=== PATIENT | male | born 1945 | race Caucasian/White ===

== ENCOUNTER 2018-05-15 10:19 | Emergency (ER) | payer OTHER ==
[2018-05-15 11:40] LABS: Urine Blood NEGATIVE (NEG); Urine Glucose NEGATIVE (NEG); Urine Protein NEGATIVE (NEG)
[2018-05-15 11:45] LABS: Urine Bacteria NONE SEEN /HPF (NONE SEEN); Urine Culture Reflex Order NOT NEEDED; Urine RBC NONE SEEN /HPF (NONE SEEN)
--- NOTE | 2018-05-15 11:51 | RAD REPORT ---
EXAM DESCRIPTION: CT - Head Brain Wo Cont - 05/15/2018 11:12 am CLINICAL HISTORY: fall on eliquis<Reason For Exam>fall on eliquis COMPARISON: Head Brain Wo Cont dated 01/13/2018<Comparisons> TECHNIQUE: Axial 5 mm thick images of the head were obtained without IV contrast. All CT scans are performed using dose optimization technique as appropriate and may include automated exposure control or mA/KV adjustment according to patient size. FINDINGS: No intracranial hemorrhage, mass, edema or shift of mid-line structures. No acute infarcti on changes seen. Atrophy and chronic ischemic changes matches the January 13 study. Arterial and physiolog ic calcifications are present. Ventricles are normal. Mastoid air cells and visualized portions of the paranasal sinuses are clear. No acute bony findings. IMPRESSION: Negative non-contrast CT head examination for acute finding. Atrophy and chronic ischemic change similar to January 2010.
--- NOTE | 2018-05-15 11:56 | RAD REPORT ---
EXAM DESCRIPTION: CT - Stone Protocol - 05/15/2018 11:13 am CLINICAL HISTORY: FALL FLANK PAIN<Reason For Exam>FALL FLANK PAIN COMPARISON: Stone Protocol dated 11/09/2017<Comparisons> TECHNIQUE: Axial 5 mm thick images were obtained without oral or IV contrast. The [id number] span s the entirety of the system partially obscuring uppermost abdomen and lung bases. All CT scans are performed using dose optimization technique as appropriate and may include automated exposure control or mA/KV adjustment according to patient size. FINDINGS: No hydronephrosis is present and no obstructing ureteral calculi. No suspicious renal mass es. Isodense masses and pyelonephritis are not excluded on a stone protocol CT scan. Partially filled urinary bladder shows no suspicious finding. No prostate or seminal vesicle abnormality. Imaged portions of the liver, spleen and pancreas show no suspicious findings on non-contrast imaging . Cholecystectomy clips are present. No biliary tree dilatation. No significant adrenal finding. No gastric dilatation or wall thickening. Small bowel acute finding. Large amount of stool is present filling but not dilating the colon. No acute colon process. No hernia, mass or bulky lymphadenopathy noted. No free air, free fluid or inflammatory stranding. Po stsurgical changes are noted from prior right inguinal hernia repair. Prominent disc and bony degenerative changes are present. No acute or destructive bone process. Arter ial calcifications are present. IMPRESSION: Noncontrast CT abdomen and pelvis imaging shows no acute finding. Full findings are detailed in the body of the report. No significant change from comparison. Isodense masses and pyelonephritis are not excluded on stone protocol technique.
--- NOTE | 2018-05-15 12:07 | EDPHYS ---
Physician Documentation [facility] Name: Lee Ramon Age: 73 yrs Sex: Male : 1945 Arrival Date: 05/15/2018 Time: 10:22 Bed 26 Private MD: Josue Santo S ED Physician Victoriano Carballo HPI: 05/15 12:00 This 73 yrs old Male presents to ER via Ambulatory with complaints of Flank gs Pain. 12:00 The patient complains of pain in the left low back. The pain does not radiate. Onset: gs The symptoms/episode began/occurred acutely. Modifying factors: The symptoms are alleviated by nothing. the symptoms are aggravated by movement. Associated signs and symptoms: Pertinent negatives: dizziness, dysuria, hematuria. Severity of pain: At its worst the pain was moderate in the emergency department the pain is unchanged. The patient has experienced similar episodes in the past, a few times. sp fall slipped, no loc. Historical: - Allergies: 10:28 Adhesives; hj - Home Meds: 10:28 amantadine HCl 100 mg Oral cap 1 cap 2 times per day [Active]; Aricept 5 mg Oral tab 1 hj tab once daily [Active]; Ativan 0.5mg injection soln nightly [Active]; atorvastatin 40 mg Oral tab 1 tab once daily [Active]; Colace 100 mg Oral cap 1 cap once daily [Active]; CoQ-10 100 mg Oral cap daily [Active]; Coreg 12.5 mg Oral tab 1 tab 2 times per day [Active]; Eliquis 5 mg Oral tab 1 tab 2 times per day [Active]; Fortaz 2 gram intravenous solr every 8 hours for ESBL in brain [Active]; Keppra 500 mg Oral tab 1 tab 2 times per day [Active]; losartan 25 mg Oral tab 1 tab once daily [Active]; Milk of Magnesia 400 mg/5 mL Oral susp 30 mL as needed [Active]; Miralax 17 gram/dose Oral powd once daily [Active]; Lamictal 100 mg Oral tab 1 tab 2 times per day [Active]; Neurontin 300 mg Oral cap 1 cap 3 times per day [Active]; [place] 7.5-325 mg Oral tab 1 tab q8hr prn [Active]; furosemide 20 mg Oral tab 1 tab 2 times per day [Active]; ropinirole 12 mg Oral Tb24 1 tab nightly [Active]; selegiline HCl 5 mg Oral cap 1 cap 2 times per day [Active]; Sinemet 25-250 mg Oral tab 1 tab 3 times per day [Active]; spironolactone 25 mg Oral tab 1 tab once daily [Active]; tramadol 50 mg Oral tab 1 tab q6hr prn [Active]; Zoloft 50 mg Oral tab 1 tab once daily [Active]; Nuplazid 17 mg oral tab 2 tabs once daily [Active]; - PMHx: 10:28 Anxiety; CHF; 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 - Social history:: Smoking status: Patient/guardian denies using tobacco, Patient/guardian denies using alcohol. - Ebola Screening: : Patient negative for fever greater than or equal to 101.5 degrees Fahrenheit, and additional compatible Ebola Virus Disease symptoms Patient denies exposure to infectious person Patient denies travel to an Ebola-affected area in the 21 days before illness onset. ROS: 12:00 All other systems are negative. gs Exam: 12:00 Head/Face: Normocephalic, atraumatic. Cardiovascular: Regular rate and rhythm with a gs normal S1 and S2. No gallops, murmurs, or rubs. Normal PMI, no JVD. No pulse deficits. Respiratory: Lungs have equal breath sounds bilaterally, clear to auscultation and percussion. No rales, rhonchi or wheezes noted. No increased work of breathing, no retractions or nasal flaring. Abdomen/GI: Soft, non-tender, with normal bowel sounds. No distension or tympany. No guarding or rebound. No evidence of tenderness throughout. Skin: Warm, dry with normal turgor. Normal color with no rashes, no lesions, and no evidence of cellulitis. MS/ Extremity: Pulses equal, no cyanosis. Neurovascular intact. Full, normal range of motion. 12:00 Constitutional: The patient appears alert, awake. 12:00 Back: pain, that is moderate, of the left low back. 12:00 Neuro: Exam negative for acute changes. Vital Signs: 10:30 BP 115 / 69; Pulse 74; Resp 18; Temp 97.9(TE); Pulse Ox 95% on R/A; Weight 111.13 kg; hj Height 6 ft. 1 in. (185.42 cm); Pain 5/10; 12:35 BP 122 / 75; Pulse 72; Resp 18; Pulse Ox 99% ; aj1 10:30 Body Mass Index 32.32 (111.13 kg, 185.42 cm) MDM: 10:51 Patient medically screened. 12:00 Differential diagnosis: pyelonephritis, ruptured AAA, contusion. Data reviewed: vital gs signs, nurses notes. 05/15 10:52 Order name: Urine Microscopic Only; Complete Time: 11:50 05/15 11:35 Order name: Urine Dipstick--Ancillary (enter results); Complete Time: 11:50 em1 05/15 10:52 Order name: Urine Dipstick-Ancillary (obtain specimen); Complete Time: 11:34 05/15 10:52 Order name: CT Head Brain wo Cont; Complete Time: 12:00 05/15 11:11 Order name: Stone Protocol; Complete Time: 12:00 EDMS Administered Medications: No medications were administered Disposition: 05/15/18 12:07 Discharged to Home. Impression: Contusion of abdominal wall. - Condition is Stable. - Discharge Instructions: Contusion. - Medication Reconciliation Form, Thank You Letter, Antibiotic Education, Prescription Opioid Use form. - Follow up: Private Physician; When: 2 - 3 days; Reason: Re-evaluation by your physician. Signatures: Dispatcher [facility] Holli Joy RN RN aj1 Blake Echavarria RN RN Victoriano Carballo MD MD Corrections: (The following items were deleted from the chart) 11:10 10:52 Stone Protocol+CT.RAD.BRZ ordered. EDIA EDMS 12:37 12:07 05/15/2018 12:07 Discharged to Home. Impression: Contusion of abdominal wall. aj1 Condition is Stable. Forms are Medication Reconciliation Form, Thank You Letter, Antibiotic Education, Prescription Opioid Use. Follow up: Private Physician; When: 2 - 3 days; Reason: Re-evaluation by your physician. gs
--- NOTE | 2018-05-15 12:07 | ER ---
Nurse's Notes [facility] Name: Lee Ramon Age: 73 yrs Sex: Male : 1945 Arrival Date: 05/15/2018 Time: 10:22 Bed 26 Private MD: Josue Santo S Diagnosis: Contusion of abdominal wall Presentation: 05/15 10:22 Presenting complaint: states: he fell early this morning, around 1 pm and hj complaining of L hip, flank area; denies hitting head and LOC; hx of Parkinson's dse;. Transition of care: patient was not received from another setting of care. Onset of symptoms was May 15, 2018. Risk Assessment: Do you want to hurt yourself or someone else? Patient reports no desire to harm self or others. Initial Sepsis Screen: Does the patient meet any 2 criteria? No. Patient's initial sepsis screen is negative. Does the patient have a suspected source of infection? No. Patient's initial sepsis screen is negative. Care prior to arrival: None. 10:22 Method Of Arrival: Ambulatory 10:22 Acuity: SHAHAB 4 Triage Assessment: 10:29 General: Appears in no apparent distress. uncomfortable, Behavior is calm, cooperative, hj appropriate for age. Pain: Complains of pain in L hip, L flank. Historical: - Allergies: 10:28 Adhesives; hj - Home Meds: 10:28 amantadine HCl 100 mg Oral cap 1 cap 2 times per day [Active]; Aricept 5 mg Oral tab 1 hj tab once daily [Active]; Ativan 0.5mg injection soln nightly [Active]; atorvastatin 40 mg Oral tab 1 tab once daily [Active]; Colace 100 mg Oral cap 1 cap once daily [Active]; CoQ-10 100 mg Oral cap daily [Active]; Coreg 12.5 mg Oral tab 1 tab 2 times per day [Active]; Eliquis 5 mg Oral tab 1 tab 2 times per day [Active]; Fortaz 2 gram intravenous solr every 8 hours for ESBL in brain [Active]; Keppra 500 mg Oral tab 1 tab 2 times per day [Active]; losartan 25 mg Oral tab 1 tab once daily [Active]; Milk of Magnesia 400 mg/5 mL Oral susp 30 mL as needed [Active]; Miralax 17 gram/dose Oral powd once daily [Active]; Lamictal 100 mg Oral tab 1 tab 2 times per day [Active]; Neurontin 300 mg Oral cap 1 cap 3 times per day [Active]; [place] 7.5-325 mg Oral tab 1 tab q8hr prn [Active]; furosemide 20 mg Oral tab 1 tab 2 times per day [Active]; ropinirole 12 mg Oral Tb24 1 tab nightly [Active]; selegiline HCl 5 mg Oral cap 1 cap 2 times per day [Active]; Sinemet 25-250 mg Oral tab 1 tab 3 times per day [Active]; spironolactone 25 mg Oral tab 1 tab once daily [Active]; tramadol 50 mg Oral tab 1 tab q6hr prn [Active]; Zoloft 50 mg Oral tab 1 tab once daily [Active]; Nuplazid 17 mg oral tab 2 tabs once daily [Active]; - PMHx: 10:28 Anxiety; CHF; 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 - Social history:: Smoking status: Patient/guardian denies using tobacco, Patient/guardian denies using alcohol. - Ebola Screening: : Patient negative for fever greater than or equal to 101.5 degrees Fahrenheit, and additional compatible Ebola Virus Disease symptoms Patient denies exposure to infectious person Patient denies travel to an Ebola-affected area in the 21 days before illness onset. Screenin:29 Abuse screen: Denies threats or abuse. Denies injuries from another. Nutritional hj screening: No deficits noted. Tuberculosis screening: No symptoms or risk factors identified. Fall Risk Fall in past 12 months (25 points). Secondary diagnosis (15 points) impaired mobility, Parkinsons. Assessment: 10:34 General: Appears in no apparent distress. comfortable, Behavior is calm, cooperative, aj1 appropriate for age. Pain: Complains of pain in left lateral posterior chest Pain does not radiate. Pain currently is 5 out of 10 on a pain scale. Quality of pain is described as sharp, Is intermittent, Alleviated by rest, Aggravated by repositioning. Neuro: Level of Consciousness is awake, alert, obeys commands, Oriented to person, place, time, situation, Speech is normal, Facial symmetry appears normal. Cardiovascular: Patient's skin is warm and dry. Respiratory: Airway is patent Respiratory effort is even, unlabored, Respiratory pattern is regular, symmetrical. GI: No signs and/or symptoms were reported involving the gastrointestinal system. : No signs and/or symptoms were reported regarding the genitourinary system. EENT: No signs and/or symptoms were reported regarding the EENT system. Derm: No signs and/or symptoms reported regarding the dermatologic system. Skin is pink, warm \T\ dry. normal. Musculoskeletal: Range of motion: intact in all extremities. 11:30 Reassessment: Patient appears in no apparent distress at this time. No changes from aj1 previously documented assessment. Patient and/or family updated on plan of care and expected duration. Pain level reassessed. Patient is alert, oriented x 3, equal unlabored respirations, skin warm/dry/pink. 12:30 Reassessment: Dr. Carballo at bedside, explaining discharge diagnosis and instruction. aj1 Vital Signs: 10:30 BP 115 / 69; Pulse 74; Resp 18; Temp 97.9(TE); Pulse Ox 95% on R/A; Weight 111.13 kg; hj Height 6 ft. 1 in. (185.42 cm); Pain 5/10; 12:35 BP 122 / 75; Pulse 72; Resp 18; Pulse Ox 99% ; aj1 10:30 Body Mass Index 32.32 (111.13 kg, 185.42 cm) ED Course: 10:22 Patient arrived in ED. sb2 10:22 Josue Santo MD is Private Physician. sb2 10:25 Triage completed. hj 10:29 Arm band placed on. hj 10:29 Patient has correct armband on for positive identification. Placed in gown. Bed in low hj position. Call light in reach. Side rails up X 1. 10:31 Holli Joy RN is Primary Nurse. aj1 10:33 Victoriano Carballo MD is Attending Physician. gs 10:34 No provider procedures requiring assistance completed. aj1 11:00 CT completed. Patient moved to CT via wheelchair. jg6 11:12 CT Head Brain wo Cont In Process Unspecified. EDMS 11:12 Stone Protocol In Process Unspecified. EDMS 11:30 Urine collected: clean catch specimen, clear, park colored, Amount Voided: 100mL. jp3 11:35 Door closed. Lights dimmed. jp3 11:35 Urine Microscopic Only Sent. jp3 12:35 Patient did not have IV access during this emergency room visit. aj1 Administered Medications: No medications were administered Outcome: 12:07 Discharge ordered by . 12:36 Discharged to home ambulatory. aj1 12:36 Condition: good 12:36 Discharge instructions given to patient, Instructed on discharge instructions, Demonstrated understanding of instructions, follow-up care. 12:37 Patient left the ED. aj1 Signatures: Dispatcher [employer] Holli Gramajo, RN RN aj1 Blake Echavarria, RN RN Victoriano Corley MD MD Anneliese Pimentel2 Prosper Rao jp3 Candace Roy jg6
== END 2018-05-15 12:37 | disposition home or self-care (01) ==
LOC: ER 10:19
DX: S30.1XXA Contusion of abdominal wall, initial encounter (principal); W01.0XXA Fall on same level from slipping, tripping and stumbling without subsequent striking against object, initial encounter; Y92.009 Unspecified place in unspecified non-institutional (private) residence as the place of occurrence of the external cause; Z79.01 Long term (current) use of anticoagulants; I11.0 Hypertensive heart disease with heart failure; I50.9 Heart failure, unspecified; Z86.718 Personal history of other venous thrombosis and embolism; G89.29 Other chronic pain; G20 Parkinson's disease; F41.9 Anxiety disorder, unspecified; F44.5 Conversion disorder with seizures or convulsions; E78.5 Hyperlipidemia, unspecified; Z95.1 Presence of aortocoronary bypass graft
CPT/HCPCS: 70450; 74176; 76377; 81003; 81015; 99284

== ENCOUNTER 2018-05-24 15:09 | Observation (INO) | payer OTHER ==
[2018-05-24 15:48] LABS: Absolute Lymphocytes (CBC) 1.4 K/uL (0.7-4.9); Absolute Monocytes 0.6 K/uL (0.1-1.3); Absolute Neutrophil 4.6 K/uL (1.8-8.0); Basophils % 0.6 % (0-1.3); Eosinophils % 3.2 % (0-4.4); Hematocrit 40.5 % (39.6-49.0); Lymphocytes % 20.4 % (15.3-44.8); MCH 29.6 pg (27.0-35.0); MCV 86.9 fL (80-100); MPV 7.9 fL (7.6-11.3); Monocytes % 9.3 % (3.3-12.3); RBC Red Blood Cell Count 4.66 M/uL (4.33-5.43)
--- NOTE | 2018-05-24 15:51 | RAD REPORT ---
EXAM DESCRIPTION: CT - Head Brain Wo Cont - 05/24/2018 3:40 pm CLINICAL HISTORY: Stroke protocol, history of Parkinson's COMPARISON: CT head May 15, 2018, CT head September 2017 TECHNIQUE: Axial 5 mm thick images of the head were obtained without IV contrast. All CT scans are performed using dose optimization technique as appropriate and may include automated exposure control or mA/KV adjustment according to patient size. FINDINGS: No intracranial hemorrhage, mass, edema or shift of mid-line structures. No acute infarcti on changes seen. Atrophy and chronic ischemic changes are present. Ventricles are in proportion to vo lume loss. Arterial and physiologic calcifications are present. Intracranial findings are similar to comparison. Mastoid air cells and visualized portions of the paranasal sinuses are clear. No acute bony findings. There are symmetric frontal bone defects from deep neurostimulator wire place ment. In the left lateral frontal bone there is cortical loss of the outer table as well as in the di ploic space. Dimpling of the overlying soft tissues is present. Review of the September 2017 study show s that this is the site of neurostimulator hardware. This is a surgical defect. Findings telephoned to the referring physician 1531 hours IMPRESSION: No hemorrhage and no acute cortical based infarction. Atrophy and chronic ischemic changes are present similar to comparison.
[2018-05-24 15:52] LABS: Protime INR 1.17
[2018-05-24 16:06] LABS: ALT/SGPT 7 U/L (12-78); AST/SGOT 15 U/L (15-37); Albumin 3.8 g/dL (3.4-5.0); Alkaline Phosphatase 108 U/L (45-117); BUN Blood Urea Nitrogen 21 mg/dL (7-18); Bicarbonate 28 mmol/L (21-32); Bilirubin Direct 0.2 mg/dL (0-0.2); Bilirubin Total 0.5 mg/dL (0.2-1.0); Glucose Level 108 mg/dL (74-106); Potassium 3.5 mmol/L (3.5-5.1); Protein, Total 7.1 g/dL (6.4-8.2); Sodium Level 141 mmol/L (136-145)
--- NOTE | 2018-05-24 17:27 | ER ---
Nurse's Notes [facility] Name: Lee Ramon Age: 73 yrs Sex: Male : 1945 Arrival Date: 05/24/2018 Time: 15:12 Bed 7 Private MD: José Freitas F Diagnosis: Hallucinations, unspecified;Dehydration Presentation: 05/24 15:18 Presenting complaint: states: Pt took a 2 hour nap and when he woke up was unable sv to recall his name or that he had a family. Pt is normally A\T\O x4. Pt has been taking medications for a brain infection and has been hallucinating since then. Symptoms started at 1500 today. Transition of care: patient was not received from another setting of care. Onset of symptoms was May 24, 2018 at 15:00. Care prior to arrival: None. 15:18 Method Of Arrival: Wheelchair sv 15:18 Acuity: SHAHAB 2 sv 15:57 Risk Assessment: Do you want to hurt yourself or someone else? Patient reports no hb desire to harm self or others. Initial Sepsis Screen: Does the patient meet any 2 criteria? No. Patient's initial sepsis screen is negative. Does the patient have a suspected source of infection? No. Patient's initial sepsis screen is negative. 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 - Social history:: Smoking status: unknown Patient/guardian denies using alcohol, street drugs, The patient lives with family. - Ebola Screening: : Patient negative for fever greater than or equal to 101.5 degrees Fahrenheit, and additional compatible Ebola Virus Disease symptoms Patient denies exposure to infectious person Patient denies travel to an Ebola-affected area in the 21 days before illness onset No symptoms or risks identified at this time. - Family history:: not pertinent, pertinent for. Screenin:20 Abuse screen: Denies threats or abuse. Denies injuries from another. Nutritional hb screening: No deficits noted. Tuberculosis screening: No symptoms or risk factors identified. Fall Risk Total Gay Fall Scale indicates High Risk Score (45 or more points). Fall prevention measures have been instituted. Side Rails Up X 2 Frequent Obs/Assessments Occuring Family Present and informed to notify staff if the need to leave the bedside As available patient and family educated on Fall Prevention Program and Strategies. Assessment: 16:00 General: Appears in no apparent distress. obese, well groomed, well developed, well sg nourished, Behavior is cooperative, quiet. Pain: Denies pain. Neuro: Level of Consciousness is awake, obeys commands, Oriented to person, time, situation, Moves all extremities. Speech is normal, Facial symmetry appears normal. Cardiovascular: Heart tones S1 S2 present Capillary refill is brisk in bilateral fingers Patient's skin is warm and dry. Chest pain is denied. Respiratory: Airway is patent Respiratory effort is even, unlabored, Respiratory pattern is regular, symmetrical. GI: Abdomen is round obese, Bowel sounds present X 4 quads. : No signs and/or symptoms were reported regarding the genitourinary system. EENT: No signs and/or symptoms were reported regarding the EENT system. Derm: Skin is pale, Skin temperature is warm. Musculoskeletal: No deficits noted. 17:00 Reassessment: Patient appears in no apparent distress at this time. No changes from hb previously documented assessment. Patient and/or family updated on plan of care and expected duration. Pain level reassessed. Patient is alert, oriented x 3, equal unlabored respirations, skin warm/dry/pink. 18:00 Reassessment: Patient appears in no apparent distress at this time. No changes from hb previously documented assessment. Patient and/or family updated on plan of care and expected duration. Pain level reassessed. Patient is alert, oriented x 3, equal unlabored respirations, skin warm/dry/pink. 18:35 Reassessment: Patient appears in no apparent distress at this time. No changes from hb previously documented assessment. Patient and/or family updated on plan of care and expected duration. Pain level reassessed. Patient is alert, oriented x 3, equal unlabored respirations, skin warm/dry/pink. 19:21 Reassessment: pt went home to gather pt's home meds contact info is Dipti Ramon [phone]. Vital Signs: 15:31 BP 172 / 91; Pulse 75; Resp 16; Pulse Ox 95% on R/A; Weight 111.13 kg; Height 6 ft. 1 ss in. (185.42 cm); Pain 0/10; 15:31 Temp 97.3(TE); ss 17:00 BP 171 / 93; Pulse 72; Resp 16 S; Pulse Ox 100% on R/A; sg 18:08 BP 181 / 99; Pulse 80; Resp 18 S; Pulse Ox 100% ; Pain 0/10; sg 19:27 BP 170 / 97; Pulse 80; Resp 20; Pulse Ox 97% on R/A; Pain 0/10; ak1 15:31 Body Mass Index 32.32 (111.13 kg, 185.42 cm) ss ED Course: 13:[address] via stretcher. sv 15:12 Patient arrived in ED. sb2 15:13 José Freitas MD is Private Physician. sb2 15:18 Brittany Vera MD is Attending Physician. ma2 15:[address] via stretcher. vm2 15:27 CT completed. Patient tolerated procedure well. Patient moved back from CT. vm2 15:27 Arm band placed on. sg 15:30 Patient moved back from CT. sv 15:30 Patient has correct armband on for positive identification. Placed in gown. Bed in low hb position. Call light in reach. Side rails up X2. 15:34 Triage completed. sv 15:35 Inserted saline lock: 20 gauge in right antecubital area, using aseptic technique. ss Blood collected. 15:39 CT Head Brain wo Cont In Process Unspecified. EDMS 15:47 EKG done, by distribution field technician. reviewed by Brittany Vera MD. sm3 15:49 Stroke CXR 1 View In Process Unspecified. EDMS 16:59 Neurologist paged at 16:59 called and left message for Dr. Freitas for ED physician jennifer for patient consulation. 17:05 Neurologist returned call at 17:05. eb 17:17 Pollo Colon, RN is Primary Nurse. sg 17:25 Alka Newsome MD is Hospitalizing Provider. ma2 17:40 Hospitalizing Provider role handed off by Alka Newsome MD ma2 17:40 David Steven MD is Hospitalizing Provider. ma2 19:23 No provider procedures requiring assistance completed. Patient admitted, IV remains in ak1 place. 19:26 Urine collected: clean catch specimen, park colored. cb2 Administered Medications: 17:30 Drug: NS 0.9% 1000 ml Route: IV; Rate: 1 bolus; Site: right antecubital; 19:38 Follow up: IV Status: Infusion continued upon admission ak1 17:39 CANCELLED (Physician Discretion): NS 0.9% 1000 ml IV at 1 bolus Per protocol; 1000 mL tn2 bolus Point of Care Testing: Blood Glucose: 15:31 Blood Glucose: 103 mg/dL; Ranges: Outcome: 17:26 Decision to Hospitalize by Provider. ma2 20:03 Admitted to Med/surg accompanied by tech, via stretcher, room 424, with chart, Report ak1 called to [place] nurse for 424 20:03 Condition: stable 20:03 Instructed on the need for admit. 20:18 Patient left the ED. ak1 Signatures: Dispatcher [employer] EDMS Alexandra Pierson, RN Pollo Castellano RN RN Megan Headley RN RN ss Krenek, Amber, RN RN [facility] Leslie Rothman, RN RN Coco Langston Barrington Newberry Mohammad, MD MD tn2 Anneliese Pimentel [facility] Sultana Aguilar Shak[facility]
--- NOTE | 2018-05-24 17:27 | EDPHYS ---
Physician Documentation [facility] Name: Lee Ramon Age: 73 yrs Sex: Male : 1945 Arrival Date: 05/24/2018 Time: 15:12 Bed 7 Private MD: José Yoon F ED Physician Brittany Vera HPI: 05/24 15:52 This 73 yrs old Male presents to ER via Wheelchair with complaints of Memory ma2 Loss. 15:52 The patient's problem is reported as altered mental status, confused. Onset: The ma2 symptoms/episode began/occurred suddenly. Onset: The symptoms/episode began/occurred suddenly, 2 day(s) ago. Duration: The episodes are intermittent. Associated signs and symptoms: Pertinent negatives: abdominal pain, agitation, blurred vision, combativeness, confusion, diarrhea, headache, nausea, palpitations, shortness of breath, vomiting. Severity of symptoms: At their worst the symptoms were mild in the emergency department the symptoms have resolved. Patient's baseline: he gets intermittent hallucination, however it was never up to the point where he did not know his name . The patient has experienced similar episodes in the past. 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 - Social history:: Smoking status: unknown Patient/guardian denies using alcohol, street drugs, The patient lives with family. - Ebola Screening: : Patient negative for fever greater than or equal to 101.5 degrees Fahrenheit, and additional compatible Ebola Virus Disease symptoms Patient denies exposure to infectious person Patient denies travel to an Ebola-affected area in the 21 days before illness onset No symptoms or risks identified at this time. - Family history:: not pertinent, pertinent for. ROS: 15:52 Constitutional: Negative for fever, chills, and weight loss, Cardiovascular: Negative ma2 for chest pain, palpitations, and edema, Respiratory: Negative for shortness of breath, cough, wheezing, and pleuritic chest pain, Back: Negative for injury and pain, MS/Extremity: Negative for injury and deformity, Neuro: Negative for headache, weakness, numbness, tingling, and seizure. 15:52 Neuro: Positive for confusion , Negative for altered mental status, dizziness, headache, seizure activity, syncope, visual changes, weakness. Exam: 15:52 Radiologist reports: brain defect seen likely d/t prior surgery ma2 15:52 Constitutional: This is a well developed, well nourished patient who is awake, alert, and in no acute distress. Head/Face: Normocephalic, atraumatic. Eyes: Pupils equal round and reactive to light, extra-ocular motions intact. Lids and lashes normal. Conjunctiva and sclera are non-icteric and not injected. Cornea within normal limits. Periorbital areas with no swelling, redness, or edema. ENT: Nares patent. No nasal discharge, no septal abnormalities noted. Tympanic membranes are normal and external auditory canals are clear. Oropharynx with no redness, swelling, or masses, exudates, or evidence of obstruction, uvula midline. Mucous membranes moist. Cardiovascular: Regular rate and rhythm with a normal S1 and S2. No gallops, murmurs, or rubs. Normal PMI, no JVD. No pulse deficits. Respiratory: Lungs have equal breath sounds bilaterally, clear to auscultation and percussion. No rales, rhonchi or wheezes noted. No increased work of breathing, no retractions or nasal flaring. Abdomen/GI: Soft, non-tender, with normal bowel sounds. No distension or tympany. No guarding or rebound. No evidence of tenderness throughout. MS/ Extremity: Pulses equal, no cyanosis. Neurovascular intact. Full, normal range of motion. Neuro: Awake and alert, GCS 15, oriented to person, place, time, and situation. Cranial nerves II-XII grossly intact. Motor strength 5/5 in all extremities. Sensory grossly intact. Cerebellar exam normal. Normal gait. Psych: Awake, alert, with orientation to person, place and time. Behavior, mood, and affect are within normal limits. Vital Signs: 15:31 BP 172 / 91; Pulse 75; Resp 16; Pulse Ox 95% on R/A; Weight 111.13 kg; Height 6 ft. 1 ss in. (185.42 cm); Pain 0/10; 15:31 Temp 97.3(TE); ss 17:00 BP 171 / 93; Pulse 72; Resp 16 S; Pulse Ox 100% on R/A; sg 18:08 BP 181 / 99; Pulse 80; Resp 18 S; Pulse Ox 100% ; Pain 0/10; sg 19:27 BP 170 / 97; Pulse 80; Resp 20; Pulse Ox 97% on R/A; Pain 0/10; ak1 15:31 Body Mass Index 32.32 (111.13 kg, 185.42 cm) ss MDM: 15:18 Patient medically screened. ma2 15:52 Differential diagnosis: Dementia, Alzheimer disease, Parkinson disease, metabolic ma2 disorder, drug effects. 17:14 Data reviewed: vital signs, nurses notes, EMS record, lab test result(s). Counseling: I ma2 had a detailed discussion with the patient and/or guardian regarding: the historical points, exam findings, and any diagnostic results supporting the discharge/admit diagnosis, the presence of at least one elevated blood pressure reading (>120/80) during this emergency department visit, the need for outpatient follow up. Response to treatment: the patient's symptoms have mildly improved after treatment, the patient's symptoms have markedly improved after treatment. ED course: patient hallucination improved, he has mild elevation in Cr from 0.6 to 1.4.. case discussed with Dr. yoon, given the family wants him to go over medication and prefer to be observed in case this happen again, plan agreed by dr. Garcia. discussed and accepted by admitting dr. Hassan. 17:39 ED course: discussed and accepted by dr. hassan. [facility] 05/24 15:31 Order name: Basic Metabolic Panel; Complete Time: 16:55 [facility] 05/24 17:06 Interpretation: Abnormal. [facility] 05/24 15:31 Order name: CBC with Diff; Complete Time: 16:55 [facility] 05/24 15:31 Order name: Protime (+inr); Complete Time: 16:55 [facility] 05/24 15:31 Order name: Ptt, Activated; Complete Time: 16:55 [facility] 05/24 15:31 Order name: Urine Microscopic Only [facility] 05/24 15:32 Order name: Urine Drug Screen [facility] 05/24 15:32 Order name: Acetaminophen; Complete Time: 16:55 [facility] 05/24 15:32 Order name: Hepatic Function; Complete Time: 16:55 [facility] 05/24 15:32 Order name: Salicylate; Complete Time: 17:34 [facility] 05/24 15:32 Order name: AMMONIA; Complete Time: 16:55 [facility] 05/24 15:32 Order name: Lactate; Complete Time: 16:55 [facility] 05/24 16:20 Order name: Glucose, Ancillary Testing; Complete Time: 16:55 [facility] 05/24 17:44 Order name: Basic Metabolic Panel [facility] 05/24 17:44 Order name: Basic Metabolic Panel [facility] 05/24 15:19 Order name: NPO; Complete Time: 17:06 [facility] 05/24 15:30 Order name: CT Head Brain wo Cont; Complete Time: 16:55 [facility] 05/24 15:31 Order name: Stroke CXR 1 View [facility] 05/24 15:31 Order name: EKG; Complete Time: 15:31 [facility] 05/24 15:31 Order name: Accucheck; Complete Time: 15:40 [facility] 05/24 15:31 Order name: Cardiac monitoring; Complete Time: 15:40 [facility] 05/24 15:31 Order name: EKG - Nurse/Tech; Complete Time: 18:39 [facility] 05/24 17:21 Order name: Diet Regular; Complete Time: 17:21 hb 05/24 17:44 Order name: Regular EDND 05/24 17:44 Order name: CBC with Automated Diff [facility] 05/24 17:44 Order name: CBC with Automated Diff [facility] 05/24 19:28 Order name: Urine Dipstick--Ancillary (enter results) in 05/24 19:34 Order name: Urine Dipstick-Ancillary [facility] 05/24 15:31 Order name: IV Saline Lock; Complete Time: 15:40 [facility] 05/24 15:31 Order name: Labs collected and sent; Complete Time: 15:40 [facility] 05/24 15:31 Order name: O2 Per Protocol; Complete Time: 15:40 [facility] 05/24 15:31 Order name: O2 Sat Monitoring; Complete Time: 15:40 [facility] 05/24 15:31 Order name: Stroke Swallow Screen; Complete Time: 17:06 ma2 05/24 15:31 Order name: Urine Dipstick-Ancillary (obtain specimen); Complete Time: 19:29 ma2 Administered Medications: 17:30 Drug: NS 0.9% 1000 ml Route: IV; Rate: 1 bolus; Site: right antecubital; 19:38 Follow up: IV Status: Infusion continued upon admission ak1 17:39 CANCELLED (Physician Discretion): NS 0.9% 1000 ml IV at 1 bolus Per protocol; 1000 mL ma2 bolus Point of Care Testing: Blood Glucose: 15:31 Blood Glucose: 103 mg/dL; ss Ranges: Critical Glucose Levels:Adult <50 mg/dl or >400 mg/dl <40 mg/dl or >180 mg/dl Disposition: 05/24/18 17:26 Hospitalization ordered by David Hassan for Observation. Preliminary diagnosis are Hallucinations, unspecified, Dehydration. - Bed requested for Telemetry/MedSurg (observation). - Status is Observation. ak1 - Condition is Stable. - Problem is new. - Symptoms have improved. UTI on Admission? No Signatures: Dispatcher [employer] EDND Mary Avila RN RN dw Gay, Steven, RN RN Agatha Grant RN RN ak1 Brittany Vera MD MD dc2 Corrections: (The following items were deleted from the chart) 15:47 15:31 Head C Spine MPR Wo Con+CT.RAD.BRZ ordered. EDND EDMS 17:39 17:38 NS 0.9% 1000 ml IV at 1 bolus Per protocol; 1000 mL bolus ordered. dc2 dc2 17:40 17:14 ED course: patient hallucination improved, he has mild elevation in Cr from 0.6 ma2 to 1.4.. case discussed with Dr. yoon, given the family wants him to go over medication and prefer to be observed in case this happen again, plan agreed by dr. Garcia. discussed and accepted by admitting dr. Newsome . ma2 17:40 17:26 Hospitalization Ordered by Alka Newsome MD for Observation. Preliminary ma2 diagnosis is Hallucinations, unspecified; Dehydration. Bed requested for Telemetry/MedSurg (observation). Status is Observation. Condition is Stable. Problem is new. Symptoms have improved. UTI on Admission? No. ma2 19:34 17:40 05/24/2018 17:26 Hospitalization Ordered by David Hassan MD for Observation. dw Preliminary diagnosis is Hallucinations, unspecified; Dehydration. Bed requested for Telemetry/MedSurg (observation). Status is Observation. Condition is Stable. Problem is new. Symptoms have improved. UTI on Admission? No. ma2 20:18 19:34 05/24/2018 17:26 Hospitalization Ordered by David Hassan MD for Observation. ak1 Preliminary diagnosis is Hallucinations, unspecified; Dehydration. Bed requested for Telemetry/MedSurg (observation). Status is Observation. Condition is Stable. Problem is new. Symptoms have improved. UTI on Admission? No. dw
[2018-05-24] MEDS ORDERED: ACETAMINOPHEN 500 MG TAB PO PRN (17:59)
[2018-05-24] MEDS ORDERED: ONDANSETRON 4 MG/2 ML VIAL IV PRN (17:59)
[2018-05-24] MEDS: NA CHLORIDE 0.9% 1,000 ML IV SCH ×2 (18:00→22:25)
--- NOTE | 2018-05-24 18:11 | RAD REPORT ---
EXAM DESCRIPTION: RAD - Chest Single View - 05/24/2018 3:49 pm CLINICAL HISTORY: Stroke-like symptoms, stroke protocol evaluation COMPARISON: Portable October 2017, portable September 2017 TECHNIQUE: AP portable chest image was obtained 1545 hours . FINDINGS: No peripheral mass or consolidation. Hazy opacification over the lower left lung field is suspected to be a combination of pericardial fat and scarring from CABG. Pattern is not substantially different from comparison. Heart and vasculature are normal. No measurable pleural effusion and no p neumothorax. No gross bony abnormality seen. No acute aortic findings suspected. IMPRESSION: No acute cardiopulmonary process. No significant change from comparison.
[2018-05-24] MEDS ORDERED: NA CHLORIDE 0.9% 1,000 ML ONE (18:16)
[2018-05-24] MEDS ORDERED: ENOXAPARIN 30 MG/0.3 ML SQ SCH (18:20)
--- NOTE | 2018-05-24 19:10 | EKG ---
Test Date: 2018-05-24 Test Time: 15:41:21 Salvage Grinder: HECTOR MEASUREMENT RESULTS: Intervals: Rate: 75 VA: QRSD: 80 QT: 390 QTc: 435 [place]: P: VA: QRS: -19 T: 84 INTERPRETIVE STATEMENTS: Accelerated Junctional rhythm Minimal voltage criteria for LVH, may be normal variant Nonspecific T wave abnormality Abnormal ECG Compared to ECG 03/14/2018 12:47:13 Accelerated junctional rhythm now present Left ventricular hypertrophy now present T-wave abnormality now present Sinus rhythm no longer present Electronically Signed On 05-24-18 19:09:46 CDT by Marty Marr
[2018-05-24 19:34] LABS: Urine Blood NEGATIVE (NEG); Urine Glucose NEGATIVE (NEG); Urine Protein NEGATIVE (NEG); Urine Specific Gravity 1.025 (1.005-1.030)
[2018-05-24 19:43] LABS: Barbiturates NEGATIVE (NEGATIVE); Benzodiazepines NEGATIVE (NEGATIVE); Cocaine NEGATIVE (NEGATIVE); METHAMPHETAM NEGATIVE (NEGATIVE); Methadone NEGATIVE (NEGATIVE); Opiates NEGATIVE (NEGATIVE); Phencyclidine NEGATIVE (NEGATIVE); THC Cannibis NEGATIVE (NEGATIVE)
[2018-05-24 20:16] LABS: Urine Bacteria <20 /HPF (NONE SEEN); Urine Culture Reflex Order NOT NEEDED; Urine Mucus LIGHT /HPF (NONE SEEN); Urine RBC NONE SEEN /HPF (NONE SEEN)
[2018-05-24] MEDS: CARVEDILOL 12.5 MG TAB PO SCH (22:26)
[2018-05-24] MEDS: LOSARTAN POTASSIUM 50 MG TABLET PO SCH (22:27)
[2018-05-24] MEDS: lamoTRIgine 100 MG TAB PO SCH (23:28)
[2018-05-25 04:20] LABS: Absolute Lymphocytes (CBC) 1.2 K/uL (0.7-4.9); Absolute Monocytes 0.5 K/uL (0.1-1.3); Absolute Neutrophil 3.2 K/uL (1.8-8.0); Basophils % 0.7 % (0-1.3); Eosinophils % 4.1 % (0-4.4); Hematocrit 36.8 % (39.6-49.0); Lymphocytes % 22.8 % (15.3-44.8); MCH 30.1 pg (27.0-35.0); MCV 86.7 fL (80-100); RBC Red Blood Cell Count 4.25 M/uL (4.33-5.43)
[2018-05-25 04:34] LABS: Potassium 3.4 mmol/L (3.5-5.1)
--- NOTE | 2018-05-25 04:58 | P.HP ---
Certification for Inpatient Patient admitted to: Observation With expected LOS: <2 Midnights Patient will require the following post-hospital care: None Practitioner: I am a practitioner with admitting privileges, knowledge of patient current condition, hospital course, and medical plan of care. Services: Services provided to patient in accordance with Admission requirements found in Title 42 Section 412.3 of the Code of Federal Regulations Patient History Date of Service: 05/24/18 Reason for admission: ALTERED MENTAL STATUS History of Present Illness: Patient is a 73-year-old gentleman who came into the hospital with confusion. According to patient his memory has been altered. He is confused he does really recall exactly what he was brought into the emergency room. On review of the medical records he apparently his been having intermittent hallucinations. A got to the point were he was unable to recall his GI physicians last name. Patient's memory was also confused. However, patient is feeling better and he is able to remember row most of the questions I ask him at this time. He does appear to be doing better but he will need to be admitted for observation. Allergies Adhesives Allergy (Mild, Uncoded 05/25/18 01:14) Itching Home Medications: Amantadine [Symmetrel*] 1 tab PO BID 11/10/17 Apixaban [Eliquis] 1 tab PO BID 11/10/17 Atorvastatin Calcium [Lipitor] 1 tab PO BEDTIME 11/10/17 Carbidopa/Levodopa 25-250 [Sinemet 25-250*] 1 tab PO TID 11/10/17 Carvedilol [Coreg] 1 tab PO BID 11/10/17 Gabapentin [Neurontin*] 300 mg PO BID 11/10/17 Losartan Potassium [Cozaar] 1 tab PO DAILY PRN 11/10/17 Polyethylene Glycol 3350 [Miralax] 1 packet PO DAILY 11/10/17 Ropinirole HCl [Requip Xl] 1 tab PO BEDTIME 11/10/17 Spironolactone 1 tab PO DAILY 11/10/17 Dutasteride [Avodart*] 2 tab PO BID 05/25/18 Furosemide [Lasix] 20 mg PO BIDL 05/25/18 Lamotrigine [Lamotrigine ER] 100 mg PO BID 05/25/18 Methylprednisolone [Medrol dosepack] 4 mg PO DAILY 05/25/18 Pimavanserin Tartrate [Nuplazid] 17 mg PO BID 05/25/18 - Past Medical/Surgical History Has patient received pneumonia vaccine in the past: Yes Diabetic: No -: Parkinsons -: New onset seizures -: HTN -: Neuropathy -: CHF -: hyperlipidemia -: GERD -: PVD -: Triple bypass -: L. carotid endarterectomy -: gallbladder removal -: back sx 2x -: R. knee scope -: hernia repair -: neuro surgery-stimulator and subsequent removal - Family History Mother Medical History: Heart disease, Diabetes Father Medical History: Heart disease - Social History Smoking Status: Never smoker Alcohol use: No CD- Drugs: No Caffeine use: Yes Place of Residence: Home Review of Systems 10-point ROS is otherwise unremarkable Physical Examination - Vital Signs Temperature: 97.7 F Blood Pressure: 159/79 Pulse: 81 Respirations: 20 Pulse Ox (%): 93 - Physical Exam General: Alert, In no apparent distress, Oriented x3 HEENT: Atraumatic, PERRLA, Mucous membr. moist/pink, EOMI, Sclerae nonicteric Neck: Supple, 2+ carotid pulse no bruit, No LAD, Without JVD or thyroid abnormality Respiratory: Clear to auscultation bilaterally, Normal air movement Cardiovascular: Regular rate/rhythm, Normal S1 S2, No murmurs Gastrointestinal: Normal bowel sounds, Soft and benign, Non-distended, No tenderness Musculoskeletal: No clubbing, No swelling, No tenderness Integumentary: No rashes Neurological: Normal gait, Normal speech, Normal strength at 5/5 x4 extr, Normal tone, Sensation intact, Cranial nerves 3-12 intact, Normal affect Lymphatics: No axilla or inguinal lymphadenopathy - Studies Laboratory Data (last 24 hrs) 05/24/18 15:40: PT 13.8 H, INR 1.17, APTT 33.4 05/24/18 15:40: WBC 6.9, Hgb 13.8, Hct 40.5, Plt Count 173 05/24/18 15:40: Sodium 141, Potassium 3.5, BUN 21 H, Creatinine 1.40 H, Glucose 108 H, Total Bilirubin 0.5, AST 15, ALT 7 L, Alkaline Phosphatase 108 Assessment & Plan - Plan Assessment: 1. Altered mental status 2. History of hypertension 3. History of type 2 diabetes 4. History of psychosis 5. Acute kidney injury Plan: 1. Neuro checks q.4 hr 2. Monitor mentation in if does not improve may need to get MRI of the brain 3. Strict blood pressure and blood sugar control 4. Monitor renal function closely 5. GI and DVT prophylaxis Discharge Plan: Home Plan to discharge in: 48 Hours - Advance Directives Does patient have a Living Will: No Does patient have a Durable POA for Healthcare: Yes - Code Status/Comfort Care Code Status Assessed: Yes Code Status: Full Code Critical Care: No Time Spent Managing PTS Care (In Minutes): 50
[2018-05-25] MEDS: LOSARTAN POTASSIUM 50 MG TABLET PO SCH (08:31)
[2018-05-25] MEDS: CARVEDILOL 12.5 MG TAB PO SCH (08:31)
[2018-05-25] MEDS: lamoTRIgine 100 MG TAB PO SCH (08:37)
[2018-05-25] MEDS: NA CHLORIDE 0.9% 1,000 ML IV SCH (08:38)
[2018-05-25] MEDS ORDERED: SPIRONOLACTONE 25 MG TABLET PO SCH (09:00)
[2018-05-25] MEDS ORDERED: ROPINIROLE HCL PO SCH (21:00)
--- NOTE | 2018-05-25 23:41 | CON ---
Reason For Consultation: Consultation called by Dr. Finney because of altered mental status. History Of Present Illness: Mr. 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 At his baseline, he is often confused, has hallucinations , paranoid ideation, may believe that his is cheating on him for that there are people trying to enter his house and he may be up at nighttime looking around his house with a flashlight. The patie nt had similar activity over the last night, actually got up and thought as mentioned that is someone was in his house. He thought there was a car driving on gravel. He got up with a flashlight trying to find the car and felt that his was cheating on him. At one point, it was reported that he p icked up a knife and was going to use it and had an argument about what his was doing or not doi leti. She brought him to [facility] for further evaluation as she has had very tough time man aging his hallucinations. His head CT scan in the emergency room was unremarkable for any acute ischemic or hemorrhagic change. There was atrophy and chronic ischemic disease identified with the ventricles increased in proporti on. His electrocardiogram showed an accelerated junctional rhythm, rate of 75, minimal voltage crite oc for left ventricular hypertrophy. His chest x-ray showed no acute cardiopulmonary processes. Bl ood work showed a normal complete blood count with differential, coagulation panel with INR of 1.17. Chemistries did show slight dehydration with creatinine elevated at 1.4. Liver function studies wer e normal. Sodium, potassium, chloride, and carbon dioxide were all normal. Urinalysis was unremarka ble and urine toxicology screen was negative. Since his admission, he did receive some IV fluids for his dehydration and has been treated with DVT prophylaxis and antihypertensive medications restarted . He has also been on Lamictal for his mood stabilization, 100 mg twice daily and on levodopa and ca rbidopa as well as Nuplazid for his psychosis associated with Parkinson disease. However, the Nuplaz id and levodopa and carbidopa are not restarted. The patient's his who is at the bedside said he has actually done better since he has been hospi talized, however, but she is very worried about him going back home and returning to his prior behavi ors. Past Medical History: Includes the Parkinson disease. 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 That has been treated. He has hypertension, peripheral neuropathy, congestive heart failure, dyslipidemia, gastro esophageal reflux disease, and peripheral vascular disease. Surgeries: Antral bypass, left and right endarterectomy, cholecystectomy, multiple back surgeries, s timulator implantation and removal, hernia repair, and right knee scoping. Family History: Hypertension, diabetes in mother and heart disease in father. Social History: No alcohol, tobacco, or IV drug use. He lives at home with his . Allergies: ADHESIVE TAPE CAUSES ITCHING. Home Medications: Amantadine daily, Eliquis daily, Lipitor at night, Sinemet 25/250 three times shorty y, carvedilol twice daily, gabapentin 300 mg twice daily, Cozaar 1 tablet daily, Mirapex 1 pack daily , Requip 1 daily, spironolactone daily, Avodart 2 twice daily, Lasix 20 mg twice daily, lamotrigine 1 00 mg twice daily, Medrol Dosepak 4 mg daily, prednisone and Nuplazid 17 mg twice daily. Review of Systems: Per the patient's , hallucinations, delusions, paranoid ideation, and difficulty with initiation of movement. Otherwise, no recent fevers, chills, nausea, or vomiting. No myalgias, arthralgias, ra shes, headache, or weight change. Physical Examination: vital Signs: Blood pressure 130/52, pulse 66, respiratory rate 18, temp 96.7, ox saturation 96%, tremaine ght 245 pounds, and height 6 feet and 1 inch. General: Mr. Ramon is resting in bed. He is in no significant distress. HEENT: He is normocephalic, atraumatic. His sclerae are anicteric. Oropharynx is pink and moist. Neck: Supple. Chest: Clear. Heart: Regular. Extremities: Show no significant edema, cyanosis, or clubbing. Neurological: He is alert and oriented to person and situation. Does follow simple commands without difficulty. Cranial nerves reveal no focal deficits. His motor examination has increased tone in t he upper and lower extremities with paratonia noted. No focal weakness. He has at least 4+/5 streng th proximally and distally in the extremities. Coordination is slow movements in the upper and lower extremities, but no radha dysmetria noted in the upper and lower extremities. Reflexes are brisk in the upper and lower extremities. Gait, the patient does require assistance as he ambulates. Assessment: Mr. Ramon is a 73-year-old patient with Parkinson disease with psychosis and dementia. He has multiple comorbid conditions including he has had seizures after complication of deep brain stimulator shunt implantation with meningitis. He does have significant hallucinations, especially a t night with sundowning. Plan: 1.May give some clonazepam at night to help the patient relax and sleep. 2.Continue with Nuplazid 17 mg twice daily. 3.Continue with Sinemet 25/100 three times daily. 4.Continue with amantadine as scheduled. 5.Continue with DVT prophylaxis. 6.Once the patient is discharged, he should have a home health for cognitive therapy and for assista nce with his to receive some assistance in his care at home. He does have [facility], [facility] will be following the patient at home. 7.The patient may follow up in Dr. Freitas's clinic 1 month later. MOLLY Voice ID: [id number] Report ID: [id number]
--- NOTE | 2018-05-26 16:06 | DS ---
Date of Discharge: 05/25/2018 [employer] Chief Scientist: Dr. Freitas with Neurology. Discharge Diagnoses: 1.Acute metabolic encephalopathy. 2.Hallucinations. 3.Essential hypertension. 4.Diabetes mellitus type 2, insulin dependent with hyperglycemia. 5.History of psychosis. 6.End-stage Parkinson disease, failed deep brain stimulator. 7.Acute kidney injury, resolved. 8.Obesity. BMI of 32. Hospital Course: The patient is a 73-year-old male who came in with a history of long-standing Parki nson's with a stepwise decline. Sees Dr. Freitas as an outpatient, comes in with hallucinations and confusion. The patient has had some behavioral disturbances at home with calling police, using a fl ashlight, and grabbing a knife. Fortunately, there was no one there, not recognizing his . The patient was admitted to the hospital for evaluation and workup. He was found to have elevated creati nine, which improved with some IV fluid hydration. He did have some electrolyte abnormalities includ ing low potassium, which was corrected. His UDS was negative. UA did not show any acute infection. His head CT scan was negative for any acute bleed. There was some atrophy and chronic ischemic ritchie ges similar to previous comparison. He does have symmetric frontal bone defects from deep neurostimu lator wire placement. He has left outer frontal bone cortical loss in the outer table zone with dipl oic space. His chest x-ray does not show any acute infiltrates or pneumonia. The patient otherwise did well. He is able to sleep well, did not have any further hallucinations or periods of confusion. He was seen by Dr. Freitas and cleared for discharge. He was more stable, able to ambulate, guanakito mckinney, recognizing his , able to tolerate his diet. His home health was set up with [facility] from [facility]. The patient was then discharged home in a fair condition. Activity as tolerated. Fall precaution. Diet: Heart healthy. Followup: Follow up with primary care physician in 2-3 days. Follow up with neurologist, Dr. Vickie bailey in 2 weeks. Return to ER for worsening condition. Medications: As per medication reconciliation list. The patient was recommended to be started on Kl onopin at bedtime by Dr. Freitas for his symptoms. The patient in the future will likely need to be placed in fci that has a memory unit. The is a good caregiver, seems to need respite. Recommendations are made to the . Physical Examination: General: Awake, alert, oriented, no acute distress. Obese male. CV: S1, S2. No murmurs. Respiratory: Moving air well bilaterally. Abdomen: Abdomen is soft, nontender, nondistended. Positive bowel sounds. Extremities: No clubbing, cyanosis, edema. Neurologic: Nonfocal. SA/MODL Voice ID: [id number] Report ID: [id number]
== END 2018-05-25 16:40 | disposition home health service (06) ==
LOC: ER 15:09 → ERHOLD 17:42 → 4TH 19:37
PROVIDERS: ADMIT Family Medicine; ATTEND Hospitalist
DX: G93.41 Metabolic encephalopathy (principal); R44.3 Hallucinations, unspecified; N17.9 Acute kidney failure, unspecified; G20 Parkinson's disease; I11.0 Hypertensive heart disease with heart failure; I50.9 Heart failure, unspecified; I73.9 Peripheral vascular disease, unspecified; E78.5 Hyperlipidemia, unspecified; K21.9 Gastro-esophageal reflux disease without esophagitis; Z95.1 Presence of aortocoronary bypass graft; F02.80 Dementia in other diseases classified elsewhere, unspecified severity, without behavioral disturbance, psychotic disturbance, mood disturbance, and anxiety; E11.65 Type 2 diabetes mellitus with hyperglycemia; E66.9 Obesity, unspecified; Z68.32 Body mass index [BMI] 32.0-32.9, adult
CPT/HCPCS: 36415; 70450; 71045; 80048 ×2; 80076; 80307 ×8; 80329 ×2; 82140; 82962; 83605; 85025 ×2; 85610; 85730; 93005; 94760; 96360; 96361; 99285; G0378 ×2; J1650; J7030 ×3; 81003; 81015

== ENCOUNTER 2018-07-04 16:59 | Emergency (ER) | payer OTHER ==
[2018-07-04 17:40] LABS: Absolute Lymphocytes (CBC) 1.2 K/uL (0.7-4.9); Absolute Monocytes 0.7 K/uL (0.1-1.3); Absolute Neutrophil 7.2 K/uL (1.8-8.0); Basophils % 0.5 % (0-1.3); Eosinophils % 2.5 % (0-4.4); Hematocrit 40.6 % (39.6-49.0); Lymphocytes % 13.1 % (15.3-44.8); MCH 30.3 pg (27.0-35.0); MCV 88.8 fL (80-100); MPV 7.9 fL (7.6-11.3); RBC Red Blood Cell Count 4.57 M/uL (4.33-5.43)
[2018-07-04 17:56] LABS: ALT/SGPT 24 U/L (12-78); AST/SGOT 22 U/L (15-37); Albumin 3.6 g/dL (3.4-5.0); Alkaline Phosphatase 95 U/L (45-117); BUN Blood Urea Nitrogen 21 mg/dL (7-18); Bicarbonate 25 mmol/L (21-32); Bilirubin Direct < 0.1 mg/dL (0-0.2); Bilirubin Total 0.3 mg/dL (0.2-1.0); Glucose Level 116 mg/dL (74-106); Lipase 130 U/L (73-393); Potassium 3.7 mmol/L (3.5-5.1); Protein, Total 6.8 g/dL (6.4-8.2); Sodium Level 140 mmol/L (136-145)
--- NOTE | 2018-07-04 19:18 | RAD REPORT ---
EXAM DESCRIPTION: CT - Stone Protocol - 07/04/2018 6:48 pm CLINICAL HISTORY: Abdominal pain, vomiting, diarrhea COMPARISON: CT May 15 TECHNIQUE: Axial [address] imaging of the abdomen and pelvis was performed without IV contrast. No IV contrast was given because of allergy, abnormal renal function, patient refusal or physician re quest. No oral contrast administered. All CT scans are performed using dose optimization technique as appropriate and may include automated exposure control or mA/KV adjustment according to patient size. FINDINGS: No suspicious findings in the lung bases. Scarring changes are present. No pericardial thi ckening or effusion. The liver, spleen and pancreas show no suspicious findings on non-contrast imaging. Cholecystectomy c lips are present. No biliary tree dilatation. No hydronephrosis or obstructing calculus. No new renal parenchymal finding. No significant adrenal finding. Isodense renal masses and pyelonephritis cannot be excluded in the absence of IV contrast. T he urinary bladder is without significant finding. No dilated bowel loops or bowel wall thickening. No free air, free fluid or inflammatory stranding. P rominent amount of stool is present mildly dilating the rectum. Sigmoid colon is tortuous and redunda nt extending up to the right upper quadrant. No active GI process seen. No mass or bulky lymphadenopa thy. No omental thickening. Prominent disc and bony degenerative changes are present. Postsurgical changes are noted at L5. There are pars defects an anterior subluxation. No pathologic bone process seen. Vascular calcifications a re present. IMPRESSION: No obstruction, free air or surgically emergent finding. Large amount of stool is present causing mild dilation of the rectum. This is progressive from prior imaging. No hydronephrosis or acute finding. Full assessment is limited is the absence of IV contrast.
--- NOTE | 2018-07-04 20:25 | EDPHYS ---
Physician Documentation [facility] Name: Lee Ramon Age: 73 yrs Sex: Male : 1945 Arrival Date: 07/04/2018 Time: 17:02 Bed 18 Private MD: ED Physician Victoriano Carballo HPI: 07/04 20:08 This 73 yrs old Male presents to ER via Wheelchair with complaints of Bowel gs Problem. 20:08 The patient presents with CONSTIPATION. Onset: The symptoms/episode began/occurred gs today. Associated signs and symptoms: Pertinent negatives: fever. The symptoms are described as crampy. Severity of pain: At its worst the pain was moderate in the emergency department the pain is unchanged. The patient has experienced similar episodes in the past, chronically. 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 - Social history:: Smoking status: Patient/guardian denies using tobacco. - Ebola Screening: : No symptoms or risks identified at this time. ROS: 20:14 All other systems are negative. gs Exam: 20:14 Head/Face: Normocephalic, atraumatic. Eyes: Pupils equal round and reactive to light, gs extra-ocular motions intact. Lids and lashes normal. Conjunctiva and sclera are non-icteric and not injected. Cornea within normal limits. Periorbital areas with no swelling, redness, or edema. ENT: Nares patent. No nasal discharge, no septal abnormalities noted. Tympanic membranes are normal and external auditory canals are clear. Oropharynx with no redness, swelling, or masses, exudates, or evidence of obstruction, uvula midline. Mucous membranes moist. Neck: Trachea midline, no thyromegaly or masses palpated, and no cervical lymphadenopathy. Supple, full range of motion without nuchal rigidity, or vertebral point tenderness. No Meningismus. Chest/axilla: Normal chest wall appearance and motion. Nontender with no deformity. No lesions are appreciated. Cardiovascular: Regular rate and rhythm with a normal S1 and S2. No gallops, murmurs, or rubs. Normal PMI, no JVD. No pulse deficits. Respiratory: Lungs have equal breath sounds bilaterally, clear to auscultation and percussion. No rales, rhonchi or wheezes noted. No increased work of breathing, no retractions or nasal flaring. Back: No spinal tenderness. No costovertebral tenderness. Full range of motion. Skin: Warm, dry with normal turgor. Normal color with no rashes, no lesions, and no evidence of cellulitis. MS/ Extremity: Pulses equal, no cyanosis. Neurovascular intact. Full, normal range of motion. Neuro: Awake and alert, GCS 15, oriented to person, place, time, and situation. Cranial nerves II-XII grossly intact. Motor strength 5/5 in all extremities. Sensory grossly intact. Cerebellar exam normal. Normal gait. 20:14 Constitutional: The patient appears alert, awake. 20:14 Abdomen/GI: Palpation: nontender, in all quadrants, Rectal exam: fecal impaction, that is moderate. Vital Signs: 17:06 BP 132 / 64; Pulse 85; Resp 16; Temp 97.6(O); Pulse Ox 95% on R/A; Weight 108.86 kg; la1 Height 6 ft. 1 in. (185.42 cm); 19:25 BP 146 / 83; Pulse 69; Resp 16 S; Pulse Ox 96% on R/A; jd3 20:15 BP 180 / 87; Pulse 69; Resp 17 S; Pulse Ox 96% on R/A; jd3 21:15 BP 173 / 90; Pulse 65; Resp 17 S; Pulse Ox 97% on R/A; jd3 17:06 Body Mass Index 31.66 (108.86 kg, 185.42 cm) la1 MDM: 17:29 Patient medically screened. gs 20:14 Differential diagnosis: bowel obstruction, non-specific abd pain, CONSTIPATION, gs IMPACTION OF STOOL. Data reviewed: vital signs, nurses notes. 07/04 17:12 Order name: Basic Metabolic Panel; Complete Time: 19:26 bp 07/04 17:12 Order name: CBC with Diff; Complete Time: 19:26 bp 07/04 17:12 Order name: Creatinine for Radiology; Complete Time: :26 bp 07/04 17:12 Order name: Hepatic Function; Complete Time: 19:26 bp 07/04 17:12 Order name: Lipase; Complete Time: 19:26 bp 07/04 18:25 Order name: CT Stone Protocol; Complete Time: 19:26 gs 07/04 17:12 Order name: IV Saline Lock; Complete Time: 17:23 bp 07/04 17:12 Order name: Labs collected and sent; Complete Time: 17: bp Administered Medications: No medications were administered Disposition: 07/04/18 20:25 Discharged to Home. Impression: Fecal impaction, Constipation. - Condition is Stable. - Medication Reconciliation Form, Thank You Letter, Antibiotic Education, Prescription Opioid Use form. - Follow up: Private Physician; When: 2 - 3 days; Reason: Re-evaluation by your physician. Signatures: Dispatcher [employer] EDMS Nicolas Price RN RN la1 Victoriano Carballo MD MD gs Vernon Hill RN RN jd3 James Stewart RN RN bp Corrections: (The following items were deleted from the chart) 21:22 20:25 07/04/2018 20:25 Discharged to Home. Impression: Fecal impaction; Constipation. jd3 Condition is Stable. Forms are Medication Reconciliation Form, Thank You Letter, Antibiotic Education, Prescription Opioid Use. Follow up: Private Physician; When: 2 - 3 days; Reason: Re-evaluation by your physician. gs
--- NOTE | 2018-07-04 20:25 | ER ---
Nurse's Notes [facility] Name: Lee Ramon Age: 73 yrs Sex: Male : 1945 Arrival Date: 07/04/2018 Time: 17:02 Bed 18 Private MD: Diagnosis: Fecal impaction;Constipation Presentation: 07/04 17:03 Presenting complaint: Patient states: Last BM Tuesday, cannot pass stool, tried enema la1 x2. Pt reports small amounts of liquid stool only will pass, denies vomiting. Transition of care: patient was not received from another setting of care. Onset of symptoms was July 04, 2018. Risk Assessment: Do you want to hurt yourself or someone else? Patient reports no desire to harm self or others. Initial Sepsis Screen: Does the patient meet any 2 criteria? No. Patient's initial sepsis screen is negative. Does the patient have a suspected source of infection? No. Patient's initial sepsis screen is negative. Care prior to arrival: None. 17:03 Method Of Arrival: Wheelchair la1 17:03 Acuity: SHAHAB 3 la1 Triage Assessment: 17:09 General: Appears in no apparent distress. uncomfortable, Behavior is calm, cooperative, bp appropriate for age. Pain: Complains of pain in abdomen. 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 - Social history:: Smoking status: Patient/guardian denies using tobacco. - Ebola Screening: : No symptoms or risks identified at this time. Screenin:09 Abuse screen: Denies threats or abuse. Denies injuries from another. Nutritional bp screening: No deficits noted. Tuberculosis screening: No symptoms or risk factors identified. Fall Risk None identified. Assessment: 17:05 General: Appears in no apparent distress. uncomfortable, obese, well groomed, Behavior bp is calm, cooperative, appropriate for age. Pain: Complains of pain in abdomen. Neuro: Level of Consciousness is awake, alert, obeys commands, Oriented to person, place, time, situation, Appropriate for age. Cardiovascular: No deficits noted. Respiratory: Airway is patent Respiratory effort is even, unlabored, Respiratory pattern is regular, symmetrical. GI: Reports constipation. : Reports urgency. EENT: No deficits noted. Derm: No deficits noted. Musculoskeletal: Circulation, motion, and sensation intact. Range of motion: LIMITED BY PARKINSONIAN SYNDROME. 18:41 Reassessment: PT TO CT WITH AVIONICS SAFETY INSPECTOR. bp 19:25 Reassessment: Patient appears in no apparent distress at this time. No changes from jd3 previously documented assessment. Patient and/or family updated on plan of care and expected duration. Pain level reassessed. Patient is alert, oriented x 3, equal unlabored respirations, skin warm/dry/pink. 20:25 Reassessment: Patient appears in no apparent distress at this time. No changes from jd3 previously documented assessment. Patient and/or family updated on plan of care and expected duration. Pain level reassessed. Patient is alert, oriented x 3, equal unlabored respirations, skin warm/dry/pink. soap suds enema performed. 21:21 Reassessment: Patient appears in no apparent distress at this time. No changes from jd3 previously documented assessment. Patient and/or family updated on plan of care and expected duration. Pain level reassessed. Patient is alert, oriented x 3, equal unlabored respirations, skin warm/dry/pink. pt with bowl movement. reported understanding of discharge instructions. Vital Signs: 17:06 BP 132 / 64; Pulse 85; Resp 16; Temp 97.6(O); Pulse Ox 95% on R/A; Weight 108.86 kg; la1 Height 6 ft. 1 in. (185.42 cm); 19:25 BP 146 / 83; Pulse 69; Resp 16 S; Pulse Ox 96% on R/A; jd3 20:15 BP 180 / 87; Pulse 69; Resp 17 S; Pulse Ox 96% on R/A; jd3 21:15 BP 173 / 90; Pulse 65; Resp 17 S; Pulse Ox 97% on R/A; jd3 17:06 Body Mass Index 31.66 (108.86 kg, 185.42 cm) la1 ED Course: 16:55 Inserted saline lock: 20 gauge in right wrist, using aseptic technique. bp 17:02 Patient arrived in ED. as 17:04 Triage completed. la1 17:04 Arm band placed on left wrist. la1 17:08 James Stewart, RN is Primary Nurse. bp 17:09 Victoriano Carballo MD is Attending Physician. gs 17:10 Patient has correct armband on for positive identification. Bed in low position. Call bp light in reach. Side rails up X2. Adult w/ patient. 18:03 Soap suds enema given. Patient tolerated well. bp 18:[address] via stretcher. vm2 18:49 CT Stone Protocol In Process Unspecified. EDMS 18:57 CT completed. Patient tolerated procedure well. Patient moved back from CT. vm2 21:20 No provider procedures requiring assistance completed. IV discontinued, intact, jd3 bleeding controlled, No redness/swelling at site. Pressure dressing applied. Administered Medications: No medications were administered Outcome: 20:25 Discharge ordered by . 21:20 Discharged to home via wheelchair, with family. jd3 21:20 Condition: stable 21:20 Discharge instructions given to patient, family, Instructed on discharge instructions, follow up and referral plans. Demonstrated understanding of instructions, follow-up care. 21:22 Patient left the ED. jd3 Signatures: Dispatcher [employer] Verna Wilkerson Lee, RN RN la1 Coco Lopes 2 Victoriano Carballo MD MD Vernon Hill RN RN jd3 James Stewart, RN RN bp
== END 2018-07-04 21:22 | disposition home or self-care (01) ==
LOC: ER 16:59
DX: K56.41 Fecal impaction (principal); I10 Essential (primary) hypertension; G20 Parkinson's disease; Z91.048 Other nonmedicinal substance allergy status
CPT/HCPCS: 36415; 74176; 76377; 80048; 80076; 83690; 85025; 99284

== ENCOUNTER 2018-09-21 10:34 | Inpatient (IN) | payer OTHER ==
--- NOTE | 2018-09-21 12:15 | R.PREADM ---
SCREENING DATE AND TIME 09/21/2018 11:32 (SEO COORDINATOR) ANTICIPATED REHAB ADMISSION DATE 09/23/[address] [facility] REFERRAL DATE AND TIME 09/21/2018 11:32 (SEO COORDINATOR) ACUTE ADMIT DATE 09/18/2018 Previous Rehabilitation(s): No. 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 José Freitas M.D. [id number] [id number] NAME GABRIEL RAMON [address]ESS [address] [facility] [address] DATE OF 1945 AGE 73 SSN# [id number] GENDER male MARITAL STATUS RACE white ADMIT FROM 01 - Home (private home/apt. board/care, assisted living, penitentiary, transitional living) PRE-HOSPITAL LIVING SETTING 02 - [facility] PRE-HOSPITAL LIVING WITH Family/Relatives FAMILY SUPPORT Yes PRIMARY FAMILY CONTACT NAME Dipti Ramon PRIMARY FAMILY CONTACT PHONE PHONE PRIMARY FAMILY CONTACT ON ADM.? no IS PRIMARY FAMILY CONTACT AUTH. REP.? no 1ST EMERGENCY CONTACT Dipti Ramon 1ST CONTACT PHONE PHONE 1ST CONTACT ON ADM. no IS 1ST CONTACT AUTH. REP.? no PHONE 2ND CONTACT ON ADM.? no PATIENT EMPLOYMENT STATUS Retired (for age) PATIENT EMPLOYER No Employer PAYOR INFORMATION: 1ST PAYOR NAME Medicare 1ST PAYOR PHONE 1ST PAYOR INJURY/ILLNESS DUE TO ACCIDENT? No ANOTHER REPUBLICAN RESPONSIBLE? No PRIMARY REHAB/ACUTE DIAGNOSIS: Parkinson's disease (G20) ONSET DATE 09/18/2018 REHAB IMPAIRMENT CATEGORY (KIRSTY): 06 Neurological (Neuro) MEETS 60% rule PRIMARY DIAGNOSIS-RELATED SURGERIES: No surgeries related to the primary diagnosis were performed. SUMMARY OF ACUTE HOSPITALIZATION: Pt. is a 73 yo Right-handed white male. On 09/18/2018 he was admitted to [facility] with diagnosis Parkinson's disease (G20). His impairment category is Neurologic Conditions 03 - Parkinsonism (03.2). Pre-morbidly, Pt. was independent/mod-I in Transfers Control, Communication, Social Cognition, Self-C are, Sphincter Control, and Locomotion; and he had good Sphincter Control. Currently, he has deficits of Transfers Control, Communication, Social Cognition, Balance, Endurance, Safety Awareness, Locomotion, and Self-Care. Pt. is now referred to [facility] for acute in-patient rehabilitation in order to maximize patient's functional independence in activities of daily living, strength, ROM, and mobi lity. Patient has realistic goal of being discharged at assistance level 6-Rohan to reside at Home with Fam jeffery/Relatives. CONSULT: Neuro consult MEDICATION ALLERGIES: No Known Drug Allergies (NKDA) ENVIRONMENTAL ALLERGIES: - Substance Allergies None Known - Other Allergies None Known CODE STATUS: Full code WEIGHT/HEIGHT/BMI: WEIGHT 240 lbs HEIGHT 6' 1" BMI 31.7 DIET: - Diet Type Regular - Diet - Solid Texture Regular - Diet - Liquid Texture Regular - Tube Feed N/A REVIEW OF SYSTEMS: - Gen Alert and awake Lying in bed No apparent distress Oriented to: person, time, and place - Vital Signs Vital signs stable, afebrile - CVS RRR VITAL SIGNS Temperature: 98.2 F SBP/DBP: 122/59 Pulse: 77 Resp: 18 Vital signs stable, afebrile CURRENT SPHINCTER CONTROL: Pre-hospital bladder status: continent # of bladder accidents in the last 7 days prior to screenin Pre-hospital bowel status: continent # of bowel accidents in the last 7 days prior to screenin Last Bowel Movement Date: 09/21/2018 DETAILED CURRENT FUNCTIONAL STATUS: - Bladder accident frequency: Ind - No accidents in the past 7 days - Bowel accident frequency: Ind - No accidents in the past 7 days - Walking score based on distance walked: 0(N/A) FUNCTIONAL STATUS: - Self-Care A. Eating Ind Ind B. Grooming Rohan modA C. Bathing Rohan modA D. Dressing - Upper Rohan modA E. Dressing - Lower Rohan maxA F. Toileting Rohan maxA - Sphincter Control G: Bladder control Rohan Rohan H: Bowel control Rohan Rohan - Transfers Control I. Bed/Chair/Wheelchair Rohan maxA J. Toilet Rohan maxA K. Tub/Shower Rohan maxA - Locomotion L. Walk/Wheelchair (B) Rohan maxA M. Stairs Rohan ADNO - Communication N. Comprehension (B) Rohan Silviano O. Expression (B) Rohan Silviano - Social Cognition P. Social Interaction Rohan Silviano Q. Problem Solving Rohan Silviano R. Memory Rohan modA - Endurance Poor - Balance Poor - Safety Awareness Poor CURRENT FUNC. DEFICITS: Transfers Control, Communication, Social Cognition, Balance, Endurance, Safety Awareness, Locomotion, and Self-Care THERAPY NOTES FROM ACUTE CARE: Attached. SPECIAL NEEDS: - Safety Concerns Skin breakdown precautions needed due to skin breakdown risk PATIENT NEEDS ACTIVE AND ONGOING THERAPEUTIC INTERVENTION OF MULTIPLE THERAPY DISCIPLINES, INCLUDING: - Occupational Therapy Evaluate and Treat. - Speech Therapy Memory Strategies. Speech Intelligibility Training. - Physical Therapy Evaluate and Treat. PATIENT NEEDS CLOSE MEDICAL SUPERVISION BY A REHABILITATION PHYSICIAN FOR: Bowel and Bladder Management Coordination of Treatment Team PATIENT REQUIRES 24X7 REHAB NURSING FOR MEDICAL AND FUNCTIONAL MGT. 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 - Consensus on plan Discharge plan has been discussed with primary caregiver. Patient/Family is in agreement with the rodolfo n. Primary caregiver is in agreement with the plan. - Patient/Family Goals Return home with assistance. RECOMMENDED CARE LEVEL: IRF RECOMMENDATION DETAILS: Recommended Admission to Comprehensive Rehabilitation Program to Increase Functional [place] SCREENER'S COMPLETENESS CONFIRMATION: - Screening Confirmation The patient data collection on this preadmission screening form is finished PHYSICIANS REVIEW AND ADMISSION DETERMINATION Admit - Based on my review of the Pre-Admission Screening results, in my medical judgment and experie nce, I concur with the findings and recommend admission to [facility], as this patient requires an IRF level of care. SIGNATURE PANEL: Clinical Liaison - [electronically] signed by Katy Mullins on 09/21/2018 at 11:51 (SEO COORDINATOR) Clinical Liaison - [electronically] signed by Gunnar Martinez on 09/21/2018 at 12:04 (SEO COORDINATOR) Physician Reviewer - [electronically] signed by Dr. José Freitas M.D. on 09/21/2018 at 12:15 (SEO COORDINATOR )
--- OUTSIDE RECORDS SUMMARY | 2018-09-21 19:27 | XMS REPORT ---
:1945 [facility] Address [address] [place] [address] Dr. Hawley [address] [place] [id number] Care Team Providers Name Role Phone Unavailable Unavailable Unavailable Problems This patient has no known problems. Allergies, Adverse Reactions, Alerts This patient has no known allergies or adverse reactions. Medications This patient has no known medications.
[2018-09-21] MEDS ORDERED: clonazePAM 0.5 MG TAB PO PRN (20:26)
[2018-09-21] MEDS: ROPINIROLE HCL 1 MG TAB PO SCH (21:00)
[2018-09-21] MEDS: GABAPENTIN 300 MG CAP PO SCH (21:00)
[2018-09-21] MEDS: CARBIDOPA/LEVODOPA 25/250 TAB PO SCH (21:23)
[2018-09-21] MEDS: ATORVASTATIN 40 MG TAB PO SCH (21:23)
[2018-09-21] MEDS: lamoTRIgine 100 MG TAB PO SCH (21:26)
[2018-09-21 22:44] LABS: Urine Appearance CLEAR; Urine Bilirubin NEGATIVE (NEG); Urine Blood NEGATIVE (NEG); Urine Color YELLOW; Urine Glucose NEGATIVE (NEG); Urine Protein NEGATIVE (NEG); Urine Urobilinogen 0.2 mg/dL (0.2-1.0); Urine pH 5.5 (5.0-7.0)
[2018-09-21 22:52] LABS: Urine Bacteria <20 /HPF (NONE SEEN); Urine Culture Reflex Order NOT NEEDED; Urine Mucus 4+ /HPF (NONE SEEN); Urine RBC NONE SEEN /HPF (NONE SEEN)
--- NOTE | 2018-09-22 01:04 | FAST ---
SHIFT START DATE/TIME: 09/21/2018 19:00 (FUMIGATOR AND STERILIZER) SHIFT END DATE/TIME: 09/22/2018 07:00 (FUMIGATOR AND STERILIZER) NAME GABRIEL MEYER DATE OF : 1945 DATE OF ADMISSION: 09/21/2018 19:15 (FUMIGATOR AND STERILIZER) PHONE: AGE: 73 SSN# [id number] GENDER: Male ENCOUNTER PHYSICIAN: Dr. José Freitas M.D. ADMISSION DIAGNOSIS: - Neurologic Conditions 03 - Parkinsonism (03.2) Parkinson's disease (G20). EATING: Activity did not occur on this shift EATING - SCORE: 0-UNK GROOMING: Activity did not occur on this shift GROOMING - SCORE: 0-UNK BATHING: Activity did not occur on this shift BATHING - SCORE: 0-UNK DRESSING - UPPER BODY: Patient is not dressing in public clothing ARTICLES SCORE Total number of steps: 0 DRESSING - UPPER BODY - SCORE: 0-UNK DRESSING - LOWER BODY: Patient is not dressing in public clothing ARTICLES SCORE Total number of steps: 0 DRESSING - LOWER BODY - SCORE: 0-UNK TOILETING: TOILETING - STEP 1: Does the patient require the assistance of a person or device, or need extra time with toileting? Yes . TOILETING - STEP 2: Does the patient require the assistance of a helper? Yes. TOILETING - STEP 3: How much assistance does the patient require from the helper? Hands-on assistance from the helper TOILETING - STEP 4: Of the 3 tasks: 1) Adjusting clothing prior to use, 2) Cleansing of perineal area, 3) Adjusting clot baldo after use; How many tasks does the patient perform WITHOUT assistance of the helper? No tasks; h elper performs all three tasks TOILETING - SCORE: 1-DEP BLADDER MANAGEMENT: [place] removes incontinent device (Depends, pull ups, etc.); cleans the patient after accident / inco ntinent episode; and, applies new incontinent device. BLADDER MANAGEMENT - SCORE: 1-DEP BOWEL MANAGEMENT: Activity did not occur on this shift BOWEL MANAGEMENT - SCORE: 7-IND TRANSFERS: BED, CHAIR, WHEELCHAIR: TRANSFERS: BED, CHAIR, WHEELCHAIR - STEP 1: Does the patient require assistance of a person or device, or need extra time with bed, chair, or whe elchair transfers? Yes. TRANSFERS: BED, CHAIR, WHEELCHAIR - STEP 2: Does the patient require the assistance of a helper? Yes. TRANSFERS: BED, CHAIR, WHEELCHAIR - STEP 3: How much assistance does the patient require from the helper? Lifting of the patient TRANSFERS: BED, CHAIR, WHEELCHAIR - STEP 4: Does the helper lift the patient ONLY up? ONLY down? Up AND Down? Patient needs help with all lifting TRANSFERS: BED, CHAIR, WHEELCHAIR - SCORE: 1-DEP TRANSFERS: TOILET: Activity did not occur on this shift TRANSFERS: TOILET - SCORE: 0-UNK TRANSFERS: SHOWER: Activity did not occur on this shift TRANSFERS: SHOWER - SCORE: 0-UNK TRANSFERS: TUB: Activity did not occur on this shift TRANSFERS: TUB - SCORE: 0-UNK LOCOMOTION: WALK: Activity did not occur on this shift LOCOMOTION: WALK - SCORE: 0-UNK LOCOMOTION: WHEELCHAIR: Activity did not occur on this shift LOCOMOTION: WHEELCHAIR - SCORE: 0-UNK COMPREHENSION: COMPREHENSION: TYPE: Both COMPREHENSION - STEP 1: Does the patient require help from a person or device, or need extra time to understand complex and a bstract ideas (such as current events, finances, discharge planning, medical issues, relationships, e tc)? Yes. COMPREHENSION - STEP 2: Does the patient require help to understand questions or statements about basic needs or ideas (such as hunger, thirst, sleep, safety, daily schedule, room location, or discomfort) half or more of the t mayra? Yes. COMPREHENSION - STEP 3: Is the patient basically able to understand and respond appropriately and consistently? Yes. COMPREHENSION - SCORE: 2-MAX EXPRESSION EXPRESSION: TYPE: Both EXPRESSION - STEP 1: Does the patient require help from a person or device, or need extra time expressing complex and abst ract ideas (such as current events, finances, discharge planning, medical issues, relationships, etc) ? Yes. EXPRESSION - STEP 2: Does the patient require help to express basic necessities or ideas (such as hunger, thirst, sleep, s afety, daily schedule, room location, or discomfort) half or more of the time? Yes. EXPRESSION - STEP 3: Is the patient basically unable to express or does s/he express inappropriately or inconsistently dima pite prompting? No. EXPRESSION - SCORE: 2-MAX SOCIAL INTERACTION: SOCIAL INTERACTION - STEP 1: Does the patient require a helper to interact with others in social and therapeutic situations? No. SOCIAL INTERACTION - STEP 2: Does the patient need extra time in social situations, OR does s/he interact with staff, other patien ts, and family members ONLY in structured environments, OR does s/he require medication for social in teraction? Yes, patient needs extra time SOCIAL INTERACTION - SCORE: 6-PEYTON PROBLEM SOLVING: PROBLEM SOLVING - STEP 1: Does the patient need help from a person or device, or need extra time to solve complex problems such as managing a checking account or confronting interpersonal problems? Yes. PROBLEM SOLVING - STEP 2: Does the patient solve basic routine problems half or more of the time? Yes. PROBLEM SOLVING - STEP 3: How often does the patient need help to solve basic routine problems? 25%-49% of the time PROBLEM SOLVING - SCORE: 3-MOD MEMORY: MEMORY - STEP 1: Does the patient need help from a person or device, or need extra time to remember frequently encount ered people, daily routines, and executing requests? Yes. MEMORY - STEP 2: How often does the patient need help to remember frequently encountered people, daily routines, and e xecuting requests? 25% - 49% of the time MEMORY - SCORE: 3-MOD SIGNATURE PANEL: The following modified sections: Eating - Score, Grooming - Score, Dressing - Upper Body - Score, Hero ssing - Lower Body - Score, Toileting - Score, Bladder Management - Score, Bowel Management - Score, Transfers: Bed, Chair, Wheelchair - Score, Transfers: Toilet - Score, Transfers: Shower - Score, [place] sfers: Tub - Score, Locomotion: Walk - Score, Locomotion: Wheelchair - Score, Comprehension - Score, Expression - Score, Social Interaction - Score, Problem Solving - Score, Memory - Score were [electro nically] signed by Jing Lopez CNA on TueSep 22 2018 01:03:22 GMT-0600 (Central Standard Time)
[2018-09-22] MEDS: PANTOPRAZOLE 40MG TABLET PO SCH (06:34)
[2018-09-22 07:02] LABS: Absolute Lymphocytes (CBC) 1.5 K/uL (0.7-4.9); Absolute Monocytes 0.6 K/uL (0.1-1.3); Absolute Neutrophil 4.6 K/uL (1.8-8.0); Basophils % 0.9 % (0-1.3); Eosinophils % 10.8 % (0-4.4); Hematocrit 42.5 % (39.6-49.0); Lymphocytes % 19.7 % (15.3-44.8); MPV 8.1 fL (7.6-11.3); Monocytes % 7.7 % (3.3-12.3)
[2018-09-22 07:31] LABS: Albumin 3.4 g/dL (3.4-5.0); Magnesium 2.4 mg/dL (1.8-2.4); Potassium 3.5 mmol/L (3.5-5.1); Prealbumin 24.4 mg/dL (20-40)
[2018-09-22] MEDS ORDERED: ARIPiprazole 5 MG TAB PO SCH (08:00)
[2018-09-22] MEDS: DUTASTERIDE 0.5 MG GEL CAP PO SCH ×2 (08:00→20:29)
[2018-09-22] MEDS: POLYETHYL GLY 3350 17 GM/DOSE PO PRN (08:35)
[2018-09-22] MEDS: ROPINIROLE HCL 1 MG TAB PO SCH ×3 (08:36→20:32)
[2018-09-22] MEDS: MAGNESIUM OXIDE 400 MG TAB PO SCH (08:36)
[2018-09-22] MEDS: GABAPENTIN 300 MG CAP PO SCH ×3 (08:36→20:32)
[2018-09-22] MEDS: CARBIDOPA/LEVODOPA 25/250 TAB PO SCH ×3 (08:36→20:31)
[2018-09-22] MEDS: SPIRONOLACTONE 25 MG TABLET PO SCH (08:37)
[2018-09-22] MEDS: APIXABAN 5 MG TABLET PO SCH ×2 (08:37→20:31)
[2018-09-22] MEDS: FUROSEMIDE 20 MG TABLET PO SCH ×2 (08:38→16:22)
[2018-09-22] MEDS: MULTIVITAMIN TAB PO SCH (08:39)
[2018-09-22] MEDS: lamoTRIgine 100 MG TAB PO SCH ×2 (08:40→20:32)
[2018-09-22] MEDS: CARVEDILOL 6.25 MG TAB PO SCH ×2 (08:40→20:31)
--- NOTE | 2018-09-22 09:53 | P.RH.PN ---
Estimated Length of Stay: 14 Expected Discharge Date: 10/04/18 Discharge Disposition Plan: Home Family Support: Yes Detention Goal: Mobility, Transfers, Self Care Vital Signs: Last Vital Signs Temp 96.9 F 09/22/18 07:45 Pulse 69 09/22/18 08:40 Resp 18 09/22/18 07:45 BP 171/81 H 09/22/18 08:40 Pulse Ox 96 09/22/18 07:45 Laboratory: Laboratory Last Values WBC 7.6 K/uL (4.3-10.9) 09/22/18 06:31 RBC 4.90 M/uL (4.33-5.43) 09/22/18 06:31 Hgb 14.4 g/dL (13.6-17.9) 09/22/18 06:31 Hct 42.5 % (39.6-49.0) 09/22/18 06:31 MCV 86.9 fL (80-100) 09/22/18 06:31 MCH 29.5 pg (27.0-35.0) 09/22/18 06:31 MCHC 34.0 g/dL (32.0-36.0) 09/22/18 06:31 RDW 14.0 % (12.1-15.2) 09/22/18 06:31 Plt Count 181 K/uL (152-406) 09/22/18 06:31 MPV 8.1 fL (7.6-11.3) 09/22/18 06:31 Neutrophils % 60.9 % (41.7-73.7) 09/22/18 06:31 Lymphocytes % 19.7 % (15.3-44.8) 09/22/18 06:31 Monocytes % 7.7 % (3.3-12.3) 09/22/18 06:31 Eosinophils % 10.8 % (0-4.4) H 09/22/18 06:31 Basophils % 0.9 % (0-1.3) 09/22/18 06:31 Absolute Neutrophils 4.6 K/uL (1.8-8.0) 09/22/18 06:31 Absolute Lymphocytes 1.5 K/uL (0.7-4.9) 09/22/18 06:31 Absolute Monocytes 0.6 K/uL (0.1-1.3) 09/22/18 06:31 Absolute Eosinophils 0.8 K/uL (0-0.5) H 09/22/18 06:31 Absolute Basophils 0.1 K/uL (0-0.5) 09/22/18 06:31 Sodium 140 mmol/L (136-145) 09/22/18 06:31 Potassium 3.5 mmol/L (3.5-5.1) 09/22/18 06:31 Chloride 104 mmol/L (98-107) 09/22/18 06:31 Carbon Dioxide 30 mmol/L (21-32) 09/22/18 06:31 BUN 18 mg/dL (7-18) 09/22/18 06:31 Creatinine 1.13 mg/dL (0.55-1.3) 09/22/18 06:31 Estimated GFR 64 mL/min (=/>90) L 09/22/18 06:31 Glucose 97 mg/dL (74-106) 09/22/18 06:31 Calcium 9.1 mg/dL (8.5-10.1) 09/22/18 06:31 Magnesium 2.4 mg/dL (1.8-2.4) 09/22/18 06:31 Albumin 3.4 g/dL (3.4-5.0) 09/22/18 06:31 Prealbumin 24.4 mg/dL (20-40) 09/22/18 06:31 Urine Color Yellow 09/21/18 22:00 Urine Appearance Clear 09/21/18 22:00 Urine pH 5.5 (5.0-7.0) 09/21/18 22:00 Ur Specific [place] 1.020 (1.005-1.030) 09/21/18 22:00 Urine Ketones Negative (NEG) 09/21/18 22:00 Urine Blood Negative (NEG) 09/21/18 22:00 Urine Nitrite Negative (NEG) 09/21/18 22:00 Urine Bilirubin Negative (NEG) 09/21/18 22:00 Urine Urobilinogen 0.2 mg/dL (0.2-1.0) 09/21/18 22:00 Ur Leukocyte Esterase Negative (NEG) 09/21/18 22:00 Urine RBC None seen /HPF (NONE SEEN) 09/21/18 22:00 Urine WBC <5 /HPF (<5) 09/21/18 22:00 Ur Squamous Epith Cells <5 /HPF (NONE SEEN) 09/21/18 22:00 Urine Bacteria <20 /HPF (NONE SEEN) 09/21/18 22:00 Urine Mucus 4+ /HPF (NONE SEEN) H 09/21/18 22:00 Urine Culture Reflexed Not needed 09/21/18 22:00 Urine Glucose Negative (NEG) 09/21/18 22:00 Urine Total Protein Negative (NEG) 09/21/18 22:00 Weight: 235 lb 8 oz Wound Present: No Physician Update: His labs have been reviewedj and are stable. He is being evaluated by therapy. Summary: Patient's care plan and termite control servicer goals have been reviewed and revised as necessary. Please see the Rehabilitation Signature page for all necessary signatures.
--- NOTE | 2018-09-22 13:43 | FAST ---
SHIFT START DATE/TIME: 09/22/2018 07:00 (DIRECTOR OF ENTERTAINMENT) SHIFT END DATE/TIME: 09/22/2018 19:00 (DIRECTOR OF ENTERTAINMENT) NAME GABRIEL MEYER DATE OF : 1945 DATE OF ADMISSION: 09/21/2018 19:15 (DIRECTOR OF ENTERTAINMENT) PHONE: AGE: 73 SSN# [id number] GENDER: Male ENCOUNTER PHYSICIAN: Dr. José Freitas M.D. ADMISSION DIAGNOSIS: - Neurologic Conditions 03 - Parkinsonism (03.2) Parkinson's disease (G20). EATING: EATING - STEP 1: Does the patient require the assistance of a person or device, or need extra time when eating? Yes. EATING - STEP 2: Does the patient require the assistance of a helper? No, patient only requires an assistive device, O R s/he takes more than reasonable time to eat, OR there is a safety concern, OR s/he requires modifie d food consistency EATING - SCORE: 6-PEYTON GROOMING: Activity did not occur on this shift GROOMING - SCORE: 0-UNK BATHING: Activity did not occur on this shift BATHING - SCORE: 0-UNK DRESSING - UPPER BODY: T-shirt/pullover shirt (four steps) ARTICLES SCORE Total number of steps: 4 DRESSING - UPPER BODY - STEP 1: Does the patient require help from a person or device, or need extra time when dressing above the tarah st? Yes. DRESSING - UPPER BODY - STEP 2: Does the patient require the assistance of a helper? Yes. DRESSING - UPPER BODY - STEP 3: Does the helper touch the patient while dressing? Yes. DRESSING - UPPER BODY - STEP 4: How many of the total steps does the patient complete on his/her own? 2 DRESSING - UPPER BODY - SCORE: 3-MOD DRESSING - LOWER BODY: Elastic waist pants (three steps) Underwear (three steps) ARTICLES SCORE Total number of steps: 6 DRESSING - LOWER BODY - STEP 1: Does the patient require help from a person or device, or need extra time when dressing below the tarah st? Yes. DRESSING - LOWER BODY - STEP 2: Does the patient require the assistance of a helper? Yes. DRESSING - LOWER BODY - STEP 3: Does the helper touch the patient while dressing? Yes. DRESSING - LOWER BODY - STEP 4: How many of the total steps does the patient complete on his/her own? 2 DRESSING - LOWER BODY - STEP 5: Does patient require total assistance for dressing below the waist such as the helper holding clothin g and performing basically all the activities? Yes. DRESSING - LOWER BODY - SCORE: 1-DEP TOILETING: TOILETING - STEP 1: Does the patient require the assistance of a person or device, or need extra time with toileting? Yes . TOILETING - STEP 2: Does the patient require the assistance of a helper? No. TOILETING - SCORE: 6-PEYTON BLADDER MANAGEMENT: BLADDER MANAGEMENT - STEP 1: Does the patient control the bladder completely and intentionally without equipment or devices or med ications, and is always continent? Yes. BLADDER MANAGEMENT - SCORE: 7-IND BLADDER MANAGEMENT - FREQUENCY OF ACCIDENTS: BLADDER MANAGEMENT(FA) - STEP 1: How many accidents has the patient had during the current shift? 0 BOWEL MANAGEMENT: Activity did not occur on this shift BOWEL MANAGEMENT - SCORE: 7-IND BOWEL MANAGEMENT - FREQUENCY OF ACCIDENTS: BOWEL MANAGEMENT(FA) - STEP 1: How many accidents has the patient had during the current shift? 0 TRANSFERS: BED, CHAIR, WHEELCHAIR: TRANSFERS: BED, CHAIR, WHEELCHAIR - STEP 1: Does the patient require assistance of a person or device, or need extra time with bed, chair, or whe elchair transfers? Yes. TRANSFERS: BED, CHAIR, WHEELCHAIR - STEP 2: Does the patient require the assistance of a helper? Yes. TRANSFERS: BED, CHAIR, WHEELCHAIR - STEP 3: How much assistance does the patient require from the helper? Lifting of the legs TRANSFERS: BED, CHAIR, WHEELCHAIR - STEP 4: How many legs does the patient require the helper to lift? both legs TRANSFERS: BED, CHAIR, WHEELCHAIR - SCORE: 3-MOD TRANSFERS: TOILET: TRANSFERS: TOILET - STEP 1: Does the patient require the assistance of a person or device, or need extra time with toilet transfe rs? Yes. TRANSFERS: TOILET - STEP 2: Does the patient require the assistance of a helper? Yes. TRANSFERS: TOILET - STEP 3: How much assistance does the patient require from the helper? Patient performs half or more of the tr ansferring tasks TRANSFERS: TOILET - STEP 4: Does the patient need only incidental help such as contact guard or steadying during toilet transfer? No. Patient needs more than incidental help TRANSFERS: TOILET - SCORE: 3-MOD TRANSFERS: SHOWER: Activity did not occur on this shift TRANSFERS: SHOWER - SCORE: 0-UNK TRANSFERS: TUB: Activity did not occur on this shift TRANSFERS: TUB - SCORE: 0-UNK LOCOMOTION: WALK: Activity did not occur on this shift LOCOMOTION: WALK - SCORE: 0-UNK LOCOMOTION: WHEELCHAIR: Activity did not occur on this shift LOCOMOTION: WHEELCHAIR - SCORE: 0-UNK COMPREHENSION: COMPREHENSION - SCORE: 0-UNK EXPRESSION EXPRESSION - SCORE: 0-UNK SOCIAL INTERACTION: SOCIAL INTERACTION - SCORE: 0-UNK PROBLEM SOLVING: PROBLEM SOLVING - SCORE: 0-UNK MEMORY: MEMORY - SCORE: 0-UNK SIGNATURE PANEL: The following modified sections: Eating - Score, Grooming - Score, Bathing - Score, Dressing - Upper Body - Score, Dressing - Lower Body - Score, Toileting - Score, Bladder Management - Score, Bowel Man agement - Score, Transfers: Bed, Chair, Wheelchair - Score, Transfers: Toilet - Score, Transfers: Alla wer - Score, Transfers: Tub - Score, Locomotion: Walk - Score, Locomotion: Wheelchair - Score, Compre hension - Score, Expression - Score, Social Interaction - Score, Problem Solving - Score, Memory - Sc ore were [electronically] signed by Barb Fallon CNA on TueSep 22 2018 13:42:36 GMT-0600 (Centra [place] Standard Time)
--- NOTE | 2018-09-22 17:10 | R.HP ---
FACILITY: [facility] ENCOUNTER DATE AND TIME: 09/22/2018 17:05 (ADULT LITERACY INSTRUCTOR) MR#: [id number] NAME GABRIEL MEYER ADDRESS: [address] [place] [address]: [place]IP [id number] PHONE: DATE OF : 1945 AGE: 73 SSN# [id number] GENDER: Male DEXTERITY Right-handed MARITAL STATUS RACE White PRE-HOSPITAL LIVING SETTING 02 - [facility] PRE-HOSPITAL LIVING WITH Family/Relatives ENCOUNTER PHYSICIAN: Dr. José Freitas M.D. REFERRING DOCTOR: Jono Akins DATE OF ADMISSION: 09/21/2018 19:15 (ADULT LITERACY INSTRUCTOR) REFERRING FACILITY [facility] ADMISSION DIAGNOSIS: Parkinson's disease (G20) ONSET DATE: 09/18/2018 PRIMARY DIAGNOSIS-RELATED SURGERIES: No surgeries related to the primary diagnosis were performed. HISTORY OF PRESENT ILLNESS (HPI): Pt. is a 73 yo Right-handed white male. On 09/18/2018 he was admitted to [facility] with diagnosis Parkinson's disease (G20). His impairment category is Neurologic Conditions 03 - Parkinsonism (03.2). Pre-morbidly, Pt. was independent/mod-I in Transfers Control, Communication, Social Cognition, Self-C are, Sphincter Control, and Locomotion; and he had good Sphincter Control. Currently, he has deficits of Transfers Control, Communication, Social Cognition, Balance, Endurance, Safety Awareness, Locomotion, and Self-Care. Pt. is now referred to [facility] for acute in-patient rehabilitation in order to maximize patient's functional independence in activities of daily living, strength, ROM, and mobi lity. Patient has realistic goal of being discharged at assistance level 6-Rohan to reside at Home with Fam jeffery/Relatives. MEDICATION ALLERGIES: No Known Drug Allergies (NKDA) ENVIRONMENTAL ALLERGIES: - Substance Allergies None Known - Other Allergies None Known FAMILY HISTORY: Family history is not contributory. SOCIAL HISTORY: - Home Living Family/Relatives REVIEW OF SYSTEMS: - Gen No Chills Fatigue No Fever - Eyes No Double Vision No itchiness - ENMT Difficulty Swallowing - CVS No Chest Discomfort No Chest Pain Fatigue No Weight Gain - Resp No Cough No Shortness of Breath - GI Continent No Abdominal Pain No Constipation No Diarrhea - Continent No Kidney Pain No Painful Urination No Urinary Urgency - MSK No Joint Pain Muscle Cramps Stiffness - Skin No Itching No Rash No Suspicious Lesions - Neuro Coordination Difficulty No Difficulty with Concentration No Memory Loss No Seizures Weakness - Psych No Anxiety Depression No HIV Exposure No Persistent Infections No Seasonal Allergies - Endo No Cold/Heat Intolerance No Excessive Hunger No Excessive Thirst No Excessive Urination PHYSICAL EXAM - Gen Alert and awake Lying in bed No apparent distress Oriented to: person, time, and place - Skin No breakdown No abnormalities - Eyes No abnormalities - ENMT No abnormalities - Neck No abnormalities - CVS RRR - Chest No abnormalities - Abd +bowel sounds - GI nondistended Deferred - No abnormalities - Ext No significant edema - MSK 3-4+/5 weakness in both lower extremities. - Neuro No focal deficits. - Psych Mild depression. VITAL SIGNS Temperature: 98.2 F SBP/DBP: 122/59 Pulse: 77 Resp: 18 NURSING: - Shower allowing shower ACTIVITIES OOB only with supervision FUNCTIONAL STATUS: - Self-Care A. Eating Ind Ind B. Grooming Rohan modA C. Bathing Rohan modA D. Dressing - Upper Rohan modA E. Dressing - Lower Rohan maxA F. Toileting Rohan maxA - Sphincter Control G: Bladder control Rohan Rohan H: Bowel control Rohan Rohan - Transfers Control I. Bed/Chair/Wheelchair Rohan maxA J. Toilet Rohan maxA K. Tub/Shower Rohan maxA - Locomotion L. Walk/Wheelchair (B) Rohan maxA M. Stairs Rohan ADNO - Communication N. Comprehension (B) Rohan Silviano O. Expression (B) Rohan Silviano - Social Cognition P. Social Interaction Rohan Silviano Q. Problem Solving Rohan Silviano R. Memory Rohan modA - Endurance Poor - Balance Poor - Safety Awareness Poor CURRENT FUNC. DEFICITS: Transfers Control, Communication, Social Cognition, Balance, Endurance, Safety Awareness, Locomotion, and Self-Care ASSESSMENT: Pt. is a 73 yo Right-handed white male.On 09/18/2018 he was admitted to [facility] with diagnosi s Parkinson's disease (G20).His impairment category is Neurologic Conditions 03 - Parkinsonism (03.2 ).Pre-morbidly, Pt. was independent/mod-I in Transfers Control, Communication, Social Cognition, Self -Care, Sphincter Control, and Locomotion; and he had good Sphincter Control.Currently, he has deficit s of Transfers Control, Communication, Social Cognition, Balance, Endurance, Safety Awareness, Locomo tion, and Self-Care.Pt. is now referred to [facility] for acute in-patient joni abilitation in order to maximize patient's functional independence in activities of daily living, str ength, ROM, and mobility.- Rehab Goal Patient has realistic goal of being discharged at assistance level 6-Rohan to reside at Home with Fam jeffery/Relatives. REHAB PLAN: - Physical Therapy Gait dysfunction - to improve, our physical therapists will perform initial evaluation of pt's status upon admission and devise an individualized program for Gait Training, and Wheel Chair mobility Inability to transfer - to improve, our physical therapists will perform initial evaluation of pt's s tatus upon admission and devise an individualized program for Bed mobility Need for home safety evaluation - to improve, our physical therapists will perform initial evaluation of pt's status upon admission and devise an individualized program for Home Evaluation Need in caregiver upon discharge - to improve, our physical therapists will perform initial evaluatio n of pt's status upon admission and devise an individualized program for Caregiver Training New precaution - to improve, our physical therapists will perform initial evaluation of pt's status u andrei admission and devise an individualized program for Patient precaution education Edema - to improve, our physical therapists will perform initial evaluation of pt's status upon admi ssion and devise an individualized program for Elevation Training, and Lymphedema Therapy Poor balance - to improve, our physical therapists will perform initial evaluation of pt's status upo n admission and devise an individualized program for Balance Training Poor endurance - to improve, our physical therapists will perform initial evaluation of pt's status u andrei admission and devise an individualized program for Endurance Training Weakness - to improve, our physical therapists will perform initial evaluation of pt's status upon ad mission and devise an individualized program for Aquatic Therapy, Neuromuscular Reeducation, and Stre ngthening Achieving independence - to improve, our physical therapists will perform initial evaluation of pt's status upon admission and devise an individualized program for Community Reintegration Activities - Occupational Therapy ADL deficits - to improve, our occupation therapists will perform initial evaluation of pt's status u andrei admission and devise an individualized program for Bathing, Bed mobility, Community Reintegration , Cooking, Dressing, Eating, Fine Motor Skills, Grooming, Homemaking, Kitchen Mobility, Laundry, Lisa ent Education, Safety Awareness, Splinting - Positioning, Transfers(Toilet, Tub, Shower), and Wheel C hair Management Cognitive deficits - to improve, our occupation therapists will perform initial evaluation of pt's st atus upon admission and devise an individualized program for Cognition - orientation Need for hospice care consultant - to improve, our occupation therapists will perform initial evaluation of pt's s tatus upon admission and devise an individualized program for Caregiver Training Weakness - to improve, our occupation therapists will perform initial evaluation of pt's status upon admission and devise an individualized program for Aquatic Therapy, Balance, Endurance, UE ROM, and U E strengthening MEDICAL PLAN: - Diet Type Start Regular - Diet - Liquid Texture Start Regular - Tube Feed Start N/A - N/A Perform Neuro consult - Diet - Solid Texture Regular - Shower shower DISCHARGE PLAN: - Estimated Length of Stay (days) 13. - Consensus on plan Discharge plan has been discussed with primary caregiver. Patient/Family is in agreement with the rodolfo n. Primary caregiver is in agreement with the plan. - Patient/Family Goals Return home with assistance. SIGNATURE PANEL: (ADULT LITERACY INSTRUCTOR)
[2018-09-22] MEDS: ATORVASTATIN 40 MG TAB PO SCH (20:31)
[2018-09-22] MEDS: clonazePAM 0.5 MG TAB PO SCH (20:32)
[2018-09-22] MEDS: ARIPiprazole 2 MG TAB PO SCH (20:33)
--- NOTE | 2018-09-23 02:12 | FAST ---
SHIFT START DATE/TIME: 09/22/2018 19:00 (FULL TIME PARAMEDIC) SHIFT END DATE/TIME: 09/23/2018 07:00 (FULL TIME PARAMEDIC) NAME GABRIEL MEYER DATE OF : 1945 DATE OF ADMISSION: 09/21/2018 19:15 (FULL TIME PARAMEDIC) PHONE: AGE: 73 SSN# [id number] GENDER: Male ENCOUNTER PHYSICIAN: Dr. José Freitas M.D. ADMISSION DIAGNOSIS: - Neurologic Conditions 03 - Parkinsonism (03.2) Parkinson's disease (G20). EATING: Activity did not occur on this shift EATING - SCORE: 0-UNK GROOMING: Oral care Wash, rinse, and dry face Wash, rinse, and dry hands GROOMING - STEP 1: Does the patient require the assistance of a person or device, or need extra time when grooming? Yes. GROOMING - STEP 2: Does the patient require the assistance of a helper? Yes. GROOMING - STEP 3: How much assistance does the patient require from the helper? Only prior equipment preparation/set up from the helper GROOMING - SCORE: 5-SUP BATHING: Activity did not occur on this shift BATHING - SCORE: 0-UNK DRESSING - UPPER BODY: Patient is not dressing in public clothing ARTICLES SCORE Total number of steps: 0 DRESSING - UPPER BODY - SCORE: 0-UNK DRESSING - LOWER BODY: Patient is not dressing in public clothing ARTICLES SCORE Total number of steps: 0 DRESSING - LOWER BODY - SCORE: 0-UNK TOILETING: TOILETING - STEP 1: Does the patient require the assistance of a person or device, or need extra time with toileting? Yes . TOILETING - STEP 2: Does the patient require the assistance of a helper? Yes. TOILETING - STEP 3: How much assistance does the patient require from the helper? Hands-on assistance from the helper TOILETING - STEP 4: Of the 3 tasks: 1) Adjusting clothing prior to use, 2) Cleansing of perineal area, 3) Adjusting clot baldo after use; How many tasks does the patient perform WITHOUT assistance of the helper? Two tasks TOILETING - SCORE: 3-MOD BLADDER MANAGEMENT: BLADDER MANAGEMENT - STEP 1: Does the patient control the bladder completely and intentionally without equipment or devices or med ications, and is always continent? No. BLADDER MANAGEMENT - STEP 2: Does the patient require the assistance of a helper? Yes. BLADDER MANAGEMENT - STEP 3: How much assistance does the patient require from the helper? Patient requires contact assistance fro m the helper BLADDER MANAGEMENT - STEP 4: How much contact assistance does the patient require from the helper? Patient requires minimal assist ance to maintain an external device - by positioning, and the patient performs 75% or more of bladder management tasks, while the helper provides less than 25% of the assistance to position patient on / off bedpan BLADDER MANAGEMENT - SCORE: 4-MIN BOWEL MANAGEMENT: Activity did not occur on this shift BOWEL MANAGEMENT - SCORE: 7-IND TRANSFERS: BED, CHAIR, WHEELCHAIR: TRANSFERS: BED, CHAIR, WHEELCHAIR - STEP 1: Does the patient require assistance of a person or device, or need extra time with bed, chair, or whe elchair transfers? Yes. TRANSFERS: BED, CHAIR, WHEELCHAIR - STEP 2: Does the patient require the assistance of a helper? Yes. TRANSFERS: BED, CHAIR, WHEELCHAIR - STEP 3: How much assistance does the patient require from the helper? Lifting of the legs TRANSFERS: BED, CHAIR, WHEELCHAIR - STEP 4: How many legs does the patient require the helper to lift? both legs TRANSFERS: BED, CHAIR, WHEELCHAIR - SCORE: 3-MOD TRANSFERS: TOILET: TRANSFERS: TOILET - STEP 1: Does the patient require the assistance of a person or device, or need extra time with toilet transfe rs? Yes. TRANSFERS: TOILET - STEP 2: Does the patient require the assistance of a helper? Yes. TRANSFERS: TOILET - STEP 3: How much assistance does the patient require from the helper? Patient performs half or more of the tr ansferring tasks TRANSFERS: TOILET - STEP 4: Does the patient need only incidental help such as contact guard or steadying during toilet transfer? No. Patient needs more than incidental help TRANSFERS: TOILET - SCORE: 3-MOD TRANSFERS: SHOWER: Activity did not occur on this shift TRANSFERS: SHOWER - SCORE: 0-UNK TRANSFERS: TUB: Activity did not occur on this shift TRANSFERS: TUB - SCORE: 0-UNK LOCOMOTION: WALK: Activity did not occur on this shift LOCOMOTION: WALK - SCORE: 0-UNK LOCOMOTION: WHEELCHAIR: Activity did not occur on this shift LOCOMOTION: WHEELCHAIR - SCORE: 0-UNK COMPREHENSION: COMPREHENSION: TYPE: Both COMPREHENSION - STEP 1: Does the patient require help from a person or device, or need extra time to understand complex and a bstract ideas (such as current events, finances, discharge planning, medical issues, relationships, e tc)? Yes. COMPREHENSION - STEP 2: Does the patient require help to understand questions or statements about basic needs or ideas (such as hunger, thirst, sleep, safety, daily schedule, room location, or discomfort) half or more of the t mayra? No. COMPREHENSION - STEP 3: How often does the patient need help to understand directions and conversation about basic needs? Les s than 10% of the time COMPREHENSION - SCORE: 5-SUP EXPRESSION EXPRESSION: TYPE: Both EXPRESSION - STEP 1: Does the patient require help from a person or device, or need extra time expressing complex and abst ract ideas (such as current events, finances, discharge planning, medical issues, relationships, etc) ? Yes. EXPRESSION - STEP 2: Does the patient require help to express basic necessities or ideas (such as hunger, thirst, sleep, s afety, daily schedule, room location, or discomfort) half or more of the time? No. EXPRESSION - STEP 3: How often does the patient need help to express directions and conversation about basic needs? Less t messina 10% of the time EXPRESSION - SCORE: 5-SUP SOCIAL INTERACTION: SOCIAL INTERACTION - STEP 1: Does the patient require a helper to interact with others in social and therapeutic situations? No. SOCIAL INTERACTION - STEP 2: Does the patient need extra time in social situations, OR does s/he interact with staff, other patien ts, and family members ONLY in structured environments, OR does s/he require medication for social in teraction? Yes, patient needs extra time SOCIAL INTERACTION - SCORE: 6-PEYTON PROBLEM SOLVING: PROBLEM SOLVING - STEP 1: Does the patient need help from a person or device, or need extra time to solve complex problems such as managing a checking account or confronting interpersonal problems? Yes. PROBLEM SOLVING - STEP 2: Does the patient solve basic routine problems half or more of the time? Yes. PROBLEM SOLVING - STEP 3: How often does the patient need help to solve basic routine problems? Less than 10% of the time PROBLEM SOLVING - SCORE: 5-SUP MEMORY: MEMORY - STEP 1: Does the patient need help from a person or device, or need extra time to remember frequently encount ered people, daily routines, and executing requests? Yes. MEMORY - STEP 2: How often does the patient need help to remember frequently encountered people, daily routines, and e xecuting requests? Less than 10% of the time MEMORY - SCORE: 5-SUP
[2018-09-23] MEDS: PANTOPRAZOLE 40MG TABLET PO SCH (05:32)
[2018-09-23] MEDS: FUROSEMIDE 20 MG TABLET PO SCH ×2 (06:42→16:29)
[2018-09-23] MEDS: DUTASTERIDE 0.5 MG GEL CAP PO SCH ×2 (08:00→20:22)
[2018-09-23] MEDS: ROPINIROLE HCL 1 MG TAB PO SCH ×3 (08:25→20:22)
[2018-09-23] MEDS: MULTIVITAMIN TAB PO SCH (08:25)
[2018-09-23] MEDS: GABAPENTIN 300 MG CAP PO SCH ×3 (08:25→20:21)
[2018-09-23] MEDS: APIXABAN 5 MG TABLET PO SCH ×2 (08:25→20:22)
[2018-09-23] MEDS: MAGNESIUM OXIDE 400 MG TAB PO SCH (08:25)
[2018-09-23] MEDS: lamoTRIgine 100 MG TAB PO SCH ×2 (08:26→20:21)
[2018-09-23] MEDS: SPIRONOLACTONE 25 MG TABLET PO SCH (08:27)
[2018-09-23] MEDS: CARBIDOPA/LEVODOPA 25/250 TAB PO SCH ×3 (08:27→20:21)
[2018-09-23] MEDS: CARVEDILOL 6.25 MG TAB PO SCH ×2 (08:27→20:22)
[2018-09-23] MEDS: POLYETHYL GLY 3350 17 GM/DOSE PO PRN (08:33)
--- NOTE | 2018-09-23 10:20 | FAST ---
SHIFT START DATE/TIME: 09/23/2018 07:00 (PLASTICS ENGINEER) SHIFT END DATE/TIME: 09/23/2018 19:00 (PLASTICS ENGINEER) NAME GABRIEL MEYER DATE OF : 1945 DATE OF ADMISSION: 09/21/2018 19:15 (PLASTICS ENGINEER) PHONE: AGE: 73 SSN# [id number] GENDER: Male ENCOUNTER PHYSICIAN: Dr. José Freitas M.D. ADMISSION DIAGNOSIS: - Neurologic Conditions 03 - Parkinsonism (03.2) Parkinson's disease (G20). EATING: EATING - STEP 1: Does the patient require the assistance of a person or device, or need extra time when eating? Yes. EATING - STEP 2: Does the patient require the assistance of a helper? Yes. EATING - STEP 3: Does the patient perform half or more of the eating tasks? Yes. EATING - STEP 4: Does the patient need only supervision, cuing, coaxing OR help to apply an orthosis OR help to cut fo od, open containers, pour liquids, or butter bread? Yes. EATING - SCORE: 5-SUP GROOMING: Comb/brush hair Oral care GROOMING - STEP 1: Does the patient require the assistance of a person or device, or need extra time when grooming? Yes. GROOMING - STEP 2: Does the patient require the assistance of a helper? Yes. GROOMING - STEP 3: How much assistance does the patient require from the helper? Only prior equipment preparation/set up from the helper GROOMING - SCORE: 5-SUP BATHING: Activity did not occur on this shift BATHING - SCORE: 0-UNK DRESSING - UPPER BODY: T-shirt/pullover shirt (four steps) ARTICLES SCORE Total number of steps: 4 DRESSING - UPPER BODY - STEP 1: Does the patient require help from a person or device, or need extra time when dressing above the tarah st? Yes. DRESSING - UPPER BODY - STEP 2: Does the patient require the assistance of a helper? Yes. DRESSING - UPPER BODY - STEP 3: Does the helper touch the patient while dressing? Yes. DRESSING - UPPER BODY - STEP 4: How many of the total steps does the patient complete on his/her own? 2 DRESSING - UPPER BODY - SCORE: 3-MOD DRESSING - LOWER BODY: ARTICLES SCORE Total number of steps: 12 DRESSING - LOWER BODY - STEP 1: Does the patient require help from a person or device, or need extra time when dressing below the tarah st? Yes. DRESSING - LOWER BODY - STEP 2: Does the patient require the assistance of a helper? Yes. DRESSING - LOWER BODY - STEP 3: Does the helper touch the patient while dressing? Yes. DRESSING - LOWER BODY - STEP 4: How many of the total steps does the patient complete on his/her own? 2 DRESSING - LOWER BODY - STEP 5: Does patient require total assistance for dressing below the waist such as the helper holding clothin g and performing basically all the activities? No. DRESSING - LOWER BODY - SCORE: 2-MAX TOILETING: TOILETING - STEP 1: Does the patient require the assistance of a person or device, or need extra time with toileting? Yes . TOILETING - STEP 2: Does the patient require the assistance of a helper? Yes. TOILETING - STEP 3: How much assistance does the patient require from the helper? Hands-on assistance from the helper TOILETING - STEP 4: Of the 3 tasks: 1) Adjusting clothing prior to use, 2) Cleansing of perineal area, 3) Adjusting clot baldo after use; How many tasks does the patient perform WITHOUT assistance of the helper? Two tasks TOILETING - SCORE: 3-MOD BLADDER MANAGEMENT: BLADDER MANAGEMENT - STEP 1: Does the patient control the bladder completely and intentionally without equipment or devices or med ications, and is always continent? No. BLADDER MANAGEMENT - STEP 2: Does the patient require the assistance of a helper? No, patient requires and independently uses an a ssistive device, such as a urinal, bedpan, bedside commode, catheter, absorbent pad, or collecting de vice BLADDER MANAGEMENT - SCORE: 6-PEYTON BOWEL MANAGEMENT: Activity did not occur on this shift BOWEL MANAGEMENT - SCORE: 7-IND TRANSFERS: BED, CHAIR, WHEELCHAIR: TRANSFERS: BED, CHAIR, WHEELCHAIR - STEP 1: Does the patient require assistance of a person or device, or need extra time with bed, chair, or whe elchair transfers? Yes. TRANSFERS: BED, CHAIR, WHEELCHAIR - STEP 2: Does the patient require the assistance of a helper? Yes. TRANSFERS: BED, CHAIR, WHEELCHAIR - STEP 3: How much assistance does the patient require from the helper? Lifting of the legs TRANSFERS: BED, CHAIR, WHEELCHAIR - STEP 4: How many legs does the patient require the helper to lift? both legs TRANSFERS: BED, CHAIR, WHEELCHAIR - SCORE: 3-MOD TRANSFERS: TOILET: TRANSFERS: TOILET - STEP 1: Does the patient require the assistance of a person or device, or need extra time with toilet transfe rs? Yes. TRANSFERS: TOILET - STEP 2: Does the patient require the assistance of a helper? Yes. TRANSFERS: TOILET - STEP 3: How much assistance does the patient require from the helper? Patient performs half or more of the tr ansferring tasks TRANSFERS: TOILET - STEP 4: Does the patient need only incidental help such as contact guard or steadying during toilet transfer? Yes. TRANSFERS: TOILET - SCORE: 4-MIN TRANSFERS: SHOWER: Activity did not occur on this shift TRANSFERS: SHOWER - SCORE: 0-UNK TRANSFERS: TUB: Activity did not occur on this shift TRANSFERS: TUB - SCORE: 0-UNK LOCOMOTION: WALK: Activity did not occur on this shift LOCOMOTION: WALK - SCORE: 0-UNK LOCOMOTION: WHEELCHAIR: Activity did not occur on this shift LOCOMOTION: WHEELCHAIR - SCORE: 0-UNK COMPREHENSION: COMPREHENSION: TYPE: Both COMPREHENSION - STEP 1: Does the patient require help from a person or device, or need extra time to understand complex and a bstract ideas (such as current events, finances, discharge planning, medical issues, relationships, e tc)? Yes. COMPREHENSION - STEP 2: Does the patient require help to understand questions or statements about basic needs or ideas (such as hunger, thirst, sleep, safety, daily schedule, room location, or discomfort) half or more of the t mayra? No. COMPREHENSION - STEP 3: How often does the patient need help to understand directions and conversation about basic needs? 10% - 24% of the time COMPREHENSION - SCORE: 4-MIN EXPRESSION EXPRESSION: TYPE: Both EXPRESSION - STEP 1: Does the patient require help from a person or device, or need extra time expressing complex and abst ract ideas (such as current events, finances, discharge planning, medical issues, relationships, etc) ? Yes. EXPRESSION - STEP 2: Does the patient require help to express basic necessities or ideas (such as hunger, thirst, sleep, s afety, daily schedule, room location, or discomfort) half or more of the time? No. EXPRESSION - STEP 3: How often does the patient need help to express directions and conversation about basic needs? Less t messina 10% of the time EXPRESSION - SCORE: 5-SUP SOCIAL INTERACTION: SOCIAL INTERACTION - STEP 1: Does the patient require a helper to interact with others in social and therapeutic situations? Yes. SOCIAL INTERACTION - STEP 2: Does the patient interact appropriately half or more of the time? Yes. SOCIAL INTERACTION - STEP 3: How often does the patient need help to interact appropriately? Less than 10% of the time SOCIAL INTERACTION - SCORE: 5-SUP PROBLEM SOLVING: PROBLEM SOLVING - STEP 1: Does the patient need help from a person or device, or need extra time to solve complex problems such as managing a checking account or confronting interpersonal problems? Yes. PROBLEM SOLVING - STEP 2: Does the patient solve basic routine problems half or more of the time? Yes. PROBLEM SOLVING - STEP 3: How often does the patient need help to solve basic routine problems? 10%-24% of the time PROBLEM SOLVING - SCORE: 4-MIN MEMORY: MEMORY - STEP 1: Does the patient need help from a person or device, or need extra time to remember frequently encount ered people, daily routines, and executing requests? Yes. MEMORY - STEP 2: How often does the patient need help to remember frequently encountered people, daily routines, and e xecuting requests? Less than 10% of the time MEMORY - SCORE: 5-SUP SIGNATURE PANEL: The following modified sections: Eating - Score, Grooming - Score, Bathing - Score, Dressing - Upper Body - Score, Dressing - Lower Body - Score, Toileting - Score, Bladder Management - Score, Bowel Man agement - Score, Transfers: Bed, Chair, Wheelchair - Score, Transfers: Toilet - Score, Transfers: Alla wer - Score, Transfers: Tub - Score, Locomotion: Walk - Score, Locomotion: Wheelchair - Score, Compre hension - Score, Expression - Score, Social Interaction - Score, Problem Solving - Score, Memory - Sc ore were [electronically] signed by Victor M Tinoco on Sat Sep 23 2018 10:19:39 GMT-0600 (Central Standard Time)
[2018-09-23] MEDS: ATORVASTATIN 40 MG TAB PO SCH (20:21)
[2018-09-23] MEDS: clonazePAM 0.5 MG TAB PO SCH (20:22)
[2018-09-23] MEDS: ARIPiprazole 2 MG TAB PO SCH (20:23)
--- NOTE | 2018-09-24 01:28 | FAST ---
SHIFT START DATE/TIME: 09/23/2018 19:00 (DIGITAL STRATEGIST SENIOR MANAGER) SHIFT END DATE/TIME: 09/24/2018 07:00 (DIGITAL STRATEGIST SENIOR MANAGER) NAME GABRIEL MEYER DATE OF : 1945 DATE OF ADMISSION: 09/21/2018 19:15 (DIGITAL STRATEGIST SENIOR MANAGER) PHONE: AGE: 73 SSN# [id number] GENDER: Male ENCOUNTER PHYSICIAN: Dr. José Freitas M.D. ADMISSION DIAGNOSIS: - Neurologic Conditions 03 - Parkinsonism (03.2) Parkinson's disease (G20). EATING: Activity did not occur on this shift EATING - SCORE: 0-UNK GROOMING: Oral care Wash, rinse, and dry hands GROOMING - STEP 1: Does the patient require the assistance of a person or device, or need extra time when grooming? Yes. GROOMING - STEP 2: Does the patient require the assistance of a helper? Yes. GROOMING - STEP 3: How much assistance does the patient require from the helper? Only prior equipment preparation/set up from the helper GROOMING - SCORE: 5-SUP BATHING: Activity did not occur on this shift BATHING - SCORE: 0-UNK DRESSING - UPPER BODY: Activity did not occur on this shift ARTICLES SCORE Total number of steps: 0 DRESSING - UPPER BODY - SCORE: 0-UNK DRESSING - LOWER BODY: Activity did not occur on this shift ARTICLES SCORE Total number of steps: 0 DRESSING - LOWER BODY - SCORE: 0-UNK TOILETING: TOILETING - STEP 1: Does the patient require the assistance of a person or device, or need extra time with toileting? Yes . TOILETING - STEP 2: Does the patient require the assistance of a helper? Yes. TOILETING - STEP 3: How much assistance does the patient require from the helper? Hands-on assistance from the helper TOILETING - STEP 4: Of the 3 tasks: 1) Adjusting clothing prior to use, 2) Cleansing of perineal area, 3) Adjusting clot baldo after use; How many tasks does the patient perform WITHOUT assistance of the helper? One task TOILETING - SCORE: 2-MAX BLADDER MANAGEMENT: BLADDER MANAGEMENT - STEP 1: Does the patient control the bladder completely and intentionally without equipment or devices or med ications, and is always continent? No. BLADDER MANAGEMENT - STEP 2: Does the patient require the assistance of a helper? Yes. BLADDER MANAGEMENT - STEP 3: How much assistance does the patient require from the helper? Patient requires contact assistance fro m the helper BLADDER MANAGEMENT - STEP 4: How much contact assistance does the patient require from the helper? Patient requires moderate dario tance, and performs 50% to 75% of bladder management tasks - [place] positions AND holds urinal or bed samayoa BLADDER MANAGEMENT - SCORE: 3-MOD BOWEL MANAGEMENT: Activity did not occur on this shift BOWEL MANAGEMENT - SCORE: 7-IND TRANSFERS: BED, CHAIR, WHEELCHAIR: TRANSFERS: BED, CHAIR, WHEELCHAIR - STEP 1: Does the patient require assistance of a person or device, or need extra time with bed, chair, or whe elchair transfers? Yes. TRANSFERS: BED, CHAIR, WHEELCHAIR - STEP 2: Does the patient require the assistance of a helper? Yes. TRANSFERS: BED, CHAIR, WHEELCHAIR - STEP 3: How much assistance does the patient require from the helper? Lifting of the legs TRANSFERS: BED, CHAIR, WHEELCHAIR - STEP 4: How many legs does the patient require the helper to lift? one leg TRANSFERS: BED, CHAIR, WHEELCHAIR - SCORE: 4-MIN TRANSFERS: TOILET: TRANSFERS: TOILET - STEP 1: Does the patient require the assistance of a person or device, or need extra time with toilet transfe rs? Yes. TRANSFERS: TOILET - STEP 2: Does the patient require the assistance of a helper? Yes. TRANSFERS: TOILET - STEP 3: How much assistance does the patient require from the helper? Patient performs half or more of the tr ansferring tasks TRANSFERS: TOILET - STEP 4: Does the patient need only incidental help such as contact guard or steadying during toilet transfer? No. Patient needs more than incidental help TRANSFERS: TOILET - SCORE: 3-MOD TRANSFERS: SHOWER: Activity did not occur on this shift TRANSFERS: SHOWER - SCORE: 0-UNK TRANSFERS: TUB: Activity did not occur on this shift TRANSFERS: TUB - SCORE: 0-UNK LOCOMOTION: WALK: Activity did not occur on this shift LOCOMOTION: WALK - SCORE: 0-UNK LOCOMOTION: WHEELCHAIR: Activity did not occur on this shift LOCOMOTION: WHEELCHAIR - SCORE: 0-UNK COMPREHENSION: COMPREHENSION: TYPE: Both COMPREHENSION - STEP 1: Does the patient require help from a person or device, or need extra time to understand complex and a bstract ideas (such as current events, finances, discharge planning, medical issues, relationships, e tc)? Yes. COMPREHENSION - STEP 2: Does the patient require help to understand questions or statements about basic needs or ideas (such as hunger, thirst, sleep, safety, daily schedule, room location, or discomfort) half or more of the t mayra? No. COMPREHENSION - STEP 3: How often does the patient need help to understand directions and conversation about basic needs? Les s than 10% of the time COMPREHENSION - SCORE: 5-SUP EXPRESSION EXPRESSION: TYPE: Both EXPRESSION - STEP 1: Does the patient require help from a person or device, or need extra time expressing complex and abst ract ideas (such as current events, finances, discharge planning, medical issues, relationships, etc) ? Yes. EXPRESSION - STEP 2: Does the patient require help to express basic necessities or ideas (such as hunger, thirst, sleep, s afety, daily schedule, room location, or discomfort) half or more of the time? No. EXPRESSION - STEP 3: How often does the patient need help to express directions and conversation about basic needs? Less t messina 10% of the time EXPRESSION - SCORE: 5-SUP SOCIAL INTERACTION: SOCIAL INTERACTION - STEP 1: Does the patient require a helper to interact with others in social and therapeutic situations? No. SOCIAL INTERACTION - STEP 2: Does the patient need extra time in social situations, OR does s/he interact with staff, other patien ts, and family members ONLY in structured environments, OR does s/he require medication for social in teraction? Yes, patient requires medication for social interaction SOCIAL INTERACTION - SCORE: 6-PEYTON PROBLEM SOLVING: PROBLEM SOLVING - STEP 1: Does the patient need help from a person or device, or need extra time to solve complex problems such as managing a checking account or confronting interpersonal problems? Yes. PROBLEM SOLVING - STEP 2: Does the patient solve basic routine problems half or more of the time? Yes. PROBLEM SOLVING - STEP 3: How often does the patient need help to solve basic routine problems? Less than 10% of the time PROBLEM SOLVING - SCORE: 5-SUP MEMORY: MEMORY - STEP 1: Does the patient need help from a person or device, or need extra time to remember frequently encount ered people, daily routines, and executing requests? Yes. MEMORY - STEP 2: How often does the patient need help to remember frequently encountered people, daily routines, and e xecuting requests? Less than 10% of the time MEMORY - SCORE: 5-SUP SIGNATURE PANEL: The following modified sections: Eating - Score, Grooming - Score, Bathing - Score, Dressing - Upper Body - Score, Dressing - Lower Body - Score, Toileting - Score, Bladder Management - Score, Bowel Man agement - Score, Transfers: Bed, Chair, Wheelchair - Score, Transfers: Toilet - Score, Transfers: Alla wer - Score, Transfers: Tub - Score, Locomotion: Walk - Score, Locomotion: Wheelchair - Score, Compre hension - Score, Expression - Score, Social Interaction - Score, Problem Solving - Score, Memory - Sc ore were [electronically] signed by Fallon Garcia CNA on TueSep 24 2018 01:28:07 T-0600 ([facility])
[2018-09-24] MEDS: PANTOPRAZOLE 40MG TABLET PO SCH (06:07)
[2018-09-24] MEDS: POLYETHYL GLY 3350 17 GM/DOSE PO PRN (06:53)
[2018-09-24] MEDS: MULTIVITAMIN TAB PO SCH (07:01)
[2018-09-24] MEDS: APIXABAN 5 MG TABLET PO SCH ×2 (07:02→21:11)
[2018-09-24] MEDS: MAGNESIUM OXIDE 400 MG TAB PO SCH (07:02)
[2018-09-24] MEDS: DUTASTERIDE 0.5 MG GEL CAP PO SCH ×2 (07:03→21:11)
[2018-09-24] MEDS: CARVEDILOL 6.25 MG TAB PO SCH ×2 (07:03→21:11)
[2018-09-24] MEDS: lamoTRIgine 100 MG TAB PO SCH ×2 (07:03→21:12)
[2018-09-24] MEDS: SPIRONOLACTONE 25 MG TABLET PO SCH (07:04)
[2018-09-24] MEDS: GABAPENTIN 300 MG CAP PO SCH ×3 (07:48→21:11)
[2018-09-24] MEDS: CARBIDOPA/LEVODOPA 25/250 TAB PO SCH ×3 (07:48→21:11)
[2018-09-24] MEDS: ROPINIROLE HCL 1 MG TAB PO SCH ×3 (07:48→21:11)
[2018-09-24] MEDS: FUROSEMIDE 20 MG TABLET PO SCH ×2 (07:48→16:11)
--- NOTE | 2018-09-24 10:23 | FAST ---
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 José Freitas M.D. ADMISSION DIAGNOSIS: - Neurologic Conditions 03 - Parkinsonism (03.2) Parkinson's disease (G20). EATING: EATING - STEP 1: Does the patient require the assistance of a person or device, or need extra time when eating? Yes. EATING - STEP 2: Does the patient require the assistance of a helper? Yes. EATING - STEP 3: Does the patient perform half or more of the eating tasks? Yes. EATING - STEP 4: Does the patient need only supervision, cuing, coaxing OR help to apply an orthosis OR help to cut fo od, open containers, pour liquids, or butter bread? Yes. EATING - SCORE: 5-SUP GROOMING: Oral care GROOMING - STEP 1: Does the patient require the assistance of a person or device, or need extra time when grooming? Yes. GROOMING - STEP 2: Does the patient require the assistance of a helper? Yes. GROOMING - STEP 3: How much assistance does the patient require from the helper? Only prior equipment preparation/set up from the helper GROOMING - SCORE: 5-SUP BATHING: Activity did not occur on this shift BATHING - SCORE: 0-UNK DRESSING - UPPER BODY: Activity did not occur on this shift ARTICLES SCORE Total number of steps: 0 DRESSING - UPPER BODY - SCORE: 0-UNK DRESSING - LOWER BODY: Activity did not occur on this shift ARTICLES SCORE Total number of steps: 0 DRESSING - LOWER BODY - SCORE: 0-UNK TOILETING: TOILETING - STEP 1: Does the patient require the assistance of a person or device, or need extra time with toileting? Yes . TOILETING - STEP 2: Does the patient require the assistance of a helper? Yes. TOILETING - STEP 3: How much assistance does the patient require from the helper? Hands-on assistance from the helper TOILETING - STEP 4: Of the 3 tasks: 1) Adjusting clothing prior to use, 2) Cleansing of perineal area, 3) Adjusting clot baldo after use; How many tasks does the patient perform WITHOUT assistance of the helper? Two tasks TOILETING - SCORE: 3-MOD BLADDER MANAGEMENT: BLADDER MANAGEMENT - STEP 1: Does the patient control the bladder completely and intentionally without equipment or devices or med ications, and is always continent? No. BLADDER MANAGEMENT - STEP 2: Does the patient require the assistance of a helper? Yes. BLADDER MANAGEMENT - STEP 3: How much assistance does the patient require from the helper? Only supervision, stand-by, cuing, or c oaxing BLADDER MANAGEMENT - SCORE: 5-SUP BOWEL MANAGEMENT: BOWEL MANAGEMENT - STEP 1: Does the patient control bowels completely and intentionally without equipment devices or medications AND is always continent? No. BOWEL MANAGEMENT - STEP 2: Does the patient require the assistance of a helper? No, patient requires and manages independently a n assistive device such as a bedpan, bedside commode, absorbent pad, incontinent device, or collectin g device BOWEL MANAGEMENT - SCORE: 6-PEYTON TRANSFERS: BED, CHAIR, WHEELCHAIR: TRANSFERS: BED, CHAIR, WHEELCHAIR - STEP 1: Does the patient require assistance of a person or device, or need extra time with bed, chair, or whe elchair transfers? Yes. TRANSFERS: BED, CHAIR, WHEELCHAIR - STEP 2: Does the patient require the assistance of a helper? Yes. TRANSFERS: BED, CHAIR, WHEELCHAIR - STEP 3: How much assistance does the patient require from the helper? Lifting of the legs TRANSFERS: BED, CHAIR, WHEELCHAIR - STEP 4: How many legs does the patient require the helper to lift? both legs TRANSFERS: BED, CHAIR, WHEELCHAIR - SCORE: 3-MOD TRANSFERS: TOILET: TRANSFERS: TOILET - STEP 1: Does the patient require the assistance of a person or device, or need extra time with toilet transfe rs? Yes. TRANSFERS: TOILET - STEP 2: Does the patient require the assistance of a helper? Yes. TRANSFERS: TOILET - STEP 3: How much assistance does the patient require from the helper? Patient performs half or more of the tr ansferring tasks TRANSFERS: TOILET - STEP 4: Does the patient need only incidental help such as contact guard or steadying during toilet transfer? No. Patient needs more than incidental help TRANSFERS: TOILET - SCORE: 3-MOD TRANSFERS: SHOWER: Activity did not occur on this shift TRANSFERS: SHOWER - SCORE: 0-UNK TRANSFERS: TUB: Activity did not occur on this shift TRANSFERS: TUB - SCORE: 0-UNK LOCOMOTION: WALK: Activity did not occur on this shift LOCOMOTION: WALK - SCORE: 0-UNK LOCOMOTION: WHEELCHAIR: Activity did not occur on this shift LOCOMOTION: WHEELCHAIR - SCORE: 0-UNK COMPREHENSION: COMPREHENSION: TYPE: Both COMPREHENSION - STEP 1: Does the patient require help from a person or device, or need extra time to understand complex and a bstract ideas (such as current events, finances, discharge planning, medical issues, relationships, e tc)? Yes. COMPREHENSION - STEP 2: Does the patient require help to understand questions or statements about basic needs or ideas (such as hunger, thirst, sleep, safety, daily schedule, room location, or discomfort) half or more of the t mayra? No. COMPREHENSION - STEP 3: How often does the patient need help to understand directions and conversation about basic needs? 10% - 24% of the time COMPREHENSION - SCORE: 4-MIN EXPRESSION EXPRESSION: TYPE: Both EXPRESSION - STEP 1: Does the patient require help from a person or device, or need extra time expressing complex and abst ract ideas (such as current events, finances, discharge planning, medical issues, relationships, etc) ? Yes. EXPRESSION - STEP 2: Does the patient require help to express basic necessities or ideas (such as hunger, thirst, sleep, s afety, daily schedule, room location, or discomfort) half or more of the time? No. EXPRESSION - STEP 3: How often does the patient need help to express directions and conversation about basic needs? Less t messina 10% of the time EXPRESSION - SCORE: 5-SUP SOCIAL INTERACTION: SOCIAL INTERACTION - STEP 1: Does the patient require a helper to interact with others in social and therapeutic situations? Yes. SOCIAL INTERACTION - STEP 2: Does the patient interact appropriately half or more of the time? Yes. SOCIAL INTERACTION - STEP 3: How often does the patient need help to interact appropriately? 10-24% of the time SOCIAL INTERACTION - SCORE: 4-MIN PROBLEM SOLVING: PROBLEM SOLVING - STEP 1: Does the patient need help from a person or device, or need extra time to solve complex problems such as managing a checking account or confronting interpersonal problems? Yes. PROBLEM SOLVING - STEP 2: Does the patient solve basic routine problems half or more of the time? Yes. PROBLEM SOLVING - STEP 3: How often does the patient need help to solve basic routine problems? Less than 10% of the time PROBLEM SOLVING - SCORE: 5-SUP MEMORY: MEMORY - STEP 1: Does the patient need help from a person or device, or need extra time to remember frequently encount ered people, daily routines, and executing requests? Yes. MEMORY - STEP 2: How often does the patient need help to remember frequently encountered people, daily routines, and e xecuting requests? 10% - 24% of the time MEMORY - SCORE: 4-MIN SIGNATURE PANEL: The following modified sections: Eating - Score, Grooming - Score, Bathing - Score, Dressing - Upper Body - Score, Dressing - Lower Body - Score, Toileting - Score, Bowel Management - Score, Transfers: Bed, Chair, Wheelchair - Score, Transfers: Toilet - Score, Transfers: Shower - Score, Transfers: Tub - Score, Locomotion: Walk - Score, Locomotion: Wheelchair - Score, Comprehension - Score, Expression - Score, Social Interaction - Score, Problem Solving - Score, Memory - Score, Bladder Management - Sc ore were [electronically] signed by Victor M Tinoco on TueSep 24 2018 10:22:51 GMT-0600 (Central Standard Time)
[2018-09-24] MEDS: clonazePAM 0.5 MG TAB PO SCH (21:11)
[2018-09-24] MEDS: ATORVASTATIN 40 MG TAB PO SCH (21:11)
[2018-09-24] MEDS: ARIPiprazole 2 MG TAB PO SCH (21:12)
--- NOTE | 2018-09-25 01:21 | FAST ---
SHIFT START DATE/TIME: 09/24/2018 19:00 (MECHANICAL DESIGN TECHNICIAN) SHIFT END DATE/TIME: 09/25/2018 07:00 (MECHANICAL DESIGN TECHNICIAN) NAME GABRIEL MEYER DATE OF : 1945 DATE OF ADMISSION: 09/21/2018 19:15 (MECHANICAL DESIGN TECHNICIAN) PHONE: AGE: 73 SSN# [id number] GENDER: Male ENCOUNTER PHYSICIAN: Dr. José Freitas M.D. ADMISSION DIAGNOSIS: - Neurologic Conditions 03 - Parkinsonism (03.2) Parkinson's disease (G20). EATING: Activity did not occur on this shift EATING - SCORE: 0-UNK GROOMING: Activity did not occur on this shift GROOMING - SCORE: 0-UNK BATHING: Activity did not occur on this shift BATHING - SCORE: 0-UNK DRESSING - UPPER BODY: Activity did not occur on this shift ARTICLES SCORE Total number of steps: 0 DRESSING - UPPER BODY - SCORE: 0-UNK DRESSING - LOWER BODY: Patient is not dressing in public clothing ARTICLES SCORE Total number of steps: 0 DRESSING - LOWER BODY - SCORE: 0-UNK TOILETING: TOILETING - STEP 1: Does the patient require the assistance of a person or device, or need extra time with toileting? Yes . TOILETING - STEP 2: Does the patient require the assistance of a helper? Yes. TOILETING - STEP 3: How much assistance does the patient require from the helper? Hands-on assistance from the helper TOILETING - STEP 4: Of the 3 tasks: 1) Adjusting clothing prior to use, 2) Cleansing of perineal area, 3) Adjusting clot baldo after use; How many tasks does the patient perform WITHOUT assistance of the helper? One task TOILETING - SCORE: 2-MAX BLADDER MANAGEMENT: BLADDER MANAGEMENT - STEP 1: Does the patient control the bladder completely and intentionally without equipment or devices or med ications, and is always continent? No. BLADDER MANAGEMENT - STEP 2: Does the patient require the assistance of a helper? Yes. BLADDER MANAGEMENT - STEP 3: How much assistance does the patient require from the helper? Patient requires contact assistance fro m the helper BLADDER MANAGEMENT - STEP 4: How much contact assistance does the patient require from the helper? Patient requires moderate dario tance, and performs 50% to 75% of bladder management tasks - [place] positions AND holds urinal or bed samayoa BLADDER MANAGEMENT - SCORE: 3-MOD BOWEL MANAGEMENT: Activity did not occur on this shift BOWEL MANAGEMENT - SCORE: 7-IND TRANSFERS: BED, CHAIR, WHEELCHAIR: TRANSFERS: BED, CHAIR, WHEELCHAIR - STEP 1: Does the patient require assistance of a person or device, or need extra time with bed, chair, or whe elchair transfers? Yes. TRANSFERS: BED, CHAIR, WHEELCHAIR - STEP 2: Does the patient require the assistance of a helper? Yes. TRANSFERS: BED, CHAIR, WHEELCHAIR - STEP 3: How much assistance does the patient require from the helper? Lifting of the legs TRANSFERS: BED, CHAIR, WHEELCHAIR - STEP 4: How many legs does the patient require the helper to lift? both legs TRANSFERS: BED, CHAIR, WHEELCHAIR - SCORE: 3-MOD TRANSFERS: TOILET: TRANSFERS: TOILET - STEP 1: Does the patient require the assistance of a person or device, or need extra time with toilet transfe rs? Yes. TRANSFERS: TOILET - STEP 2: Does the patient require the assistance of a helper? Yes. TRANSFERS: TOILET - STEP 3: How much assistance does the patient require from the helper? Patient performs half or more of the tr ansferring tasks TRANSFERS: TOILET - STEP 4: Does the patient need only incidental help such as contact guard or steadying during toilet transfer? Yes. TRANSFERS: TOILET - SCORE: 4-MIN TRANSFERS: SHOWER: Activity did not occur on this shift TRANSFERS: SHOWER - SCORE: 0-UNK TRANSFERS: TUB: Activity did not occur on this shift TRANSFERS: TUB - SCORE: 0-UNK LOCOMOTION: WALK: Activity did not occur on this shift LOCOMOTION: WALK - SCORE: 0-UNK LOCOMOTION: WHEELCHAIR: Activity did not occur on this shift LOCOMOTION: WHEELCHAIR - SCORE: 0-UNK COMPREHENSION: COMPREHENSION: TYPE: Both COMPREHENSION - STEP 1: Does the patient require help from a person or device, or need extra time to understand complex and a bstract ideas (such as current events, finances, discharge planning, medical issues, relationships, e tc)? Yes. COMPREHENSION - STEP 2: Does the patient require help to understand questions or statements about basic needs or ideas (such as hunger, thirst, sleep, safety, daily schedule, room location, or discomfort) half or more of the t mayra? Yes. COMPREHENSION - STEP 3: Is the patient basically able to understand and respond appropriately and consistently? Yes. COMPREHENSION - SCORE: 2-MAX EXPRESSION EXPRESSION: TYPE: Both EXPRESSION - STEP 1: Does the patient require help from a person or device, or need extra time expressing complex and abst ract ideas (such as current events, finances, discharge planning, medical issues, relationships, etc) ? Yes. EXPRESSION - STEP 2: Does the patient require help to express basic necessities or ideas (such as hunger, thirst, sleep, s afety, daily schedule, room location, or discomfort) half or more of the time? Yes. EXPRESSION - STEP 3: Is the patient basically unable to express or does s/he express inappropriately or inconsistently dima pite prompting? No. EXPRESSION - SCORE: 2-MAX SOCIAL INTERACTION: SOCIAL INTERACTION - STEP 1: Does the patient require a helper to interact with others in social and therapeutic situations? No. SOCIAL INTERACTION - STEP 2: Does the patient need extra time in social situations, OR does s/he interact with staff, other patien ts, and family members ONLY in structured environments, OR does s/he require medication for social in teraction? Yes, patient requires medication for social interaction SOCIAL INTERACTION - SCORE: 6-PEYTON PROBLEM SOLVING: PROBLEM SOLVING - STEP 1: Does the patient need help from a person or device, or need extra time to solve complex problems such as managing a checking account or confronting interpersonal problems? Yes. PROBLEM SOLVING - STEP 2: Does the patient solve basic routine problems half or more of the time? Yes. PROBLEM SOLVING - STEP 3: How often does the patient need help to solve basic routine problems? 10%-24% of the time PROBLEM SOLVING - SCORE: 4-MIN MEMORY: MEMORY - STEP 1: How often do the bed/chair alarms go off? Occasionally - the alarms go off about 25% of the time or l ess MEMORY - SCORE: 4-MIN SIGNATURE PANEL: The following modified sections: Eating - Score, Grooming - Score, Bathing - Score, Dressing - Upper Body - Score, Dressing - Lower Body - Score, Toileting - Score, Bladder Management - Score, Bowel Man agement - Score, Transfers: Bed, Chair, Wheelchair - Score, Transfers: Toilet - Score, Transfers: Alla wer - Score, Transfers: Tub - Score, Locomotion: Walk - Score, Locomotion: Wheelchair - Score, Compre hension - Score, Expression - Score, Social Interaction - Score, Problem Solving - Score, Memory - Sc ore were [electronically] signed by Fallon Garcia CNA on TueSep 25 2018 01:20:23 T-0600 ([facility])
[2018-09-25] MEDS: PANTOPRAZOLE 40MG TABLET PO SCH (07:09)
[2018-09-25] MEDS: DUTASTERIDE 0.5 MG GEL CAP PO SCH ×2 (08:00→20:00)
[2018-09-25] MEDS: APIXABAN 5 MG TABLET PO SCH ×2 (09:14→20:33)
[2018-09-25] MEDS: ROPINIROLE HCL 1 MG TAB PO SCH ×3 (09:14→20:33)
[2018-09-25] MEDS: lamoTRIgine 100 MG TAB PO SCH ×2 (09:14→20:33)
[2018-09-25] MEDS: CARVEDILOL 6.25 MG TAB PO SCH ×2 (09:14→20:33)
[2018-09-25] MEDS: SPIRONOLACTONE 25 MG TABLET PO SCH (09:14)
[2018-09-25] MEDS: FUROSEMIDE 20 MG TABLET PO SCH ×2 (09:14→17:00)
[2018-09-25] MEDS: CARBIDOPA/LEVODOPA 25/250 TAB PO SCH ×3 (09:15→20:33)
[2018-09-25] MEDS: MULTIVITAMIN TAB PO SCH (09:15)
[2018-09-25] MEDS: GABAPENTIN 300 MG CAP PO SCH ×3 (09:15→20:32)
[2018-09-25] MEDS: MAGNESIUM OXIDE 400 MG TAB PO SCH (09:15)
--- NOTE | 2018-09-25 15:49 | FAST ---
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 José Freitas M.D. ADMISSION DIAGNOSIS: - Neurologic Conditions 03 - Parkinsonism (03.2) Parkinson's disease (G20). EATING: Activity did not occur on this shift EATING - SCORE: 0-UNK GROOMING: Activity did not occur on this shift GROOMING - SCORE: 0-UNK BATHING: Activity did not occur on this shift BATHING - SCORE: 0-UNK DRESSING - UPPER BODY: Activity did not occur on this shift Patient is not dressing in public clothing ARTICLES SCORE Total number of steps: 0 DRESSING - UPPER BODY - SCORE: 0-UNK DRESSING - LOWER BODY: Activity did not occur on this shift Patient is not dressing in public clothing ARTICLES SCORE Total number of steps: 0 DRESSING - LOWER BODY - SCORE: 0-UNK TOILETING: Activity did not occur on this shift TOILETING - SCORE: 0-UNK BLADDER MANAGEMENT: Activity did not occur on this shift BLADDER MANAGEMENT - SCORE: 7-IND BOWEL MANAGEMENT: Activity did not occur on this shift BOWEL MANAGEMENT - SCORE: 7-IND TRANSFERS: BED, CHAIR, WHEELCHAIR: TRANSFERS: BED, CHAIR, WHEELCHAIR - STEP 1: Does the patient require assistance of a person or device, or need extra time with bed, chair, or whe elchair transfers? Yes. TRANSFERS: BED, CHAIR, WHEELCHAIR - STEP 2: Does the patient require the assistance of a helper? Yes. TRANSFERS: BED, CHAIR, WHEELCHAIR - STEP 3: How much assistance does the patient require from the helper? Steadying/guiding assistance TRANSFERS: BED, CHAIR, WHEELCHAIR - SCORE: 4-MIN TRANSFERS: TOILET: Activity did not occur on this shift TRANSFERS: TOILET - SCORE: 0-UNK TRANSFERS: SHOWER: Activity did not occur on this shift TRANSFERS: SHOWER - SCORE: 0-UNK TRANSFERS: TUB: Activity did not occur on this shift TRANSFERS: TUB - SCORE: 0-UNK LOCOMOTION: WALK: LOCOMOTION: WALK - STEP 1: Does the patient need help from a person or device, or need extra time to walk 150 feet? Yes. LOCOMOTION: WALK - STEP 2: How much assistance does the patient require to walk a minimum of 150 feet? Only supervision, cuing, or coaxing LOCOMOTION: WALK - SCORE: 5-SUP LOCOMOTION: WHEELCHAIR: LOCOMOTION: WHEELCHAIR - STEP 1: Does the patient need help to go 150 feet in a wheelchair? Yes. LOCOMOTION: WHEELCHAIR - STEP 2: How much assistance does the patient need from the helper? Patient goes less than 150 feet - but more than 50 feet - with the assistance of only one helper LOCOMOTION: WHEELCHAIR - SCORE: 2-MAX LOCOMOTION: STAIRS: Activity did not occur on this shift LOCOMOTION: STAIRS - SCORE: 0-UNK COMPREHENSION: COMPREHENSION - SCORE: 0-UNK EXPRESSION EXPRESSION - SCORE: 0-UNK SOCIAL INTERACTION: SOCIAL INTERACTION - SCORE: 0-UNK PROBLEM SOLVING: PROBLEM SOLVING - SCORE: 0-UNK MEMORY: MEMORY - SCORE: 0-UNK SIGNATURE PANEL: The following modified sections: Transfers: Bed, Chair, Wheelchair - Score, Transfers: Toilet - Score , Locomotion: Walk - Score, Locomotion: Wheelchair - Score, Locomotion: Stairs - Score were [electron alison] signed by Clay Pedro PTA on TueSep 25 2018 15:48:05 GMT-0600 (Central Standard Time)
--- NOTE | 2018-09-25 16:05 | FAST ---
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 José Freitas M.D. ADMISSION DIAGNOSIS: - Neurologic Conditions 03 - Parkinsonism (03.2) Parkinson's disease (G20). EATING: Activity did not occur on this shift EATING - SCORE: 0-UNK GROOMING: Comb/brush hair Wash, rinse, and dry face Wash, rinse, and dry hands GROOMING - STEP 1: Does the patient require the assistance of a person or device, or need extra time when grooming? Yes. GROOMING - STEP 2: Does the patient require the assistance of a helper? Yes. GROOMING - STEP 3: How much assistance does the patient require from the helper? Incidental touching assistance from the helper while grooming GROOMING - SCORE: 4-MIN BATHING: Abdomen Buttocks Chest Left arm Left lower leg and foot Left upper leg Perineal area Right arm Right lower leg and foot Right upper leg BATHING - STEP 1: Does the patient require the assistance of a person or device, or need extra time when bathing? Yes. BATHING - STEP 2: Does the patient require the assistance of a helper? Yes. BATHING - STEP 3: How much assistance does the patient require from the helper? Only incidental help such as placement of a wash cloth in his/her hand a few times as s/he bathes OR help to bathe just one or two areas of the body BATHING - SCORE: 4-MIN DRESSING - UPPER BODY: T-shirt/pullover shirt (four steps) ARTICLES SCORE Total number of steps: 4 DRESSING - UPPER BODY - STEP 1: Does the patient require help from a person or device, or need extra time when dressing above the tar[address] st? Yes. DRESSING - UPPER BODY - STEP 2: Does the patient require the assistance of a helper? Yes. DRESSING - UPPER BODY - STEP 3: Does the helper touch the patient while dressing? Yes. DRESSING - UPPER BODY - STEP 4: How many of the total steps does the patient complete on his/her own? 3 DRESSING - UPPER BODY - SCORE: 4-MIN DRESSING - LOWER BODY: Elastic waist pants (three steps) Sock - Left foot (one step) Sock - Right foot (one step) Tied or buckled shoe - Left foot (two steps) Tied or buckled shoe - Right foot (two steps) ARTICLES SCORE Total number of steps: 9 DRESSING - LOWER BODY - STEP 1: Does the patient require help from a person or device, or need extra time when dressing below the tarah st? Yes. DRESSING - LOWER BODY - STEP 2: Does the patient require the assistance of a helper? Yes. DRESSING - LOWER BODY - STEP 3: Does the helper touch the patient while dressing? Yes. DRESSING - LOWER BODY - STEP 4: How many of the total steps does the patient complete on his/her own? 6 DRESSING - LOWER BODY - SCORE: 3-MOD TOILETING: Activity did not occur on this shift TOILETING - SCORE: 0-UNK BLADDER MANAGEMENT: Activity did not occur on this shift BLADDER MANAGEMENT - SCORE: 7-IND BOWEL MANAGEMENT: Activity did not occur on this shift BOWEL MANAGEMENT - SCORE: 7-IND TRANSFERS: BED, CHAIR, WHEELCHAIR: Activity did not occur on this shift TRANSFERS: BED, CHAIR, WHEELCHAIR - SCORE: 0-UNK TRANSFERS: TOILET: Activity did not occur on this shift TRANSFERS: TOILET - SCORE: 0-UNK TRANSFERS: SHOWER: Activity did not occur on this shift TRANSFERS: SHOWER - SCORE: 0-UNK TRANSFERS: TUB: TRANSFERS: TUB - STEP 1: Does the patient require the assistance of a person or device, or need extra time with tub transfers? Yes. TRANSFERS: TUB - STEP 2: Does the patient require the assistance of a helper? Yes. TRANSFERS: TUB - STEP 3: How much assistance does the patient require from the helper? More than incidental help TRANSFERS: TUB - STEP 4: How much more help does the patient require from the helper? [place] lifts the patient either up OR do wn TRANSFERS: TUB - SCORE: 3-MOD LOCOMOTION: WALK: Activity did not occur on this shift LOCOMOTION: WALK - SCORE: 0-UNK LOCOMOTION: WHEELCHAIR: Activity did not occur on this shift LOCOMOTION: WHEELCHAIR - SCORE: 0-UNK LOCOMOTION: STAIRS: Activity did not occur on this shift LOCOMOTION: STAIRS - SCORE: 0-UNK COMPREHENSION: COMPREHENSION: TYPE: Both COMPREHENSION - STEP 1: Does the patient require help from a person or device, or need extra time to understand complex and a bstract ideas (such as current events, finances, discharge planning, medical issues, relationships, e tc)? Yes. COMPREHENSION - STEP 2: Does the patient require help to understand questions or statements about basic needs or ideas (such as hunger, thirst, sleep, safety, daily schedule, room location, or discomfort) half or more of the t mayra? No. COMPREHENSION - STEP 3: How often does the patient need help to understand directions and conversation about basic needs? 10% - 24% of the time COMPREHENSION - SCORE: 4-MIN EXPRESSION EXPRESSION: TYPE: Both EXPRESSION - STEP 1: Does the patient require help from a person or device, or need extra time expressing complex and abst ract ideas (such as current events, finances, discharge planning, medical issues, relationships, etc) ? Yes. EXPRESSION - STEP 2: Does the patient require help to express basic necessities or ideas (such as hunger, thirst, sleep, s afety, daily schedule, room location, or discomfort) half or more of the time? No. EXPRESSION - STEP 3: How often does the patient need help to express directions and conversation about basic needs? 10-24% of the time EXPRESSION - SCORE: 4-MIN SOCIAL INTERACTION: SOCIAL INTERACTION - STEP 1: Does the patient require a helper to interact with others in social and therapeutic situations? No. SOCIAL INTERACTION - STEP 2: Does the patient need extra time in social situations, OR does s/he interact with staff, other patien ts, and family members ONLY in structured environments, OR does s/he require medication for social in teraction? Yes, patient needs extra time SOCIAL INTERACTION - SCORE: 6-PEYTON PROBLEM SOLVING: PROBLEM SOLVING - STEP 1: Does the patient need help from a person or device, or need extra time to solve complex problems such as managing a checking account or confronting interpersonal problems? Yes. PROBLEM SOLVING - STEP 2: Does the patient solve basic routine problems half or more of the time? Yes. PROBLEM SOLVING - STEP 3: How often does the patient need help to solve basic routine problems? 25%-49% of the time PROBLEM SOLVING - SCORE: 3-MOD MEMORY: MEMORY - STEP 1: Does the patient need help from a person or device, or need extra time to remember frequently encount ered people, daily routines, and executing requests? Yes. MEMORY - STEP 2: How often does the patient need help to remember frequently encountered people, daily routines, and e xecuting requests? 25% - 49% of the time MEMORY - SCORE: 3-MOD SIGNATURE PANEL: The following modified sections: Eating - Score, Grooming - Score, Bathing - Score, Dressing - Upper Body - Score, Dressing - Lower Body - Score, Toileting - Score, Transfers: Bed, Chair, Wheelchair - S core, Transfers: Toilet - Score, Transfers: Shower - Score, Transfers: Tub - Score, Comprehension - S core, Expression - Score, Social Interaction - Score, Problem Solving - Score, Memory - Score were [e lectronically] signed by Sari Chirinos OT on TueSep 25 2018 16:05:11 [facility]-0600 ([facility])
--- NOTE | 2018-09-25 17:18 | FAST ---
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 José Freitas M.D. ADMISSION DIAGNOSIS: - Neurologic Conditions 03 - Parkinsonism (03.2) Parkinson's disease (G20). EATING: EATING - STEP 1: Does the patient require the assistance of a person or device, or need extra time when eating? Yes. EATING - STEP 2: Does the patient require the assistance of a helper? Yes. EATING - STEP 3: Does the patient perform half or more of the eating tasks? Yes. EATING - STEP 4: Does the patient need only supervision, cuing, coaxing OR help to apply an orthosis OR help to cut fo od, open containers, pour liquids, or butter bread? Yes. EATING - SCORE: 5-SUP GROOMING: Comb/brush hair Wash, rinse, and dry face Wash, rinse, and dry hands GROOMING - STEP 1: Does the patient require the assistance of a person or device, or need extra time when grooming? Yes. GROOMING - STEP 2: Does the patient require the assistance of a helper? Yes. GROOMING - STEP 3: How much assistance does the patient require from the helper? Only prior equipment preparation/set up from the helper GROOMING - SCORE: 5-SUP BATHING: Activity did not occur on this shift BATHING - SCORE: 0-UNK DRESSING - UPPER BODY: Activity did not occur on this shift ARTICLES SCORE Total number of steps: 0 DRESSING - UPPER BODY - SCORE: 0-UNK DRESSING - LOWER BODY: Activity did not occur on this shift ARTICLES SCORE Total number of steps: 0 DRESSING - LOWER BODY - SCORE: 0-UNK TOILETING: TOILETING - STEP 1: Does the patient require the assistance of a person or device, or need extra time with toileting? Yes . TOILETING - STEP 2: Does the patient require the assistance of a helper? Yes. TOILETING - STEP 3: How much assistance does the patient require from the helper? Hands-on assistance from the helper TOILETING - STEP 4: Of the 3 tasks: 1) Adjusting clothing prior to use, 2) Cleansing of perineal area, 3) Adjusting clot baldo after use; How many tasks does the patient perform WITHOUT assistance of the helper? No tasks; h elper performs all three tasks TOILETING - SCORE: 1-DEP BLADDER MANAGEMENT: BLADDER MANAGEMENT - STEP 1: Does the patient control the bladder completely and intentionally without equipment or devices or med ications, and is always continent? No. BLADDER MANAGEMENT - STEP 2: Does the patient require the assistance of a helper? Yes. BLADDER MANAGEMENT - STEP 3: How much assistance does the patient require from the helper? Only supervision, stand-by, cuing, or c oaxing BLADDER MANAGEMENT - SCORE: 5-SUP BLADDER MANAGEMENT - FREQUENCY OF ACCIDENTS: BLADDER MANAGEMENT(FA) - STEP 1: How many accidents has the patient had during the current shift? 0 BOWEL MANAGEMENT: BOWEL MANAGEMENT - STEP 1: Does the patient control bowels completely and intentionally without equipment devices or medications AND is always continent? No. BOWEL MANAGEMENT - STEP 2: Does the patient require the assistance of a helper? No, patient requires medication for control such as stool softeners, suppositories, laxatives, enemas, or OTC medications BOWEL MANAGEMENT - SCORE: 6-PEYTON BOWEL MANAGEMENT - FREQUENCY OF ACCIDENTS: BOWEL MANAGEMENT(FA) - STEP 1: How many accidents has the patient had during the current shift? 0 TRANSFERS: BED, CHAIR, WHEELCHAIR: TRANSFERS: BED, CHAIR, WHEELCHAIR - STEP 1: Does the patient require assistance of a person or device, or need extra time with bed, chair, or whe elchair transfers? Yes. TRANSFERS: BED, CHAIR, WHEELCHAIR - STEP 2: Does the patient require the assistance of a helper? Yes. TRANSFERS: BED, CHAIR, WHEELCHAIR - STEP 3: How much assistance does the patient require from the helper? Lifting of the patient TRANSFERS: BED, CHAIR, WHEELCHAIR - STEP 4: Does the helper lift the patient ONLY up? ONLY down? Up AND Down? ONLY up. TRANSFERS: BED, CHAIR, WHEELCHAIR - SCORE: 3-MOD TRANSFERS: TOILET: TRANSFERS: TOILET - STEP 1: Does the patient require the assistance of a person or device, or need extra time with toilet transfe rs? Yes. TRANSFERS: TOILET - STEP 2: Does the patient require the assistance of a helper? Yes. TRANSFERS: TOILET - STEP 3: How much assistance does the patient require from the helper? Patient performs half or more of the tr ansferring tasks TRANSFERS: TOILET - STEP 4: Does the patient need only incidental help such as contact guard or steadying during toilet transfer? Yes. TRANSFERS: TOILET - SCORE: 4-MIN TRANSFERS: SHOWER: Activity did not occur on this shift TRANSFERS: SHOWER - SCORE: 0-UNK TRANSFERS: TUB: Activity did not occur on this shift TRANSFERS: TUB - SCORE: 0-UNK LOCOMOTION: WALK: Activity did not occur on this shift LOCOMOTION: WALK - SCORE: 0-UNK LOCOMOTION: WHEELCHAIR: Activity did not occur on this shift LOCOMOTION: WHEELCHAIR - SCORE: 0-UNK COMPREHENSION: COMPREHENSION: TYPE: Both COMPREHENSION - STEP 1: Does the patient require help from a person or device, or need extra time to understand complex and a bstract ideas (such as current events, finances, discharge planning, medical issues, relationships, e tc)? Yes. COMPREHENSION - STEP 2: Does the patient require help to understand questions or statements about basic needs or ideas (such as hunger, thirst, sleep, safety, daily schedule, room location, or discomfort) half or more of the t mayra? No. COMPREHENSION - STEP 3: How often does the patient need help to understand directions and conversation about basic needs? 10% - 24% of the time COMPREHENSION - SCORE: 4-MIN EXPRESSION EXPRESSION: TYPE: Both EXPRESSION - STEP 1: Does the patient require help from a person or device, or need extra time expressing complex and abst ract ideas (such as current events, finances, discharge planning, medical issues, relationships, etc) ? Yes. EXPRESSION - STEP 2: Does the patient require help to express basic necessities or ideas (such as hunger, thirst, sleep, s afety, daily schedule, room location, or discomfort) half or more of the time? No. EXPRESSION - STEP 3: How often does the patient need help to express directions and conversation about basic needs? Less t [place] 10% of the time EXPRESSION - SCORE: 5-SUP SOCIAL INTERACTION: SOCIAL INTERACTION - STEP 1: Does the patient require a helper to interact with others in social and therapeutic situations? Yes. SOCIAL INTERACTION - STEP 2: Does the patient interact appropriately half or more of the time? Yes. SOCIAL INTERACTION - STEP 3: How often does the patient need help to interact appropriately? 10-24% of the time SOCIAL INTERACTION - SCORE: 4-MIN PROBLEM SOLVING: PROBLEM SOLVING - STEP 1: Does the patient need help from a person or device, or need extra time to solve complex problems such as managing a checking account or confronting interpersonal problems? Yes. PROBLEM SOLVING - STEP 2: Does the patient solve basic routine problems half or more of the time? Yes. PROBLEM SOLVING - STEP 3: How often does the patient need help to solve basic routine problems? Less than 10% of the time PROBLEM SOLVING - SCORE: 5-SUP MEMORY: MEMORY - STEP 1: Does the patient need help from a person or device, or need extra time to remember frequently encount ered people, daily routines, and executing requests? Yes. MEMORY - STEP 2: How often does the patient need help to remember frequently encountered people, daily routines, and e xecuting requests? 10% - 24% of the time MEMORY - SCORE: 4-MIN SIGNATURE PANEL: The following modified sections: Eating - Score, Grooming - Score, Bathing - Score, Dressing - Upper Body - Score, Dressing - Lower Body - Score, Toileting - Score, Transfers: Bed, Chair, Wheelchair - S core, Transfers: Shower - Score, Transfers: Tub - Score, Locomotion: Walk - Score, Locomotion: Wheelc hair - Score, Expression - Score, Social Interaction - Score, Problem Solving - Score, Memory - Score , Bowel Management - Score, Bladder Management - Score, Transfers: Bed, Chair, Wheelchair - Score, Tr ansfers: Toilet - Score, Comprehension - Score were [electronically] signed by Sahara Carter Mon Sep 25 2018 17:18:18 GMT-0600 (Central Standard Time)
[2018-09-25] MEDS ORDERED: ZIPRASIDONE 20 MG CAP PO PRN (17:46)
--- NOTE | 2018-09-25 18:05 | R.PN ---
ENCOUNTER DATE AND TIME: 09/25/2018 18:00 (FLAME CUTTING MACHINE OPERATOR HELPER) NAME GABRIEL MEYER DATE OF : 1945 DATE OF ADMISSION: 09/21/2018 19:15 (FLAME CUTTING MACHINE OPERATOR HELPER) Parkinson's disease (G20)CHIEF COMPLAINT: Parkinson's disease and debility SUBJECTIVE: Pt denied any depression. Pt denied any Shortness of Breath. Ambulated 500' with standby assistance using a rolling walker. Self-propelled wheelchair 65' with con tact guard assistance. VITAL SIGNS Temperature: 98.2 F SBP/DBP: 122/59 Pulse: 77 Resp: 18 MEDICATION ALLERGIES: No Known Drug Allergies (NKDA) ENVIRONMENTAL ALLERGIES: - Substance Allergies None Known - Other Allergies None Known CONSULT: Perform Neuro consult NURSING: - Shower allowing shower ACTIVITIES OOB only with supervision THERAPIES: - Occupational Therapy Evaluate and Treat. - Speech Therapy Memory Strategies. Speech Intelligibility Training. - Physical Therapy Evaluate and Treat. PHYSICAL EXAM - Gen Alert and awake Lying in bed No apparent distress Oriented to: person, time, and place - Skin No breakdown No abnormalities - Eyes No abnormalities - ENMT No abnormalities - Neck No abnormalities - CVS RRR - Chest No abnormalities - Abd +bowel sounds - GI nondistended Deferred - No abnormalities - Ext No significant edema - MSK 3-4+/5 weakness in both lower extremities. - Neuro No focal deficits. - Psych Mild depression. ASSESSMENT: Pt. is a 73 yo Right-handed white male.On 09/18/2018 he was admitted to [facility] with diagnosi s Parkinson's disease (G20).His impairment category is Neurologic Conditions 03 - Parkinsonism (03.2 ).Pre-morbidly, Pt. was independent/mod-I in Transfers Control, Communication, Social Cognition, Self -Care, Sphincter Control, and Locomotion; and he had good Sphincter Control.Currently, he has deficit s of Transfers Control, Communication, Social Cognition, Balance, Endurance, Safety Awareness, Locomo tion, and Self-Care.Pt. is now referred to [facility] for acute in-patient joni abilitation in order to maximize patient's functional independence in activities of daily living, str ength, ROM, and mobility.- Rehab Goal Patient has realistic goal of being discharged at assistance level 6-Rohan to reside at Home with Fam jeffery/Relatives. MDM/PLAN: - Physical Therapy Gait dysfunction - to improve, our physical therapists will perform initial evaluation of pt's statu s upon admission and devise an individualized program for Gait Training, and Wheel Chair mobility Inability to transfer - to improve, our physical therapists will perform initial evaluation of pt's status upon admission and devise an individualized program for Bed mobility Need for home safety evaluation - to improve, our physical therapists will perform initial evaluatio n of pt's status upon admission and devise an individualized program for Home Evaluation Need in caregiver upon discharge - to improve, our physical therapists will perform initial evaluati on of pt's status upon admission and devise an individualized program for Caregiver Training New precaution - to improve, our physical therapists will perform initial evaluation of pt's status upon admission and devise an individualized program for Patient precaution education Edema - to improve, our physical therapists will perform initial evaluation of pt's status upon admis keyla and devise an individualized program for Elevation Training, and Lymphedema Therapy Poor balance - to improve, our physical therapists will perform initial evaluation of pt's status up on admission and devise an individualized program for Balance Training Poor endurance - to improve, our physical therapists will perform initial evaluation of pt's status upon admission and devise an individualized program for Endurance Training Weakness - to improve, our physical therapists will perform initial evaluation of pt's status upon a dmission and devise an individualized program for Aquatic Therapy, Neuromuscular Reeducation, and Str engthening Achieving independence - to improve, our physical therapists will perform initial evaluation of pt's status upon admission and devise an individualized program for Community Reintegration Activities - Occupational Therapy ADL deficits - to improve, our occupation therapists will perform initial evaluation of pt's status upon admission and devise an individualized program for Bathing, Bed mobility, Community Reintegratio n, Cooking, Dressing, Eating, Fine Motor Skills, Grooming, Homemaking, Kitchen Mobility, Laundry, Pat ient Education, Safety Awareness, Splinting - Positioning, Transfers(Toilet, Tub, Shower), and Wheel Chair Management Cognitive deficits - to improve, our occupation therapists will perform initial evaluation of pt's s tatus upon admission and devise an individualized program for Cognition - orientation Need for home health caregiver - to improve, our occupation therapists will perform initial evaluation of pt's status upon admission and devise an individualized program for Caregiver Training Weakness - to improve, our occupation therapists will perform initial evaluation of pt's status upon admission and devise an individualized program for Aquatic Therapy, Balance, Endurance, UE ROM, and UE strengthening - Diet Type Continue Regular - Diet - Liquid Texture Continue Regular - Tube Feed Continue N/A - N/A Perform Neuro consult - Diet - Solid Texture Continue Regular - Shower allowing shower FUNCTIONAL STATUS: UPDATED AT WEEKLY TEAM CONFERENCE - Bladder Same accident frequency: 7-Ind - No accidents in the past 7 days - Bowel Same accident frequency: 7-Ind - No accidents in the past 7 days - Walking Same score based on distance walked: 0(N/A) FUNCTIONAL STATUS: - Self-Care A. Eating Ind B. Grooming modA C. Bathing modA D. Dressing - Upper modA E. Dressing - Lower maxA F. Toileting maxA - Sphincter Control G: Bladder control Rohan H: Bowel control Rohan - Transfers Control I. Bed/Chair/Wheelchair maxA J. Toilet maxA K. Tub/Shower maxA - Locomotion L. Walk/Wheelchair (B) maxA M. Stairs ADNO - Communication N. Comprehension (B) Silviano O. Expression (B) Silviano - Social Cognition P. Social Interaction Silviano Q. Problem Solving Silviano R. Memory modA - Endurance Poor - Balance Poor - Safety Awareness Poor CURRENT FUNC. 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
[2018-09-25] MEDS: ARIPiprazole 2 MG TAB PO SCH (20:31)
[2018-09-25] MEDS: ATORVASTATIN 40 MG TAB PO SCH (20:33)
--- NOTE | 2018-09-26 01:57 | FAST ---
SHIFT START DATE/TIME: 09/25/2018 19:00 (CURATOR ZOOLOGICAL MUSEUM) SHIFT END DATE/TIME: 09/26/2018 07:00 (CURATOR ZOOLOGICAL MUSEUM) NAME GABRIEL MEYER DATE OF : 1945 DATE OF ADMISSION: 09/21/2018 19:15 (CURATOR ZOOLOGICAL MUSEUM) PHONE: AGE: 73 N# [id number] GENDER: Male ENCOUNTER PHYSICIAN: Dr. José Freitas M.D. ADMISSION DIAGNOSIS: - Neurologic Conditions 03 - Parkinsonism (03.2) Parkinson's disease (G20). EATING: Activity did not occur on this shift EATING - SCORE: 0-UNK GROOMING: Oral care Wash, rinse, and dry hands GROOMING - STEP 1: Does the patient require the assistance of a person or device, or need extra time when grooming? Yes. GROOMING - STEP 2: Does the patient require the assistance of a helper? Yes. GROOMING - STEP 3: How much assistance does the patient require from the helper? Cuing, coaxing, instructions, or encour agement for completion of grooming GROOMING - SCORE: 5-SUP BATHING: Activity did not occur on this shift BATHING - SCORE: 0-UNK DRESSING - UPPER BODY: Patient is not dressing in public clothing ARTICLES SCORE Total number of steps: 0 DRESSING - UPPER BODY - SCORE: 0-UNK DRESSING - LOWER BODY: Patient is not dressing in public clothing ARTICLES SCORE Total number of steps: 0 DRESSING - LOWER BODY - SCORE: 0-UNK TOILETING: TOILETING - STEP 1: Does the patient require the assistance of a person or device, or need extra time with toileting? Yes . TOILETING - STEP 2: Does the patient require the assistance of a helper? Yes. TOILETING - STEP 3: How much assistance does the patient require from the helper? Hands-on assistance from the helper TOILETING - STEP 4: Of the 3 tasks: 1) Adjusting clothing prior to use, 2) Cleansing of perineal area, 3) Adjusting clot baldo after use; How many tasks does the patient perform WITHOUT assistance of the helper? No tasks; h elper performs all three tasks TOILETING - SCORE: 1-DEP BLADDER MANAGEMENT: [place] removes incontinent device (Depends, pull ups, etc.); cleans the patient after accident / inco ntinent episode; and, applies new incontinent device. BLADDER MANAGEMENT - SCORE: 1-DEP BOWEL MANAGEMENT: Activity did not occur on this shift BOWEL MANAGEMENT - SCORE: 7-IND TRANSFERS: BED, CHAIR, WHEELCHAIR: TRANSFERS: BED, CHAIR, WHEELCHAIR - STEP 1: Does the patient require assistance of a person or device, or need extra time with bed, chair, or whe elchair transfers? Yes. TRANSFERS: BED, CHAIR, WHEELCHAIR - STEP 2: Does the patient require the assistance of a helper? Yes. TRANSFERS: BED, CHAIR, WHEELCHAIR - STEP 3: How much assistance does the patient require from the helper? Lifting of the legs TRANSFERS: BED, CHAIR, WHEELCHAIR - STEP 4: How many legs does the patient require the helper to lift? both legs TRANSFERS: BED, CHAIR, WHEELCHAIR - SCORE: 3-MOD TRANSFERS: TOILET: Activity did not occur on this shift TRANSFERS: TOILET - SCORE: 0-UNK TRANSFERS: SHOWER: Activity did not occur on this shift TRANSFERS: SHOWER - SCORE: 0-UNK TRANSFERS: TUB: Activity did not occur on this shift TRANSFERS: TUB - SCORE: 0-UNK LOCOMOTION: WALK: Activity did not occur on this shift LOCOMOTION: WALK - SCORE: 0-UNK LOCOMOTION: WHEELCHAIR: Activity did not occur on this shift LOCOMOTION: WHEELCHAIR - SCORE: 0-UNK COMPREHENSION: COMPREHENSION: TYPE: Both COMPREHENSION - STEP 1: Does the patient require help from a person or device, or need extra time to understand complex and a bstract ideas (such as current events, finances, discharge planning, medical issues, relationships, e tc)? Yes. COMPREHENSION - STEP 2: Does the patient require help to understand questions or statements about basic needs or ideas (such as hunger, thirst, sleep, safety, daily schedule, room location, or discomfort) half or more of the t mayra? Yes. COMPREHENSION - STEP 3: Is the patient basically able to understand and respond appropriately and consistently? Yes. COMPREHENSION - SCORE: 2-MAX EXPRESSION EXPRESSION: TYPE: Both EXPRESSION - STEP 1: Does the patient require help from a person or device, or need extra time expressing complex and abst ract ideas (such as current events, finances, discharge planning, medical issues, relationships, etc) ? Yes. EXPRESSION - STEP 2: Does the patient require help to express basic necessities or ideas (such as hunger, thirst, sleep, s afety, daily schedule, room location, or discomfort) half or more of the time? No. EXPRESSION - STEP 3: How often does the patient need help to express directions and conversation about basic needs? 25-49% of the time EXPRESSION - SCORE: 3-MOD SOCIAL INTERACTION: SOCIAL INTERACTION - STEP 1: Does the patient require a helper to interact with others in social and therapeutic situations? No. SOCIAL INTERACTION - STEP 2: Does the patient need extra time in social situations, OR does s/he interact with staff, other patien ts, and family members ONLY in structured environments, OR does s/he require medication for social in teraction? Yes, patient needs extra time SOCIAL INTERACTION - SCORE: 6-[place] PROBLEM SOLVING: PROBLEM SOLVING - STEP 1: Does the patient need help from a person or device, or need extra time to solve complex problems such as managing a checking account or confronting interpersonal problems? Yes. PROBLEM SOLVING - STEP 2: Does the patient solve basic routine problems half or more of the time? Yes. PROBLEM SOLVING - STEP 3: How often does the patient need help to solve basic routine problems? 25%-49% of the time PROBLEM SOLVING - SCORE: 3-MOD MEMORY: MEMORY - STEP 1: Does the patient need help from a person or device, or need extra time to remember frequently encount ered people, daily routines, and executing requests? Yes. MEMORY - STEP 2: How often does the patient need help to remember frequently encountered people, daily routines, and e xecuting requests? 25% - 49% of the time MEMORY - SCORE: 3-MOD SIGNATURE PANEL: The following modified sections: Eating - Score, Grooming - Score, Dressing - Upper Body - Score, Hero ssing - Lower Body - Score, Toileting - Score, Bladder Management - Score, Bowel Management - Score, Transfers: Bed, Chair, Wheelchair - Score, Transfers: Toilet - Score, Transfers: Shower - Score, [place] sfers: Tub - Score, Locomotion: Walk - Score, Locomotion: Wheelchair - Score, Comprehension - Score, Expression - Score, Social Interaction - Score, Problem Solving - Score, Memory - Score were [electro nically] signed by Jing Lopez CNA on TueSep 26 2018 01:56:36 GMT-0600 (Central Standard Time)
[2018-09-26] MEDS: PANTOPRAZOLE 40MG TABLET PO SCH (06:21)
[2018-09-26] MEDS: MULTIVITAMIN TAB PO SCH (07:07)
[2018-09-26] MEDS: APIXABAN 5 MG TABLET PO SCH ×2 (07:07→21:04)
[2018-09-26] MEDS: lamoTRIgine 100 MG TAB PO SCH ×2 (07:07→21:04)
[2018-09-26] MEDS: DUTASTERIDE 0.5 MG GEL CAP PO SCH ×2 (07:07→21:05)
[2018-09-26] MEDS: MAGNESIUM OXIDE 400 MG TAB PO SCH (07:08)
[2018-09-26] MEDS: SPIRONOLACTONE 25 MG TABLET PO SCH (07:08)
[2018-09-26] MEDS: CARVEDILOL 6.25 MG TAB PO SCH ×2 (07:09→21:04)
[2018-09-26] MEDS ORDERED: HOME MED 1 EA UNK PO SCH (08:00)
[2018-09-26] MEDS: GABAPENTIN 300 MG CAP PO SCH ×3 (08:09→21:06)
[2018-09-26] MEDS: ROPINIROLE HCL 1 MG TAB PO SCH ×3 (08:09→21:04)
[2018-09-26] MEDS: FUROSEMIDE 20 MG TABLET PO SCH ×2 (08:10→16:09)
[2018-09-26] MEDS: CARBIDOPA/LEVODOPA 25/250 TAB PO SCH ×3 (08:10→21:04)
--- NOTE | 2018-09-26 14:40 | FAST ---
SHIFT START DATE/TIME: 09/26/2018 07:00 (METAL FILER) SHIFT END DATE/TIME: 09/26/2018 19:00 (METAL FILER) NAME GABRIEL MEYER DATE OF : 1945 DATE OF ADMISSION: 09/21/2018 19:15 (METAL FILER) PHONE: AGE: 73 N# [id number] GENDER: Male ENCOUNTER PHYSICIAN: Dr. José Freitas M.D. ADMISSION DIAGNOSIS: - Neurologic Conditions 03 - Parkinsonism (03.2) Parkinson's disease (G20). EATING: EATING - STEP 1: Does the patient require the assistance of a person or device, or need extra time when eating? Yes. EATING - STEP 2: Does the patient require the assistance of a helper? Yes. EATING - STEP 3: Does the patient perform half or more of the eating tasks? Yes. EATING - STEP 4: Does the patient need only supervision, cuing, coaxing OR help to apply an orthosis OR help to cut fo od, open containers, pour liquids, or butter bread? Yes. EATING - SCORE: 5-SUP GROOMING: Comb/brush hair Oral care Wash, rinse, and dry face Wash, rinse, and dry hands GROOMING - STEP 1: Does the patient require the assistance of a person or device, or need extra time when grooming? Yes. GROOMING - STEP 2: Does the patient require the assistance of a helper? Yes. GROOMING - STEP 3: How much assistance does the patient require from the helper? Only prior equipment preparation/set up from the helper GROOMING - SCORE: 5-SUP BATHING: Activity did not occur on this shift BATHING - SCORE: 0-UNK DRESSING - UPPER BODY: Activity did not occur on this shift ARTICLES SCORE Total number of steps: 0 DRESSING - UPPER BODY - SCORE: 0-UNK DRESSING - LOWER BODY: Activity did not occur on this shift ARTICLES SCORE Total number of steps: 0 DRESSING - LOWER BODY - SCORE: 0-UNK TOILETING: TOILETING - STEP 1: Does the patient require the assistance of a person or device, or need extra time with toileting? Yes . TOILETING - STEP 2: Does the patient require the assistance of a helper? Yes. TOILETING - STEP 3: How much assistance does the patient require from the helper? Only supervision TOILETING - SCORE: 5-SUP BLADDER MANAGEMENT: BLADDER MANAGEMENT - STEP 1: Does the patient control the bladder completely and intentionally without equipment or devices or med ications, and is always continent? No. BLADDER MANAGEMENT - STEP 2: Does the patient require the assistance of a helper? Yes. BLADDER MANAGEMENT - STEP 3: How much assistance does the patient require from the helper? Only supervision, stand-by, cuing, or c oaxing BLADDER MANAGEMENT - SCORE: 5-SUP BLADDER MANAGEMENT - FREQUENCY OF ACCIDENTS: BLADDER MANAGEMENT(FA) - STEP 1: How many accidents has the patient had during the current shift? 2 BOWEL MANAGEMENT: Activity did not occur on this shift BOWEL MANAGEMENT - SCORE: 7-IND BOWEL MANAGEMENT - FREQUENCY OF ACCIDENTS: BOWEL MANAGEMENT(FA) - STEP 1: How many accidents has the patient had during the current shift? 0 TRANSFERS: BED, CHAIR, WHEELCHAIR: TRANSFERS: BED, CHAIR, WHEELCHAIR - STEP 1: Does the patient require assistance of a person or device, or need extra time with bed, chair, or whe elchair transfers? Yes. TRANSFERS: BED, CHAIR, WHEELCHAIR - STEP 2: Does the patient require the assistance of a helper? Yes. TRANSFERS: BED, CHAIR, WHEELCHAIR - STEP 3: How much assistance does the patient require from the helper? Lifting of the legs TRANSFERS: BED, CHAIR, WHEELCHAIR - STEP 4: How many legs does the patient require the helper to lift? both legs TRANSFERS: BED, CHAIR, WHEELCHAIR - SCORE: 3-MOD TRANSFERS: TOILET: TRANSFERS: TOILET - STEP 1: Does the patient require the assistance of a person or device, or need extra time with toilet transfe rs? Yes. TRANSFERS: TOILET - STEP 2: Does the patient require the assistance of a helper? Yes. TRANSFERS: TOILET - STEP 3: How much assistance does the patient require from the helper? Patient performs half or more of the tr ansferring tasks TRANSFERS: TOILET - STEP 4: Does the patient need only incidental help such as contact guard or steadying during toilet transfer? No. Patient needs more than incidental help TRANSFERS: TOILET - SCORE: 3-MOD TRANSFERS: SHOWER: Activity did not occur on this shift TRANSFERS: SHOWER - SCORE: 0-UNK TRANSFERS: TUB: Activity did not occur on this shift TRANSFERS: TUB - SCORE: 0-UNK LOCOMOTION: WALK: Activity did not occur on this shift LOCOMOTION: WALK - SCORE: 0-UNK LOCOMOTION: WHEELCHAIR: Activity did not occur on this shift LOCOMOTION: WHEELCHAIR - SCORE: 0-UNK COMPREHENSION: COMPREHENSION: TYPE: Both COMPREHENSION - STEP 1: Does the patient require help from a person or device, or need extra time to understand complex and a bstract ideas (such as current events, finances, discharge planning, medical issues, relationships, e tc)? Yes. COMPREHENSION - STEP 2: Does the patient require help to understand questions or statements about basic needs or ideas (such as hunger, thirst, sleep, safety, daily schedule, room location, or discomfort) half or more of the t mayra? No. COMPREHENSION - STEP 3: How often does the patient need help to understand directions and conversation about basic needs? Les s than 10% of the time COMPREHENSION - SCORE: 5-SUP EXPRESSION EXPRESSION: TYPE: Both EXPRESSION - STEP 1: Does the patient require help from a person or device, or need extra time expressing complex and abst ract ideas (such as current events, finances, discharge planning, medical issues, relationships, etc) ? Yes. EXPRESSION - STEP 2: Does the patient require help to express basic necessities or ideas (such as hunger, thirst, sleep, s afety, daily schedule, room location, or discomfort) half or more of the time? No. EXPRESSION - STEP 3: How often does the patient need help to express directions and conversation about basic needs? Less t messina 10% of the time EXPRESSION - SCORE: 5-SUP SOCIAL INTERACTION: SOCIAL INTERACTION - STEP 1: Does the patient require a helper to interact with others in social and therapeutic situations? Yes. SOCIAL INTERACTION - STEP 2: Does the patient interact appropriately half or more of the time? Yes. SOCIAL INTERACTION - STEP 3: How often does the patient need help to interact appropriately? Less than 10% of the time SOCIAL INTERACTION - SCORE: 5-SUP PROBLEM SOLVING: PROBLEM SOLVING - STEP 1: Does the patient need help from a person or device, or need extra time to solve complex problems such as managing a checking account or confronting interpersonal problems? Yes. PROBLEM SOLVING - STEP 2: Does the patient solve basic routine problems half or more of the time? Yes. PROBLEM SOLVING - STEP 3: How often does the patient need help to solve basic routine problems? Less than 10% of the time PROBLEM SOLVING - SCORE: 5-SUP MEMORY: MEMORY - STEP 1: Does the patient need help from a person or device, or need extra time to remember frequently encount ered people, daily routines, and executing requests? Yes. MEMORY - STEP 2: How often does the patient need help to remember frequently encountered people, daily routines, and e xecuting requests? 10% - 24% of the time MEMORY - SCORE: 4-MIN SIGNATURE PANEL: The following modified sections: Eating - Score, Grooming - Score, Bathing - Score, Dressing - Upper Body - Score, Dressing - Lower Body - Score, Toileting - Score, Bladder Management - Score, Bowel Man agement - Score, Transfers: Bed, Chair, Wheelchair - Score, Transfers: Toilet - Score, Transfers: Alla wer - Score, Transfers: Tub - Score, Locomotion: Walk - Score, Locomotion: Wheelchair - Score, Compre hension - Score, Expression - Score, Social Interaction - Score, Problem Solving - Score, Memory - Sc ore were [electronically] signed by Gabi [email or web address].Shena on TueSep 26 2018 14:40:23 T-0600 (Centra l Standard Time)
--- NOTE | 2018-09-26 14:49 | FAST ---
ENCOUNTER DATE AND TIME: 09/26/2018 08:00 (TELEGRAPH EDITOR) NAME GABRIEL MEYER DATE OF : 1945 DATE OF ADMISSION: 09/21/2018 19:15 (TELEGRAPH EDITOR) PHONE: AGE: 73 SSN# [id number] GENDER: Male ENCOUNTER PHYSICIAN: Dr. José Freitas M.D. ADMISSION DIAGNOSIS: - Neurologic Conditions 03 - Parkinsonism (03.2) Parkinson's disease (G20). EATING: Activity did not occur on this shift EATING - SCORE: 0-UNK GROOMING: Activity did not occur on this shift GROOMING - SCORE: 0-UNK BATHING: Activity did not occur on this shift BATHING - SCORE: 0-UNK DRESSING - UPPER BODY: Activity did not occur on this shift Patient is not dressing in public clothing ARTICLES SCORE Total number of steps: 0 DRESSING - UPPER BODY - SCORE: 0-UNK DRESSING - LOWER BODY: Activity did not occur on this shift Patient is not dressing in public clothing ARTICLES SCORE Total number of steps: 0 DRESSING - LOWER BODY - SCORE: 0-UNK TOILETING: Activity did not occur on this shift TOILETING - SCORE: 0-UNK BLADDER MANAGEMENT: Activity did not occur on this shift BLADDER MANAGEMENT - SCORE: 7-IND BOWEL MANAGEMENT: Activity did not occur on this shift BOWEL MANAGEMENT - SCORE: 7-IND TRANSFERS: BED, CHAIR, WHEELCHAIR: TRANSFERS: BED, CHAIR, WHEELCHAIR - STEP 1: Does the patient require assistance of a person or device, or need extra time with bed, chair, or whe elchair transfers? Yes. TRANSFERS: BED, CHAIR, WHEELCHAIR - STEP 2: Does the patient require the assistance of a helper? Yes. TRANSFERS: BED, CHAIR, WHEELCHAIR - STEP 3: How much assistance does the patient require from the helper? Steadying/guiding assistance TRANSFERS: BED, CHAIR, WHEELCHAIR - SCORE: 4-MIN TRANSFERS: TOILET: Activity did not occur on this shift TRANSFERS: TOILET - SCORE: 0-UNK TRANSFERS: SHOWER: Activity did not occur on this shift TRANSFERS: SHOWER - SCORE: 0-UNK TRANSFERS: TUB: Activity did not occur on this shift TRANSFERS: TUB - SCORE: 0-UNK LOCOMOTION: WALK: LOCOMOTION: WALK - STEP 1: Does the patient need help from a person or device, or need extra time to walk 150 feet? Yes. LOCOMOTION: WALK - STEP 2: How much assistance does the patient require to walk a minimum of 150 feet? Only supervision, cuing, or coaxing LOCOMOTION: WALK - SCORE: 5-SUP LOCOMOTION: WHEELCHAIR: Activity did not occur on this shift LOCOMOTION: WHEELCHAIR - SCORE: 0-UNK LOCOMOTION: STAIRS: Activity did not occur on this shift LOCOMOTION: STAIRS - SCORE: 0-UNK COMPREHENSION: COMPREHENSION - SCORE: 0-UNK EXPRESSION EXPRESSION - SCORE: 0-UNK SOCIAL INTERACTION: SOCIAL INTERACTION - SCORE: 0-UNK PROBLEM SOLVING: PROBLEM SOLVING - SCORE: 0-UNK MEMORY: MEMORY - SCORE: 0-UNK SIGNATURE PANEL: The following modified sections: Transfers: Bed, Chair, Wheelchair - Score, Transfers: Toilet - Score , Locomotion: Walk - Score, Locomotion: Wheelchair - Score, Locomotion: Stairs - Score were [electron alison] signed by Clay Pedro PTA on TueSep 26 2018 14:48:29 GMT-0600 (Central Standard Time)
--- NOTE | 2018-09-26 19:37 | R.PN ---
ENCOUNTER DATE AND TIME: 09/26/2018 19:33 (IRRIGATING PUMP OPERATOR) NAME GABRIEL MEYER DATE OF : 1945 DATE OF ADMISSION: 09/21/2018 19:15 (IRRIGATING PUMP OPERATOR) Parkinson's disease (G20)CHIEF COMPLAINT: Parkinson's disease and debility SUBJECTIVE: Pt denied any depression. Pt denied any Shortness of Breath. Ambulated 500' with standby assistance using a rolling walker. Self-propelled wheelchair 65' with con tact guard assistance. He had Geodon 20 mg yesterday and was sleepy today. Will d/c Geodon and give ativan 0.5 mg at night as needed. VITAL SIGNS Temperature: 98.2 F SBP/DBP: 103/60 Pulse: 61 Resp: 18 MEDICATION ALLERGIES: No Known Drug Allergies (NKDA) ENVIRONMENTAL ALLERGIES: - Substance Allergies None Known - Other Allergies None Known CONSULT: Perform Neuro consult NURSING: - Shower allowing shower ACTIVITIES OOB only with supervision THERAPIES: - Occupational Therapy Evaluate and Treat. - Speech Therapy Memory Strategies. Speech Intelligibility Training. - Physical Therapy Evaluate and Treat. PHYSICAL EXAM - Gen Alert and awake Lying in bed No apparent distress Oriented to: person, time, and place - Skin No breakdown No abnormalities - Eyes No abnormalities - ENMT No abnormalities - Neck No abnormalities - CVS RRR - Chest No abnormalities - Abd +bowel sounds - GI nondistended Deferred - No abnormalities - Ext No significant edema - MSK 3-4+/5 weakness in both lower extremities. - Neuro No focal deficits. - Psych Mild depression. ASSESSMENT: Pt. is a 73 yo Right-handed white male.On 09/18/2018 he was admitted to [facility] with diagnosi s Parkinson's disease (G20).His impairment category is Neurologic Conditions 03 - Parkinsonism (03.2 ).Pre-morbidly, Pt. was independent/mod-I in Transfers Control, Communication, Social Cognition, Self -Care, Sphincter Control, and Locomotion; and he had good Sphincter Control.Currently, he has deficit s of Transfers Control, Communication, Social Cognition, Balance, Endurance, Safety Awareness, Locomo tion, and Self-Care.Pt. is now referred to [facility] for acute in-patient joni abilitation in order to maximize patient's functional independence in activities of daily living, str ength, ROM, and mobility.- Rehab Goal Patient has realistic goal of being discharged at assistance level 6-Rohan to reside at Home with Fam jeffery/Relatives. MDM/PLAN: - Physical Therapy Gait dysfunction - to improve, our physical therapists will perform initial evaluation of pt's statu s upon admission and devise an individualized program for Gait Training, and Wheel Chair mobility Inability to transfer - to improve, our physical therapists will perform initial evaluation of pt's status upon admission and devise an individualized program for Bed mobility Need for home safety evaluation - to improve, our physical therapists will perform initial evaluatio n of pt's status upon admission and devise an individualized program for Home Evaluation Need in caregiver upon discharge - to improve, our physical therapists will perform initial evaluati on of pt's status upon admission and devise an individualized program for Caregiver Training New precaution - to improve, our physical therapists will perform initial evaluation of pt's status upon admission and devise an individualized program for Patient precaution education Edema - to improve, our physical therapists will perform initial evaluation of pt's status upon admis keyla and devise an individualized program for Elevation Training, and Lymphedema Therapy Poor balance - to improve, our physical therapists will perform initial evaluation of pt's status up on admission and devise an individualized program for Balance Training Poor endurance - to improve, our physical therapists will perform initial evaluation of pt's status upon admission and devise an individualized program for Endurance Training Weakness - to improve, our physical therapists will perform initial evaluation of pt's status upon a dmission and devise an individualized program for Aquatic Therapy, Neuromuscular Reeducation, and Str engthening Achieving independence - to improve, our physical therapists will perform initial evaluation of pt's status upon admission and devise an individualized program for Community Reintegration Activities - Occupational Therapy ADL deficits - to improve, our occupation therapists will perform initial evaluation of pt's status upon admission and devise an individualized program for Bathing, Bed mobility, Community Reintegratio n, Cooking, Dressing, Eating, Fine Motor Skills, Grooming, Homemaking, Kitchen Mobility, Laundry, Pat ient Education, Safety Awareness, Splinting - Positioning, Transfers(Toilet, Tub, Shower), and Wheel Chair Management Cognitive deficits - to improve, our occupation therapists will perform initial evaluation of pt's s tatus upon admission and devise an individualized program for Cognition - orientation Need for intensive care unit nurse - to improve, our occupation therapists will perform initial evaluation of pt's status upon admission and devise an individualized program for Caregiver Training Weakness - to improve, our occupation therapists will perform initial evaluation of pt's status upon admission and devise an individualized program for Aquatic Therapy, Balance, Endurance, UE ROM, and UE strengthening - Diet Type Continue Regular - Diet - Liquid Texture Continue Regular - Tube Feed Continue N/A - N/A Perform Neuro consult - Diet - Solid Texture Continue Regular - Shower allowing shower FUNCTIONAL STATUS: UPDATED AT WEEKLY TEAM CONFERENCE - Bladder Same accident frequency: 7-Ind - No accidents in the past 7 days - Bowel Same accident frequency: 7-Ind - No accidents in the past 7 days - Walking Same score based on distance walked: 0(N/A) FUNCTIONAL STATUS: - Self-Care A. Eating Ind B. Grooming modA C. Bathing modA D. Dressing - Upper modA E. Dressing - Lower maxA F. Toileting maxA - Sphincter Control G: Bladder control Rohan H: Bowel control Rohan - Transfers Control I. Bed/Chair/Wheelchair maxA J. Toilet maxA K. Tub/Shower maxA - Locomotion L. Walk/Wheelchair (B) maxA M. Stairs ADNO - Communication N. Comprehension (B) Silviano O. Expression (B) Silviano - Social Cognition P. Social Interaction Silviano Q. Problem Solving Silviano R. Memory modA - Endurance Poor - Balance Poor - Safety Awareness Poor CURRENT FUNC. DEFICITS: Transfers Control, Communication, Social Cognition, Balance, Endurance, Safety Awareness, Locomotion, and Self-Care SIGNATURE PANEL: (IRRIGATING PUMP OPERATOR)
[2018-09-26] MEDS: ATORVASTATIN 40 MG TAB PO SCH (21:04)
[2018-09-26] MEDS: ARIPiprazole 2 MG TAB PO SCH (21:06)
--- NOTE | 2018-09-27 00:59 | FAST ---
SHIFT START DATE/TIME: 09/26/2018 19:00 (MAIL SUPERINTENDENT) SHIFT END DATE/TIME: 09/27/2018 07:00 (MAIL SUPERINTENDENT) NAME GABRIEL MEYER DATE OF : 1945 DATE OF ADMISSION: 09/21/2018 19:15 (MAIL SUPERINTENDENT) PHONE: AGE: 73 SSN# [id number] GENDER: Male ENCOUNTER PHYSICIAN: Dr. José Freitas M.D. ADMISSION DIAGNOSIS: - Neurologic Conditions 03 - Parkinsonism (03.2) Parkinson's disease (G20). EATING: Activity did not occur on this shift EATING - SCORE: 0-UNK GROOMING: Activity did not occur on this shift GROOMING - SCORE: 0-UNK BATHING: Activity did not occur on this shift BATHING - SCORE: 0-UNK DRESSING - UPPER BODY: Patient is not dressing in public clothing ARTICLES SCORE Total number of steps: 0 DRESSING - UPPER BODY - SCORE: 0-UNK DRESSING - LOWER BODY: Patient is not dressing in public clothing ARTICLES SCORE Total number of steps: 0 DRESSING - LOWER BODY - SCORE: 0-UNK TOILETING: TOILETING - STEP 1: Does the patient require the assistance of a person or device, or need extra time with toileting? Yes . TOILETING - STEP 2: Does the patient require the assistance of a helper? Yes. TOILETING - STEP 3: How much assistance does the patient require from the helper? Hands-on assistance from the helper TOILETING - STEP 4: Of the 3 tasks: 1) Adjusting clothing prior to use, 2) Cleansing of perineal area, 3) Adjusting clot baldo after use; How many tasks does the patient perform WITHOUT assistance of the helper? No tasks; h elper performs all three tasks TOILETING - SCORE: 1-DEP BLADDER MANAGEMENT: [place] removes incontinent device (Depends, pull ups, etc.); cleans the patient after accident / inco ntinent episode; and, applies new incontinent device. BLADDER MANAGEMENT - SCORE: 1-DEP BOWEL MANAGEMENT: Activity did not occur on this shift BOWEL MANAGEMENT - SCORE: 7-IND TRANSFERS: BED, CHAIR, WHEELCHAIR: TRANSFERS: BED, CHAIR, WHEELCHAIR - STEP 1: Does the patient require assistance of a person or device, or need extra time with bed, chair, or whe elchair transfers? Yes. TRANSFERS: BED, CHAIR, WHEELCHAIR - STEP 2: Does the patient require the assistance of a helper? Yes. TRANSFERS: BED, CHAIR, WHEELCHAIR - STEP 3: How much assistance does the patient require from the helper? Lifting of the patient TRANSFERS: BED, CHAIR, WHEELCHAIR - STEP 4: Does the helper lift the patient ONLY up? ONLY down? Up AND Down? Up AND Down. TRANSFERS: BED, CHAIR, WHEELCHAIR - SCORE: 2-MAX TRANSFERS: TOILET: Activity did not occur on this shift TRANSFERS: TOILET - SCORE: 0-UNK TRANSFERS: SHOWER: Activity did not occur on this shift TRANSFERS: SHOWER - SCORE: 0-UNK TRANSFERS: TUB: Activity did not occur on this shift TRANSFERS: TUB - SCORE: 0-UNK LOCOMOTION: WALK: Activity did not occur on this shift LOCOMOTION: WALK - SCORE: 0-UNK LOCOMOTION: WHEELCHAIR: Activity did not occur on this shift LOCOMOTION: WHEELCHAIR - SCORE: 0-UNK COMPREHENSION: COMPREHENSION: TYPE: Both COMPREHENSION - STEP 1: Does the patient require help from a person or device, or need extra time to understand complex and a bstract ideas (such as current events, finances, discharge planning, medical issues, relationships, e tc)? Yes. COMPREHENSION - STEP 2: Does the patient require help to understand questions or statements about basic needs or ideas (such as hunger, thirst, sleep, safety, daily schedule, room location, or discomfort) half or more of the t mayra? Yes. COMPREHENSION - STEP 3: Is the patient basically able to understand and respond appropriately and consistently? Yes. COMPREHENSION - SCORE: 2-MAX EXPRESSION EXPRESSION: TYPE: Both EXPRESSION - STEP 1: Does the patient require help from a person or device, or need extra time expressing complex and abst ract ideas (such as current events, finances, discharge planning, medical issues, relationships, etc) ? Yes. EXPRESSION - STEP 2: Does the patient require help to express basic necessities or ideas (such as hunger, thirst, sleep, s afety, daily schedule, room location, or discomfort) half or more of the time? No. EXPRESSION - STEP 3: How often does the patient need help to express directions and conversation about basic needs? 25-49% of the time EXPRESSION - SCORE: 3-MOD SOCIAL INTERACTION: SOCIAL INTERACTION - STEP 1: Does the patient require a helper to interact with others in social and therapeutic situations? No. SOCIAL INTERACTION - STEP 2: Does the patient need extra time in social situations, OR does s/he interact with staff, other patien ts, and family members ONLY in structured environments, OR does s/he require medication for social in teraction? Yes, patient needs extra time SOCIAL INTERACTION - SCORE: 6-PEYTON PROBLEM SOLVING: PROBLEM SOLVING - STEP 1: Does the patient need help from a person or device, or need extra time to solve complex problems such as managing a checking account or confronting interpersonal problems? Yes. PROBLEM SOLVING - STEP 2: Does the patient solve basic routine problems half or more of the time? Yes. PROBLEM SOLVING - STEP 3: How often does the patient need help to solve basic routine problems? 25%-49% of the time PROBLEM SOLVING - SCORE: 3-MOD MEMORY: MEMORY - STEP 1: Does the patient need help from a person or device, or need extra time to remember frequently encount ered people, daily routines, and executing requests? Yes. MEMORY - STEP 2: How often does the patient need help to remember frequently encountered people, daily routines, and e xecuting requests? 25% - 49% of the time MEMORY - SCORE: 3-MOD SIGNATURE PANEL: The following modified sections: Eating - Score, Grooming - Score, Dressing - Upper Body - Score, Hero ssing - Lower Body - Score, Toileting - Score, Bladder Management - Score, Bowel Management - Score, Transfers: Bed, Chair, Wheelchair - Score, Transfers: Toilet - Score, Transfers: Shower - Score, [place] sfers: Tub - Score, Locomotion: Walk - Score, Locomotion: Wheelchair - Score, Comprehension - Score, Expression - Score, Social Interaction - Score, Problem Solving - Score, Memory - Score were [electro nically] signed by Jing Lopez CNA on TueSep 27 2018 00:54:52 GMT-0600 (Central Standard Time)
[2018-09-27] MEDS: LORAZEPAM 0.5 MG TABLET PO PRN (02:30)
[2018-09-27] MEDS: PANTOPRAZOLE 40MG TABLET PO SCH (05:06)
[2018-09-27] MEDS: CARBIDOPA/LEVODOPA 25/250 TAB PO SCH ×3 (07:57→20:06)
[2018-09-27] MEDS: SPIRONOLACTONE 25 MG TABLET PO SCH (07:57)
[2018-09-27] MEDS: FUROSEMIDE 20 MG TABLET PO SCH ×2 (07:57→17:12)
[2018-09-27] MEDS: POLYETHYL GLY 3350 17 GM/DOSE PO PRN (07:57)
[2018-09-27] MEDS: MAGNESIUM OXIDE 400 MG TAB PO SCH (07:57)
[2018-09-27] MEDS: DUTASTERIDE 0.5 MG GEL CAP PO SCH ×2 (07:57→20:07)
[2018-09-27] MEDS: ROPINIROLE HCL 1 MG TAB PO SCH ×3 (07:57→20:06)
[2018-09-27] MEDS: CARVEDILOL 6.25 MG TAB PO SCH ×2 (07:58→20:07)
[2018-09-27] MEDS: GABAPENTIN 300 MG CAP PO SCH ×3 (07:58→20:06)
[2018-09-27] MEDS: lamoTRIgine 100 MG TAB PO SCH ×2 (07:58→20:06)
[2018-09-27] MEDS: APIXABAN 5 MG TABLET PO SCH ×2 (07:58→20:07)
[2018-09-27] MEDS: MULTIVITAMIN TAB PO SCH (07:58)
--- NOTE | 2018-09-27 15:53 | FAST ---
SHIFT START DATE/TIME: 09/27/2018 07:00 (TIME BROKER) SHIFT END DATE/TIME: 09/27/2018 19:00 (TIME BROKER) NAME GABRIEL MEYER DATE OF : 1945 DATE OF ADMISSION: 09/21/2018 19:15 (TIME BROKER) PHONE: AGE: 73 N# [id number] GENDER: Male ENCOUNTER PHYSICIAN: Dr. José Freitas M.D. ADMISSION DIAGNOSIS: - Neurologic Conditions 03 - Parkinsonism (03.2) Parkinson's disease (G20). EATING: EATING - STEP 1: Does the patient require the assistance of a person or device, or need extra time when eating? Yes. EATING - STEP 2: Does the patient require the assistance of a helper? Yes. EATING - STEP 3: Does the patient perform half or more of the eating tasks? Yes. EATING - STEP 4: Does the patient need only supervision, cuing, coaxing OR help to apply an orthosis OR help to cut fo od, open containers, pour liquids, or butter bread? Yes. EATING - SCORE: 5-SUP GROOMING: Comb/brush hair Oral care Wash, rinse, and dry face Wash, rinse, and dry hands GROOMING - STEP 1: Does the patient require the assistance of a person or device, or need extra time when grooming? Yes. GROOMING - STEP 2: Does the patient require the assistance of a helper? Yes. GROOMING - STEP 3: How much assistance does the patient require from the helper? Only prior equipment preparation/set up from the helper GROOMING - SCORE: 5-SUP BATHING: Activity did not occur on this shift BATHING - SCORE: 0-UNK DRESSING - UPPER BODY: Activity did not occur on this shift ARTICLES SCORE Total number of steps: 0 DRESSING - UPPER BODY - SCORE: 0-UNK DRESSING - LOWER BODY: Activity did not occur on this shift ARTICLES SCORE Total number of steps: 0 DRESSING - LOWER BODY - SCORE: 0-UNK TOILETING: TOILETING - STEP 1: Does the patient require the assistance of a person or device, or need extra time with toileting? Yes . TOILETING - STEP 2: Does the patient require the assistance of a helper? Yes. TOILETING - STEP 3: How much assistance does the patient require from the helper? Only supervision TOILETING - SCORE: 5-SUP BLADDER MANAGEMENT: BLADDER MANAGEMENT - STEP 1: Does the patient control the bladder completely and intentionally without equipment or devices or med ications, and is always continent? No. BLADDER MANAGEMENT - STEP 2: Does the patient require the assistance of a helper? Yes. BLADDER MANAGEMENT - STEP 3: How much assistance does the patient require from the helper? Only supervision, stand-by, cuing, or c oaxing BLADDER MANAGEMENT - SCORE: 5-SUP BLADDER MANAGEMENT - FREQUENCY OF ACCIDENTS: BLADDER MANAGEMENT(FA) - STEP 1: How many accidents has the patient had during the current shift? 0 BOWEL MANAGEMENT: BOWEL MANAGEMENT - STEP 1: Does the patient control bowels completely and intentionally without equipment devices or medications AND is always continent? No. BOWEL MANAGEMENT - STEP 2: Does the patient require the assistance of a helper? No, patient requires medication for control such as stool softeners, suppositories, laxatives, enemas, or OTC medications BOWEL MANAGEMENT - SCORE: 6-PEYTON BOWEL MANAGEMENT - FREQUENCY OF ACCIDENTS: BOWEL MANAGEMENT(FA) - STEP 1: How many accidents has the patient had during the current shift? 0 TRANSFERS: BED, CHAIR, WHEELCHAIR: TRANSFERS: BED, CHAIR, WHEELCHAIR - STEP 1: Does the patient require assistance of a person or device, or need extra time with bed, chair, or whe elchair transfers? Yes. TRANSFERS: BED, CHAIR, WHEELCHAIR - STEP 2: Does the patient require the assistance of a helper? Yes. TRANSFERS: BED, CHAIR, WHEELCHAIR - STEP 3: How much assistance does the patient require from the helper? Lifting of the legs TRANSFERS: BED, CHAIR, WHEELCHAIR - STEP 4: How many legs does the patient require the helper to lift? both legs TRANSFERS: BED, CHAIR, WHEELCHAIR - SCORE: 3-MOD TRANSFERS: TOILET: TRANSFERS: TOILET - STEP 1: Does the patient require the assistance of a person or device, or need extra time with toilet transfe rs? Yes. TRANSFERS: TOILET - STEP 2: Does the patient require the assistance of a helper? Yes. TRANSFERS: TOILET - STEP 3: How much assistance does the patient require from the helper? Patient performs half or more of the tr ansferring tasks TRANSFERS: TOILET - STEP 4: Does the patient need only incidental help such as contact guard or steadying during toilet transfer? No. Patient needs more than incidental help TRANSFERS: TOILET - SCORE: 3-MOD TRANSFERS: SHOWER: Activity did not occur on this shift TRANSFERS: SHOWER - SCORE: 0-UNK TRANSFERS: TUB: Activity did not occur on this shift TRANSFERS: TUB - SCORE: 0-UNK LOCOMOTION: WALK: Activity did not occur on this shift LOCOMOTION: WALK - SCORE: 0-UNK LOCOMOTION: WHEELCHAIR: Activity did not occur on this shift LOCOMOTION: WHEELCHAIR - SCORE: 0-UNK COMPREHENSION: COMPREHENSION: TYPE: Both COMPREHENSION - STEP 1: Does the patient require help from a person or device, or need extra time to understand complex and a bstract ideas (such as current events, finances, discharge planning, medical issues, relationships, e tc)? Yes. COMPREHENSION - STEP 2: Does the patient require help to understand questions or statements about basic needs or ideas (such as hunger, thirst, sleep, safety, daily schedule, room location, or discomfort) half or more of the t mayra? No. COMPREHENSION - STEP 3: How often does the patient need help to understand directions and conversation about basic needs? Les s than 10% of the time COMPREHENSION - SCORE: 5-SUP EXPRESSION EXPRESSION: TYPE: Both EXPRESSION - STEP 1: Does the patient require help from a person or device, or need extra time expressing complex and abst ract ideas (such as current events, finances, discharge planning, medical issues, relationships, etc) ? Yes. EXPRESSION - STEP 2: Does the patient require help to express basic necessities or ideas (such as hunger, thirst, sleep, s afety, daily schedule, room location, or discomfort) half or more of the time? No. EXPRESSION - STEP 3: How often does the patient need help to express directions and conversation about basic needs? Less t messina 10% of the time EXPRESSION - SCORE: 5-SUP SOCIAL INTERACTION: SOCIAL INTERACTION - STEP 1: Does the patient require a helper to interact with others in social and therapeutic situations? Yes. SOCIAL INTERACTION - STEP 2: Does the patient interact appropriately half or more of the time? Yes. SOCIAL INTERACTION - STEP 3: How often does the patient need help to interact appropriately? 10-24% of the time SOCIAL INTERACTION - SCORE: 4-MIN PROBLEM SOLVING: PROBLEM SOLVING - STEP 1: Does the patient need help from a person or device, or need extra time to solve complex problems such as managing a checking account or confronting interpersonal problems? Yes. PROBLEM SOLVING - STEP 2: Does the patient solve basic routine problems half or more of the time? Yes. PROBLEM SOLVING - STEP 3: How often does the patient need help to solve basic routine problems? Less than 10% of the time PROBLEM SOLVING - SCORE: 5-SUP MEMORY: MEMORY - STEP 1: Does the patient need help from a person or device, or need extra time to remember frequently encount ered people, daily routines, and executing requests? Yes. MEMORY - STEP 2: How often does the patient need help to remember frequently encountered people, daily routines, and e xecuting requests? 10% - 24% of the time MEMORY - SCORE: 4-MIN SIGNATURE PANEL: The following modified sections: Eating - Score, Grooming - Score, Bathing - Score, Dressing - Upper Body - Score, Dressing - Lower Body - Score, Toileting - Score, Bladder Management - Score, Bowel Man agement - Score, Transfers: Bed, Chair, Wheelchair - Score, Transfers: Toilet - Score, Transfers: Alla wer - Score, Transfers: Tub - Score, Locomotion: Walk - Score, Locomotion: Wheelchair - Score, Compre hension - Score, Expression - Score, Social Interaction - Score, Problem Solving - Score, Memory - Sc ore were [electronically] signed by Fely Pisano C.N.A. on TueSep 27 2018 15:52:25 GMT-0600 (Centra [place] Standard Time)
--- NOTE | 2018-09-27 16:00 | FAST ---
ENCOUNTER DATE AND TIME: 09/27/2018 08:00 (HEALTH INSURANCE AGENT) NAME GABRIEL MEYER DATE OF : 1945 DATE OF ADMISSION: 09/21/2018 19:15 (HEALTH INSURANCE AGENT) PHONE: AGE: 73 N# [id number] GENDER: Male ENCOUNTER PHYSICIAN: Dr. José Freitas M.D. ADMISSION DIAGNOSIS: - Neurologic Conditions 03 - Parkinsonism (03.2) Parkinson's disease (G20). EATING: Activity did not occur on this shift EATING - SCORE: 0-UNK GROOMING: Comb/brush hair Oral care Wash, rinse, and dry face Wash, rinse, and dry hands GROOMING - STEP 1: Does the patient require the assistance of a person or device, or need extra time when grooming? Yes. GROOMING - STEP 2: Does the patient require the assistance of a helper? Yes. GROOMING - STEP 3: How much assistance does the patient require from the helper? Cuing, coaxing, instructions, or encour agement for completion of grooming GROOMING - SCORE: 5-SUP BATHING: Abdomen Buttocks Chest Left arm Left lower leg and foot Left upper leg Perineal area Right arm Right lower leg and foot Right upper leg BATHING - STEP 1: Does the patient require the assistance of a person or device, or need extra time when bathing? Yes. BATHING - STEP 2: Does the patient require the assistance of a helper? Yes. BATHING - STEP 3: How much assistance does the patient require from the helper? Only incidental help such as placement of a wash cloth in his/her hand a few times as s/he bathes OR help to bathe just one or two areas of the body BATHING - SCORE: 4-MIN DRESSING - UPPER BODY: T-shirt/pullover shirt (four steps) ARTICLES SCORE Total number of steps: 4 DRESSING - UPPER BODY - STEP 1: Does the patient require help from a person or device, or need extra time when dressing above the tar[address] st? Yes. DRESSING - UPPER BODY - STEP 2: Does the patient require the assistance of a helper? Yes. DRESSING - UPPER BODY - STEP 3: Does the helper touch the patient while dressing? Yes. DRESSING - UPPER BODY - STEP 4: How many of the total steps does the patient complete on his/her own? 3 DRESSING - UPPER BODY - SCORE: 4-MIN DRESSING - LOWER BODY: Elastic waist pants (three steps) Sock - Left foot (one step) Sock - Right foot (one step) Tied or buckled shoe - Left foot (two steps) Tied or buckled shoe - Right foot (two steps) Underwear (three steps) ARTICLES SCORE Total number of steps: 12 DRESSING - LOWER BODY - STEP 1: Does the patient require help from a person or device, or need extra time when dressing below the tarah st? Yes. DRESSING - LOWER BODY - STEP 2: Does the patient require the assistance of a helper? Yes. DRESSING - LOWER BODY - STEP 3: Does the helper touch the patient while dressing? Yes. DRESSING - LOWER BODY - STEP 4: How many of the total steps does the patient complete on his/her own? 6 DRESSING - LOWER BODY - SCORE: 3-MOD TOILETING: TOILETING - STEP 1: Does the patient require the assistance of a person or device, or need extra time with toileting? Yes . TOILETING - STEP 2: Does the patient require the assistance of a helper? Yes. TOILETING - STEP 3: How much assistance does the patient require from the helper? Hands-on assistance from the helper TOILETING - STEP 4: Of the 3 tasks: 1) Adjusting clothing prior to use, 2) Cleansing of perineal area, 3) Adjusting clot baldo after use; How many tasks does the patient perform WITHOUT assistance of the helper? Two tasks TOILETING - SCORE: 3-MOD BLADDER MANAGEMENT: Activity did not occur on this shift BLADDER MANAGEMENT - SCORE: 7-IND BOWEL MANAGEMENT: Activity did not occur on this shift BOWEL MANAGEMENT - SCORE: 7-IND TRANSFERS: BED, CHAIR, WHEELCHAIR: Activity did not occur on this shift TRANSFERS: BED, CHAIR, WHEELCHAIR - SCORE: 0-UNK TRANSFERS: TOILET: TRANSFERS: TOILET - STEP 1: Does the patient require the assistance of a person or device, or need extra time with toilet transfe rs? Yes. TRANSFERS: TOILET - STEP 2: Does the patient require the assistance of a helper? Yes. TRANSFERS: TOILET - STEP 3: How much assistance does the patient require from the helper? Patient performs half or more of the tr ansferring tasks TRANSFERS: TOILET - STEP 4: Does the patient need only incidental help such as contact guard or steadying during toilet transfer? No. Patient needs more than incidental help TRANSFERS: TOILET - SCORE: 3-MOD TRANSFERS: SHOWER: Activity did not occur on this shift TRANSFERS: SHOWER - SCORE: 0-UNK TRANSFERS: TUB: TRANSFERS: TUB - STEP 1: Does the patient require the assistance of a person or device, or need extra time with tub transfers? Yes. TRANSFERS: TUB - STEP 2: Does the patient require the assistance of a helper? Yes. TRANSFERS: TUB - STEP 3: How much assistance does the patient require from the helper? More than incidental help TRANSFERS: TUB - STEP 4: How much more help does the patient require from the helper? [place] lifts the patient either up OR do wn TRANSFERS: TUB - SCORE: 3-MOD LOCOMOTION: WALK: Activity did not occur on this shift LOCOMOTION: WALK - SCORE: 0-UNK LOCOMOTION: WHEELCHAIR: Activity did not occur on this shift LOCOMOTION: WHEELCHAIR - SCORE: 0-UNK LOCOMOTION: STAIRS: Activity did not occur on this shift LOCOMOTION: STAIRS - SCORE: 0-UNK COMPREHENSION: COMPREHENSION - SCORE: 0-UNK EXPRESSION EXPRESSION - SCORE: 0-UNK SOCIAL INTERACTION: SOCIAL INTERACTION - SCORE: 0-UNK PROBLEM SOLVING: PROBLEM SOLVING - SCORE: 0-UNK MEMORY: MEMORY - SCORE: 0-UNK SIGNATURE PANEL: The following modified sections: Eating - Score, Grooming - Score, Bathing - Score, Dressing - Upper Body - Score, Dressing - Lower Body - Score, Toileting - Score, Transfers: Bed, Chair, Wheelchair - S core, Transfers: Toilet - Score, Transfers: Shower - Score, Transfers: Tub - Score, Comprehension - S core, Expression - Score, Social Interaction - Score, Problem Solving - Score, Memory - Score were [e lectronically] signed by ESTER Shelley on TueSep 27 2018 15:59:54 GMT-0600 ([place] [facility])
[2018-09-27] MEDS: ATORVASTATIN 40 MG TAB PO SCH (20:06)
[2018-09-27] MEDS: ARIPiprazole 2 MG TAB PO SCH (20:07)
--- NOTE | 2018-09-28 01:52 | FAST ---
SHIFT START DATE/TIME: 09/27/2018 19:00 (DIRECTOR RETAIL BRAND DEVELOPMENT) SHIFT END DATE/TIME: 09/28/2018 07:00 (DIRECTOR RETAIL BRAND DEVELOPMENT) NAME GABRIEL MEYER DATE OF : 1945 DATE OF ADMISSION: 09/21/2018 19:15 (DIRECTOR RETAIL BRAND DEVELOPMENT) PHONE: AGE: 73 SSN# [id number] GENDER: Male ENCOUNTER PHYSICIAN: Dr. José Freitas M.D. ADMISSION DIAGNOSIS: - Neurologic Conditions 03 - Parkinsonism (03.2) Parkinson's disease (G20). EATING: Activity did not occur on this shift EATING - SCORE: 0-UNK GROOMING: Activity did not occur on this shift GROOMING - SCORE: 0-UNK BATHING: Activity did not occur on this shift BATHING - SCORE: 0-UNK DRESSING - UPPER BODY: Patient is not dressing in public clothing ARTICLES SCORE Total number of steps: 0 DRESSING - UPPER BODY - SCORE: 0-UNK DRESSING - LOWER BODY: Patient is not dressing in public clothing ARTICLES SCORE Total number of steps: 0 DRESSING - LOWER BODY - SCORE: 0-UNK TOILETING: TOILETING - STEP 1: Does the patient require the assistance of a person or device, or need extra time with toileting? Yes . TOILETING - STEP 2: Does the patient require the assistance of a helper? Yes. TOILETING - STEP 3: How much assistance does the patient require from the helper? Hands-on assistance from the helper TOILETING - STEP 4: Of the 3 tasks: 1) Adjusting clothing prior to use, 2) Cleansing of perineal area, 3) Adjusting clot baldo after use; How many tasks does the patient perform WITHOUT assistance of the helper? One task TOILETING - SCORE: 2-MAX BLADDER MANAGEMENT: BLADDER MANAGEMENT - STEP 1: Does the patient control the bladder completely and intentionally without equipment or devices or med ications, and is always continent? No. BLADDER MANAGEMENT - STEP 2: Does the patient require the assistance of a helper? Yes. BLADDER MANAGEMENT - STEP 3: How much assistance does the patient require from the helper? Patient requires contact assistance fro m the helper BLADDER MANAGEMENT - STEP 4: How much contact assistance does the patient require from the helper? Patient requires moderate dario tance, and performs 50% to 75% of bladder management tasks - Supai positions AND holds urinal or bed samayoa BLADDER MANAGEMENT - SCORE: 3-MOD BLADDER MANAGEMENT - FREQUENCY OF ACCIDENTS: BLADDER MANAGEMENT(FA) - STEP 1: How many accidents has the patient had during the current shift? 1 BOWEL MANAGEMENT: Activity did not occur on this shift BOWEL MANAGEMENT - SCORE: 7-IND TRANSFERS: BED, CHAIR, WHEELCHAIR: TRANSFERS: BED, CHAIR, WHEELCHAIR - STEP 1: Does the patient require assistance of a person or device, or need extra time with bed, chair, or whe elchair transfers? Yes. TRANSFERS: BED, CHAIR, WHEELCHAIR - STEP 2: Does the patient require the assistance of a helper? Yes. TRANSFERS: BED, CHAIR, WHEELCHAIR - STEP 3: How much assistance does the patient require from the helper? Lifting of the legs TRANSFERS: BED, CHAIR, WHEELCHAIR - STEP 4: How many legs does the patient require the helper to lift? both legs TRANSFERS: BED, CHAIR, WHEELCHAIR - SCORE: 3-MOD TRANSFERS: TOILET: TRANSFERS: TOILET - STEP 1: Does the patient require the assistance of a person or device, or need extra time with toilet transfe rs? Yes. TRANSFERS: TOILET - STEP 2: Does the patient require the assistance of a helper? Yes. TRANSFERS: TOILET - STEP 3: How much assistance does the patient require from the helper? Patient performs half or more of the tr ansferring tasks TRANSFERS: TOILET - STEP 4: Does the patient need only incidental help such as contact guard or steadying during toilet transfer? Yes. TRANSFERS: TOILET - SCORE: 4-MIN TRANSFERS: SHOWER: Activity did not occur on this shift TRANSFERS: SHOWER - SCORE: 0-UNK TRANSFERS: TUB: Activity did not occur on this shift TRANSFERS: TUB - SCORE: 0-UNK LOCOMOTION: WALK: Activity did not occur on this shift LOCOMOTION: WALK - SCORE: 0-UNK LOCOMOTION: WHEELCHAIR: Activity did not occur on this shift LOCOMOTION: WHEELCHAIR - SCORE: 0-UNK COMPREHENSION: COMPREHENSION: TYPE: Both COMPREHENSION - STEP 1: Does the patient require help from a person or device, or need extra time to understand complex and a bstract ideas (such as current events, finances, discharge planning, medical issues, relationships, e tc)? Yes. COMPREHENSION - STEP 2: Does the patient require help to understand questions or statements about basic needs or ideas (such as hunger, thirst, sleep, safety, daily schedule, room location, or discomfort) half or more of the t mayra? Yes. COMPREHENSION - STEP 3: Is the patient basically able to understand and respond appropriately and consistently? Yes. COMPREHENSION - SCORE: 2-MAX EXPRESSION EXPRESSION: TYPE: Both EXPRESSION - STEP 1: Does the patient require help from a person or device, or need extra time expressing complex and abst ract ideas (such as current events, finances, discharge planning, medical issues, relationships, etc) ? Yes. EXPRESSION - STEP 2: Does the patient require help to express basic necessities or ideas (such as hunger, thirst, sleep, s afety, daily schedule, room location, or discomfort) half or more of the time? Yes. EXPRESSION - STEP 3: Is the patient basically unable to express or does s/he express inappropriately or inconsistently dima pite prompting? No. EXPRESSION - SCORE: 2-MAX SOCIAL INTERACTION: SOCIAL INTERACTION - STEP 1: Does the patient require a helper to interact with others in social and therapeutic situations? No. SOCIAL INTERACTION - STEP 2: Does the patient need extra time in social situations, OR does s/he interact with staff, other patien ts, and family members ONLY in structured environments, OR does s/he require medication for social in teraction? Yes, patient requires medication for social interaction SOCIAL INTERACTION - SCORE: 6-[place] PROBLEM SOLVING: PROBLEM SOLVING - STEP 1: Does the patient need help from a person or device, or need extra time to solve complex problems such as managing a checking account or confronting interpersonal problems? Yes. PROBLEM SOLVING - STEP 2: Does the patient solve basic routine problems half or more of the time? Yes. PROBLEM SOLVING - STEP 3: How often does the patient need help to solve basic routine problems? 10%-24% of the time PROBLEM SOLVING - SCORE: 4-MIN MEMORY: MEMORY - STEP 1: How often do the bed/chair alarms go off? Occasionally - the alarms go off about 25% of the time or l ess MEMORY - SCORE: 4-MIN SIGNATURE PANEL: The following modified sections: Eating - Score, Grooming - Score, Bathing - Score, Dressing - Upper Body - Score, Dressing - Lower Body - Score, Toileting - Score, Bladder Management - Score, Bowel Man agement - Score, Transfers: Bed, Chair, Wheelchair - Score, Transfers: Toilet - Score, Transfers: Alla wer - Score, Transfers: Tub - Score, Locomotion: Walk - Score, Locomotion: Wheelchair - Score, Compre hension - Score, Expression - Score, Social Interaction - Score, Problem Solving - Score, Memory - Sc ore were [electronically] signed by Fallon Garcia CNA on TueSep 28 2018 01:51:40 T-0600 ([facility])
[2018-09-28 06:03] LABS: Absolute Lymphocytes (CBC) 1.5 K/uL (0.7-4.9); Absolute Monocytes 0.6 K/uL (0.1-1.3); Absolute Neutrophil 4.6 K/uL (1.8-8.0); Basophils % 0.9 % (0-1.3); Eosinophils % 9.6 % (0-4.4); Hematocrit 40.3 % (39.6-49.0); Monocytes % 8.5 % (3.3-12.3)
[2018-09-28 06:25] LABS: Albumin 3.4 g/dL (3.4-5.0); Potassium 3.6 mmol/L (3.5-5.1); Prealbumin 24.5 mg/dL (20-40)
[2018-09-28] MEDS: PANTOPRAZOLE 40MG TABLET PO SCH (07:52)
[2018-09-28] MEDS: MAGNESIUM OXIDE 400 MG TAB PO SCH (09:44)
[2018-09-28] MEDS: SPIRONOLACTONE 25 MG TABLET PO SCH (09:44)
[2018-09-28] MEDS: MULTIVITAMIN TAB PO SCH (09:45)
[2018-09-28] MEDS: lamoTRIgine 100 MG TAB PO SCH ×2 (09:45→19:38)
[2018-09-28] MEDS: GABAPENTIN 300 MG CAP PO SCH ×3 (09:45→20:21)
[2018-09-28] MEDS: FUROSEMIDE 20 MG TABLET PO SCH ×2 (09:45→17:26)
[2018-09-28] MEDS: CARVEDILOL 6.25 MG TAB PO SCH ×2 (09:45→19:38)
[2018-09-28] MEDS: APIXABAN 5 MG TABLET PO SCH ×2 (09:46→19:38)
[2018-09-28] MEDS: CARBIDOPA/LEVODOPA 25/250 TAB PO SCH ×3 (09:46→20:21)
[2018-09-28] MEDS: ROPINIROLE HCL 1 MG TAB PO SCH ×3 (09:46→20:21)
[2018-09-28] MEDS: DUTASTERIDE 0.5 MG GEL CAP PO SCH ×2 (12:16→19:38)
--- NOTE | 2018-09-28 15:28 | FAST ---
ENCOUNTER DATE AND TIME: 09/27/2018 08:00 (TEST SKEIN WINDER) NAME GABRIEL MEYER DATE OF : 1945 DATE OF ADMISSION: 09/21/2018 19:15 (TEST SKEIN WINDER) PHONE: AGE: 73 SSN# [id number] GENDER: Male ENCOUNTER PHYSICIAN: Dr. José Freitas M.D. ADMISSION DIAGNOSIS: - Neurologic Conditions 03 - Parkinsonism (03.2) Parkinson's disease (G20). EATING: Activity did not occur on this shift EATING - SCORE: 0-UNK GROOMING: Activity did not occur on this shift GROOMING - SCORE: 0-UNK BATHING: Activity did not occur on this shift BATHING - SCORE: 0-UNK DRESSING - UPPER BODY: Activity did not occur on this shift Patient is not dressing in public clothing ARTICLES SCORE Total number of steps: 0 DRESSING - UPPER BODY - SCORE: 0-UNK DRESSING - LOWER BODY: Activity did not occur on this shift Patient is not dressing in public clothing ARTICLES SCORE Total number of steps: 0 DRESSING - LOWER BODY - SCORE: 0-UNK TOILETING: Activity did not occur on this shift TOILETING - SCORE: 0-UNK BLADDER MANAGEMENT: Activity did not occur on this shift BLADDER MANAGEMENT - SCORE: 7-IND BOWEL MANAGEMENT: Activity did not occur on this shift BOWEL MANAGEMENT - SCORE: 7-IND TRANSFERS: BED, CHAIR, WHEELCHAIR: TRANSFERS: BED, CHAIR, WHEELCHAIR - STEP 1: Does the patient require assistance of a person or device, or need extra time with bed, chair, or whe elchair transfers? Yes. TRANSFERS: BED, CHAIR, WHEELCHAIR - STEP 2: Does the patient require the assistance of a helper? Yes. TRANSFERS: BED, CHAIR, WHEELCHAIR - STEP 3: How much assistance does the patient require from the helper? Steadying/guiding assistance TRANSFERS: BED, CHAIR, WHEELCHAIR - SCORE: 4-MIN TRANSFERS: TOILET: Activity did not occur on this shift TRANSFERS: TOILET - SCORE: 0-UNK TRANSFERS: SHOWER: Activity did not occur on this shift TRANSFERS: SHOWER - SCORE: 0-UNK TRANSFERS: TUB: Activity did not occur on this shift TRANSFERS: TUB - SCORE: 0-UNK LOCOMOTION: WALK: LOCOMOTION: WALK - STEP 1: Does the patient need help from a person or device, or need extra time to walk 150 feet? Yes. LOCOMOTION: WALK - STEP 2: How much assistance does the patient require to walk a minimum of 150 feet? Only supervision, cuing, or coaxing LOCOMOTION: WALK - SCORE: 5-SUP LOCOMOTION: WHEELCHAIR: Activity did not occur on this shift LOCOMOTION: WHEELCHAIR - SCORE: 0-UNK LOCOMOTION: STAIRS: Activity did not occur on this shift LOCOMOTION: STAIRS - SCORE: 0-UNK COMPREHENSION: COMPREHENSION - SCORE: 0-UNK EXPRESSION EXPRESSION - SCORE: 0-UNK SOCIAL INTERACTION: SOCIAL INTERACTION - SCORE: 0-UNK PROBLEM SOLVING: PROBLEM SOLVING - SCORE: 0-UNK MEMORY: MEMORY - SCORE: 0-UNK SIGNATURE PANEL: The following modified sections: Transfers: Bed, Chair, Wheelchair - Score, Transfers: Toilet - Score , Locomotion: Walk - Score, Locomotion: Wheelchair - Score, Locomotion: Stairs - Score were [electron alison] signed by Clay Pedro PTA on TueSep 28 2018 15:27:53 GMT-0600 (Central Standard Time)
--- NOTE | 2018-09-28 15:29 | FAST ---
ENCOUNTER DATE AND TIME: 09/28/2018 08:00 (CASE INVESTIGATOR) NAME GABRIEL MEYER DATE OF : 1945 DATE OF ADMISSION: 09/21/2018 19:15 (CASE INVESTIGATOR) PHONE: AGE: 73 SSN# [id number] GENDER: Male ENCOUNTER PHYSICIAN: Dr. José Freitas M.D. ADMISSION DIAGNOSIS: - Neurologic Conditions 03 - Parkinsonism (03.2) Parkinson's disease (G20). EATING: Activity did not occur on this shift EATING - SCORE: 0-UNK GROOMING: Activity did not occur on this shift GROOMING - SCORE: 0-UNK BATHING: Activity did not occur on this shift BATHING - SCORE: 0-UNK DRESSING - UPPER BODY: Activity did not occur on this shift Patient is not dressing in public clothing ARTICLES SCORE Total number of steps: 0 DRESSING - UPPER BODY - SCORE: 0-UNK DRESSING - LOWER BODY: Activity did not occur on this shift Patient is not dressing in public clothing ARTICLES SCORE Total number of steps: 0 DRESSING - LOWER BODY - SCORE: 0-UNK TOILETING: Activity did not occur on this shift TOILETING - SCORE: 0-UNK BLADDER MANAGEMENT: Activity did not occur on this shift BLADDER MANAGEMENT - SCORE: 7-IND BOWEL MANAGEMENT: Activity did not occur on this shift BOWEL MANAGEMENT - SCORE: 7-IND TRANSFERS: BED, CHAIR, WHEELCHAIR: TRANSFERS: BED, CHAIR, WHEELCHAIR - STEP 1: Does the patient require assistance of a person or device, or need extra time with bed, chair, or whe elchair transfers? Yes. TRANSFERS: BED, CHAIR, WHEELCHAIR - STEP 2: Does the patient require the assistance of a helper? Yes. TRANSFERS: BED, CHAIR, WHEELCHAIR - STEP 3: How much assistance does the patient require from the helper? Steadying/guiding assistance TRANSFERS: BED, CHAIR, WHEELCHAIR - SCORE: 4-MIN TRANSFERS: TOILET: Activity did not occur on this shift TRANSFERS: TOILET - SCORE: 0-UNK TRANSFERS: SHOWER: Activity did not occur on this shift TRANSFERS: SHOWER - SCORE: 0-UNK TRANSFERS: TUB: Activity did not occur on this shift TRANSFERS: TUB - SCORE: 0-UNK LOCOMOTION: WALK: LOCOMOTION: WALK - STEP 1: Does the patient need help from a person or device, or need extra time to walk 150 feet? Yes. LOCOMOTION: WALK - STEP 2: How much assistance does the patient require to walk a minimum of 150 feet? Only supervision, cuing, or coaxing LOCOMOTION: WALK - SCORE: 5-SUP LOCOMOTION: WHEELCHAIR: Activity did not occur on this shift LOCOMOTION: WHEELCHAIR - SCORE: 0-UNK LOCOMOTION: STAIRS: Activity did not occur on this shift LOCOMOTION: STAIRS - SCORE: 0-UNK COMPREHENSION: COMPREHENSION - SCORE: 0-UNK EXPRESSION EXPRESSION - SCORE: 0-UNK SOCIAL INTERACTION: SOCIAL INTERACTION - SCORE: 0-UNK PROBLEM SOLVING: PROBLEM SOLVING - SCORE: 0-UNK MEMORY: MEMORY - SCORE: 0-UNK SIGNATURE PANEL: The following modified sections: Transfers: Bed, Chair, Wheelchair - Score, Transfers: Toilet - Score , Locomotion: Walk - Score, Locomotion: Wheelchair - Score, Locomotion: Stairs - Score were [electron alison] signed by Clay Pedro PTA on TueSep 28 2018 15:28:52 GMT-0600 (Central Standard Time)
--- NOTE | 2018-09-28 16:38 | FAST ---
SHIFT START DATE/TIME: 09/28/2018 07:00 (TOP TAPER MACHINE) SHIFT END DATE/TIME: 09/28/2018 19:00 (TOP TAPER MACHINE) NAME GABRIEL MEYER DATE OF : 1945 DATE OF ADMISSION: 09/21/2018 19:15 (TOP TAPER MACHINE) PHONE: AGE: 73 SSN# [id number] GENDER: Male ENCOUNTER PHYSICIAN: Dr. José Freitas M.D. ADMISSION DIAGNOSIS: - Neurologic Conditions 03 - Parkinsonism (03.2) Parkinson's disease (G20). EATING: EATING - STEP 1: Does the patient require the assistance of a person or device, or need extra time when eating? Yes. EATING - STEP 2: Does the patient require the assistance of a helper? Yes. EATING - STEP 3: Does the patient perform half or more of the eating tasks? Yes. EATING - STEP 4: Does the patient need only supervision, cuing, coaxing OR help to apply an orthosis OR help to cut fo od, open containers, pour liquids, or butter bread? Yes. EATING - SCORE: 5-SUP GROOMING: Comb/brush hair Oral care Wash, rinse, and dry face Wash, rinse, and dry hands GROOMING - STEP 1: Does the patient require the assistance of a person or device, or need extra time when grooming? Yes. GROOMING - STEP 2: Does the patient require the assistance of a helper? Yes. GROOMING - STEP 3: How much assistance does the patient require from the helper? Only prior equipment preparation/set up from the helper GROOMING - SCORE: 5-SUP BATHING: Activity did not occur on this shift BATHING - SCORE: 0-UNK DRESSING - UPPER BODY: T-shirt/pullover shirt (four steps) ARTICLES SCORE Total number of steps: 4 DRESSING - UPPER BODY - STEP 1: Does the patient require help from a person or device, or need extra time when dressing above the tarah st? Yes. DRESSING - UPPER BODY - STEP 2: Does the patient require the assistance of a helper? Yes. DRESSING - UPPER BODY - STEP 3: Does the helper touch the patient while dressing? Yes. DRESSING - UPPER BODY - STEP 4: How many of the total steps does the patient complete on his/her own? 3 DRESSING - UPPER BODY - SCORE: 4-MIN DRESSING - LOWER BODY: Elastic waist pants (three steps) Tied or buckled shoe - Left foot (two steps) Tied or buckled shoe - Right foot (two steps) Underwear (three steps) ARTICLES SCORE Total number of steps: 10 DRESSING - LOWER BODY - STEP 1: Does the patient require help from a person or device, or need extra time when dressing below the tarah st? Yes. DRESSING - LOWER BODY - STEP 2: Does the patient require the assistance of a helper? Yes. DRESSING - LOWER BODY - STEP 3: Does the helper touch the patient while dressing? Yes. DRESSING - LOWER BODY - STEP 4: How many of the total steps does the patient complete on his/her own? 4 DRESSING - LOWER BODY - STEP 5: Does patient require total assistance for dressing below the waist such as the helper holding clothin g and performing basically all the activities? Yes. DRESSING - LOWER BODY - SCORE: 1-DEP TOILETING: TOILETING - STEP 1: Does the patient require the assistance of a person or device, or need extra time with toileting? Yes . TOILETING - STEP 2: Does the patient require the assistance of a helper? Yes. TOILETING - STEP 3: How much assistance does the patient require from the helper? Only supervision TOILETING - SCORE: 5-SUP BLADDER MANAGEMENT: BLADDER MANAGEMENT - STEP 1: Does the patient control the bladder completely and intentionally without equipment or devices or med ications, and is always continent? No. BLADDER MANAGEMENT - STEP 2: Does the patient require the assistance of a helper? No, patient requires and independently uses an a ssistive device, such as a urinal, bedpan, bedside commode, catheter, absorbent pad, or collecting de vice BLADDER MANAGEMENT - SCORE: 6-PEYTON BLADDER MANAGEMENT - FREQUENCY OF ACCIDENTS: BLADDER MANAGEMENT(FA) - STEP 1: How many accidents has the patient had during the current shift? 3 BOWEL MANAGEMENT: BOWEL MANAGEMENT - STEP 1: Does the patient control bowels completely and intentionally without equipment devices or medications AND is always continent? No. BOWEL MANAGEMENT - STEP 2: Does the patient require the assistance of a helper? No, patient requires medication for control such as stool softeners, suppositories, laxatives, enemas, or OTC medications BOWEL MANAGEMENT - SCORE: 6-PEYTON BOWEL MANAGEMENT - FREQUENCY OF ACCIDENTS: BOWEL MANAGEMENT(FA) - STEP 1: How many accidents has the patient had during the current shift? 0 TRANSFERS: BED, CHAIR, WHEELCHAIR: TRANSFERS: BED, CHAIR, WHEELCHAIR - STEP 1: Does the patient require assistance of a person or device, or need extra time with bed, chair, or whe elchair transfers? Yes. TRANSFERS: BED, CHAIR, WHEELCHAIR - STEP 2: Does the patient require the assistance of a helper? Yes. TRANSFERS: BED, CHAIR, WHEELCHAIR - STEP 3: How much assistance does the patient require from the helper? Lifting of the legs TRANSFERS: BED, CHAIR, WHEELCHAIR - STEP 4: How many legs does the patient require the helper to lift? one leg TRANSFERS: BED, CHAIR, WHEELCHAIR - SCORE: 4-MIN TRANSFERS: TOILET: TRANSFERS: TOILET - STEP 1: Does the patient require the assistance of a person or device, or need extra time with toilet transfe rs? Yes. TRANSFERS: TOILET - STEP 2: Does the patient require the assistance of a helper? Yes. TRANSFERS: TOILET - STEP 3: How much assistance does the patient require from the helper? Patient performs half or more of the tr ansferring tasks TRANSFERS: TOILET - STEP 4: Does the patient need only incidental help such as contact guard or steadying during toilet transfer? No. Patient needs more than incidental help TRANSFERS: TOILET - SCORE: 3-MOD TRANSFERS: SHOWER: Activity did not occur on this shift TRANSFERS: SHOWER - SCORE: 0-UNK TRANSFERS: TUB: Activity did not occur on this shift TRANSFERS: TUB - SCORE: 0-UNK LOCOMOTION: WALK: Activity did not occur on this shift LOCOMOTION: WALK - SCORE: 0-UNK LOCOMOTION: WHEELCHAIR: Activity did not occur on this shift LOCOMOTION: WHEELCHAIR - SCORE: 0-UNK COMPREHENSION: COMPREHENSION: TYPE: Both COMPREHENSION - STEP 1: Does the patient require help from a person or device, or need extra time to understand complex and a bstract ideas (such as current events, finances, discharge planning, medical issues, relationships, e tc)? Yes. COMPREHENSION - STEP 2: Does the patient require help to understand questions or statements about basic needs or ideas (such as hunger, thirst, sleep, safety, daily schedule, room location, or discomfort) half or more of the t mayra? No. COMPREHENSION - STEP 3: How often does the patient need help to understand directions and conversation about basic needs? Les s than 10% of the time COMPREHENSION - SCORE: 5-SUP EXPRESSION EXPRESSION: TYPE: Both EXPRESSION - STEP 1: Does the patient require help from a person or device, or need extra time expressing complex and abst ract ideas (such as current events, finances, discharge planning, medical issues, relationships, etc) ? Yes. EXPRESSION - STEP 2: Does the patient require help to express basic necessities or ideas (such as hunger, thirst, sleep, s afety, daily schedule, room location, or discomfort) half or more of the time? No. EXPRESSION - STEP 3: How often does the patient need help to express directions and conversation about basic needs? Less t messina 10% of the time EXPRESSION - SCORE: 5-SUP SOCIAL INTERACTION: SOCIAL INTERACTION - STEP 1: Does the patient require a helper to interact with others in social and therapeutic situations? Yes. SOCIAL INTERACTION - STEP 2: Does the patient interact appropriately half or more of the time? Yes. SOCIAL INTERACTION - STEP 3: How often does the patient need help to interact appropriately? 10-24% of the time SOCIAL INTERACTION - SCORE: 4-MIN PROBLEM SOLVING: PROBLEM SOLVING - STEP 1: Does the patient need help from a person or device, or need extra time to solve complex problems such as managing a checking account or confronting interpersonal problems? Yes. PROBLEM SOLVING - STEP 2: Does the patient solve basic routine problems half or more of the time? Yes. PROBLEM SOLVING - STEP 3: How often does the patient need help to solve basic routine problems? Less than 10% of the time PROBLEM SOLVING - SCORE: 5-SUP MEMORY: MEMORY - STEP 1: Does the patient need help from a person or device, or need extra time to remember frequently encount ered people, daily routines, and executing requests? Yes. MEMORY - STEP 2: How often does the patient need help to remember frequently encountered people, daily routines, and e xecuting requests? 10% - 24% of the time MEMORY - SCORE: 4-MIN SIGNATURE PANEL: The following modified sections: Eating - Score, Grooming - Score, Bathing - Score, Dressing - Upper Body - Score, Dressing - Lower Body - Score, Toileting - Score, Bladder Management - Score, Bowel Man agement - Score, Transfers: Bed, Chair, Wheelchair - Score, Transfers: Toilet - Score, Transfers: Alla wer - Score, Transfers: Tub - Score, Locomotion: Walk - Score, Locomotion: Wheelchair - Score, Compre hension - Score, Expression - Score, Social Interaction - Score, Problem Solving - Score, Memory - Sc ore were [electronically] signed by Fely Pisano C.N.A. on TueSep 28 2018 16:37:49 GMT-0600 ([facility])
--- NOTE | 2018-09-28 18:31 | R.PN ---
ENCOUNTER DATE AND TIME: 09/28/2018 18:27 (HAND SANDER) NAME GABRIEL MEYER DATE OF : 1945 DATE OF ADMISSION: 09/21/2018 19:15 (HAND SANDER) Parkinson's disease (G20)CHIEF COMPLAINT: Parkinson's disease and debility SUBJECTIVE: Pt denied any depression. Pt denied any Shortness of Breath. Ambulated 1000' with standby assistance using a rolling walker. Self-propelled wheelchair 65' with co ntact guard assistance. He had Geodon 20 mg yesterday and was sleepy today. Will d/c Geodon and give ativan 0.5 mg at night as needed. His CBC with differential is normal. Prealbumin is normal at 24.5. VITAL SIGNS Temperature: 98.2 F SBP/DBP: 119/57 Pulse: 78 Resp: 18 MEDICATION ALLERGIES: No Known Drug Allergies (NKDA) ENVIRONMENTAL ALLERGIES: - Substance Allergies None Known - Other Allergies None Known CONSULT: Perform Neuro consult NURSING: - Shower allowing shower ACTIVITIES OOB only with supervision THERAPIES: - Occupational Therapy Evaluate and Treat. - Speech Therapy Memory Strategies. Speech Intelligibility Training. - Physical Therapy Evaluate and Treat. PHYSICAL EXAM - Gen Alert and awake Lying in bed No apparent distress Oriented to: person, time, and place - Skin No breakdown No abnormalities - Eyes No abnormalities - ENMT No abnormalities - Neck No abnormalities - CVS RRR - Chest No abnormalities - Abd +bowel sounds - GI nondistended Deferred - No abnormalities - Ext No significant edema - MSK 3-4+/5 weakness in both lower extremities. - Neuro No focal deficits. - Psych Mild depression. ASSESSMENT: Pt. is a 73 yo Right-handed white male.On 09/18/2018 he was admitted to [facility] with diagnosi s Parkinson's disease (G20).His impairment category is Neurologic Conditions 03 - Parkinsonism (03.2 ).Pre-morbidly, Pt. was independent/mod-I in Transfers Control, Communication, Social Cognition, Self -Care, Sphincter Control, and Locomotion; and he had good Sphincter Control.Currently, he has deficit s of Transfers Control, Communication, Social Cognition, Balance, Endurance, Safety Awareness, Locomo tion, and Self-Care.Pt. is now referred to [facility] for acute in-patient joni abilitation in order to maximize patient's functional independence in activities of daily living, str ength, ROM, and mobility.- Rehab Goal Patient has realistic goal of being discharged at assistance level 6-Rohan to reside at Home with Fam jeffery/Relatives. MDM/PLAN: - Physical Therapy Gait dysfunction - to improve, our physical therapists will perform initial evaluation of pt's statu s upon admission and devise an individualized program for Gait Training, and Wheel Chair mobility Inability to transfer - to improve, our physical therapists will perform initial evaluation of pt's status upon admission and devise an individualized program for Bed mobility Need for home safety evaluation - to improve, our physical therapists will perform initial evaluatio n of pt's status upon admission and devise an individualized program for Home Evaluation Need in caregiver upon discharge - to improve, our physical therapists will perform initial evaluati on of pt's status upon admission and devise an individualized program for Caregiver Training New precaution - to improve, our physical therapists will perform initial evaluation of pt's status upon admission and devise an individualized program for Patient precaution education Edema - to improve, our physical therapists will perform initial evaluation of pt's status upon admi ssion and devise an individualized program for Elevation Training, and Lymphedema Therapy Poor balance - to improve, our physical therapists will perform initial evaluation of pt's status up on admission and devise an individualized program for Balance Training Poor endurance - to improve, our physical therapists will perform initial evaluation of pt's status upon admission and devise an individualized program for Endurance Training Weakness - to improve, our physical therapists will perform initial evaluation of pt's status upon a dmission and devise an individualized program for Aquatic Therapy, Neuromuscular Reeducation, and Str engthening Achieving independence - to improve, our physical therapists will perform initial evaluation of pt's status upon admission and devise an individualized program for Community Reintegration Activities - Occupational Therapy ADL deficits - to improve, our occupation therapists will perform initial evaluation of pt's status upon admission and devise an individualized program for Bathing, Bed mobility, Community Reintegratio n, Cooking, Dressing, Eating, Fine Motor Skills, Grooming, Homemaking, Kitchen Mobility, Laundry, Pat ient Education, Safety Awareness, Splinting - Positioning, Transfers(Toilet, Tub, Shower), and Wheel Chair Management Cognitive deficits - to improve, our occupation therapists will perform initial evaluation of pt's s tatus upon admission and devise an individualized program for Cognition - orientation Need for adult live in caregiver - to improve, our occupation therapists will perform initial evaluation of pt's status upon admission and devise an individualized program for Caregiver Training Weakness - to improve, our occupation therapists will perform initial evaluation of pt's status upon admission and devise an individualized program for Aquatic Therapy, Balance, Endurance, UE ROM, and UE strengthening - Diet Type Continue Regular - Diet - Liquid Texture Continue Regular - Tube Feed Continue N/A - N/A Perform Neuro consult - Diet - Solid Texture Continue Regular - Shower allowing shower FUNCTIONAL STATUS: UPDATED AT WEEKLY TEAM CONFERENCE - Bladder Same accident frequency: 7-Ind - No accidents in the past 7 days - Bowel Same accident frequency: 7-Ind - No accidents in the past 7 days - Walking Same score based on distance walked: 0(N/A) FUNCTIONAL STATUS: - Self-Care A. Eating Ind B. Grooming modA C. Bathing modA D. Dressing - Upper modA E. Dressing - Lower maxA F. Toileting maxA - Sphincter Control G: Bladder control Rohan H: Bowel control Rohan - Transfers Control I. Bed/Chair/Wheelchair maxA J. Toilet maxA K. Tub/Shower maxA - Locomotion L. Walk/Wheelchair (B) maxA M. Stairs ADNO - Communication N. Comprehension (B) Silviano O. Expression (B) Silviano - Social Cognition P. Social Interaction Silviano Q. Problem Solving Silviano R. Memory modA - Endurance Poor - Balance Poor - Safety Awareness Poor CURRENT FUNC. DEFICITS: Transfers Control, Communication, Social Cognition, Balance, Endurance, Safety Awareness, Locomotion, and Self-Care SIGNATURE PANEL: (HAND SANDER)
[2018-09-28] MEDS: TRAZODONE 50 MG TABLET PO SCH (20:21)
[2018-09-28] MEDS: ATORVASTATIN 40 MG TAB PO SCH (20:21)
[2018-09-28] MEDS: ARIPiprazole 2 MG TAB PO SCH (20:22)
--- NOTE | 2018-09-29 01:49 | FAST ---
SHIFT START DATE/TIME: 09/28/2018 19:00 (CONSTRUCTION ELECTRICIAN) SHIFT END DATE/TIME: 09/29/2018 07:00 (CONSTRUCTION ELECTRICIAN) NAME GABRIEL MEYER DATE OF : 1945 DATE OF ADMISSION: 09/21/2018 19:15 (CONSTRUCTION ELECTRICIAN) PHONE: AGE: 73 SSN# [id number] GENDER: Male ENCOUNTER PHYSICIAN: Dr. José Freitas M.D. ADMISSION DIAGNOSIS: - Neurologic Conditions 03 - Parkinsonism (03.2) Parkinson's disease (G20). EATING: Activity did not occur on this shift EATING - SCORE: 0-UNK GROOMING: Activity did not occur on this shift GROOMING - SCORE: 0-UNK BATHING: Activity did not occur on this shift BATHING - SCORE: 0-UNK DRESSING - UPPER BODY: Activity did not occur on this shift ARTICLES SCORE Total number of steps: 0 DRESSING - UPPER BODY - SCORE: 0-UNK DRESSING - LOWER BODY: Activity did not occur on this shift ARTICLES SCORE Total number of steps: 0 DRESSING - LOWER BODY - SCORE: 0-UNK TOILETING: Activity did not occur on this shift TOILETING - SCORE: 0-UNK BLADDER MANAGEMENT: BLADDER MANAGEMENT - STEP 1: Does the patient control the bladder completely and intentionally without equipment or devices or med ications, and is always continent? No. BLADDER MANAGEMENT - STEP 2: Does the patient require the assistance of a helper? Yes. BLADDER MANAGEMENT - STEP 3: How much assistance does the patient require from the helper? Patient requires contact assistance fro m the helper BLADDER MANAGEMENT - STEP 4: How much contact assistance does the patient require from the helper? Patient requires moderate dario tance, and performs 50% to 75% of bladder management tasks - [place] positions AND holds urinal or bed samayoa BLADDER MANAGEMENT - SCORE: 3-MOD BOWEL MANAGEMENT: Activity did not occur on this shift BOWEL MANAGEMENT - SCORE: 7-IND TRANSFERS: BED, CHAIR, WHEELCHAIR: TRANSFERS: BED, CHAIR, WHEELCHAIR - STEP 1: Does the patient require assistance of a person or device, or need extra time with bed, chair, or whe elchair transfers? Yes. TRANSFERS: BED, CHAIR, WHEELCHAIR - STEP 2: Does the patient require the assistance of a helper? Yes. TRANSFERS: BED, CHAIR, WHEELCHAIR - STEP 3: How much assistance does the patient require from the helper? Lifting of the legs TRANSFERS: BED, CHAIR, WHEELCHAIR - STEP 4: How many legs does the patient require the helper to lift? both legs TRANSFERS: BED, CHAIR, WHEELCHAIR - SCORE: 3-MOD TRANSFERS: TOILET: Activity did not occur on this shift TRANSFERS: TOILET - SCORE: 0-UNK TRANSFERS: SHOWER: Activity did not occur on this shift TRANSFERS: SHOWER - SCORE: 0-UNK TRANSFERS: TUB: Activity did not occur on this shift TRANSFERS: TUB - SCORE: 0-UNK LOCOMOTION: WALK: Activity did not occur on this shift LOCOMOTION: WALK - SCORE: 0-UNK LOCOMOTION: WHEELCHAIR: Activity did not occur on this shift LOCOMOTION: WHEELCHAIR - SCORE: 0-UNK COMPREHENSION: COMPREHENSION: TYPE: Both COMPREHENSION - STEP 1: Does the patient require help from a person or device, or need extra time to understand complex and a bstract ideas (such as current events, finances, discharge planning, medical issues, relationships, e tc)? Yes. COMPREHENSION - STEP 2: Does the patient require help to understand questions or statements about basic needs or ideas (such as hunger, thirst, sleep, safety, daily schedule, room location, or discomfort) half or more of the t mayra? No. COMPREHENSION - STEP 3: How often does the patient need help to understand directions and conversation about basic needs? 10% - 24% of the time COMPREHENSION - SCORE: 4-MIN EXPRESSION EXPRESSION: TYPE: Both EXPRESSION - STEP 1: Does the patient require help from a person or device, or need extra time expressing complex and abst ract ideas (such as current events, finances, discharge planning, medical issues, relationships, etc) ? Yes. EXPRESSION - STEP 2: Does the patient require help to express basic necessities or ideas (such as hunger, thirst, sleep, s afety, daily schedule, room location, or discomfort) half or more of the time? No. EXPRESSION - STEP 3: How often does the patient need help to express directions and conversation about basic needs? 10-24% of the time EXPRESSION - SCORE: 4-MIN SOCIAL INTERACTION: SOCIAL INTERACTION - STEP 1: Does the patient require a helper to interact with others in social and therapeutic situations? No. SOCIAL INTERACTION - STEP 2: Does the patient need extra time in social situations, OR does s/he interact with staff, other patien ts, and family members ONLY in structured environments, OR does s/he require medication for social in teraction? Yes, patient requires medication for social interaction SOCIAL INTERACTION - SCORE: 6-PEYTON PROBLEM SOLVING: Patient requires bed/chair alarms due to attempts to get up unassisted when helper is needed. PROBLEM SOLVING - STEP 1: How often do the bed/chair alarms go off? Occasionally - the alarms go off about 25% or less PROBLEM SOLVING - SCORE: 4-MIN MEMORY: MEMORY - STEP 1: How often do the bed/chair alarms go off? Occasionally - the alarms go off about 25% of the time or l ess MEMORY - SCORE: 4-MIN SIGNATURE PANEL: The following modified sections: Eating - Score, Grooming - Score, Bathing - Score, Dressing - Upper Body - Score, Dressing - Lower Body - Score, Toileting - Score, Bladder Management - Score, Bowel Man agement - Score, Transfers: Bed, Chair, Wheelchair - Score, Transfers: Toilet - Score, Transfers: Alal wer - Score, Transfers: Tub - Score, Locomotion: Walk - Score, Locomotion: Wheelchair - Score, Compre hension - Score, Expression - Score, Social Interaction - Score, Problem Solving - Score, Memory - Sc ore were [electronically] signed by Fallon Garcia CNA on TueSep 29 2018 01:48:35 T-0600 ([facility])
[2018-09-29] MEDS: DUTASTERIDE 0.5 MG GEL CAP PO SCH ×2 (08:20→21:33)
[2018-09-29] MEDS: PANTOPRAZOLE 40MG TABLET PO SCH (08:25)
[2018-09-29] MEDS: MULTIVITAMIN TAB PO SCH (08:26)
[2018-09-29] MEDS: MAGNESIUM OXIDE 400 MG TAB PO SCH (08:26)
[2018-09-29] MEDS: CARBIDOPA/LEVODOPA 25/250 TAB PO SCH ×3 (08:26→21:33)
[2018-09-29] MEDS: ROPINIROLE HCL 1 MG TAB PO SCH ×3 (08:26→21:32)
[2018-09-29] MEDS: APIXABAN 5 MG TABLET PO SCH ×2 (08:26→21:32)
[2018-09-29] MEDS: FUROSEMIDE 20 MG TABLET PO SCH ×2 (08:27→16:45)
[2018-09-29] MEDS: SPIRONOLACTONE 25 MG TABLET PO SCH (08:27)
[2018-09-29] MEDS: lamoTRIgine 100 MG TAB PO SCH ×2 (08:27→21:33)
[2018-09-29] MEDS: GABAPENTIN 300 MG CAP PO SCH ×3 (08:27→21:32)
[2018-09-29] MEDS: CARVEDILOL 6.25 MG TAB PO SCH ×2 (08:28→20:00)
--- NOTE | 2018-09-29 10:17 | P.RH.PN ---
Estimated Length of Stay: 15 Expected Discharge Date: 10/06/18 Discharge Disposition Plan: Home Family Support: Yes Nursing Home Goal: Mobility, Transfers, Self Care Vital Signs: Last Vital Signs Temp 97.5 F 09/28/18 19:49 Pulse 69 09/29/18 08:28 Resp 18 09/28/18 19:49 BP 141/65 H 09/29/18 08:28 Pulse Ox 94 09/28/18 19:49 Laboratory: Laboratory Last Values WBC 7.6 K/uL (4.3-10.9) 09/28/18 05:42 RBC 4.60 M/uL (4.33-5.43) 09/28/18 05:42 Hgb 13.6 g/dL (13.6-17.9) 09/28/18 05:42 Hct 40.3 % (39.6-49.0) 09/28/18 05:42 MCV 87.6 fL (80-100) 09/28/18 05:42 MCH 29.4 pg (27.0-35.0) 09/28/18 05:42 MCHC 33.6 g/dL (32.0-36.0) 09/28/18 05:42 RDW 14.0 % (12.1-15.2) 09/28/18 05:42 Plt Count 159 K/uL (152-406) 09/28/18 05:42 MPV 8.0 fL (7.6-11.3) 09/28/18 05:42 Neutrophils % 61.0 % (41.7-73.7) 09/28/18 05:42 Lymphocytes % 20.0 % (15.3-44.8) 09/28/18 05:42 Monocytes % 8.5 % (3.3-12.3) 09/28/18 05:42 Eosinophils % 9.6 % (0-4.4) H 09/28/18 05:42 Basophils % 0.9 % (0-1.3) 09/28/18 05:42 Absolute Neutrophils 4.6 K/uL (1.8-8.0) 09/28/18 05:42 Absolute Lymphocytes 1.5 K/uL (0.7-4.9) 09/28/18 05:42 Absolute Monocytes 0.6 K/uL (0.1-1.3) 09/28/18 05:42 Absolute Eosinophils 0.7 K/uL (0-0.5) H 09/28/18 05:42 Absolute Basophils 0.1 K/uL (0-0.5) 09/28/18 05:42 Sodium 141 mmol/L (136-145) 09/28/18 05:42 Potassium 3.6 mmol/L (3.5-5.1) 09/28/18 05:42 Chloride 106 mmol/L (98-107) 09/28/18 05:42 Carbon Dioxide 28 mmol/L (21-32) 09/28/18 05:42 BUN 17 mg/dL (7-18) 09/28/18 05:42 Creatinine 1.12 mg/dL (0.55-1.3) 09/28/18 05:42 Estimated GFR 64 mL/min (=/>90) L 09/28/18 05:42 Glucose 112 mg/dL (74-106) H 09/28/18 05:42 Calcium 8.9 mg/dL (8.5-10.1) 09/28/18 05:42 Magnesium 2.4 mg/dL (1.8-2.4) 09/22/18 06:31 Albumin 3.4 g/dL (3.4-5.0) 09/28/18 05:42 Prealbumin 24.5 mg/dL (20-40) 09/28/18 05:42 Urine Color Yellow 09/21/18 22:00 Urine Appearance Clear 09/21/18 22:00 Urine pH 5.5 (5.0-7.0) 09/21/18 22:00 Ur Specific [place] 1.020 (1.005-1.030) 09/21/18 22:00 Urine Ketones Negative (NEG) 09/21/18 22:00 Urine Blood Negative (NEG) 09/21/18 22:00 Urine Nitrite Negative (NEG) 09/21/18 22:00 Urine Bilirubin Negative (NEG) 09/21/18 22:00 Urine Urobilinogen 0.2 mg/dL (0.2-1.0) 09/21/18 22:00 Ur Leukocyte Esterase Negative (NEG) 09/21/18 22:00 Urine RBC None seen /HPF (NONE SEEN) 09/21/18 22:00 Urine WBC <5 /HPF (<5) 09/21/18 22:00 Ur Squamous Epith Cells <5 /HPF (NONE SEEN) 09/21/18 22:00 Urine Bacteria <20 /HPF (NONE SEEN) 09/21/18 22:00 Urine Mucus 4+ /HPF (NONE SEEN) H 09/21/18 22:00 Urine Culture Reflexed Not needed 09/21/18 22:00 Urine Glucose Negative (NEG) 09/21/18 22:00 Urine Total Protein Negative (NEG) 09/21/18 22:00 Weight: 232 lb 3 oz Wound Present: No Closed Surgical Incision Present: No Negative Pressure Wound Therapy Present: No Physician Update: His labs have been reviewed and are within normal limits. He requires minimum to moderate assistance with transfers but maximum assistance with toileting and lower body dressing. Medical Issues: DVT Prophylaxis - Eliquis 5mg BID Functional Improvement: Patient is continuing to work toward meeting short-term and long-term goals. Patient continues to present w/ cognition issues and kyphotic posture. Functional Improvement Occupational Therapy: pt can benifit with further therapy to address pt's overall weakness and safety for adl tasks. Cont to increase pt's endurance and activity tolerance. Cont to educate and train pt on A/E as needed. Cont with the POC and the goals by the supervising OTR. Speech Therapy Update: Patient requires MIN A for auditory comprehension and verbal expression, SUPV for social interaction, and MOD A for problem solving and memory. Summary: Patient's care plan and fpc goals have been reviewed and revised as necessary. Please see the Rehabilitation Signature page for all necessary signatures.
--- NOTE | 2018-09-29 14:57 | FAST ---
ENCOUNTER DATE AND TIME: 09/29/2018 08:00 (MAT INSPECTOR) NAME GABRIEL MEYER DATE OF : 1945 DATE OF ADMISSION: 09/21/2018 19:15 (MAT INSPECTOR) PHONE: AGE: 73 SSN# [id number] GENDER: Male ENCOUNTER PHYSICIAN: Dr. José Freitas M.D. ADMISSION DIAGNOSIS: - Neurologic Conditions 03 - Parkinsonism (03.2) Parkinson's disease (G20). EATING: Activity did not occur on this shift EATING - SCORE: 0-UNK GROOMING: Activity did not occur on this shift GROOMING - SCORE: 0-UNK BATHING: Activity did not occur on this shift BATHING - SCORE: 0-UNK DRESSING - UPPER BODY: Activity did not occur on this shift Patient is not dressing in public clothing ARTICLES SCORE Total number of steps: 0 DRESSING - UPPER BODY - SCORE: 0-UNK DRESSING - LOWER BODY: Activity did not occur on this shift Patient is not dressing in public clothing ARTICLES SCORE Total number of steps: 0 DRESSING - LOWER BODY - SCORE: 0-UNK TOILETING: Activity did not occur on this shift TOILETING - SCORE: 0-UNK BLADDER MANAGEMENT: Activity did not occur on this shift BLADDER MANAGEMENT - SCORE: 7-IND BOWEL MANAGEMENT: Activity did not occur on this shift BOWEL MANAGEMENT - SCORE: 7-IND TRANSFERS: BED, CHAIR, WHEELCHAIR: TRANSFERS: BED, CHAIR, WHEELCHAIR - STEP 1: Does the patient require assistance of a person or device, or need extra time with bed, chair, or whe elchair transfers? Yes. TRANSFERS: BED, CHAIR, WHEELCHAIR - STEP 2: Does the patient require the assistance of a helper? Yes. TRANSFERS: BED, CHAIR, WHEELCHAIR - STEP 3: How much assistance does the patient require from the helper? Steadying/guiding assistance TRANSFERS: BED, CHAIR, WHEELCHAIR - SCORE: 4-MIN TRANSFERS: TOILET: Activity did not occur on this shift TRANSFERS: TOILET - SCORE: 0-UNK TRANSFERS: SHOWER: Activity did not occur on this shift TRANSFERS: SHOWER - SCORE: 0-UNK TRANSFERS: TUB: Activity did not occur on this shift TRANSFERS: TUB - SCORE: 0-UNK LOCOMOTION: WALK: LOCOMOTION: WALK - STEP 1: Does the patient need help from a person or device, or need extra time to walk 150 feet? Yes. LOCOMOTION: WALK - STEP 2: How much assistance does the patient require to walk a minimum of 150 feet? Only incidental help such as contact guarding or steadying LOCOMOTION: WALK - SCORE: 4-MIN LOCOMOTION: WHEELCHAIR: LOCOMOTION: WHEELCHAIR - STEP 1: Does the patient need help to go 150 feet in a wheelchair? Yes. LOCOMOTION: WHEELCHAIR - STEP 2: How much assistance does the patient need from the helper? Only incidental help such as around corner s or over thresholds LOCOMOTION: WHEELCHAIR - SCORE: 4-MIN LOCOMOTION: STAIRS: Activity did not occur on this shift LOCOMOTION: STAIRS - SCORE: 0-UNK COMPREHENSION: COMPREHENSION - SCORE: 0-UNK EXPRESSION EXPRESSION - SCORE: 0-UNK SOCIAL INTERACTION: SOCIAL INTERACTION - SCORE: 0-UNK PROBLEM SOLVING: PROBLEM SOLVING - SCORE: 0-UNK MEMORY: MEMORY - SCORE: 0-UNK SIGNATURE PANEL: The following modified sections: Transfers: Bed, Chair, Wheelchair - Score, Transfers: Toilet - Score , Locomotion: Walk - Score, Locomotion: Wheelchair - Score, Locomotion: Stairs - Score were [kim rosas] signed by Sari Venegas PTA on TueSep 29 2018 14:56:26 GMT-0600 (Central Standard Time)
--- NOTE | 2018-09-29 15:21 | FAST ---
ENCOUNTER DATE AND TIME: 09/29/2018 08:00 (ASSEMBLER CAMPER) NAME GABRIEL MEYER DATE OF : 1945 DATE OF ADMISSION: 09/21/2018 19:15 (ASSEMBLER CAMPER) PHONE: AGE: 73 SSN# [id number] GENDER: Male ENCOUNTER PHYSICIAN: Dr. José Freitas M.D. ADMISSION DIAGNOSIS: - Neurologic Conditions 03 - Parkinsonism (03.2) Parkinson's disease (G20). EATING: Activity did not occur on this shift EATING - SCORE: 0-UNK GROOMING: Comb/brush hair Oral care Wash, rinse, and dry face Wash, rinse, and dry hands GROOMING - STEP 1: Does the patient require the assistance of a person or device, or need extra time when grooming? Yes. GROOMING - STEP 2: Does the patient require the assistance of a helper? No. The patient only requires an assistive devic e, OR takes more than reasonable time to groom, OR there is a concern for safety as the patient groom s GROOMING - SCORE: 6-PEYTON BATHING: Abdomen Buttocks Chest Left arm Left lower leg and foot Left upper leg Perineal area Right arm Right lower leg and foot Right upper leg BATHING - STEP 1: Does the patient require the assistance of a person or device, or need extra time when bathing? Yes. BATHING - STEP 2: Does the patient require the assistance of a helper? Yes. BATHING - STEP 3: How much assistance does the patient require from the helper? Only incidental help such as placement of a wash cloth in his/her hand a few times as s/he bathes OR help to bathe just one or two areas of the body BATHING - SCORE: 4-MIN DRESSING - UPPER BODY: T-shirt/pullover shirt (four steps) ARTICLES SCORE Total number of steps: 4 DRESSING - UPPER BODY - STEP 1: Does the patient require help from a person or device, or need extra time when dressing above the tarah st? Yes. DRESSING - UPPER BODY - STEP 2: Does the patient require the assistance of a helper? Yes. DRESSING - UPPER BODY - STEP 3: Does the helper touch the patient while dressing? No. DRESSING - UPPER BODY - SCORE: 5-SUP DRESSING - LOWER BODY: Elastic waist pants (three steps) Sock - Left foot (one step) Sock - Right foot (one step) Tied or buckled shoe - Left foot (two steps) Tied or buckled shoe - Right foot (two steps) Underwear (three steps) ARTICLES SCORE Total number of steps: 12 DRESSING - LOWER BODY - STEP 1: Does the patient require help from a person or device, or need extra time when dressing below the tarah st? Yes. DRESSING - LOWER BODY - STEP 2: Does the patient require the assistance of a helper? Yes. DRESSING - LOWER BODY - STEP 3: Does the helper touch the patient while dressing? Yes. DRESSING - LOWER BODY - STEP 4: How many of the total steps does the patient complete on his/her own? 8 DRESSING - LOWER BODY - SCORE: 3-MOD TOILETING: TOILETING - STEP 1: Does the patient require the assistance of a person or device, or need extra time with toileting? Yes . TOILETING - STEP 2: Does the patient require the assistance of a helper? Yes. TOILETING - STEP 3: How much assistance does the patient require from the helper? Hands-on assistance from the helper TOILETING - STEP 4: Of the 3 tasks: 1) Adjusting clothing prior to use, 2) Cleansing of perineal area, 3) Adjusting clot baldo after use; How many tasks does the patient perform WITHOUT assistance of the helper? Two tasks TOILETING - SCORE: 3-MOD BLADDER MANAGEMENT: Activity did not occur on this shift BLADDER MANAGEMENT - SCORE: 7-IND BOWEL MANAGEMENT: Activity did not occur on this shift BOWEL MANAGEMENT - SCORE: 7-IND TRANSFERS: BED, CHAIR, WHEELCHAIR: Activity did not occur on this shift TRANSFERS: BED, CHAIR, WHEELCHAIR - SCORE: 0-UNK TRANSFERS: TOILET: TRANSFERS: TOILET - STEP 1: Does the patient require the assistance of a person or device, or need extra time with toilet transfe rs? Yes. TRANSFERS: TOILET - STEP 2: Does the patient require the assistance of a helper? Yes. TRANSFERS: TOILET - STEP 3: How much assistance does the patient require from the helper? Patient performs half or more of the tr ansferring tasks TRANSFERS: TOILET - STEP 4: Does the patient need only incidental help such as contact guard or steadying during toilet transfer? No. Patient needs more than incidental help TRANSFERS: TOILET - SCORE: 3-MOD TRANSFERS: SHOWER: Activity did not occur on this shift TRANSFERS: SHOWER - SCORE: 0-UNK TRANSFERS: TUB: TRANSFERS: TUB - STEP 1: Does the patient require the assistance of a person or device, or need extra time with tub transfers? Yes. TRANSFERS: TUB - STEP 2: Does the patient require the assistance of a helper? Yes. TRANSFERS: TUB - STEP 3: How much assistance does the patient require from the helper? More than incidental help TRANSFERS: TUB - STEP 4: How much more help does the patient require from the helper? [place] lifts the patient either up OR do wn TRANSFERS: TUB - SCORE: 3-MOD LOCOMOTION: WALK: Activity did not occur on this shift LOCOMOTION: WALK - SCORE: 0-UNK LOCOMOTION: WHEELCHAIR: Activity did not occur on this shift LOCOMOTION: WHEELCHAIR - SCORE: 0-UNK LOCOMOTION: STAIRS: Activity did not occur on this shift LOCOMOTION: STAIRS - SCORE: 0-UNK COMPREHENSION: COMPREHENSION - SCORE: 0-UNK EXPRESSION EXPRESSION - SCORE: 0-UNK SOCIAL INTERACTION: SOCIAL INTERACTION - SCORE: 0-UNK PROBLEM SOLVING: PROBLEM SOLVING - SCORE: 0-UNK MEMORY: MEMORY - SCORE: 0-UNK SIGNATURE PANEL: The following modified sections: Eating - Score, Grooming - Score, Bathing - Score, Dressing - Upper Body - Score, Dressing - Lower Body - Score, Toileting - Score, Transfers: Bed, Chair, Wheelchair - S core, Transfers: Toilet - Score, Transfers: Shower - Score, Transfers: Tub - Score, Comprehension - S core, Expression - Score, Social Interaction - Score, Problem Solving - Score, Memory - Score were [e lectronically] signed by ESTER Shelley on TueSep 29 2018 15:20:57 T-0600 ([place] Time)
--- NOTE | 2018-09-29 18:15 | FAST ---
SHIFT START DATE/TIME: 09/29/2018 07:00 (NUCLEAR MEDICINE TECH) SHIFT END DATE/TIME: 09/29/2018 19:00 (NUCLEAR MEDICINE TECH) NAME GABRIEL MEYER DATE OF : 1945 DATE OF ADMISSION: 09/21/2018 19:15 (NUCLEAR MEDICINE TECH) PHONE: AGE: 73 SSN# [id number] GENDER: Male ENCOUNTER PHYSICIAN: Dr. José Freitas M.D. ADMISSION DIAGNOSIS: - Neurologic Conditions 03 - Parkinsonism (03.2) Parkinson's disease (G20). EATING: EATING - STEP 1: Does the patient require the assistance of a person or device, or need extra time when eating? Yes. EATING - STEP 2: Does the patient require the assistance of a helper? No, patient only requires an assistive device, O R s/he takes more than reasonable time to eat, OR there is a safety concern, OR s/he requires modifie d food consistency EATING - SCORE: 6-PEYTON GROOMING: Comb/brush hair Wash, rinse, and dry hands GROOMING - STEP 1: Does the patient require the assistance of a person or device, or need extra time when grooming? Yes. GROOMING - STEP 2: Does the patient require the assistance of a helper? No. The patient only requires an assistive devic e, OR takes more than reasonable time to groom, OR there is a concern for safety as the patient groom s GROOMING - SCORE: 6-PEYTON BATHING: Activity did not occur on this shift BATHING - SCORE: 0-UNK DRESSING - UPPER BODY: T-shirt/pullover shirt (four steps) ARTICLES SCORE Total number of steps: 4 DRESSING - UPPER BODY - STEP 1: Does the patient require help from a person or device, or need extra time when dressing above the tarah st? Yes. DRESSING - UPPER BODY - STEP 2: Does the patient require the assistance of a helper? Yes. DRESSING - UPPER BODY - STEP 3: Does the helper touch the patient while dressing? Yes. DRESSING - UPPER BODY - STEP 4: How many of the total steps does the patient complete on his/her own? 2 DRESSING - UPPER BODY - SCORE: 3-MOD DRESSING - LOWER BODY: Elastic waist pants (three steps) Underwear (three steps) ARTICLES SCORE Total number of steps: 6 DRESSING - LOWER BODY - STEP 1: Does the patient require help from a person or device, or need extra time when dressing below the tarah st? Yes. DRESSING - LOWER BODY - STEP 2: Does the patient require the assistance of a helper? Yes. DRESSING - LOWER BODY - STEP 3: Does the helper touch the patient while dressing? Yes. DRESSING - LOWER BODY - STEP 4: How many of the total steps does the patient complete on his/her own? 2 DRESSING - LOWER BODY - STEP 5: Does patient require total assistance for dressing below the waist such as the helper holding clothin g and performing basically all the activities? Yes. DRESSING - LOWER BODY - SCORE: 1-DEP TOILETING: TOILETING - STEP 1: Does the patient require the assistance of a person or device, or need extra time with toileting? Yes . TOILETING - STEP 2: Does the patient require the assistance of a helper? Yes. TOILETING - STEP 3: How much assistance does the patient require from the helper? Hands-on assistance from the helper TOILETING - STEP 4: Of the 3 tasks: 1) Adjusting clothing prior to use, 2) Cleansing of perineal area, 3) Adjusting clot baldo after use; How many tasks does the patient perform WITHOUT assistance of the helper? No tasks; h elper performs all three tasks TOILETING - SCORE: 1-DEP BLADDER MANAGEMENT: [place] removes incontinent device (Depends, pull ups, etc.); cleans the patient after accident / inco ntinent episode; and, applies new incontinent device. BLADDER MANAGEMENT - SCORE: 1-DEP BLADDER MANAGEMENT - FREQUENCY OF ACCIDENTS: BLADDER MANAGEMENT(FA) - STEP 1: How many accidents has the patient had during the current shift? 1 BOWEL MANAGEMENT: BOWEL MANAGEMENT - STEP 1: Does the patient control bowels completely and intentionally without equipment devices or medications AND is always continent? Yes. BOWEL MANAGEMENT - SCORE: 7-IND BOWEL MANAGEMENT - FREQUENCY OF ACCIDENTS: BOWEL MANAGEMENT(FA) - STEP 1: How many accidents has the patient had during the current shift? 0 TRANSFERS: BED, CHAIR, WHEELCHAIR: TRANSFERS: BED, CHAIR, WHEELCHAIR - STEP 1: Does the patient require assistance of a person or device, or need extra time with bed, chair, or whe elchair transfers? Yes. TRANSFERS: BED, CHAIR, WHEELCHAIR - STEP 2: Does the patient require the assistance of a helper? Yes. TRANSFERS: BED, CHAIR, WHEELCHAIR - STEP 3: How much assistance does the patient require from the helper? Lifting of the patient TRANSFERS: BED, CHAIR, WHEELCHAIR - STEP 4: Does the helper lift the patient ONLY up? ONLY down? Up AND Down? ONLY up. TRANSFERS: BED, CHAIR, WHEELCHAIR - SCORE: 3-MOD TRANSFERS: TOILET: TRANSFERS: TOILET - STEP 1: Does the patient require the assistance of a person or device, or need extra time with toilet transfe rs? Yes. TRANSFERS: TOILET - STEP 2: Does the patient require the assistance of a helper? Yes. TRANSFERS: TOILET - STEP 3: How much assistance does the patient require from the helper? Patient performs half or more of the tr ansferring tasks TRANSFERS: TOILET - STEP 4: Does the patient need only incidental help such as contact guard or steadying during toilet transfer? No. Patient needs more than incidental help TRANSFERS: TOILET - SCORE: 3-MOD TRANSFERS: SHOWER: Activity did not occur on this shift TRANSFERS: SHOWER - SCORE: 0-UNK TRANSFERS: TUB: Activity did not occur on this shift TRANSFERS: TUB - SCORE: 0-UNK LOCOMOTION: WALK: Activity did not occur on this shift LOCOMOTION: WALK - SCORE: 0-UNK LOCOMOTION: WHEELCHAIR: Activity did not occur on this shift LOCOMOTION: WHEELCHAIR - SCORE: 0-UNK COMPREHENSION: COMPREHENSION - SCORE: 0-UNK EXPRESSION EXPRESSION - SCORE: 0-UNK SOCIAL INTERACTION: SOCIAL INTERACTION - SCORE: 0-UNK PROBLEM SOLVING: PROBLEM SOLVING - SCORE: 0-UNK MEMORY: MEMORY - SCORE: 0-UNK SIGNATURE PANEL: The following modified sections: Eating - Score, Grooming - Score, Bathing - Score, Dressing - Upper Body - Score, Dressing - Lower Body - Score, Toileting - Score, Bladder Management - Score, Bowel Man agement - Score, Transfers: Bed, Chair, Wheelchair - Score, Transfers: Toilet - Score, Transfers: [place] wer - Score, Transfers: Tub - Score, Locomotion: Walk - Score, Locomotion: Wheelchair - Score, Compre hension - Score, Expression - Score, Social Interaction - Score, Problem Solving - Score, Memory - Sc ore were [electronically] signed by Barb Fallon CNA on TueSep 29 2018 18:14:02 T-0600 ([place] Standard Time)
[2018-09-29] MEDS: ARIPiprazole 2 MG TAB PO SCH (21:00)
[2018-09-29] MEDS: ATORVASTATIN 40 MG TAB PO SCH (21:32)
[2018-09-29] MEDS: TRAZODONE 50 MG TABLET PO SCH (21:33)
--- NOTE | 2018-09-30 02:35 | FAST ---
SHIFT START DATE/TIME: 09/29/2018 19:00 (AUTOMOTIVE FLEET SUPERVISOR) SHIFT END DATE/TIME: 09/30/2018 07:00 (AUTOMOTIVE FLEET SUPERVISOR) NAME GABRIEL MEYER DATE OF : 1945 DATE OF ADMISSION: 09/21/2018 19:15 (AUTOMOTIVE FLEET SUPERVISOR) PHONE: AGE: 73 SSN# [id number] GENDER: Male ENCOUNTER PHYSICIAN: Dr. José Freitas M.D. ADMISSION DIAGNOSIS: - Neurologic Conditions 03 - Parkinsonism (03.2) Parkinson's disease (G20). EATING: Activity did not occur on this shift EATING - SCORE: 0-UNK GROOMING: Oral care Wash, rinse, and dry face Wash, rinse, and dry hands GROOMING - STEP 1: Does the patient require the assistance of a person or device, or need extra time when grooming? Yes. GROOMING - STEP 2: Does the patient require the assistance of a helper? Yes. GROOMING - STEP 3: How much assistance does the patient require from the helper? Only prior equipment preparation/set up from the helper GROOMING - SCORE: 5-SUP BATHING: Activity did not occur on this shift BATHING - SCORE: 0-UNK DRESSING - UPPER BODY: Patient is not dressing in public clothing ARTICLES SCORE Total number of steps: 0 DRESSING - UPPER BODY - SCORE: 0-UNK DRESSING - LOWER BODY: Patient is not dressing in public clothing ARTICLES SCORE Total number of steps: 0 DRESSING - LOWER BODY - SCORE: 0-UNK TOILETING: TOILETING - STEP 1: Does the patient require the assistance of a person or device, or need extra time with toileting? Yes . TOILETING - STEP 2: Does the patient require the assistance of a helper? Yes. TOILETING - STEP 3: How much assistance does the patient require from the helper? Hands-on assistance from the helper TOILETING - STEP 4: Of the 3 tasks: 1) Adjusting clothing prior to use, 2) Cleansing of perineal area, 3) Adjusting clot baldo after use; How many tasks does the patient perform WITHOUT assistance of the helper? One task TOILETING - SCORE: 2-MAX BLADDER MANAGEMENT: BLADDER MANAGEMENT - STEP 1: Does the patient control the bladder completely and intentionally without equipment or devices or med ications, and is always continent? No. BLADDER MANAGEMENT - STEP 2: Does the patient require the assistance of a helper? Yes. BLADDER MANAGEMENT - STEP 3: How much assistance does the patient require from the helper? Patient requires contact assistance fro m the helper BLADDER MANAGEMENT - STEP 4: How much contact assistance does the patient require from the helper? Patient requires moderate dario tance, and performs 50% to 75% of bladder management tasks - [place] positions AND holds urinal or bed samayoa BLADDER MANAGEMENT - SCORE: 3-MOD BLADDER MANAGEMENT - FREQUENCY OF ACCIDENTS: BLADDER MANAGEMENT(FA) - STEP 1: How many accidents has the patient had during the current shift? 1 BOWEL MANAGEMENT: Activity did not occur on this shift BOWEL MANAGEMENT - SCORE: 7-IND TRANSFERS: BED, CHAIR, WHEELCHAIR: TRANSFERS: BED, CHAIR, WHEELCHAIR - STEP 1: Does the patient require assistance of a person or device, or need extra time with bed, chair, or whe elchair transfers? Yes. TRANSFERS: BED, CHAIR, WHEELCHAIR - STEP 2: Does the patient require the assistance of a helper? Yes. TRANSFERS: BED, CHAIR, WHEELCHAIR - STEP 3: How much assistance does the patient require from the helper? Lifting of the legs TRANSFERS: BED, CHAIR, WHEELCHAIR - STEP 4: How many legs does the patient require the helper to lift? both legs TRANSFERS: BED, CHAIR, WHEELCHAIR - SCORE: 3-MOD TRANSFERS: TOILET: TRANSFERS: TOILET - STEP 1: Does the patient require the assistance of a person or device, or need extra time with toilet transfe rs? Yes. TRANSFERS: TOILET - STEP 2: Does the patient require the assistance of a helper? Yes. TRANSFERS: TOILET - STEP 3: How much assistance does the patient require from the helper? Patient performs half or more of the tr ansferring tasks TRANSFERS: TOILET - STEP 4: Does the patient need only incidental help such as contact guard or steadying during toilet transfer? No. Patient needs more than incidental help TRANSFERS: TOILET - SCORE: 3-MOD TRANSFERS: SHOWER: Activity did not occur on this shift TRANSFERS: SHOWER - SCORE: 0-UNK TRANSFERS: TUB: Activity did not occur on this shift TRANSFERS: TUB - SCORE: 0-UNK LOCOMOTION: WALK: Activity did not occur on this shift LOCOMOTION: WALK - SCORE: 0-UNK LOCOMOTION: WHEELCHAIR: Activity did not occur on this shift LOCOMOTION: WHEELCHAIR - SCORE: 0-UNK COMPREHENSION: COMPREHENSION: TYPE: Both COMPREHENSION - STEP 1: Does the patient require help from a person or device, or need extra time to understand complex and a bstract ideas (such as current events, finances, discharge planning, medical issues, relationships, e tc)? Yes. COMPREHENSION - STEP 2: Does the patient require help to understand questions or statements about basic needs or ideas (such as hunger, thirst, sleep, safety, daily schedule, room location, or discomfort) half or more of the t mayra? No. COMPREHENSION - STEP 3: How often does the patient need help to understand directions and conversation about basic needs? Les s than 10% of the time COMPREHENSION - SCORE: 5-SUP EXPRESSION EXPRESSION: TYPE: Both EXPRESSION - STEP 1: Does the patient require help from a person or device, or need extra time expressing complex and abst ract ideas (such as current events, finances, discharge planning, medical issues, relationships, etc) ? No. EXPRESSION - STEP 2: Does the patient need extra time, require an assistive device (such as augmentive communication syste m or a communication board), OR does s/he have mild difficulty expressing complex and abstract ideas (including mild dysarthria or mild word-find problems)? Yes. EXPRESSION - SCORE: 6-PEYTON SOCIAL INTERACTION: SOCIAL INTERACTION - STEP 1: Does the patient require a helper to interact with others in social and therapeutic situations? No. SOCIAL INTERACTION - STEP 2: Does the patient need extra time in social situations, OR does s/he interact with staff, other patien ts, and family members ONLY in structured environments, OR does s/he require medication for social in teraction? Yes, patient needs extra time SOCIAL INTERACTION - SCORE: 6-PEYTON PROBLEM SOLVING: PROBLEM SOLVING - STEP 1: Does the patient need help from a person or device, or need extra time to solve complex problems such as managing a checking account or confronting interpersonal problems? Yes. PROBLEM SOLVING - STEP 2: Does the patient solve basic routine problems half or more of the time? Yes. PROBLEM SOLVING - STEP 3: How often does the patient need help to solve basic routine problems? Less than 10% of the time PROBLEM SOLVING - SCORE: 5-SUP MEMORY: MEMORY - STEP 1: Does the patient need help from a person or device, or need extra time to remember frequently encount ered people, daily routines, and executing requests? Yes. MEMORY - STEP 2: How often does the patient need help to remember frequently encountered people, daily routines, and e xecuting requests? Less than 10% of the time MEMORY - SCORE: 5-SUP
[2018-09-30] MEDS: PANTOPRAZOLE 40MG TABLET PO SCH (06:34)
[2018-09-30] MEDS: DUTASTERIDE 0.5 MG GEL CAP PO SCH ×2 (08:00→20:10)
[2018-09-30] MEDS: SPIRONOLACTONE 25 MG TABLET PO SCH (08:33)
[2018-09-30] MEDS: ROPINIROLE HCL 1 MG TAB PO SCH ×3 (08:33→20:11)
[2018-09-30] MEDS: FUROSEMIDE 20 MG TABLET PO SCH ×2 (08:33→16:35)
[2018-09-30] MEDS: CARVEDILOL 6.25 MG TAB PO SCH ×2 (08:34→20:11)
[2018-09-30] MEDS: CARBIDOPA/LEVODOPA 25/250 TAB PO SCH ×3 (08:34→20:12)
[2018-09-30] MEDS: APIXABAN 5 MG TABLET PO SCH ×2 (08:34→20:11)
[2018-09-30] MEDS: GABAPENTIN 300 MG CAP PO SCH ×3 (08:34→20:12)
[2018-09-30] MEDS: MULTIVITAMIN TAB PO SCH (08:34)
[2018-09-30] MEDS: lamoTRIgine 100 MG TAB PO SCH ×2 (08:35→20:12)
[2018-09-30] MEDS: MAGNESIUM OXIDE 400 MG TAB PO SCH (12:08)
--- NOTE | 2018-09-30 16:31 | FAST ---
SHIFT START DATE/TIME: 09/30/2018 07:00 (BASS GUITAR TEACHER) SHIFT END DATE/TIME: 09/30/2018 19:00 (BASS GUITAR TEACHER) NAME GABRIEL MEYER DATE OF : 1945 DATE OF ADMISSION: 09/21/2018 19:15 (BASS GUITAR TEACHER) PHONE: AGE: 73 SSN# [id number] GENDER: Male ENCOUNTER PHYSICIAN: Dr. José Freitas M.D. ADMISSION DIAGNOSIS: - Neurologic Conditions 03 - Parkinsonism (03.2) Parkinson's disease (G20). EATING: EATING - STEP 1: Does the patient require the assistance of a person or device, or need extra time when eating? Yes. EATING - STEP 2: Does the patient require the assistance of a helper? Yes. EATING - STEP 3: Does the patient perform half or more of the eating tasks? Yes. EATING - STEP 4: Does the patient need only supervision, cuing, coaxing OR help to apply an orthosis OR help to cut fo od, open containers, pour liquids, or butter bread? Yes. EATING - SCORE: 5-SUP GROOMING: Comb/brush hair Wash, rinse, and dry face Wash, rinse, and dry hands GROOMING - STEP 1: Does the patient require the assistance of a person or device, or need extra time when grooming? Yes. GROOMING - STEP 2: Does the patient require the assistance of a helper? No. The patient only requires an assistive devic e, OR takes more than reasonable time to groom, OR there is a concern for safety as the patient groom s GROOMING - SCORE: 6-PEYTON BATHING: Activity did not occur on this shift BATHING - SCORE: 0-UNK DRESSING - UPPER BODY: T-shirt/pullover shirt (four steps) ARTICLES SCORE Total number of steps: 4 DRESSING - UPPER BODY - STEP 1: Does the patient require help from a person or device, or need extra time when dressing above the tarah st? Yes. DRESSING - UPPER BODY - STEP 2: Does the patient require the assistance of a helper? Yes. DRESSING - UPPER BODY - STEP 3: Does the helper touch the patient while dressing? Yes. DRESSING - UPPER BODY - STEP 4: How many of the total steps does the patient complete on his/her own? 3 DRESSING - UPPER BODY - SCORE: 4-MIN DRESSING - LOWER BODY: Elastic waist pants (three steps) Sock - Left foot (one step) Sock - Right foot (one step) Tied or buckled shoe - Left foot (two steps) Tied or buckled shoe - Right foot (two steps) Underwear (three steps) ARTICLES SCORE Total number of steps: 12 DRESSING - LOWER BODY - STEP 1: Does the patient require help from a person or device, or need extra time when dressing below the tarah st? Yes. DRESSING - LOWER BODY - STEP 2: Does the patient require the assistance of a helper? Yes. DRESSING - LOWER BODY - STEP 3: Does the helper touch the patient while dressing? Yes. DRESSING - LOWER BODY - STEP 4: How many of the total steps does the patient complete on his/her own? 4 DRESSING - LOWER BODY - STEP 5: Does patient require total assistance for dressing below the waist such as the helper holding clothin g and performing basically all the activities? Yes. DRESSING - LOWER BODY - SCORE: 1-DEP TOILETING: TOILETING - STEP 1: Does the patient require the assistance of a person or device, or need extra time with toileting? Yes . TOILETING - STEP 2: Does the patient require the assistance of a helper? Yes. TOILETING - STEP 3: How much assistance does the patient require from the helper? Only supervision TOILETING - SCORE: 5-SUP BLADDER MANAGEMENT: BLADDER MANAGEMENT - STEP 1: Does the patient control the bladder completely and intentionally without equipment or devices or med ications, and is always continent? No. BLADDER MANAGEMENT - STEP 2: Does the patient require the assistance of a helper? Yes. BLADDER MANAGEMENT - STEP 3: How much assistance does the patient require from the helper? Only supervision, stand-by, cuing, or c oaxing BLADDER MANAGEMENT - SCORE: 5-SUP BLADDER MANAGEMENT - FREQUENCY OF ACCIDENTS: BLADDER MANAGEMENT(FA) - STEP 1: How many accidents has the patient had during the current shift? 0 BOWEL MANAGEMENT: Activity did not occur on this shift BOWEL MANAGEMENT - SCORE: 7-IND BOWEL MANAGEMENT - FREQUENCY OF ACCIDENTS: BOWEL MANAGEMENT(FA) - STEP 1: How many accidents has the patient had during the current shift? 0 TRANSFERS: BED, CHAIR, WHEELCHAIR: TRANSFERS: BED, CHAIR, WHEELCHAIR - STEP 1: Does the patient require assistance of a person or device, or need extra time with bed, chair, or whe elchair transfers? Yes. TRANSFERS: BED, CHAIR, WHEELCHAIR - STEP 2: Does the patient require the assistance of a helper? Yes. TRANSFERS: BED, CHAIR, WHEELCHAIR - STEP 3: How much assistance does the patient require from the helper? Steadying/guiding assistance TRANSFERS: BED, CHAIR, WHEELCHAIR - SCORE: 4-MIN TRANSFERS: TOILET: TRANSFERS: TOILET - STEP 1: Does the patient require the assistance of a person or device, or need extra time with toilet transfe rs? Yes. TRANSFERS: TOILET - STEP 2: Does the patient require the assistance of a helper? Yes. TRANSFERS: TOILET - STEP 3: How much assistance does the patient require from the helper? Patient performs half or more of the tr ansferring tasks TRANSFERS: TOILET - STEP 4: Does the patient need only incidental help such as contact guard or steadying during toilet transfer? Yes. TRANSFERS: TOILET - SCORE: 4-MIN TRANSFERS: SHOWER: Activity did not occur on this shift TRANSFERS: SHOWER - SCORE: 0-UNK TRANSFERS: TUB: Activity did not occur on this shift TRANSFERS: TUB - SCORE: 0-UNK LOCOMOTION: WALK: Activity did not occur on this shift LOCOMOTION: WALK - SCORE: 0-UNK LOCOMOTION: WHEELCHAIR: Activity did not occur on this shift LOCOMOTION: WHEELCHAIR - SCORE: 0-UNK COMPREHENSION: COMPREHENSION: TYPE: Both COMPREHENSION - STEP 1: Does the patient require help from a person or device, or need extra time to understand complex and a bstract ideas (such as current events, finances, discharge planning, medical issues, relationships, e tc)? Yes. COMPREHENSION - STEP 2: Does the patient require help to understand questions or statements about basic needs or ideas (such as hunger, thirst, sleep, safety, daily schedule, room location, or discomfort) half or more of the t mayra? No. COMPREHENSION - STEP 3: How often does the patient need help to understand directions and conversation about basic needs? 10% - 24% of the time COMPREHENSION - SCORE: 4-MIN EXPRESSION EXPRESSION: TYPE: Both EXPRESSION - STEP 1: Does the patient require help from a person or device, or need extra time expressing complex and abst ract ideas (such as current events, finances, discharge planning, medical issues, relationships, etc) ? Yes. EXPRESSION - STEP 2: Does the patient require help to express basic necessities or ideas (such as hunger, thirst, sleep, s afety, daily schedule, room location, or discomfort) half or more of the time? No. EXPRESSION - STEP 3: How often does the patient need help to express directions and conversation about basic needs? 10-24% of the time EXPRESSION - SCORE: 4-MIN SOCIAL INTERACTION: SOCIAL INTERACTION - STEP 1: Does the patient require a helper to interact with others in social and therapeutic situations? No. SOCIAL INTERACTION - STEP 2: Does the patient need extra time in social situations, OR does s/he interact with staff, other patien ts, and family members ONLY in structured environments, OR does s/he require medication for social in teraction? Yes, patient needs extra time SOCIAL INTERACTION - SCORE: 6-PEYTON PROBLEM SOLVING: PROBLEM SOLVING - STEP 1: Does the patient need help from a person or device, or need extra time to solve complex problems such as managing a checking account or confronting interpersonal problems? Yes. PROBLEM SOLVING - STEP 2: Does the patient solve basic routine problems half or more of the time? No. PROBLEM SOLVING - STEP 3: Does the patient need help to solve problems all the time or is s/he unable to solve problems? No. Mart mcgovern can sometimes solve problems PROBLEM SOLVING - SCORE: 2-MAX MEMORY: MEMORY - STEP 1: Does the patient need help from a person or device, or need extra time to remember frequently encount ered people, daily routines, and executing requests? Yes. MEMORY - STEP 2: How often does the patient need help to remember frequently encountered people, daily routines, and e xecuting requests? 10% - 24% of the time MEMORY - SCORE: 4-MIN SIGNATURE PANEL: The following modified sections: Eating - Score, Grooming - Score, Bathing - Score, Dressing - Upper Body - Score, Dressing - Lower Body - Score, Toileting - Score, Bladder Management - Score, Bowel Man agement - Score, Transfers: Bed, Chair, Wheelchair - Score, Transfers: Toilet - Score, Transfers: Alla wer - Score, Transfers: Tub - Score, Locomotion: Walk - Score, Locomotion: Wheelchair - Score, Compre hension - Score, Expression - Score, Social Interaction - Score, Problem Solving - Score, Memory - Sc ore were [electronically] signed by Fely Pisano C.N.A. on Sat Sep 30 2018 16:30:54 GMT-0600 (Cent[place] Standard Time)
[2018-09-30] MEDS: ATORVASTATIN 40 MG TAB PO SCH (20:11)
[2018-09-30] MEDS: ARIPiprazole 2 MG TAB PO SCH (20:11)
[2018-09-30] MEDS: TRAZODONE 50 MG TABLET PO SCH (20:11)
--- NOTE | 2018-10-01 00:37 | FAST ---
SHIFT START DATE/TIME: 09/30/2018 19:00 (STILL OPERATOR BRANDY) SHIFT END DATE/TIME: 10/01/2018 07:00 (STILL OPERATOR BRANDY) NAME GABRIEL MEYER DATE OF : 1945 DATE OF ADMISSION: 09/21/2018 19:15 (STILL OPERATOR BRANDY) PHONE: AGE: 73 SSN# [id number] GENDER: Male ENCOUNTER PHYSICIAN: Dr. José Freitas M.D. ADMISSION DIAGNOSIS: - Neurologic Conditions 03 - Parkinsonism (03.2) Parkinson's disease (G20). EATING: Activity did not occur on this shift EATING - SCORE: 0-UNK GROOMING: Oral care Wash, rinse, and dry hands GROOMING - STEP 1: Does the patient require the assistance of a person or device, or need extra time when grooming? Yes. GROOMING - STEP 2: Does the patient require the assistance of a helper? Yes. GROOMING - STEP 3: How much assistance does the patient require from the helper? Only prior equipment preparation/set up from the helper GROOMING - SCORE: 5-SUP BATHING: Activity did not occur on this shift BATHING - SCORE: 0-UNK DRESSING - UPPER BODY: Patient is not dressing in public clothing ARTICLES SCORE Total number of steps: 0 DRESSING - UPPER BODY - SCORE: 0-UNK DRESSING - LOWER BODY: Patient is not dressing in public clothing ARTICLES SCORE Total number of steps: 0 DRESSING - LOWER BODY - SCORE: 0-UNK TOILETING: TOILETING - STEP 1: Does the patient require the assistance of a person or device, or need extra time with toileting? Yes . TOILETING - STEP 2: Does the patient require the assistance of a helper? Yes. TOILETING - STEP 3: How much assistance does the patient require from the helper? Hands-on assistance from the helper TOILETING - STEP 4: Of the 3 tasks: 1) Adjusting clothing prior to use, 2) Cleansing of perineal area, 3) Adjusting clot baldo after use; How many tasks does the patient perform WITHOUT assistance of the helper? One task TOILETING - SCORE: 2-MAX BLADDER MANAGEMENT: [place] removes incontinent device (Depends, pull ups, etc.); cleans the patient after accident / inco ntinent episode; and, applies new incontinent device. BLADDER MANAGEMENT - SCORE: 1-DEP BOWEL MANAGEMENT: Activity did not occur on this shift BOWEL MANAGEMENT - SCORE: 7-IND TRANSFERS: BED, CHAIR, WHEELCHAIR: TRANSFERS: BED, CHAIR, WHEELCHAIR - STEP 1: Does the patient require assistance of a person or device, or need extra time with bed, chair, or whe elchair transfers? Yes. TRANSFERS: BED, CHAIR, WHEELCHAIR - STEP 2: Does the patient require the assistance of a helper? Yes. TRANSFERS: BED, CHAIR, WHEELCHAIR - STEP 3: How much assistance does the patient require from the helper? Lifting of the legs TRANSFERS: BED, CHAIR, WHEELCHAIR - STEP 4: How many legs does the patient require the helper to lift? both legs TRANSFERS: BED, CHAIR, WHEELCHAIR - SCORE: 3-MOD TRANSFERS: TOILET: TRANSFERS: TOILET - STEP 1: Does the patient require the assistance of a person or device, or need extra time with toilet transfe rs? Yes. TRANSFERS: TOILET - STEP 2: Does the patient require the assistance of a helper? Yes. TRANSFERS: TOILET - STEP 3: How much assistance does the patient require from the helper? Patient performs half or more of the tr ansferring tasks TRANSFERS: TOILET - STEP 4: Does the patient need only incidental help such as contact guard or steadying during toilet transfer? Yes. TRANSFERS: TOILET - SCORE: 4-MIN TRANSFERS: SHOWER: Activity did not occur on this shift TRANSFERS: SHOWER - SCORE: 0-UNK TRANSFERS: TUB: Activity did not occur on this shift TRANSFERS: TUB - SCORE: 0-UNK LOCOMOTION: WALK: Activity did not occur on this shift LOCOMOTION: WALK - SCORE: 0-UNK LOCOMOTION: WHEELCHAIR: Activity did not occur on this shift LOCOMOTION: WHEELCHAIR - SCORE: 0-UNK COMPREHENSION: COMPREHENSION: TYPE: Both COMPREHENSION - STEP 1: Does the patient require help from a person or device, or need extra time to understand complex and a bstract ideas (such as current events, finances, discharge planning, medical issues, relationships, e tc)? Yes. COMPREHENSION - STEP 2: Does the patient require help to understand questions or statements about basic needs or ideas (such as hunger, thirst, sleep, safety, daily schedule, room location, or discomfort) half or more of the t mayra? No. COMPREHENSION - STEP 3: How often does the patient need help to understand directions and conversation about basic needs? 10% - 24% of the time COMPREHENSION - SCORE: 4-MIN EXPRESSION EXPRESSION: TYPE: Both EXPRESSION - STEP 1: Does the patient require help from a person or device, or need extra time expressing complex and abst ract ideas (such as current events, finances, discharge planning, medical issues, relationships, etc) ? No. EXPRESSION - STEP 2: Does the patient need extra time, require an assistive device (such as augmentive communication syste m or a communication board), OR does s/he have mild difficulty expressing complex and abstract ideas (including mild dysarthria or mild word-find problems)? Yes. EXPRESSION - SCORE: 6-PEYTON SOCIAL INTERACTION: SOCIAL INTERACTION - STEP 1: Does the patient require a helper to interact with others in social and therapeutic situations? No. SOCIAL INTERACTION - STEP 2: Does the patient need extra time in social situations, OR does s/he interact with staff, other patien ts, and family members ONLY in structured environments, OR does s/he require medication for social in teraction? Yes, patient needs extra time SOCIAL INTERACTION - SCORE: 6-PEYTON PROBLEM SOLVING: PROBLEM SOLVING - STEP 1: Does the patient need help from a person or device, or need extra time to solve complex problems such as managing a checking account or confronting interpersonal problems? Yes. PROBLEM SOLVING - STEP 2: Does the patient solve basic routine problems half or more of the time? Yes. PROBLEM SOLVING - STEP 3: How often does the patient need help to solve basic routine problems? 25%-49% of the time PROBLEM SOLVING - SCORE: 3-MOD MEMORY: MEMORY - STEP 1: Does the patient need help from a person or device, or need extra time to remember frequently encount ered people, daily routines, and executing requests? Yes. MEMORY - STEP 2: How often does the patient need help to remember frequently encountered people, daily routines, and e xecuting requests? 25% - 49% of the time MEMORY - SCORE: 3-MOD SIGNATURE PANEL: The following modified sections: Eating - Score, Grooming - Score, Dressing - Upper Body - Score, Hero ssing - Lower Body - Score, Toileting - Score, Bladder Management - Score, Bowel Management - Score, Transfers: Bed, Chair, Wheelchair - Score, Transfers: Toilet - Score, Transfers: Shower - Score, [place] sfers: Tub - Score, Locomotion: Walk - Score, Locomotion: Wheelchair - Score, Comprehension - Score, Expression - Score, Social Interaction - Score, Problem Solving - Score, Memory - Score were [electro nically] signed by Jign Lopez CNA on TueOct 01 2018 00:37:23 GMT-0600 (Central Standard Time)
[2018-10-01] MEDS: PANTOPRAZOLE 40MG TABLET PO SCH (05:21)
[2018-10-01] MEDS: FUROSEMIDE 20 MG TABLET PO SCH ×2 (08:49→16:56)
[2018-10-01] MEDS: APIXABAN 5 MG TABLET PO SCH ×2 (08:50→20:17)
[2018-10-01] MEDS: MULTIVITAMIN TAB PO SCH (08:50)
[2018-10-01] MEDS: CARVEDILOL 6.25 MG TAB PO SCH ×2 (08:50→20:00)
[2018-10-01] MEDS: CARBIDOPA/LEVODOPA 25/250 TAB PO SCH ×3 (08:50→20:16)
[2018-10-01] MEDS: ROPINIROLE HCL 1 MG TAB PO SCH ×3 (08:50→20:17)
[2018-10-01] MEDS: MAGNESIUM OXIDE 400 MG TAB PO SCH (08:50)
[2018-10-01] MEDS: GABAPENTIN 300 MG CAP PO SCH ×3 (08:50→20:16)
[2018-10-01] MEDS: SPIRONOLACTONE 25 MG TABLET PO SCH (08:50)
[2018-10-01] MEDS: lamoTRIgine 100 MG TAB PO SCH ×2 (08:50→20:16)
[2018-10-01] MEDS: DUTASTERIDE 0.5 MG GEL CAP PO SCH ×2 (08:51→20:17)
--- NOTE | 2018-10-01 18:15 | FAST ---
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 José Freitas M.D. ADMISSION DIAGNOSIS: - Neurologic Conditions 03 - Parkinsonism (03.2) Parkinson's disease (G20). EATING: EATING - STEP 1: Does the patient require the assistance of a person or device, or need extra time when eating? Yes. EATING - STEP 2: Does the patient require the assistance of a helper? Yes. EATING - STEP 3: Does the patient perform half or more of the eating tasks? Yes. EATING - STEP 4: Does the patient need only supervision, cuing, coaxing OR help to apply an orthosis OR help to cut fo od, open containers, pour liquids, or butter bread? Yes. EATING - SCORE: 5-SUP GROOMING: Wash, rinse, and dry face Wash, rinse, and dry hands GROOMING - STEP 1: Does the patient require the assistance of a person or device, or need extra time when grooming? Yes. GROOMING - STEP 2: Does the patient require the assistance of a helper? No. The patient only requires an assistive devic e, OR takes more than reasonable time to groom, OR there is a concern for safety as the patient groom s GROOMING - SCORE: 6-PEYTON BATHING: Activity did not occur on this shift BATHING - SCORE: 0-UNK DRESSING - UPPER BODY: T-shirt/pullover shirt (four steps) ARTICLES SCORE Total number of steps: 4 DRESSING - UPPER BODY - STEP 1: Does the patient require help from a person or device, or need extra time when dressing above the tarah st? Yes. DRESSING - UPPER BODY - STEP 2: Does the patient require the assistance of a helper? Yes. DRESSING - UPPER BODY - STEP 3: Does the helper touch the patient while dressing? Yes. DRESSING - UPPER BODY - STEP 4: How many of the total steps does the patient complete on his/her own? 3 DRESSING - UPPER BODY - SCORE: 4-MIN DRESSING - LOWER BODY: Elastic waist pants (three steps) Slip-on shoe - Left foot (one step) Slip-on shoe - Right foot (one step) Sock - Left foot (one step) Sock - Right foot (one step) Underwear (three steps) ARTICLES SCORE Total number of steps: 10 DRESSING - LOWER BODY - STEP 1: Does the patient require help from a person or device, or need extra time when dressing below the tarah st? Yes. DRESSING - LOWER BODY - STEP 2: Does the patient require the assistance of a helper? Yes. DRESSING - LOWER BODY - STEP 3: Does the helper touch the patient while dressing? Yes. DRESSING - LOWER BODY - STEP 4: How many of the total steps does the patient complete on his/her own? 4 DRESSING - LOWER BODY - STEP 5: Does patient require total assistance for dressing below the waist such as the helper holding clothin g and performing basically all the activities? Yes. DRESSING - LOWER BODY - SCORE: 1-DEP TOILETING: TOILETING - STEP 1: Does the patient require the assistance of a person or device, or need extra time with toileting? Yes . TOILETING - STEP 2: Does the patient require the assistance of a helper? Yes. TOILETING - STEP 3: How much assistance does the patient require from the helper? Only supervision TOILETING - SCORE: 5-SUP BLADDER MANAGEMENT: BLADDER MANAGEMENT - STEP 1: Does the patient control the bladder completely and intentionally without equipment or devices or med ications, and is always continent? No. BLADDER MANAGEMENT - STEP 2: Does the patient require the assistance of a helper? Yes. BLADDER MANAGEMENT - STEP 3: How much assistance does the patient require from the helper? Only set-up of equipment - such as plac ing it within reach of the patient or emptying a device - to maintain either satisfactory voiding pat tern or managing an external device, such as an absorbent pad, ileal device, or catheter BLADDER MANAGEMENT - SCORE: 5-SUP BLADDER MANAGEMENT - FREQUENCY OF ACCIDENTS: BLADDER MANAGEMENT(FA) - STEP 1: How many accidents has the patient had during the current shift? 0 BOWEL MANAGEMENT: BOWEL MANAGEMENT - STEP 1: Does the patient control bowels completely and intentionally without equipment devices or medications AND is always continent? No. BOWEL MANAGEMENT - STEP 2: Does the patient require the assistance of a helper? No, patient requires medication for control such as stool softeners, suppositories, laxatives, enemas, or OTC medications BOWEL MANAGEMENT - SCORE: 6-PEYTON BOWEL MANAGEMENT - FREQUENCY OF ACCIDENTS: BOWEL MANAGEMENT(FA) - STEP 1: How many accidents has the patient had during the current shift? 0 TRANSFERS: BED, CHAIR, WHEELCHAIR: TRANSFERS: BED, CHAIR, WHEELCHAIR - STEP 1: Does the patient require assistance of a person or device, or need extra time with bed, chair, or whe elchair transfers? Yes. TRANSFERS: BED, CHAIR, WHEELCHAIR - STEP 2: Does the patient require the assistance of a helper? Yes. TRANSFERS: BED, CHAIR, WHEELCHAIR - STEP 3: How much assistance does the patient require from the helper? Steadying/guiding assistance TRANSFERS: BED, CHAIR, WHEELCHAIR - SCORE: 4-MIN TRANSFERS: TOILET: TRANSFERS: TOILET - STEP 1: Does the patient require the assistance of a person or device, or need extra time with toilet transfe rs? Yes. TRANSFERS: TOILET - STEP 2: Does the patient require the assistance of a helper? Yes. TRANSFERS: TOILET - STEP 3: How much assistance does the patient require from the helper? Patient performs half or more of the tr ansferring tasks TRANSFERS: TOILET - STEP 4: Does the patient need only incidental help such as contact guard or steadying during toilet transfer? Yes. TRANSFERS: TOILET - SCORE: 4-MIN TRANSFERS: SHOWER: Activity did not occur on this shift TRANSFERS: SHOWER - SCORE: 0-UNK TRANSFERS: TUB: Activity did not occur on this shift TRANSFERS: TUB - SCORE: 0-UNK LOCOMOTION: WALK: Activity did not occur on this shift LOCOMOTION: WALK - SCORE: 0-UNK LOCOMOTION: WHEELCHAIR: Activity did not occur on this shift LOCOMOTION: WHEELCHAIR - SCORE: 0-UNK COMPREHENSION: COMPREHENSION: TYPE: Both COMPREHENSION - STEP 1: Does the patient require help from a person or device, or need extra time to understand complex and a bstract ideas (such as current events, finances, discharge planning, medical issues, relationships, e tc)? Yes. COMPREHENSION - STEP 2: Does the patient require help to understand questions or statements about basic needs or ideas (such as hunger, thirst, sleep, safety, daily schedule, room location, or discomfort) half or more of the t mayra? No. COMPREHENSION - STEP 3: How often does the patient need help to understand directions and conversation about basic needs? 10% - 24% of the time COMPREHENSION - SCORE: 4-MIN EXPRESSION EXPRESSION: TYPE: Both EXPRESSION - STEP 1: Does the patient require help from a person or device, or need extra time expressing complex and abst ract ideas (such as current events, finances, discharge planning, medical issues, relationships, etc) ? Yes. EXPRESSION - STEP 2: Does the patient require help to express basic necessities or ideas (such as hunger, thirst, sleep, s afety, daily schedule, room location, or discomfort) half or more of the time? No. EXPRESSION - STEP 3: How often does the patient need help to express directions and conversation about basic needs? 10-24% of the time EXPRESSION - SCORE: 4-MIN SOCIAL INTERACTION: SOCIAL INTERACTION - STEP 1: Does the patient require a helper to interact with others in social and therapeutic situations? No. SOCIAL INTERACTION - STEP 2: Does the patient need extra time in social situations, OR does s/he interact with staff, other patien ts, and family members ONLY in structured environments, OR does s/he require medication for social in teraction? Yes, patient needs extra time SOCIAL INTERACTION - SCORE: 6-PEYTON PROBLEM SOLVING: PROBLEM SOLVING - STEP 1: Does the patient need help from a person or device, or need extra time to solve complex problems such as managing a checking account or confronting interpersonal problems? Yes. PROBLEM SOLVING - STEP 2: Does the patient solve basic routine problems half or more of the time? No. PROBLEM SOLVING - STEP 3: Does the patient need help to solve problems all the time or is s/he unable to solve problems? No. Mart mcgovern can sometimes solve problems PROBLEM SOLVING - SCORE: 2-MAX MEMORY: MEMORY - STEP 1: Does the patient need help from a person or device, or need extra time to remember frequently encount ered people, daily routines, and executing requests? Yes. MEMORY - STEP 2: How often does the patient need help to remember frequently encountered people, daily routines, and e xecuting requests? 10% - 24% of the time MEMORY - SCORE: 4-MIN SIGNATURE PANEL: The following modified sections: Eating - Score, Grooming - Score, Bathing - Score, Dressing - Upper Body - Score, Dressing - Lower Body - Score, Toileting - Score, Bladder Management - Score, Bowel Man agement - Score, Transfers: Bed, Chair, Wheelchair - Score, Transfers: Toilet - Score, Transfers: Alla wer - Score, Transfers: Tub - Score, Locomotion: Walk - Score, Locomotion: Wheelchair - Score, Compre hension - Score, Expression - Score, Social Interaction - Score, Problem Solving - Score, Memory - Sc ore were [electronically] signed by Fely Pisano C.N.A. on TueOct 01 2018 18:14:29 GMT-0600 (Centra [place] Standard Time)
[2018-10-01] MEDS: TRAZODONE 50 MG TABLET PO SCH (20:16)
[2018-10-01] MEDS: ATORVASTATIN 40 MG TAB PO SCH (20:16)
[2018-10-01] MEDS: ARIPiprazole 2 MG TAB PO SCH (20:18)
--- NOTE | 2018-10-02 02:12 | FAST ---
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 José Freitas M.D. ADMISSION DIAGNOSIS: - Neurologic Conditions 03 - Parkinsonism (03.2) Parkinson's disease (G20). EATING: Activity did not occur on this shift EATING - SCORE: 0-UNK GROOMING: Oral care Wash, rinse, and dry hands GROOMING - STEP 1: Does the patient require the assistance of a person or device, or need extra time when grooming? Yes. GROOMING - STEP 2: Does the patient require the assistance of a helper? Yes. GROOMING - STEP 3: How much assistance does the patient require from the helper? Cuing, coaxing, instructions, or encour agement for completion of grooming GROOMING - SCORE: 5-SUP BATHING: Activity did not occur on this shift BATHING - SCORE: 0-UNK DRESSING - UPPER BODY: Patient is not dressing in public clothing ARTICLES SCORE Total number of steps: 0 DRESSING - UPPER BODY - SCORE: 0-UNK DRESSING - LOWER BODY: Patient is not dressing in public clothing ARTICLES SCORE Total number of steps: 0 DRESSING - LOWER BODY - SCORE: 0-UNK TOILETING: TOILETING - STEP 1: Does the patient require the assistance of a person or device, or need extra time with toileting? Yes . TOILETING - STEP 2: Does the patient require the assistance of a helper? Yes. TOILETING - STEP 3: How much assistance does the patient require from the helper? Hands-on assistance from the helper TOILETING - STEP 4: Of the 3 tasks: 1) Adjusting clothing prior to use, 2) Cleansing of perineal area, 3) Adjusting clot baldo after use; How many tasks does the patient perform WITHOUT assistance of the helper? One task TOILETING - SCORE: 2-MAX BLADDER MANAGEMENT: BLADDER MANAGEMENT - STEP 1: Does the patient control the bladder completely and intentionally without equipment or devices or med ications, and is always continent? No. BLADDER MANAGEMENT - STEP 2: Does the patient require the assistance of a helper? Yes. BLADDER MANAGEMENT - STEP 3: How much assistance does the patient require from the helper? Only set-up of equipment - such as plac ing it within reach of the patient or emptying a device - to maintain either satisfactory voiding pat tern or managing an external device, such as an absorbent pad, ileal device, or catheter BLADDER MANAGEMENT - SCORE: 5-SUP BOWEL MANAGEMENT: Activity did not occur on this shift BOWEL MANAGEMENT - SCORE: 7-IND TRANSFERS: BED, CHAIR, WHEELCHAIR: TRANSFERS: BED, CHAIR, WHEELCHAIR - STEP 1: Does the patient require assistance of a person or device, or need extra time with bed, chair, or whe elchair transfers? Yes. TRANSFERS: BED, CHAIR, WHEELCHAIR - STEP 2: Does the patient require the assistance of a helper? Yes. TRANSFERS: BED, CHAIR, WHEELCHAIR - STEP 3: How much assistance does the patient require from the helper? Lifting of the legs TRANSFERS: BED, CHAIR, WHEELCHAIR - STEP 4: How many legs does the patient require the helper to lift? both legs TRANSFERS: BED, CHAIR, WHEELCHAIR - SCORE: 3-MOD TRANSFERS: TOILET: TRANSFERS: TOILET - STEP 1: Does the patient require the assistance of a person or device, or need extra time with toilet transfe rs? Yes. TRANSFERS: TOILET - STEP 2: Does the patient require the assistance of a helper? Yes. TRANSFERS: TOILET - STEP 3: How much assistance does the patient require from the helper? Patient performs half or more of the tr ansferring tasks TRANSFERS: TOILET - STEP 4: Does the patient need only incidental help such as contact guard or steadying during toilet transfer? Yes. TRANSFERS: TOILET - SCORE: 4-MIN TRANSFERS: SHOWER: Activity did not occur on this shift TRANSFERS: SHOWER - SCORE: 0-UNK TRANSFERS: TUB: Activity did not occur on this shift TRANSFERS: TUB - SCORE: 0-UNK LOCOMOTION: WALK: Activity did not occur on this shift LOCOMOTION: WALK - SCORE: 0-UNK LOCOMOTION: WHEELCHAIR: Activity did not occur on this shift LOCOMOTION: WHEELCHAIR - SCORE: 0-UNK COMPREHENSION: COMPREHENSION: TYPE: Both COMPREHENSION - STEP 1: Does the patient require help from a person or device, or need extra time to understand complex and a bstract ideas (such as current events, finances, discharge planning, medical issues, relationships, e tc)? Yes. COMPREHENSION - STEP 2: Does the patient require help to understand questions or statements about basic needs or ideas (such as hunger, thirst, sleep, safety, daily schedule, room location, or discomfort) half or more of the t mayra? No. COMPREHENSION - STEP 3: How often does the patient need help to understand directions and conversation about basic needs? 25% - 49% of the time COMPREHENSION - SCORE: 3-MOD EXPRESSION EXPRESSION: TYPE: Both EXPRESSION - STEP 1: Does the patient require help from a person or device, or need extra time expressing complex and abst ract ideas (such as current events, finances, discharge planning, medical issues, relationships, etc) ? No. EXPRESSION - STEP 2: Does the patient need extra time, require an assistive device (such as augmentive communication syste m or a communication board), OR does s/he have mild difficulty expressing complex and abstract ideas (including mild dysarthria or mild word-find problems)? Yes. EXPRESSION - SCORE: 6-PEYTON SOCIAL INTERACTION: SOCIAL INTERACTION - STEP 1: Does the patient require a helper to interact with others in social and therapeutic situations? No. SOCIAL INTERACTION - STEP 2: Does the patient need extra time in social situations, OR does s/he interact with staff, other patien ts, and family members ONLY in structured environments, OR does s/he require medication for social in teraction? Yes, patient needs extra time SOCIAL INTERACTION - SCORE: 6-PEYTON PROBLEM SOLVING: PROBLEM SOLVING - STEP 1: Does the patient need help from a person or device, or need extra time to solve complex problems such as managing a checking account or confronting interpersonal problems? Yes. PROBLEM SOLVING - STEP 2: Does the patient solve basic routine problems half or more of the time? Yes. PROBLEM SOLVING - STEP 3: How often does the patient need help to solve basic routine problems? 25%-49% of the time PROBLEM SOLVING - SCORE: 3-MOD MEMORY: MEMORY - STEP 1: Does the patient need help from a person or device, or need extra time to remember frequently encount ered people, daily routines, and executing requests? No. MEMORY - STEP 2: Does the patient have slight difficulty recognizing frequently encountered people, daily routines, or executing requests without the need for repetition or using self-initiated or environmental cues to remember? Yes. MEMORY - SCORE: 6-PEYTON SIGNATURE PANEL: The following modified sections: Eating - Score, Grooming - Score, Dressing - Upper Body - Score, Hero ssing - Lower Body - Score, Toileting - Score, Bladder Management - Score, Bowel Management - Score, Transfers: Bed, Chair, Wheelchair - Score, Transfers: Toilet - Score, Transfers: Shower - Score, [place] sfers: Tub - Score, Locomotion: Walk - Score, Locomotion: Wheelchair - Score, Comprehension - Score, Expression - Score, Social Interaction - Score, Problem Solving - Score, Memory - Score were [electro nically] signed by Jing Lopez CNA on TueOct 02 2018 02:11:35 GMT-0600 (Central Standard Time)
[2018-10-02] MEDS: LORAZEPAM 0.5 MG TABLET PO PRN ×2 (02:13→16:52)
[2018-10-02] MEDS: PANTOPRAZOLE 40MG TABLET PO SCH (06:31)
[2018-10-02] MEDS: MAGNESIUM OXIDE 400 MG TAB PO SCH (08:24)
[2018-10-02] MEDS: GABAPENTIN 300 MG CAP PO SCH ×3 (08:25→20:06)
[2018-10-02] MEDS: MULTIVITAMIN TAB PO SCH (08:25)
[2018-10-02] MEDS: lamoTRIgine 100 MG TAB PO SCH ×2 (08:26→20:06)
[2018-10-02] MEDS: CARBIDOPA/LEVODOPA 25/250 TAB PO SCH ×3 (08:26→20:06)
[2018-10-02] MEDS: APIXABAN 5 MG TABLET PO SCH ×2 (08:26→20:06)
[2018-10-02] MEDS: DUTASTERIDE 0.5 MG GEL CAP PO SCH ×2 (08:26→20:06)
[2018-10-02] MEDS: ROPINIROLE HCL 1 MG TAB PO SCH ×3 (08:29→20:06)
[2018-10-02] MEDS: CARVEDILOL 6.25 MG TAB PO SCH ×2 (08:29→20:08)
[2018-10-02] MEDS: SPIRONOLACTONE 25 MG TABLET PO SCH (08:30)
[2018-10-02] MEDS: FUROSEMIDE 20 MG TABLET PO SCH ×2 (08:31→16:30)
--- NOTE | 2018-10-02 11:20 | FAST ---
SHIFT START DATE/TIME: 10/02/2018 07:00 (WEALTH MANAGEMENT CONSULTANT) SHIFT END DATE/TIME: 10/02/2018 19:00 (WEALTH MANAGEMENT CONSULTANT) NAME GABRIEL MEYER DATE OF : 1945 DATE OF ADMISSION: 09/21/2018 19:15 (WEALTH MANAGEMENT CONSULTANT) PHONE: AGE: 73 N# [id number] GENDER: Male ENCOUNTER PHYSICIAN: Dr. José Freitas M.D. ADMISSION DIAGNOSIS: - Neurologic Conditions 03 - Parkinsonism (03.2) Parkinson's disease (G20). EATING: EATING - STEP 1: Does the patient require the assistance of a person or device, or need extra time when eating? Yes. EATING - STEP 2: Does the patient require the assistance of a helper? Yes. EATING - STEP 3: Does the patient perform half or more of the eating tasks? Yes. EATING - STEP 4: Does the patient need only supervision, cuing, coaxing OR help to apply an orthosis OR help to cut fo od, open containers, pour liquids, or butter bread? Yes. EATING - SCORE: 5-SUP GROOMING: Comb/brush hair Oral care GROOMING - STEP 1: Does the patient require the assistance of a person or device, or need extra time when grooming? Yes. GROOMING - STEP 2: Does the patient require the assistance of a helper? Yes. GROOMING - STEP 3: How much assistance does the patient require from the helper? Cuing, coaxing, instructions, or encour agement for completion of grooming GROOMING - SCORE: 5-SUP BATHING: Activity did not occur on this shift BATHING - SCORE: 0-UNK DRESSING - UPPER BODY: Activity did not occur on this shift ARTICLES SCORE Total number of steps: 0 DRESSING - UPPER BODY - SCORE: 0-UNK DRESSING - LOWER BODY: Activity did not occur on this shift ARTICLES SCORE Total number of steps: 0 DRESSING - LOWER BODY - SCORE: 0-UNK TOILETING: TOILETING - STEP 1: Does the patient require the assistance of a person or device, or need extra time with toileting? Yes . TOILETING - STEP 2: Does the patient require the assistance of a helper? Yes. TOILETING - STEP 3: How much assistance does the patient require from the helper? Hands-on assistance from the helper TOILETING - STEP 4: Of the 3 tasks: 1) Adjusting clothing prior to use, 2) Cleansing of perineal area, 3) Adjusting clot baldo after use; How many tasks does the patient perform WITHOUT assistance of the helper? Two tasks TOILETING - SCORE: 3-MOD BLADDER MANAGEMENT: BLADDER MANAGEMENT - STEP 1: Does the patient control the bladder completely and intentionally without equipment or devices or med ications, and is always continent? No. BLADDER MANAGEMENT - STEP 2: Does the patient require the assistance of a helper? No, patient requires and independently uses an a ssistive device, such as a urinal, bedpan, bedside commode, catheter, absorbent pad, or collecting de vice BLADDER MANAGEMENT - SCORE: 6-PEYTON BOWEL MANAGEMENT: Activity did not occur on this shift BOWEL MANAGEMENT - SCORE: 7-IND TRANSFERS: BED, CHAIR, WHEELCHAIR: TRANSFERS: BED, CHAIR, WHEELCHAIR - STEP 1: Does the patient require assistance of a person or device, or need extra time with bed, chair, or whe elchair transfers? Yes. TRANSFERS: BED, CHAIR, WHEELCHAIR - STEP 2: Does the patient require the assistance of a helper? Yes. TRANSFERS: BED, CHAIR, WHEELCHAIR - STEP 3: How much assistance does the patient require from the helper? Steadying/guiding assistance TRANSFERS: BED, CHAIR, WHEELCHAIR - SCORE: 4-MIN TRANSFERS: TOILET: TRANSFERS: TOILET - STEP 1: Does the patient require the assistance of a person or device, or need extra time with toilet transfe rs? Yes. TRANSFERS: TOILET - STEP 2: Does the patient require the assistance of a helper? Yes. TRANSFERS: TOILET - STEP 3: How much assistance does the patient require from the helper? Patient performs half or more of the tr ansferring tasks TRANSFERS: TOILET - STEP 4: Does the patient need only incidental help such as contact guard or steadying during toilet transfer? Yes. TRANSFERS: TOILET - SCORE: 4-MIN TRANSFERS: SHOWER: Activity did not occur on this shift TRANSFERS: SHOWER - SCORE: 0-UNK TRANSFERS: TUB: Activity did not occur on this shift TRANSFERS: TUB - SCORE: 0-UNK LOCOMOTION: WALK: Activity did not occur on this shift LOCOMOTION: WALK - SCORE: 0-UNK LOCOMOTION: WHEELCHAIR: Activity did not occur on this shift LOCOMOTION: WHEELCHAIR - SCORE: 0-UNK COMPREHENSION: COMPREHENSION: TYPE: Both COMPREHENSION - STEP 1: Does the patient require help from a person or device, or need extra time to understand complex and a bstract ideas (such as current events, finances, discharge planning, medical issues, relationships, e tc)? Yes. COMPREHENSION - STEP 2: Does the patient require help to understand questions or statements about basic needs or ideas (such as hunger, thirst, sleep, safety, daily schedule, room location, or discomfort) half or more of the t mayra? No. COMPREHENSION - STEP 3: How often does the patient need help to understand directions and conversation about basic needs? Les s than 10% of the time COMPREHENSION - SCORE: 5-SUP EXPRESSION EXPRESSION: TYPE: Both EXPRESSION - STEP 1: Does the patient require help from a person or device, or need extra time expressing complex and abst ract ideas (such as current events, finances, discharge planning, medical issues, relationships, etc) ? Yes. EXPRESSION - STEP 2: Does the patient require help to express basic necessities or ideas (such as hunger, thirst, sleep, s afety, daily schedule, room location, or discomfort) half or more of the time? No. EXPRESSION - STEP 3: How often does the patient need help to express directions and conversation about basic needs? Less t messina 10% of the time EXPRESSION - SCORE: 5-SUP SOCIAL INTERACTION: SOCIAL INTERACTION - STEP 1: Does the patient require a helper to interact with others in social and therapeutic situations? Yes. SOCIAL INTERACTION - STEP 2: Does the patient interact appropriately half or more of the time? Yes. SOCIAL INTERACTION - STEP 3: How often does the patient need help to interact appropriately? Less than 10% of the time SOCIAL INTERACTION - SCORE: 5-SUP PROBLEM SOLVING: PROBLEM SOLVING - STEP 1: Does the patient need help from a person or device, or need extra time to solve complex problems such as managing a checking account or confronting interpersonal problems? Yes. PROBLEM SOLVING - STEP 2: Does the patient solve basic routine problems half or more of the time? Yes. PROBLEM SOLVING - STEP 3: How often does the patient need help to solve basic routine problems? Less than 10% of the time PROBLEM SOLVING - SCORE: 5-SUP MEMORY: MEMORY - STEP 1: Does the patient need help from a person or device, or need extra time to remember frequently encount ered people, daily routines, and executing requests? Yes. MEMORY - STEP 2: How often does the patient need help to remember frequently encountered people, daily routines, and e xecuting requests? Less than 10% of the time MEMORY - SCORE: 5-SUP SIGNATURE PANEL: The following modified sections: Eating - Score, Grooming - Score, Bathing - Score, Dressing - Upper Body - Score, Dressing - Lower Body - Score, Toileting - Score, Bladder Management - Score, Bowel Man agement - Score, Transfers: Bed, Chair, Wheelchair - Score, Transfers: Toilet - Score, Transfers: Alla wer - Score, Transfers: Tub - Score, Locomotion: Walk - Score, Locomotion: Wheelchair - Score, Compre hension - Score, Expression - Score, Social Interaction - Score, Problem Solving - Score, Memory - Sc ore were [electronically] signed by Victor M Tinoco on TueOct 02 2018 11:19:46 GMT-0600 (Central Standard Time)
[2018-10-02] MEDS ORDERED: GUAIFENESIN 600 MG SA TAB PO SCH (15:15)
--- NOTE | 2018-10-02 15:34 | FAST ---
ENCOUNTER DATE AND TIME: 10/02/2018 08:00 (MEMS DEVICE SCIENTIST) NAME GABRIEL MEYER DATE OF : 1945 DATE OF ADMISSION: 09/21/2018 19:15 (MEMS DEVICE SCIENTIST) PHONE: AGE: 73 SSN# [id number] GENDER: Male ENCOUNTER PHYSICIAN: Dr. José Freitas M.D. ADMISSION DIAGNOSIS: - Neurologic Conditions 03 - Parkinsonism (03.2) Parkinson's disease (G20). EATING: Activity did not occur on this shift EATING - SCORE: 0-UNK GROOMING: Comb/brush hair Oral care Wash, rinse, and dry face Wash, rinse, and dry hands GROOMING - STEP 1: Does the patient require the assistance of a person or device, or need extra time when grooming? Yes. GROOMING - STEP 2: Does the patient require the assistance of a helper? No. The patient only requires an assistive devic e, OR takes more than reasonable time to groom, OR there is a concern for safety as the patient groom s GROOMING - SCORE: 6-PEYTON BATHING: Abdomen Buttocks Chest Left arm Left lower leg and foot Left upper leg Perineal area Right arm Right lower leg and foot Right upper leg BATHING - STEP 1: Does the patient require the assistance of a person or device, or need extra time when bathing? Yes. BATHING - STEP 2: Does the patient require the assistance of a helper? Yes. BATHING - STEP 3: How much assistance does the patient require from the helper? Only incidental help such as placement of a wash cloth in his/her hand a few times as s/he bathes OR help to bathe just one or two areas of the body BATHING - SCORE: 4-MIN DRESSING - UPPER BODY: T-shirt/pullover shirt (four steps) ARTICLES SCORE Total number of steps: 4 DRESSING - UPPER BODY - STEP 1: Does the patient require help from a person or device, or need extra time when dressing above the tarah st? Yes. DRESSING - UPPER BODY - STEP 2: Does the patient require the assistance of a helper? Yes. DRESSING - UPPER BODY - STEP 3: Does the helper touch the patient while dressing? Yes. DRESSING - UPPER BODY - STEP 4: How many of the total steps does the patient complete on his/her own? 3 DRESSING - UPPER BODY - SCORE: 4-MIN DRESSING - LOWER BODY: Elastic waist pants (three steps) Sock - Left foot (one step) Sock - Right foot (one step) Tied or buckled shoe - Left foot (two steps) Tied or buckled shoe - Right foot (two steps) Underwear (three steps) ARTICLES SCORE Total number of steps: 12 DRESSING - LOWER BODY - STEP 1: Does the patient require help from a person or device, or need extra time when dressing below the tarah st? Yes. DRESSING - LOWER BODY - STEP 2: Does the patient require the assistance of a helper? Yes. DRESSING - LOWER BODY - STEP 3: Does the helper touch the patient while dressing? Yes. DRESSING - LOWER BODY - STEP 4: How many of the total steps does the patient complete on his/her own? 8 DRESSING - LOWER BODY - SCORE: 3-MOD TOILETING: TOILETING - STEP 1: Does the patient require the assistance of a person or device, or need extra time with toileting? Yes . TOILETING - STEP 2: Does the patient require the assistance of a helper? Yes. TOILETING - STEP 3: How much assistance does the patient require from the helper? Hands-on assistance from the helper TOILETING - STEP 4: Of the 3 tasks: 1) Adjusting clothing prior to use, 2) Cleansing of perineal area, 3) Adjusting clot baldo after use; How many tasks does the patient perform WITHOUT assistance of the helper? Three tasks with steadying assistance from the helper TOILETING - SCORE: 4-MIN BLADDER MANAGEMENT: Activity did not occur on this shift BLADDER MANAGEMENT - SCORE: 7-IND BOWEL MANAGEMENT: Activity did not occur on this shift BOWEL MANAGEMENT - SCORE: 7-IND TRANSFERS: BED, CHAIR, WHEELCHAIR: Activity did not occur on this shift TRANSFERS: BED, CHAIR, WHEELCHAIR - SCORE: 0-UNK TRANSFERS: TOILET: TRANSFERS: TOILET - STEP 1: Does the patient require the assistance of a person or device, or need extra time with toilet transfe rs? Yes. TRANSFERS: TOILET - STEP 2: Does the patient require the assistance of a helper? Yes. TRANSFERS: TOILET - STEP 3: How much assistance does the patient require from the helper? Patient performs half or more of the tr ansferring tasks TRANSFERS: TOILET - STEP 4: Does the patient need only incidental help such as contact guard or steadying during toilet transfer? Yes. TRANSFERS: TOILET - SCORE: 4-MIN TRANSFERS: SHOWER: Activity did not occur on this shift TRANSFERS: SHOWER - SCORE: 0-UNK TRANSFERS: TUB: TRANSFERS: TUB - STEP 1: Does the patient require the assistance of a person or device, or need extra time with tub transfers? Yes. TRANSFERS: TUB - STEP 2: Does the patient require the assistance of a helper? Yes. TRANSFERS: TUB - STEP 3: How much assistance does the patient require from the helper? Incidental help such as contact guardin g or steadying, OR help to lift one leg into the tub TRANSFERS: TUB - SCORE: 4-MIN LOCOMOTION: WALK: Activity did not occur on this shift LOCOMOTION: WALK - SCORE: 0-UNK LOCOMOTION: WHEELCHAIR: Activity did not occur on this shift LOCOMOTION: WHEELCHAIR - SCORE: 0-UNK LOCOMOTION: STAIRS: Activity did not occur on this shift LOCOMOTION: STAIRS - SCORE: 0-UNK COMPREHENSION: COMPREHENSION - SCORE: 0-UNK EXPRESSION EXPRESSION - SCORE: 0-UNK SOCIAL INTERACTION: SOCIAL INTERACTION - SCORE: 0-UNK PROBLEM SOLVING: PROBLEM SOLVING - SCORE: 0-UNK MEMORY: MEMORY - SCORE: 0-UNK SIGNATURE PANEL: The following modified sections: Eating - Score, Grooming - Score, Bathing - Score, Dressing - Upper Body - Score, Dressing - Lower Body - Score, Toileting - Score, Transfers: Bed, Chair, Wheelchair - S core, Transfers: Toilet - Score, Transfers: Shower - Score, Transfers: Tub - Score, Comprehension - S core, Expression - Score, Social Interaction - Score, Problem Solving - Score, Memory - Score were [e lectronically] signed by ESTER Shelley on TueOct 02 2018 15:33:13 T-0600 ([place] Time)
--- NOTE | 2018-10-02 16:58 | FAST ---
ENCOUNTER DATE AND TIME: 10/02/2018 08:00 (MARITIME OFFICER) NAME GABRIEL MEYER DATE OF : 1945 DATE OF ADMISSION: 09/21/2018 19:15 (MARITIME OFFICER) PHONE: AGE: 73 SSN# [id number] GENDER: Male ENCOUNTER PHYSICIAN: Dr. José Freitas M.D. ADMISSION DIAGNOSIS: - Neurologic Conditions 03 - Parkinsonism (03.2) Parkinson's disease (G20). EATING: Activity did not occur on this shift EATING - SCORE: 0-UNK GROOMING: Activity did not occur on this shift GROOMING - SCORE: 0-UNK BATHING: Activity did not occur on this shift BATHING - SCORE: 0-UNK DRESSING - UPPER BODY: Activity did not occur on this shift Patient is not dressing in public clothing ARTICLES SCORE Total number of steps: 0 DRESSING - UPPER BODY - SCORE: 0-UNK DRESSING - LOWER BODY: Activity did not occur on this shift Patient is not dressing in public clothing ARTICLES SCORE Total number of steps: 0 DRESSING - LOWER BODY - SCORE: 0-UNK TOILETING: Activity did not occur on this shift TOILETING - SCORE: 0-UNK BLADDER MANAGEMENT: Activity did not occur on this shift BLADDER MANAGEMENT - SCORE: 7-IND BOWEL MANAGEMENT: Activity did not occur on this shift BOWEL MANAGEMENT - SCORE: 7-IND TRANSFERS: BED, CHAIR, WHEELCHAIR: TRANSFERS: BED, CHAIR, WHEELCHAIR - STEP 1: Does the patient require assistance of a person or device, or need extra time with bed, chair, or whe elchair transfers? Yes. TRANSFERS: BED, CHAIR, WHEELCHAIR - STEP 2: Does the patient require the assistance of a helper? Yes. TRANSFERS: BED, CHAIR, WHEELCHAIR - STEP 3: How much assistance does the patient require from the helper? Only supervision TRANSFERS: BED, CHAIR, WHEELCHAIR - SCORE: 5-SUP TRANSFERS: TOILET: Activity did not occur on this shift TRANSFERS: TOILET - SCORE: 0-UNK TRANSFERS: SHOWER: Activity did not occur on this shift TRANSFERS: SHOWER - SCORE: 0-UNK TRANSFERS: TUB: Activity did not occur on this shift TRANSFERS: TUB - SCORE: 0-UNK LOCOMOTION: WALK: LOCOMOTION: WALK - STEP 1: Does the patient need help from a person or device, or need extra time to walk 150 feet? Yes. LOCOMOTION: WALK - STEP 2: How much assistance does the patient require to walk a minimum of 150 feet? Only supervision, cuing, or coaxing LOCOMOTION: WALK - SCORE: 5-SUP LOCOMOTION: WHEELCHAIR: Activity did not occur on this shift LOCOMOTION: WHEELCHAIR - SCORE: 0-UNK LOCOMOTION: STAIRS: Activity did not occur on this shift LOCOMOTION: STAIRS - SCORE: 0-UNK COMPREHENSION: COMPREHENSION - SCORE: 0-UNK EXPRESSION EXPRESSION - SCORE: 0-UNK SOCIAL INTERACTION: SOCIAL INTERACTION - SCORE: 0-UNK PROBLEM SOLVING: PROBLEM SOLVING - SCORE: 0-UNK MEMORY: MEMORY - SCORE: 0-UNK SIGNATURE PANEL: The following modified sections: Transfers: Bed, Chair, Wheelchair - Score, Transfers: Toilet - Score , Locomotion: Walk - Score, Locomotion: Wheelchair - Score, Locomotion: Stairs - Score were [electron ically] signed by Marquis Keene PT on TueOct 02 2018 16:56:49 GMT-0600 (Central Standard Time)
--- NOTE | 2018-10-02 17:52 | R.PN ---
ENCOUNTER DATE AND TIME: 10/02/2018 17:50 (SENIOR ASIC DESIGN ENGINEER) NAME GABRIEL MEYER DATE OF : 1945 DATE OF ADMISSION: 09/21/2018 19:15 (SENIOR ASIC DESIGN ENGINEER) Parkinson's disease (G20)CHIEF COMPLAINT: Parkinson's disease and debility SUBJECTIVE: Pt denied any depression. Pt denied any Shortness of Breath. Ambulated 1000' with standby assistance using a rolling walker. Self-propelled wheelchair 65' with co ntact guard assistance. He had Geodon 20 mg yesterday and was sleepy today. Will d/c Geodon and give ativan 0.5 mg at night as needed. His CBC with differential is normal. Prealbumin is normal at 24.5. His mood is much better today. He slept better last night while on trazadone. VITAL SIGNS Temperature: 98.2 F SBP/DBP: 115/57 Pulse: 78 Resp: 18 MEDICATION ALLERGIES: No Known Drug Allergies (NKDA) ENVIRONMENTAL ALLERGIES: - Substance Allergies None Known - Other Allergies None Known CONSULT: Perform Neuro consult NURSING: - Shower allowing shower ACTIVITIES OOB only with supervision THERAPIES: - Occupational Therapy Evaluate and Treat. - Speech Therapy Memory Strategies. Speech Intelligibility Training. - Physical Therapy Evaluate and Treat. PHYSICAL EXAM - Gen Alert and awake Lying in bed No apparent distress Oriented to: person, time, and place - Skin No breakdown No abnormalities - Eyes No abnormalities - ENMT No abnormalities - Neck No abnormalities - CVS RRR - Chest No abnormalities - Abd +bowel sounds - GI nondistended Deferred - No abnormalities - Ext No significant edema - MSK 3-4+/5 weakness in both lower extremities. - Neuro No focal deficits. - Psych Mild depression. ASSESSMENT: Pt. is a 73 yo Right-handed white male.On 09/18/2018 he was admitted to [facility] with diagnosi s Parkinson's disease (G20).His impairment category is Neurologic Conditions 03 - Parkinsonism (03.2 ).Pre-morbidly, Pt. was independent/mod-I in Transfers Control, Communication, Social Cognition, Self -Care, Sphincter Control, and Locomotion; and he had good Sphincter Control.Currently, he has deficit s of Transfers Control, Communication, Social Cognition, Balance, Endurance, Safety Awareness, Locomo tion, and Self-Care.Pt. is now referred to [facility] for acute in-patient joni abilitation in order to maximize patient's functional independence in activities of daily living, str ength, ROM, and mobility.- Rehab Goal Patient has realistic goal of being discharged at assistance level 6-Rohan to reside at Home with Fam jeffery/Relatives. MDM/PLAN: - Physical Therapy Gait dysfunction - to improve, our physical therapists will perform initial evaluation of pt's statu s upon admission and devise an individualized program for Gait Training, and Wheel Chair mobility Inability to transfer - to improve, our physical therapists will perform initial evaluation of pt's status upon admission and devise an individualized program for Bed mobility Need for home safety evaluation - to improve, our physical therapists will perform initial evaluatio n of pt's status upon admission and devise an individualized program for Home Evaluation Need in caregiver upon discharge - to improve, our physical therapists will perform initial evaluati on of pt's status upon admission and devise an individualized program for Caregiver Training New precaution - to improve, our physical therapists will perform initial evaluation of pt's status upon admission and devise an individualized program for Patient precaution education Edema - to improve, our physical therapists will perform initial evaluation of pt's status upon admi ssion and devise an individualized program for Elevation Training, and Lymphedema Therapy Poor balance - to improve, our physical therapists will perform initial evaluation of pt's status up on admission and devise an individualized program for Balance Training Poor endurance - to improve, our physical therapists will perform initial evaluation of pt's status upon admission and devise an individualized program for Endurance Training Weakness - to improve, our physical therapists will perform initial evaluation of pt's status upon a dmission and devise an individualized program for Aquatic Therapy, Neuromuscular Reeducation, and Str engthening Achieving independence - to improve, our physical therapists will perform initial evaluation of pt's status upon admission and devise an individualized program for Community Reintegration Activities - Occupational Therapy ADL deficits - to improve, our occupation therapists will perform initial evaluation of pt's status upon admission and devise an individualized program for Bathing, Bed mobility, Community Reintegratio n, Cooking, Dressing, Eating, Fine Motor Skills, Grooming, Homemaking, Kitchen Mobility, Laundry, Pat ient Education, Safety Awareness, Splinting - Positioning, Transfers(Toilet, Tub, Shower), and Wheel Chair Management Cognitive deficits - to improve, our occupation therapists will perform initial evaluation of pt's s tatus upon admission and devise an individualized program for Cognition - orientation Need for special needs caregiver - to improve, our occupation therapists will perform initial evaluation of pt's status upon admission and devise an individualized program for Caregiver Training Weakness - to improve, our occupation therapists will perform initial evaluation of pt's status upon admission and devise an individualized program for Aquatic Therapy, Balance, Endurance, UE ROM, and UE strengthening - Diet Type Continue Regular - Diet - Liquid Texture Continue Regular - Tube Feed Continue N/A - N/A Perform Neuro consult - Diet - Solid Texture Continue Regular - Shower allowing shower FUNCTIONAL STATUS: UPDATED AT WEEKLY TEAM CONFERENCE - Bladder Same accident frequency: 7-Ind - No accidents in the past 7 days - Bowel Same accident frequency: 7-Ind - No accidents in the past 7 days - Walking Same score based on distance walked: 0(N/A) FUNCTIONAL STATUS: - Self-Care A. Eating Ind B. Grooming modA C. Bathing modA D. Dressing - Upper modA E. Dressing - Lower maxA F. Toileting maxA - Sphincter Control G: Bladder control Rohan H: Bowel control Rohan - Transfers Control I. Bed/Chair/Wheelchair maxA J. Toilet maxA K. Tub/Shower maxA - Locomotion L. Walk/Wheelchair (B) maxA M. Stairs ADNO - Communication N. Comprehension (B) Silviano O. Expression (B) Silviano - Social Cognition P. Social Interaction Silviano Q. Problem Solving Silviano R. Memory modA - Endurance Poor - Balance Poor - Safety Awareness Poor CURRENT FUNC. DEFICITS: Transfers Control, Communication, Social Cognition, Balance, Endurance, Safety Awareness, Locomotion, and Self-Care SIGNATURE PANEL: (SENIOR ASIC DESIGN ENGINEER)
[2018-10-02] MEDS ORDERED: HOME MED 1 EA UNK PO SCH (20:00)
[2018-10-02] MEDS: ATORVASTATIN 40 MG TAB PO SCH (20:06)
[2018-10-02] MEDS: TRAZODONE 50 MG TABLET PO SCH (20:06)
[2018-10-02] MEDS: ARIPiprazole 2 MG TAB PO SCH (20:09)
[2018-10-02] MEDS: GUAIFENESIN PO SCH (20:10)
[2018-10-02] MEDS: DEXTROMETHORPHAN PO SCH (20:10)
--- NOTE | 2018-10-03 01:19 | FAST ---
SHIFT START DATE/TIME: 10/02/2018 19:00 (SMOKING PIPE MOUNTER) SHIFT END DATE/TIME: 10/03/2018 07:00 (SMOKING PIPE MOUNTER) NAME GABRIEL MEYER DATE OF : 1945 DATE OF ADMISSION: 09/21/2018 19:15 (SMOKING PIPE MOUNTER) PHONE: AGE: 73 SSN# [id number] GENDER: Male ENCOUNTER PHYSICIAN: Dr. José Freitas M.D. ADMISSION DIAGNOSIS: - Neurologic Conditions 03 - Parkinsonism (03.2) Parkinson's disease (G20). EATING: Activity did not occur on this shift EATING - SCORE: 0-UNK GROOMING: Activity did not occur on this shift GROOMING - SCORE: 0-UNK BATHING: Activity did not occur on this shift BATHING - SCORE: 0-UNK DRESSING - UPPER BODY: Activity did not occur on this shift ARTICLES SCORE Total number of steps: 0 DRESSING - UPPER BODY - SCORE: 0-UNK DRESSING - LOWER BODY: Activity did not occur on this shift ARTICLES SCORE Total number of steps: 0 DRESSING - LOWER BODY - SCORE: 0-UNK TOILETING: Activity did not occur on this shift TOILETING - SCORE: 0-UNK BLADDER MANAGEMENT: [place] removes incontinent device (Depends, pull ups, etc.); cleans the patient after accident / inco ntinent episode; and, applies new incontinent device. BLADDER MANAGEMENT - SCORE: 1-DEP BOWEL MANAGEMENT: Activity did not occur on this shift BOWEL MANAGEMENT - SCORE: 7-IND TRANSFERS: BED, CHAIR, WHEELCHAIR: TRANSFERS: BED, CHAIR, WHEELCHAIR - STEP 1: Does the patient require assistance of a person or device, or need extra time with bed, chair, or whe elchair transfers? Yes. TRANSFERS: BED, CHAIR, WHEELCHAIR - STEP 2: Does the patient require the assistance of a helper? Yes. TRANSFERS: BED, CHAIR, WHEELCHAIR - STEP 3: How much assistance does the patient require from the helper? Lifting of the legs TRANSFERS: BED, CHAIR, WHEELCHAIR - STEP 4: How many legs does the patient require the helper to lift? both legs TRANSFERS: BED, CHAIR, WHEELCHAIR - SCORE: 3-MOD TRANSFERS: TOILET: Activity did not occur on this shift TRANSFERS: TOILET - SCORE: 0-UNK TRANSFERS: SHOWER: Activity did not occur on this shift TRANSFERS: SHOWER - SCORE: 0-UNK TRANSFERS: TUB: Activity did not occur on this shift TRANSFERS: TUB - SCORE: 0-UNK LOCOMOTION: WALK: Activity did not occur on this shift LOCOMOTION: WALK - SCORE: 0-UNK LOCOMOTION: WHEELCHAIR: Activity did not occur on this shift LOCOMOTION: WHEELCHAIR - SCORE: 0-UNK COMPREHENSION: COMPREHENSION: TYPE: Both COMPREHENSION - STEP 1: Does the patient require help from a person or device, or need extra time to understand complex and a bstract ideas (such as current events, finances, discharge planning, medical issues, relationships, e tc)? Yes. COMPREHENSION - STEP 2: Does the patient require help to understand questions or statements about basic needs or ideas (such as hunger, thirst, sleep, safety, daily schedule, room location, or discomfort) half or more of the t mayra? No. COMPREHENSION - STEP 3: How often does the patient need help to understand directions and conversation about basic needs? 10% - 24% of the time COMPREHENSION - SCORE: 4-MIN EXPRESSION EXPRESSION: TYPE: Both EXPRESSION - STEP 1: Does the patient require help from a person or device, or need extra time expressing complex and abst ract ideas (such as current events, finances, discharge planning, medical issues, relationships, etc) ? Yes. EXPRESSION - STEP 2: Does the patient require help to express basic necessities or ideas (such as hunger, thirst, sleep, s afety, daily schedule, room location, or discomfort) half or more of the time? No. EXPRESSION - STEP 3: How often does the patient need help to express directions and conversation about basic needs? 10-24% of the time EXPRESSION - SCORE: 4-MIN SOCIAL INTERACTION: SOCIAL INTERACTION - STEP 1: Does the patient require a helper to interact with others in social and therapeutic situations? No. SOCIAL INTERACTION - STEP 2: Does the patient need extra time in social situations, OR does s/he interact with staff, other patien ts, and family members ONLY in structured environments, OR does s/he require medication for social in teraction? Yes, patient requires medication for social interaction SOCIAL INTERACTION - SCORE: 6-PEYTON PROBLEM SOLVING: Patient requires bed/chair alarms due to attempts to get up unassisted when helper is needed. PROBLEM SOLVING - STEP 1: How often do the bed/chair alarms go off? Occasionally - the alarms go off about 25% or less PROBLEM SOLVING - SCORE: 4-MIN MEMORY: MEMORY - STEP 1: How often do the bed/chair alarms go off? Occasionally - the alarms go off about 25% of the time or l ess MEMORY - SCORE: 4-MIN SIGNATURE PANEL: The following modified sections: Eating - Score, Grooming - Score, Bathing - Score, Dressing - Upper Body - Score, Dressing - Lower Body - Score, Toileting - Score, Bladder Management - Score, Bowel Man agement - Score, Transfers: Bed, Chair, Wheelchair - Score, Transfers: Shower - Score, Transfers: Tub - Score, Locomotion: Walk - Score, Locomotion: Wheelchair - Score, Comprehension - Score, Expression - Score, Social Interaction - Score, Problem Solving - Score, Memory - Score, Transfers: Toilet - Sc ore were [electronically] signed by Fallon Garcia CNA on TueOct 03 2018 01:18:17 T-0600 ([facility])
[2018-10-03] MEDS: PANTOPRAZOLE 40MG TABLET PO SCH (06:26)
[2018-10-03] MEDS: SPIRONOLACTONE 25 MG TABLET PO SCH (08:00)
[2018-10-03] MEDS: CARVEDILOL 6.25 MG TAB PO SCH ×2 (08:00→19:17)
[2018-10-03] MEDS: APIXABAN 5 MG TABLET PO SCH ×2 (08:24→19:17)
[2018-10-03] MEDS: GABAPENTIN 300 MG CAP PO SCH ×3 (08:24→21:24)
[2018-10-03] MEDS: lamoTRIgine 100 MG TAB PO SCH ×2 (08:24→19:17)
[2018-10-03] MEDS: MULTIVITAMIN TAB PO SCH (08:25)
[2018-10-03] MEDS: CARBIDOPA/LEVODOPA 25/250 TAB PO SCH ×3 (08:25→21:23)
[2018-10-03] MEDS: ROPINIROLE HCL 1 MG TAB PO SCH ×3 (08:25→21:23)
[2018-10-03] MEDS: MAGNESIUM OXIDE 400 MG TAB PO SCH (08:25)
[2018-10-03] MEDS: FUROSEMIDE 20 MG TABLET PO SCH ×2 (08:27→16:39)
[2018-10-03] MEDS: DUTASTERIDE 0.5 MG GEL CAP PO SCH ×2 (08:43→19:16)
[2018-10-03] MEDS: GUAIFENESIN PO SCH ×2 (08:43→19:16)
[2018-10-03] MEDS: DEXTROMETHORPHAN PO SCH ×2 (08:43→19:16)
[2018-10-03] MEDS: POLYETHYL GLY 3350 17 GM/DOSE PO SCH (13:04)
--- NOTE | 2018-10-03 13:25 | FAST ---
SHIFT START DATE/TIME: 10/03/2018 07:00 (PAPER FOLDER) SHIFT END DATE/TIME: 10/03/2018 19:00 (PAPER FOLDER) NAME GABRIEL MEYER DATE OF : 1945 DATE OF ADMISSION: 09/21/2018 19:15 (PAPER FOLDER) PHONE: AGE: 73 N# [id number] GENDER: Male ENCOUNTER PHYSICIAN: Dr. José Freitas M.D. ADMISSION DIAGNOSIS: - Neurologic Conditions 03 - Parkinsonism (03.2) Parkinson's disease (G20). EATING: EATING - STEP 1: Does the patient require the assistance of a person or device, or need extra time when eating? Yes. EATING - STEP 2: Does the patient require the assistance of a helper? Yes. EATING - STEP 3: Does the patient perform half or more of the eating tasks? Yes. EATING - STEP 4: Does the patient need only supervision, cuing, coaxing OR help to apply an orthosis OR help to cut fo od, open containers, pour liquids, or butter bread? Yes. EATING - SCORE: 5-SUP GROOMING: Comb/brush hair Oral care Wash, rinse, and dry face Wash, rinse, and dry hands GROOMING - STEP 1: Does the patient require the assistance of a person or device, or need extra time when grooming? Yes. GROOMING - STEP 2: Does the patient require the assistance of a helper? Yes. GROOMING - STEP 3: How much assistance does the patient require from the helper? Cuing, coaxing, instructions, or encour agement for completion of grooming GROOMING - SCORE: 5-SUP BATHING: Activity did not occur on this shift BATHING - SCORE: 0-UNK DRESSING - UPPER BODY: Patient is not dressing in public clothing ARTICLES SCORE Total number of steps: 0 DRESSING - UPPER BODY - SCORE: 0-UNK DRESSING - LOWER BODY: ARTICLES SCORE Total number of steps: 12 DRESSING - LOWER BODY - STEP 1: Does the patient require help from a person or device, or need extra time when dressing below the tarah st? Yes. DRESSING - LOWER BODY - STEP 2: Does the patient require the assistance of a helper? Yes. DRESSING - LOWER BODY - STEP 3: Does the helper touch the patient while dressing? Yes. DRESSING - LOWER BODY - STEP 4: How many of the total steps does the patient complete on his/her own? 5 DRESSING - LOWER BODY - STEP 5: Does patient require total assistance for dressing below the waist such as the helper holding clothin g and performing basically all the activities? No. DRESSING - LOWER BODY - SCORE: 2-MAX TOILETING: TOILETING - STEP 1: Does the patient require the assistance of a person or device, or need extra time with toileting? Yes . TOILETING - STEP 2: Does the patient require the assistance of a helper? Yes. TOILETING - STEP 3: How much assistance does the patient require from the helper? Hands-on assistance from the helper TOILETING - STEP 4: Of the 3 tasks: 1) Adjusting clothing prior to use, 2) Cleansing of perineal area, 3) Adjusting clot baldo after use; How many tasks does the patient perform WITHOUT assistance of the helper? Two tasks TOILETING - SCORE: 3-MOD BLADDER MANAGEMENT: BLADDER MANAGEMENT - STEP 1: Does the patient control the bladder completely and intentionally without equipment or devices or med ications, and is always continent? No. BLADDER MANAGEMENT - STEP 2: Does the patient require the assistance of a helper? No, patient requires and independently uses an a ssistive device, such as a urinal, bedpan, bedside commode, catheter, absorbent pad, or collecting de vice BLADDER MANAGEMENT - SCORE: 6-PEYTON BOWEL MANAGEMENT: Activity did not occur on this shift BOWEL MANAGEMENT - SCORE: 7-IND TRANSFERS: BED, CHAIR, WHEELCHAIR: TRANSFERS: BED, CHAIR, WHEELCHAIR - STEP 1: Does the patient require assistance of a person or device, or need extra time with bed, chair, or whe elchair transfers? Yes. TRANSFERS: BED, CHAIR, WHEELCHAIR - STEP 2: Does the patient require the assistance of a helper? Yes. TRANSFERS: BED, CHAIR, WHEELCHAIR - STEP 3: How much assistance does the patient require from the helper? Lifting of the patient TRANSFERS: BED, CHAIR, WHEELCHAIR - STEP 4: Does the helper lift the patient ONLY up? ONLY down? Up AND Down? ONLY up. TRANSFERS: BED, CHAIR, WHEELCHAIR - SCORE: 3-MOD TRANSFERS: TOILET: TRANSFERS: TOILET - STEP 1: Does the patient require the assistance of a person or device, or need extra time with toilet transfe rs? Yes. TRANSFERS: TOILET - STEP 2: Does the patient require the assistance of a helper? Yes. TRANSFERS: TOILET - STEP 3: How much assistance does the patient require from the helper? Patient performs half or more of the tr ansferring tasks TRANSFERS: TOILET - STEP 4: Does the patient need only incidental help such as contact guard or steadying during toilet transfer? No. Patient needs more than incidental help TRANSFERS: TOILET - SCORE: 3-MOD TRANSFERS: SHOWER: Activity did not occur on this shift TRANSFERS: SHOWER - SCORE: 0-UNK TRANSFERS: TUB: Activity did not occur on this shift TRANSFERS: TUB - SCORE: 0-UNK LOCOMOTION: WALK: Activity did not occur on this shift LOCOMOTION: WALK - SCORE: 0-UNK LOCOMOTION: WHEELCHAIR: Activity did not occur on this shift LOCOMOTION: WHEELCHAIR - SCORE: 0-UNK COMPREHENSION: COMPREHENSION: TYPE: Both COMPREHENSION - STEP 1: Does the patient require help from a person or device, or need extra time to understand complex and a bstract ideas (such as current events, finances, discharge planning, medical issues, relationships, e tc)? Yes. COMPREHENSION - STEP 2: Does the patient require help to understand questions or statements about basic needs or ideas (such as hunger, thirst, sleep, safety, daily schedule, room location, or discomfort) half or more of the t mayra? No. COMPREHENSION - STEP 3: How often does the patient need help to understand directions and conversation about basic needs? 10% - 24% of the time COMPREHENSION - SCORE: 4-MIN EXPRESSION EXPRESSION: TYPE: Both EXPRESSION - STEP 1: Does the patient require help from a person or device, or need extra time expressing complex and abst ract ideas (such as current events, finances, discharge planning, medical issues, relationships, etc) ? Yes. EXPRESSION - STEP 2: Does the patient require help to express basic necessities or ideas (such as hunger, thirst, sleep, s afety, daily schedule, room location, or discomfort) half or more of the time? No. EXPRESSION - STEP 3: How often does the patient need help to express directions and conversation about basic needs? Less t messina 10% of the time EXPRESSION - SCORE: 5-SUP SOCIAL INTERACTION: SOCIAL INTERACTION - STEP 1: Does the patient require a helper to interact with others in social and therapeutic situations? Yes. SOCIAL INTERACTION - STEP 2: Does the patient interact appropriately half or more of the time? Yes. SOCIAL INTERACTION - STEP 3: How often does the patient need help to interact appropriately? Less than 10% of the time SOCIAL INTERACTION - SCORE: 5-SUP PROBLEM SOLVING: PROBLEM SOLVING - STEP 1: Does the patient need help from a person or device, or need extra time to solve complex problems such as managing a checking account or confronting interpersonal problems? Yes. PROBLEM SOLVING - STEP 2: Does the patient solve basic routine problems half or more of the time? Yes. PROBLEM SOLVING - STEP 3: How often does the patient need help to solve basic routine problems? Less than 10% of the time PROBLEM SOLVING - SCORE: 5-SUP MEMORY: MEMORY - STEP 1: Does the patient need help from a person or device, or need extra time to remember frequently encount ered people, daily routines, and executing requests? Yes. MEMORY - STEP 2: How often does the patient need help to remember frequently encountered people, daily routines, and e xecuting requests? Less than 10% of the time MEMORY - SCORE: 5-SUP SIGNATURE PANEL: The following modified sections: Eating - Score, Grooming - Score, Bathing - Score, Dressing - Upper Body - Score, Dressing - Lower Body - Score, Toileting - Score, Bladder Management - Score, Bowel Man agement - Score, Transfers: Bed, Chair, Wheelchair - Score, Transfers: Toilet - Score, Transfers: Alla wer - Score, Transfers: Tub - Score, Locomotion: Walk - Score, Locomotion: Wheelchair - Score, Compre hension - Score, Expression - Score, Social Interaction - Score, Problem Solving - Score, Memory - Sc ore were [electronically] signed by Victor M Tinoco on TueOct 03 2018 13:25:04 GMT-0600 (Central Standard Time)
--- NOTE | 2018-10-03 14:31 | FAST ---
ENCOUNTER DATE AND TIME: 10/03/2018 08:00 (AUTO ELECTRICIAN) NAME GABRIEL MEYER DATE OF : 1945 DATE OF ADMISSION: 09/21/2018 19:15 (AUTO ELECTRICIAN) PHONE: AGE: 73 SSN# [id number] GENDER: Male ENCOUNTER PHYSICIAN: Dr. José Freitas M.D. ADMISSION DIAGNOSIS: - Neurologic Conditions 03 - Parkinsonism (03.2) Parkinson's disease (G20). EATING: Activity did not occur on this shift EATING - SCORE: 0-UNK GROOMING: Activity did not occur on this shift GROOMING - SCORE: 0-UNK BATHING: Activity did not occur on this shift BATHING - SCORE: 0-UNK DRESSING - UPPER BODY: Activity did not occur on this shift Patient is not dressing in public clothing ARTICLES SCORE Total number of steps: 0 DRESSING - UPPER BODY - SCORE: 0-UNK DRESSING - LOWER BODY: Activity did not occur on this shift Patient is not dressing in public clothing ARTICLES SCORE Total number of steps: 0 DRESSING - LOWER BODY - SCORE: 0-UNK TOILETING: Activity did not occur on this shift TOILETING - SCORE: 0-UNK BLADDER MANAGEMENT: Activity did not occur on this shift BLADDER MANAGEMENT - SCORE: 7-IND BOWEL MANAGEMENT: Activity did not occur on this shift BOWEL MANAGEMENT - SCORE: 7-IND TRANSFERS: BED, CHAIR, WHEELCHAIR: TRANSFERS: BED, CHAIR, WHEELCHAIR - STEP 1: Does the patient require assistance of a person or device, or need extra time with bed, chair, or whe elchair transfers? Yes. TRANSFERS: BED, CHAIR, WHEELCHAIR - STEP 2: Does the patient require the assistance of a helper? Yes. TRANSFERS: BED, CHAIR, WHEELCHAIR - STEP 3: How much assistance does the patient require from the helper? Steadying/guiding assistance TRANSFERS: BED, CHAIR, WHEELCHAIR - SCORE: 4-MIN TRANSFERS: TOILET: Activity did not occur on this shift TRANSFERS: TOILET - SCORE: 0-UNK TRANSFERS: SHOWER: Activity did not occur on this shift TRANSFERS: SHOWER - SCORE: 0-UNK TRANSFERS: TUB: Activity did not occur on this shift TRANSFERS: TUB - SCORE: 0-UNK LOCOMOTION: WALK: LOCOMOTION: WALK - STEP 1: Does the patient need help from a person or device, or need extra time to walk 150 feet? Yes. LOCOMOTION: WALK - STEP 2: How much assistance does the patient require to walk a minimum of 150 feet? Only incidental help such as contact guarding or steadying LOCOMOTION: WALK - SCORE: 4-MIN LOCOMOTION: WHEELCHAIR: Activity did not occur on this shift LOCOMOTION: WHEELCHAIR - SCORE: 0-UNK LOCOMOTION: STAIRS: Activity did not occur on this shift LOCOMOTION: STAIRS - SCORE: 0-UNK COMPREHENSION: COMPREHENSION - SCORE: 0-UNK EXPRESSION EXPRESSION - SCORE: 0-UNK SOCIAL INTERACTION: SOCIAL INTERACTION - SCORE: 0-UNK PROBLEM SOLVING: PROBLEM SOLVING - SCORE: 0-UNK MEMORY: MEMORY - SCORE: 0-UNK SIGNATURE PANEL: The following modified sections: Transfers: Bed, Chair, Wheelchair - Score, Transfers: Toilet - Score , Locomotion: Walk - Score, Locomotion: Wheelchair - Score, Locomotion: Stairs - Score were [electron alison] signed by Marquis Keene PT on TueOct 03 2018 14:30:41 GMT-0600 (Central Standard Time)
--- NOTE | 2018-10-03 18:03 | R.PN ---
ENCOUNTER DATE AND TIME: 10/03/2018 17:59 (VENEER GLUER) NAME GABRIEL MEYER DATE OF : 1945 DATE OF ADMISSION: 09/21/2018 19:15 (VENEER GLUER) Parkinson's disease (G20)CHIEF COMPLAINT: Parkinson's disease and debility SUBJECTIVE: Pt denied any depression. Pt denied any Shortness of Breath. Ambulated 1350' with contact guard assistance using a rolling walker. Self-propelled wheelchair 65' w ith contact guard assistance. He had Geodon 20 mg yesterday and was sleepy today. Will d/c Geodon and give ativan 0.5 mg at night as needed. His CBC with differential is normal. Prealbumin is normal at 24.5. His mood continues to be better today. He slept better last night while on trazadone. VITAL SIGNS Temperature: 97.8 F SBP/DBP: 124/66 Pulse: 81 Resp: 18 MEDICATION ALLERGIES: No Known Drug Allergies (NKDA) ENVIRONMENTAL ALLERGIES: - Substance Allergies None Known - Other Allergies None Known CONSULT: Perform Neuro consult NURSING: - Shower allowing shower ACTIVITIES OOB only with supervision THERAPIES: - Occupational Therapy Evaluate and Treat. - Speech Therapy Memory Strategies. Speech Intelligibility Training. - Physical Therapy Evaluate and Treat. PHYSICAL EXAM - Gen Alert and awake Lying in bed No apparent distress Oriented to: person, time, and place - Skin No breakdown No abnormalities - Eyes No abnormalities - ENMT No abnormalities - Neck No abnormalities - CVS RRR - Chest No abnormalities - Abd +bowel sounds - GI nondistended Deferred - No abnormalities - Ext No significant edema - MSK 3-4+/5 weakness in both lower extremities. - Neuro No focal deficits. - Psych Mild depression. ASSESSMENT: Pt. is a 73 yo Right-handed white male.On 09/18/2018 he was admitted to [facility] with diagnosi s Parkinson's disease (G20).His impairment category is Neurologic Conditions 03 - Parkinsonism (03.2 ).Pre-morbidly, Pt. was independent/mod-I in Transfers Control, Communication, Social Cognition, Self -Care, Sphincter Control, and Locomotion; and he had good Sphincter Control.Currently, he has deficit s of Transfers Control, Communication, Social Cognition, Balance, Endurance, Safety Awareness, Locomo tion, and Self-Care.Pt. is now referred to [facility] for acute in-patient joni abilitation in order to maximize patient's functional independence in activities of daily living, str ength, ROM, and mobility.- Rehab Goal Patient has realistic goal of being discharged at assistance level 6-Rohan to reside at Home with Fam jeffery/Relatives. MDM/PLAN: - Physical Therapy Gait dysfunction - to improve, our physical therapists will perform initial evaluation of pt's statu s upon admission and devise an individualized program for Gait Training, and Wheel Chair mobility Inability to transfer - to improve, our physical therapists will perform initial evaluation of pt's status upon admission and devise an individualized program for Bed mobility Need for home safety evaluation - to improve, our physical therapists will perform initial evaluatio n of pt's status upon admission and devise an individualized program for Home Evaluation Need in caregiver upon discharge - to improve, our physical therapists will perform initial evaluati on of pt's status upon admission and devise an individualized program for Caregiver Training New precaution - to improve, our physical therapists will perform initial evaluation of pt's status upon admission and devise an individualized program for Patient precaution education Edema - to improve, our physical therapists will perform initial evaluation of pt's status upon admi ssion and devise an individualized program for Elevation Training, and Lymphedema Therapy Poor balance - to improve, our physical therapists will perform initial evaluation of pt's status up on admission and devise an individualized program for Balance Training Poor endurance - to improve, our physical therapists will perform initial evaluation of pt's status upon admission and devise an individualized program for Endurance Training Weakness - to improve, our physical therapists will perform initial evaluation of pt's status upon a dmission and devise an individualized program for Aquatic Therapy, Neuromuscular Reeducation, and Str engthening Achieving independence - to improve, our physical therapists will perform initial evaluation of pt's status upon admission and devise an individualized program for Community Reintegration Activities - Occupational Therapy ADL deficits - to improve, our occupation therapists will perform initial evaluation of pt's status upon admission and devise an individualized program for Bathing, Bed mobility, Community Reintegratio n, Cooking, Dressing, Eating, Fine Motor Skills, Grooming, Homemaking, Kitchen Mobility, Laundry, Pat ient Education, Safety Awareness, Splinting - Positioning, Transfers(Toilet, Tub, Shower), and Wheel Chair Management Cognitive deficits - to improve, our occupation therapists will perform initial evaluation of pt's s tatus upon admission and devise an individualized program for Cognition - orientation Need for critical care rn - to improve, our occupation therapists will perform initial evaluation of pt's status upon admission and devise an individualized program for Caregiver Training Weakness - to improve, our occupation therapists will perform initial evaluation of pt's status upon admission and devise an individualized program for Aquatic Therapy, Balance, Endurance, UE ROM, and UE strengthening - Diet Type Continue Regular - Diet - Liquid Texture Continue Regular - Tube Feed Continue N/A - N/A Perform Neuro consult - Diet - Solid Texture Continue Regular - Shower allowing shower FUNCTIONAL STATUS: UPDATED AT WEEKLY TEAM CONFERENCE - Bladder Same accident frequency: 7-Ind - No accidents in the past 7 days - Bowel Same accident frequency: 7-Ind - No accidents in the past 7 days - Walking Same score based on distance walked: 0(N/A) FUNCTIONAL STATUS: - Self-Care A. Eating Ind B. Grooming modA C. Bathing modA D. Dressing - Upper modA E. Dressing - Lower maxA F. Toileting maxA - Sphincter Control G: Bladder control Rohan H: Bowel control Rohan - Transfers Control I. Bed/Chair/Wheelchair maxA J. Toilet maxA K. Tub/Shower maxA - Locomotion L. Walk/Wheelchair (B) maxA M. Stairs ADNO - Communication N. Comprehension (B) Silviano O. Expression (B) Silviano - Social Cognition P. Social Interaction Silviano Q. Problem Solving Silviano R. Memory modA - Endurance Poor - Balance Poor - Safety Awareness Poor CURRENT FUNC. DEFICITS: Transfers Control, Communication, Social Cognition, Balance, Endurance, Safety Awareness, Locomotion, and Self-Care SIGNATURE PANEL: (VENEER GLUER)
[2018-10-03] MEDS: ARIPiprazole 2 MG TAB PO SCH (21:23)
[2018-10-03] MEDS: ATORVASTATIN 40 MG TAB PO SCH (21:23)
[2018-10-03] MEDS: TRAZODONE 50 MG TABLET PO SCH (21:23)
--- NOTE | 2018-10-04 02:06 | FAST ---
SHIFT START DATE/TIME: 10/03/2018 19:00 (CORPORATE ADMINISTRATOR) SHIFT END DATE/TIME: 10/04/2018 07:00 (CORPORATE ADMINISTRATOR) NAME GABRIEL MEYER DATE OF : 1945 DATE OF ADMISSION: 09/21/2018 19:15 (CORPORATE ADMINISTRATOR) PHONE: AGE: 73 SSN# [id number] GENDER: Male ENCOUNTER PHYSICIAN: Dr. José Freitas M.D. ADMISSION DIAGNOSIS: - Neurologic Conditions 03 - Parkinsonism (03.2) Parkinson's disease (G20). EATING: Activity did not occur on this shift EATING - SCORE: 0-UNK GROOMING: Activity did not occur on this shift GROOMING - SCORE: 0-UNK BATHING: Activity did not occur on this shift BATHING - SCORE: 0-UNK DRESSING - UPPER BODY: Activity did not occur on this shift ARTICLES SCORE Total number of steps: 0 DRESSING - UPPER BODY - SCORE: 0-UNK DRESSING - LOWER BODY: Activity did not occur on this shift ARTICLES SCORE Total number of steps: 0 DRESSING - LOWER BODY - SCORE: 0-UNK TOILETING: Activity did not occur on this shift TOILETING - SCORE: 0-UNK BLADDER MANAGEMENT: BLADDER MANAGEMENT - STEP 1: Does the patient control the bladder completely and intentionally without equipment or devices or med ications, and is always continent? No. BLADDER MANAGEMENT - STEP 2: Does the patient require the assistance of a helper? Yes. BLADDER MANAGEMENT - STEP 3: How much assistance does the patient require from the helper? Patient requires contact assistance fro m the helper BLADDER MANAGEMENT - STEP 4: How much contact assistance does the patient require from the helper? Patient requires moderate dario tance, and performs 50% to 75% of bladder management tasks - [place] positions AND holds urinal or bed samayoa BLADDER MANAGEMENT - SCORE: 3-MOD BOWEL MANAGEMENT: Activity did not occur on this shift BOWEL MANAGEMENT - SCORE: 7-IND TRANSFERS: BED, CHAIR, WHEELCHAIR: TRANSFERS: BED, CHAIR, WHEELCHAIR - STEP 1: Does the patient require assistance of a person or device, or need extra time with bed, chair, or whe elchair transfers? Yes. TRANSFERS: BED, CHAIR, WHEELCHAIR - STEP 2: Does the patient require the assistance of a helper? Yes. TRANSFERS: BED, CHAIR, WHEELCHAIR - STEP 3: How much assistance does the patient require from the helper? Lifting of the legs TRANSFERS: BED, CHAIR, WHEELCHAIR - STEP 4: How many legs does the patient require the helper to lift? both legs TRANSFERS: BED, CHAIR, WHEELCHAIR - SCORE: 3-MOD TRANSFERS: TOILET: Activity did not occur on this shift TRANSFERS: TOILET - SCORE: 0-UNK TRANSFERS: SHOWER: Activity did not occur on this shift TRANSFERS: SHOWER - SCORE: 0-UNK TRANSFERS: TUB: Activity did not occur on this shift TRANSFERS: TUB - SCORE: 0-UNK LOCOMOTION: WALK: Activity did not occur on this shift LOCOMOTION: WALK - SCORE: 0-UNK LOCOMOTION: WHEELCHAIR: Activity did not occur on this shift LOCOMOTION: WHEELCHAIR - SCORE: 0-UNK COMPREHENSION: COMPREHENSION: TYPE: Both COMPREHENSION - STEP 1: Does the patient require help from a person or device, or need extra time to understand complex and a bstract ideas (such as current events, finances, discharge planning, medical issues, relationships, e tc)? Yes. COMPREHENSION - STEP 2: Does the patient require help to understand questions or statements about basic needs or ideas (such as hunger, thirst, sleep, safety, daily schedule, room location, or discomfort) half or more of the t mayra? Yes. COMPREHENSION - STEP 3: Is the patient basically able to understand and respond appropriately and consistently? Yes. COMPREHENSION - SCORE: 2-MAX EXPRESSION EXPRESSION: TYPE: Both EXPRESSION - STEP 1: Does the patient require help from a person or device, or need extra time expressing complex and abst ract ideas (such as current events, finances, discharge planning, medical issues, relationships, etc) ? Yes. EXPRESSION - STEP 2: Does the patient require help to express basic necessities or ideas (such as hunger, thirst, sleep, s afety, daily schedule, room location, or discomfort) half or more of the time? No. EXPRESSION - STEP 3: How often does the patient need help to express directions and conversation about basic needs? 10-24% of the time EXPRESSION - SCORE: 4-MIN SOCIAL INTERACTION: SOCIAL INTERACTION - STEP 1: Does the patient require a helper to interact with others in social and therapeutic situations? No. SOCIAL INTERACTION - STEP 2: Does the patient need extra time in social situations, OR does s/he interact with staff, other patien ts, and family members ONLY in structured environments, OR does s/he require medication for social in teraction? Yes, patient requires medication for social interaction SOCIAL INTERACTION - SCORE: 6-PEYTON PROBLEM SOLVING: Patient requires bed/chair alarms due to attempts to get up unassisted when helper is needed. PROBLEM SOLVING - STEP 1: How often do the bed/chair alarms go off? Occasionally - the alarms go off about 25% or less PROBLEM SOLVING - SCORE: 4-MIN MEMORY: MEMORY - STEP 1: How often do the bed/chair alarms go off? Occasionally - the alarms go off about 25% of the time or l ess MEMORY - SCORE: 4-MIN SIGNATURE PANEL: The following modified sections: Eating - Score, Grooming - Score, Bathing - Score, Dressing - Upper Body - Score, Dressing - Lower Body - Score, Toileting - Score, Bladder Management - Score, Bowel Man agement - Score, Transfers: Bed, Chair, Wheelchair - Score, Transfers: Toilet - Score, Transfers: Alla wer - Score, Transfers: Tub - Score, Locomotion: Walk - Score, Locomotion: Wheelchair - Score, Compre hension - Score, Expression - Score, Social Interaction - Score, Problem Solving - Score, Memory - Sc ore were [electronically] signed by Fallon Garcia CNA on TueOct 04 2018 02:05:01 T-0600 ([facility])
[2018-10-04] MEDS: GUAIFENESIN PO SCH ×2 (08:43→20:53)
[2018-10-04] MEDS: POLYETHYL GLY 3350 17 GM/DOSE PO SCH (08:43)
[2018-10-04] MEDS: DEXTROMETHORPHAN PO SCH ×2 (08:43→20:53)
[2018-10-04] MEDS: CARVEDILOL 6.25 MG TAB PO SCH ×2 (08:44→20:53)
[2018-10-04] MEDS: GABAPENTIN 300 MG CAP PO SCH ×3 (08:44→20:53)
[2018-10-04] MEDS: CARBIDOPA/LEVODOPA 25/250 TAB PO SCH ×3 (08:44→20:53)
[2018-10-04] MEDS: ROPINIROLE HCL 1 MG TAB PO SCH ×3 (08:48→20:53)
[2018-10-04] MEDS: MAGNESIUM OXIDE 400 MG TAB PO SCH (08:48)
[2018-10-04] MEDS: MULTIVITAMIN TAB PO SCH (08:48)
[2018-10-04] MEDS: SPIRONOLACTONE 25 MG TABLET PO SCH (08:48)
[2018-10-04] MEDS: APIXABAN 5 MG TABLET PO SCH ×2 (08:49→20:53)
[2018-10-04] MEDS: DUTASTERIDE 0.5 MG GEL CAP PO SCH ×2 (08:49→20:54)
[2018-10-04] MEDS: lamoTRIgine 100 MG TAB PO SCH ×2 (08:49→20:53)
[2018-10-04] MEDS: FUROSEMIDE 20 MG TABLET PO SCH ×2 (08:49→16:07)
[2018-10-04] MEDS: PANTOPRAZOLE 40MG TABLET PO SCH (08:52)
--- NOTE | 2018-10-04 18:58 | R.PN ---
ENCOUNTER DATE AND TIME: 10/04/2018 18:56 (MOBILE PATROL OFFICER) NAME GABRIEL MEYER DATE OF : 1945 DATE OF ADMISSION: 09/21/2018 19:15 (MOBILE PATROL OFFICER) Parkinson's disease (G20)CHIEF COMPLAINT: Parkinson's disease and debility SUBJECTIVE: Pt denied any depression. Pt denied any Shortness of Breath. Ambulated 1000' with contact guard assistance using a rolling walker. Self-propelled wheelchair 65' w ith contact guard assistance. His CBC with differential is normal. Prealbumin is normal at 24.5. His mood continues to be better today. He slept better last night while on trazadone. VITAL SIGNS Temperature: 97.8 F SBP/DBP: 132/64 Pulse: 68 Resp: 16 MEDICATION ALLERGIES: No Known Drug Allergies (NKDA) ENVIRONMENTAL ALLERGIES: - Substance Allergies None Known - Other Allergies None Known CONSULT: Perform Neuro consult NURSING: - Shower allowing shower ACTIVITIES OOB only with supervision THERAPIES: - Occupational Therapy Evaluate and Treat. - Speech Therapy Memory Strategies. Speech Intelligibility Training. - Physical Therapy Evaluate and Treat. PHYSICAL EXAM - Gen Alert and awake Lying in bed No apparent distress Oriented to: person, time, and place - Skin No breakdown No abnormalities - Eyes No abnormalities - ENMT No abnormalities - Neck No abnormalities - CVS RRR - Chest No abnormalities - Abd +bowel sounds - GI nondistended Deferred - No abnormalities - Ext No significant edema - MSK 3-4+/5 weakness in both lower extremities. - Neuro No focal deficits. - Psych Mild depression. ASSESSMENT: Pt. is a 73 yo Right-handed white male.On 09/18/2018 he was admitted to [facility] with diagnosi s Parkinson's disease (G20).His impairment category is Neurologic Conditions 03 - Parkinsonism (03.2 ).Pre-morbidly, Pt. was independent/mod-I in Transfers Control, Communication, Social Cognition, Self -Care, Sphincter Control, and Locomotion; and he had good Sphincter Control.Currently, he has deficit s of Transfers Control, Communication, Social Cognition, Balance, Endurance, Safety Awareness, Locomo tion, and Self-Care.Pt. is now referred to [facility] for acute in-patient joni abilitation in order to maximize patient's functional independence in activities of daily living, str ength, ROM, and mobility.- Rehab Goal Patient has realistic goal of being discharged at assistance level 6-Rohan to reside at Home with Fam jeffery/Relatives. MDM/PLAN: - Physical Therapy Gait dysfunction - to improve, our physical therapists will perform initial evaluation of pt's statu s upon admission and devise an individualized program for Gait Training, and Wheel Chair mobility Inability to transfer - to improve, our physical therapists will perform initial evaluation of pt's status upon admission and devise an individualized program for Bed mobility Need for home safety evaluation - to improve, our physical therapists will perform initial evaluatio n of pt's status upon admission and devise an individualized program for Home Evaluation Need in caregiver upon discharge - to improve, our physical therapists will perform initial evaluati on of pt's status upon admission and devise an individualized program for Caregiver Training New precaution - to improve, our physical therapists will perform initial evaluation of pt's status upon admission and devise an individualized program for Patient precaution education Edema - to improve, our physical therapists will perform initial evaluation of pt's status upon admi ssion and devise an individualized program for Elevation Training, and Lymphedema Therapy Poor balance - to improve, our physical therapists will perform initial evaluation of pt's status up on admission and devise an individualized program for Balance Training Poor endurance - to improve, our physical therapists will perform initial evaluation of pt's status upon admission and devise an individualized program for Endurance Training Weakness - to improve, our physical therapists will perform initial evaluation of pt's status upon a dmission and devise an individualized program for Aquatic Therapy, Neuromuscular Reeducation, and Str engthening Achieving independence - to improve, our physical therapists will perform initial evaluation of pt's status upon admission and devise an individualized program for Community Reintegration Activities - Occupational Therapy ADL deficits - to improve, our occupation therapists will perform initial evaluation of pt's status upon admission and devise an individualized program for Bathing, Bed mobility, Community Reintegratio n, Cooking, Dressing, Eating, Fine Motor Skills, Grooming, Homemaking, Kitchen Mobility, Laundry, Pat ient Education, Safety Awareness, Splinting - Positioning, Transfers(Toilet, Tub, Shower), and Wheel Chair Management Cognitive deficits - to improve, our occupation therapists will perform initial evaluation of pt's s tatus upon admission and devise an individualized program for Cognition - orientation Need for animal care giver - to improve, our occupation therapists will perform initial evaluation of pt's status upon admission and devise an individualized program for Caregiver Training Weakness - to improve, our occupation therapists will perform initial evaluation of pt's status upon admission and devise an individualized program for Aquatic Therapy, Balance, Endurance, UE ROM, and UE strengthening - Diet Type Continue Regular - Diet - Liquid Texture Continue Regular - Tube Feed Continue N/A - N/A Perform Neuro consult - Diet - Solid Texture Continue Regular - Shower allowing shower FUNCTIONAL STATUS: UPDATED AT WEEKLY TEAM CONFERENCE - Bladder Same accident frequency: 7-Ind - No accidents in the past 7 days - Bowel Same accident frequency: 7-Ind - No accidents in the past 7 days - Walking Same score based on distance walked: 0(N/A) FUNCTIONAL STATUS: - Self-Care A. Eating Ind B. Grooming modA C. Bathing modA D. Dressing - Upper modA E. Dressing - Lower maxA F. Toileting maxA - Sphincter Control G: Bladder control Rohan H: Bowel control Rohan - Transfers Control I. Bed/Chair/Wheelchair maxA J. Toilet maxA K. Tub/Shower maxA - Locomotion L. Walk/Wheelchair (B) maxA M. Stairs ADNO - Communication N. Comprehension (B) Silviano O. Expression (B) Silviano - Social Cognition P. Social Interaction Silviano Q. Problem Solving Silviano R. Memory modA - Endurance Poor - Balance Poor - Safety Awareness Poor CURRENT FUNC. DEFICITS: Transfers Control, Communication, Social Cognition, Balance, Endurance, Safety Awareness, Locomotion, and Self-Care SIGNATURE PANEL: (MOBILE PATROL OFFICER)
[2018-10-04] MEDS: ATORVASTATIN 40 MG TAB PO SCH (20:53)
[2018-10-04] MEDS: TRAZODONE 50 MG TABLET PO SCH (20:53)
[2018-10-04] MEDS: ARIPiprazole 2 MG TAB PO SCH (20:54)
--- NOTE | 2018-10-05 01:51 | FAST ---
SHIFT START DATE/TIME: 10/04/2018 19:00 (TRANSMISSION OPERATOR) SHIFT END DATE/TIME: 10/05/2018 07:00 (TRANSMISSION OPERATOR) NAME GABRIEL MEYER DATE OF : 1945 DATE OF ADMISSION: 09/21/2018 19:15 (TRANSMISSION OPERATOR) PHONE: AGE: 73 SSN# [id number] GENDER: Male ENCOUNTER PHYSICIAN: Dr. José Freitas M.D. ADMISSION DIAGNOSIS: - Neurologic Conditions 03 - Parkinsonism (03.2) Parkinson's disease (G20). EATING: Activity did not occur on this shift EATING - SCORE: 0-UNK GROOMING: Oral care Wash, rinse, and dry hands GROOMING - STEP 1: Does the patient require the assistance of a person or device, or need extra time when grooming? Yes. GROOMING - STEP 2: Does the patient require the assistance of a helper? Yes. GROOMING - STEP 3: How much assistance does the patient require from the helper? Only prior equipment preparation/set up from the helper GROOMING - SCORE: 5-SUP BATHING: Activity did not occur on this shift BATHING - SCORE: 0-UNK DRESSING - UPPER BODY: Patient is not dressing in public clothing ARTICLES SCORE Total number of steps: 0 DRESSING - UPPER BODY - SCORE: 0-UNK DRESSING - LOWER BODY: Patient is not dressing in public clothing ARTICLES SCORE Total number of steps: 0 DRESSING - LOWER BODY - SCORE: 0-UNK TOILETING: TOILETING - STEP 1: Does the patient require the assistance of a person or device, or need extra time with toileting? Yes . TOILETING - STEP 2: Does the patient require the assistance of a helper? Yes. TOILETING - STEP 3: How much assistance does the patient require from the helper? Hands-on assistance from the helper TOILETING - STEP 4: Of the 3 tasks: 1) Adjusting clothing prior to use, 2) Cleansing of perineal area, 3) Adjusting clot baldo after use; How many tasks does the patient perform WITHOUT assistance of the helper? No tasks; h zaki performs all three tasks TOILETING - SCORE: 1-DEP BLADDER MANAGEMENT: BLADDER MANAGEMENT - STEP 1: Does the patient control the bladder completely and intentionally without equipment or devices or med ications, and is always continent? No. BLADDER MANAGEMENT - STEP 2: Does the patient require the assistance of a helper? Yes. BLADDER MANAGEMENT - STEP 3: How much assistance does the patient require from the helper? Only set-up of equipment - such as plac ing it within reach of the patient or emptying a device - to maintain either satisfactory voiding pat tern or managing an external device, such as an absorbent pad, ileal device, or catheter BLADDER MANAGEMENT - SCORE: 5-SUP BOWEL MANAGEMENT: Activity did not occur on this shift BOWEL MANAGEMENT - SCORE: 7-IND TRANSFERS: BED, CHAIR, WHEELCHAIR: TRANSFERS: BED, CHAIR, WHEELCHAIR - STEP 1: Does the patient require assistance of a person or device, or need extra time with bed, chair, or whe elchair transfers? Yes. TRANSFERS: BED, CHAIR, WHEELCHAIR - STEP 2: Does the patient require the assistance of a helper? Yes. TRANSFERS: BED, CHAIR, WHEELCHAIR - STEP 3: How much assistance does the patient require from the helper? Lifting of the legs TRANSFERS: BED, CHAIR, WHEELCHAIR - STEP 4: How many legs does the patient require the helper to lift? both legs TRANSFERS: BED, CHAIR, WHEELCHAIR - SCORE: 3-MOD TRANSFERS: TOILET: TRANSFERS: TOILET - STEP 1: Does the patient require the assistance of a person or device, or need extra time with toilet transfe rs? Yes. TRANSFERS: TOILET - STEP 2: Does the patient require the assistance of a helper? Yes. TRANSFERS: TOILET - STEP 3: How much assistance does the patient require from the helper? Patient performs half or more of the tr ansferring tasks TRANSFERS: TOILET - STEP 4: Does the patient need only incidental help such as contact guard or steadying during toilet transfer? No. Patient needs more than incidental help TRANSFERS: TOILET - SCORE: 3-MOD TRANSFERS: SHOWER: Activity did not occur on this shift TRANSFERS: SHOWER - SCORE: 0-UNK TRANSFERS: TUB: Activity did not occur on this shift TRANSFERS: TUB - SCORE: 0-UNK LOCOMOTION: WALK: Activity did not occur on this shift LOCOMOTION: WALK - SCORE: 0-UNK LOCOMOTION: WHEELCHAIR: Activity did not occur on this shift LOCOMOTION: WHEELCHAIR - SCORE: 0-UNK COMPREHENSION: COMPREHENSION: TYPE: Both COMPREHENSION - STEP 1: Does the patient require help from a person or device, or need extra time to understand complex and a bstract ideas (such as current events, finances, discharge planning, medical issues, relationships, e tc)? Yes. COMPREHENSION - STEP 2: Does the patient require help to understand questions or statements about basic needs or ideas (such as hunger, thirst, sleep, safety, daily schedule, room location, or discomfort) half or more of the t mayra? No. COMPREHENSION - STEP 3: How often does the patient need help to understand directions and conversation about basic needs? 10% - 24% of the time COMPREHENSION - SCORE: 4-MIN EXPRESSION EXPRESSION: TYPE: Both EXPRESSION - STEP 1: Does the patient require help from a person or device, or need extra time expressing complex and abst ract ideas (such as current events, finances, discharge planning, medical issues, relationships, etc) ? No. EXPRESSION - STEP 2: Does the patient need extra time, require an assistive device (such as augmentive communication syste m or a communication board), OR does s/he have mild difficulty expressing complex and abstract ideas (including mild dysarthria or mild word-find problems)? Yes. EXPRESSION - SCORE: 6-PEYTON SOCIAL INTERACTION: SOCIAL INTERACTION - STEP 1: Does the patient require a helper to interact with others in social and therapeutic situations? No. SOCIAL INTERACTION - STEP 2: Does the patient need extra time in social situations, OR does s/he interact with staff, other patien ts, and family members ONLY in structured environments, OR does s/he require medication for social in teraction? Yes, patient needs extra time SOCIAL INTERACTION - SCORE: 6-PEYTON PROBLEM SOLVING: PROBLEM SOLVING - STEP 1: Does the patient need help from a person or device, or need extra time to solve complex problems such as managing a checking account or confronting interpersonal problems? Yes. PROBLEM SOLVING - STEP 2: Does the patient solve basic routine problems half or more of the time? Yes. PROBLEM SOLVING - STEP 3: How often does the patient need help to solve basic routine problems? 25%-49% of the time PROBLEM SOLVING - SCORE: 3-MOD MEMORY: MEMORY - STEP 1: Does the patient need help from a person or device, or need extra time to remember frequently encount ered people, daily routines, and executing requests? Yes. MEMORY - STEP 2: How often does the patient need help to remember frequently encountered people, daily routines, and e xecuting requests? 25% - 49% of the time MEMORY - SCORE: 3-MOD SIGNATURE PANEL: The following modified sections: Eating - Score, Grooming - Score, Dressing - Upper Body - Score, Hero ssing - Lower Body - Score, Toileting - Score, Bladder Management - Score, Bowel Management - Score, Transfers: Bed, Chair, Wheelchair - Score, Transfers: Toilet - Score, Transfers: Shower - Score, [place] sfers: Tub - Score, Locomotion: Walk - Score, Locomotion: Wheelchair - Score, Comprehension - Score, Expression - Score, Social Interaction - Score, Problem Solving - Score, Memory - Score were [electro nically] signed by Jing Lopez CNA on TueOct 05 2018 01:51:01 GMT-0600 (Central Standard Time)
[2018-10-05] MEDS: PANTOPRAZOLE 40MG TABLET PO SCH (05:12)
[2018-10-05 06:15] LABS: Absolute Lymphocytes (CBC) 1.6 K/uL (0.7-4.9); Absolute Monocytes 0.6 K/uL (0.1-1.3); Absolute Neutrophil 4.3 K/uL (1.8-8.0); Basophils % 0.7 % (0-1.3); Eosinophils % 10.6 % (0-4.4); Hematocrit 41.6 % (39.6-49.0); Lymphocytes % 21.7 % (15.3-44.8); MPV 8.6 fL (7.6-11.3); Monocytes % 7.7 % (3.3-12.3); RBC Red Blood Cell Count 4.73 M/uL (4.33-5.43)
[2018-10-05 06:33] LABS: Albumin 3.2 g/dL (3.4-5.0); Potassium 3.8 mmol/L (3.5-5.1); Prealbumin 21.7 mg/dL (20-40)
[2018-10-05] MEDS: POLYETHYL GLY 3350 17 GM/DOSE PO SCH (08:36)
[2018-10-05] MEDS: MAGNESIUM OXIDE 400 MG TAB PO SCH (08:37)
[2018-10-05] MEDS: SPIRONOLACTONE 25 MG TABLET PO SCH (08:37)
[2018-10-05] MEDS: CARBIDOPA/LEVODOPA 25/250 TAB PO SCH ×3 (08:37→20:16)
[2018-10-05] MEDS: MULTIVITAMIN TAB PO SCH (08:37)
[2018-10-05] MEDS: ROPINIROLE HCL 1 MG TAB PO SCH ×3 (08:37→20:14)
[2018-10-05] MEDS: lamoTRIgine 100 MG TAB PO SCH ×2 (08:37→20:15)
[2018-10-05] MEDS: CARVEDILOL 6.25 MG TAB PO SCH ×2 (08:37→20:17)
[2018-10-05] MEDS: GABAPENTIN 300 MG CAP PO SCH ×3 (08:37→20:14)
[2018-10-05] MEDS: APIXABAN 5 MG TABLET PO SCH ×2 (08:37→20:15)
[2018-10-05] MEDS: FUROSEMIDE 20 MG TABLET PO SCH ×2 (08:38→17:12)
[2018-10-05] MEDS: GUAIFENESIN PO SCH ×2 (10:47→20:13)
[2018-10-05] MEDS: DUTASTERIDE 0.5 MG GEL CAP PO SCH ×2 (10:47→20:13)
[2018-10-05] MEDS: DEXTROMETHORPHAN PO SCH ×2 (10:47→20:13)
--- NOTE | 2018-10-05 13:28 | FAST ---
ENCOUNTER DATE AND TIME: 10/04/2018 08:00 (ETHANOL OPERATIONS MANAGER) NAME GABRIEL MEYER DATE OF : 1945 DATE OF ADMISSION: 09/21/2018 19:15 (ETHANOL OPERATIONS MANAGER) PHONE: AGE: 73 SSN# [id number] GENDER: Male ENCOUNTER PHYSICIAN: Dr. José Freitas M.D. ADMISSION DIAGNOSIS: - Neurologic Conditions 03 - Parkinsonism (03.2) Parkinson's disease (G20). EATING: Activity did not occur on this shift EATING - SCORE: 0-UNK GROOMING: Activity did not occur on this shift GROOMING - SCORE: 0-UNK BATHING: Activity did not occur on this shift BATHING - SCORE: 0-UNK DRESSING - UPPER BODY: Activity did not occur on this shift Patient is not dressing in public clothing ARTICLES SCORE Total number of steps: 0 DRESSING - UPPER BODY - SCORE: 0-UNK DRESSING - LOWER BODY: Activity did not occur on this shift Patient is not dressing in public clothing ARTICLES SCORE Total number of steps: 0 DRESSING - LOWER BODY - SCORE: 0-UNK TOILETING: Activity did not occur on this shift TOILETING - SCORE: 0-UNK BLADDER MANAGEMENT: Activity did not occur on this shift BLADDER MANAGEMENT - SCORE: 7-IND BOWEL MANAGEMENT: Activity did not occur on this shift BOWEL MANAGEMENT - SCORE: 7-IND TRANSFERS: BED, CHAIR, WHEELCHAIR: TRANSFERS: BED, CHAIR, WHEELCHAIR - STEP 1: Does the patient require assistance of a person or device, or need extra time with bed, chair, or whe elchair transfers? Yes. TRANSFERS: BED, CHAIR, WHEELCHAIR - STEP 2: Does the patient require the assistance of a helper? Yes. TRANSFERS: BED, CHAIR, WHEELCHAIR - STEP 3: How much assistance does the patient require from the helper? Only supervision TRANSFERS: BED, CHAIR, WHEELCHAIR - SCORE: 5-SUP TRANSFERS: TOILET: Activity did not occur on this shift TRANSFERS: TOILET - SCORE: 0-UNK TRANSFERS: SHOWER: Activity did not occur on this shift TRANSFERS: SHOWER - SCORE: 0-UNK TRANSFERS: TUB: Activity did not occur on this shift TRANSFERS: TUB - SCORE: 0-UNK LOCOMOTION: WALK: LOCOMOTION: WALK - STEP 1: Does the patient need help from a person or device, or need extra time to walk 150 feet? Yes. LOCOMOTION: WALK - STEP 2: How much assistance does the patient require to walk a minimum of 150 feet? Only supervision, cuing, or coaxing LOCOMOTION: WALK - SCORE: 5-SUP LOCOMOTION: WHEELCHAIR: LOCOMOTION: WHEELCHAIR - STEP 1: Does the patient need help to go 150 feet in a wheelchair? Yes. LOCOMOTION: WHEELCHAIR - STEP 2: How much assistance does the patient need from the helper? Only supervision, cuing, or coaxing LOCOMOTION: WHEELCHAIR - SCORE: 5-SUP LOCOMOTION: STAIRS: LOCOMOTION: STAIRS - STEP 1: Does the patient need help to go up and down 12 to 14 stairs? Yes. LOCOMOTION: STAIRS - STEP 2: How much assistance does the patient need from the helper to go a minimum of 12 to 14 stairs? The pat ient goes less than 12 stairs, but at least 4 stairs LOCOMOTION: STAIRS - SCORE: 2-MAX COMPREHENSION: COMPREHENSION - SCORE: 0-UNK EXPRESSION EXPRESSION - SCORE: 0-UNK SOCIAL INTERACTION: SOCIAL INTERACTION - SCORE: 0-UNK PROBLEM SOLVING: PROBLEM SOLVING - SCORE: 0-UNK MEMORY: MEMORY - SCORE: 0-UNK SIGNATURE PANEL: The following modified sections: Transfers: Bed, Chair, Wheelchair - Score, Transfers: Toilet - Score , Locomotion: Walk - Score, Locomotion: Wheelchair - Score, Locomotion: Stairs - Score were [kim rosas] signed by Marquis Keene PT on TueOct 05 2018 13:27:31 GMT-0600 (Central Standard Time)
--- NOTE | 2018-10-05 13:34 | FAST ---
ENCOUNTER DATE AND TIME: 10/05/2018 08:00 (EEG TECHNOLOGIST) NAME GABRIEL MEYER DATE OF : 1945 DATE OF ADMISSION: 09/21/2018 19:15 (EEG TECHNOLOGIST) PHONE: AGE: 73 SSN# [id number] GENDER: Male ENCOUNTER PHYSICIAN: Dr. José Freitas M.D. ADMISSION DIAGNOSIS: - Neurologic Conditions 03 - Parkinsonism (03.2) Parkinson's disease (G20). EATING: Activity did not occur on this shift EATING - SCORE: 0-UNK GROOMING: Activity did not occur on this shift GROOMING - SCORE: 0-UNK BATHING: Activity did not occur on this shift BATHING - SCORE: 0-UNK DRESSING - UPPER BODY: Activity did not occur on this shift Patient is not dressing in public clothing ARTICLES SCORE Total number of steps: 0 DRESSING - UPPER BODY - SCORE: 0-UNK DRESSING - LOWER BODY: Activity did not occur on this shift Patient is not dressing in public clothing ARTICLES SCORE Total number of steps: 0 DRESSING - LOWER BODY - SCORE: 0-UNK TOILETING: Activity did not occur on this shift TOILETING - SCORE: 0-UNK BLADDER MANAGEMENT: Activity did not occur on this shift BLADDER MANAGEMENT - SCORE: 7-IND BOWEL MANAGEMENT: Activity did not occur on this shift BOWEL MANAGEMENT - SCORE: 7-IND TRANSFERS: BED, CHAIR, WHEELCHAIR: TRANSFERS: BED, CHAIR, WHEELCHAIR - STEP 1: Does the patient require assistance of a person or device, or need extra time with bed, chair, or whe elchair transfers? Yes. TRANSFERS: BED, CHAIR, WHEELCHAIR - STEP 2: Does the patient require the assistance of a helper? Yes. TRANSFERS: BED, CHAIR, WHEELCHAIR - STEP 3: How much assistance does the patient require from the helper? Steadying/guiding assistance TRANSFERS: BED, CHAIR, WHEELCHAIR - SCORE: 4-MIN TRANSFERS: TOILET: Activity did not occur on this shift TRANSFERS: TOILET - SCORE: 0-UNK TRANSFERS: SHOWER: Activity did not occur on this shift TRANSFERS: SHOWER - SCORE: 0-UNK TRANSFERS: TUB: Activity did not occur on this shift TRANSFERS: TUB - SCORE: 0-UNK LOCOMOTION: WALK: LOCOMOTION: WALK - STEP 1: Does the patient need help from a person or device, or need extra time to walk 150 feet? Yes. LOCOMOTION: WALK - STEP 2: How much assistance does the patient require to walk a minimum of 150 feet? Only incidental help such as contact guarding or steadying LOCOMOTION: WALK - SCORE: 4-MIN LOCOMOTION: WHEELCHAIR: LOCOMOTION: WHEELCHAIR - STEP 1: Does the patient need help to go 150 feet in a wheelchair? Yes. LOCOMOTION: WHEELCHAIR - STEP 2: How much assistance does the patient need from the helper? Only supervision, cuing, or coaxing LOCOMOTION: WHEELCHAIR - SCORE: 5-SUP LOCOMOTION: STAIRS: Activity did not occur on this shift LOCOMOTION: STAIRS - SCORE: 0-UNK COMPREHENSION: COMPREHENSION - SCORE: 0-UNK EXPRESSION EXPRESSION - SCORE: 0-UNK SOCIAL INTERACTION: SOCIAL INTERACTION - SCORE: 0-UNK PROBLEM SOLVING: PROBLEM SOLVING - SCORE: 0-UNK MEMORY: MEMORY - SCORE: 0-UNK SIGNATURE PANEL: The following modified sections: Transfers: Bed, Chair, Wheelchair - Score, Transfers: Toilet - Score , Locomotion: Walk - Score, Locomotion: Wheelchair - Score, Locomotion: Stairs - Score were [kim rosas] signed by Marquis Keene PT on TueOct 05 2018 13:33:08 GMT-0600 (Central Standard Time)
--- NOTE | 2018-10-05 15:58 | FAST ---
ENCOUNTER DATE AND TIME: 10/05/2018 08:00 (REPAIRER) NAME GABRIEL MEYER DATE OF : 1945 DATE OF ADMISSION: 09/21/2018 19:15 (REPAIRER) PHONE: AGE: 73 SSN# [id number] GENDER: Male ENCOUNTER PHYSICIAN: Dr. José Freitas M.D. ADMISSION DIAGNOSIS: - Neurologic Conditions 03 - Parkinsonism (03.2) Parkinson's disease (G20). EATING: Activity did not occur on this shift EATING - SCORE: 0-UNK GROOMING: Comb/brush hair Oral care Wash, rinse, and dry face Wash, rinse, and dry hands GROOMING - STEP 1: Does the patient require the assistance of a person or device, or need extra time when grooming? No. GROOMING - SCORE: 7-IND BATHING: Abdomen Buttocks Chest Left arm Left lower leg and foot Left upper leg Perineal area Right arm Right lower leg and foot Right upper leg BATHING - STEP 1: Does the patient require the assistance of a person or device, or need extra time when bathing? Yes. BATHING - STEP 2: Does the patient require the assistance of a helper? Yes. BATHING - STEP 3: How much assistance does the patient require from the helper? Only incidental help such as placement of a wash cloth in his/her hand a few times as s/he bathes OR help to bathe just one or two areas of the body BATHING - SCORE: 4-MIN DRESSING - UPPER BODY: T-shirt/pullover shirt (four steps) ARTICLES SCORE Total number of steps: 4 DRESSING - UPPER BODY - STEP 1: Does the patient require help from a person or device, or need extra time when dressing above the tarah st? Yes. DRESSING - UPPER BODY - STEP 2: Does the patient require the assistance of a helper? Yes. DRESSING - UPPER BODY - STEP 3: Does the helper touch the patient while dressing? No. DRESSING - UPPER BODY - SCORE: 5-SUP DRESSING - LOWER BODY: Elastic waist pants (three steps) Sock - Left foot (one step) Sock - Right foot (one step) Tied or buckled shoe - Left foot (two steps) Tied or buckled shoe - Right foot (two steps) Underwear (three steps) ARTICLES SCORE Total number of steps: 12 DRESSING - LOWER BODY - STEP 1: Does the patient require help from a person or device, or need extra time when dressing below the tarah st? Yes. DRESSING - LOWER BODY - STEP 2: Does the patient require the assistance of a helper? Yes. DRESSING - LOWER BODY - STEP 3: Does the helper touch the patient while dressing? Yes. DRESSING - LOWER BODY - STEP 4: How many of the total steps does the patient complete on his/her own? 10 DRESSING - LOWER BODY - SCORE: 4-MIN TOILETING: TOILETING - STEP 1: Does the patient require the assistance of a person or device, or need extra time with toileting? Yes . TOILETING - STEP 2: Does the patient require the assistance of a helper? Yes. TOILETING - STEP 3: How much assistance does the patient require from the helper? Only supervision TOILETING - SCORE: 5-SUP BLADDER MANAGEMENT: Activity did not occur on this shift BLADDER MANAGEMENT - SCORE: 7-IND BOWEL MANAGEMENT: Activity did not occur on this shift BOWEL MANAGEMENT - SCORE: 7-IND TRANSFERS: BED, CHAIR, WHEELCHAIR: Activity did not occur on this shift TRANSFERS: BED, CHAIR, WHEELCHAIR - SCORE: 0-UNK TRANSFERS: TOILET: TRANSFERS: TOILET - STEP 1: Does the patient require the assistance of a person or device, or need extra time with toilet transfe rs? Yes. TRANSFERS: TOILET - STEP 2: Does the patient require the assistance of a helper? Yes. TRANSFERS: TOILET - STEP 3: How much assistance does the patient require from the helper? Only supervision, cuing, coaxing, OR he lp to set out transfer equipment or to lock brakes and/or lift foot rests TRANSFERS: TOILET - SCORE: 5-SUP TRANSFERS: SHOWER: Activity did not occur on this shift TRANSFERS: SHOWER - SCORE: 0-UNK TRANSFERS: TUB: TRANSFERS: TUB - STEP 1: Does the patient require the assistance of a person or device, or need extra time with tub transfers? Yes. TRANSFERS: TUB - STEP 2: Does the patient require the assistance of a helper? Yes. TRANSFERS: TUB - STEP 3: How much assistance does the patient require from the helper? Only supervision, cuing, coaxing, or he lp to set out transfer equipment or to lock brakes and/or lift foot rests TRANSFERS: TUB - SCORE: 5-SUP LOCOMOTION: WALK: Activity did not occur on this shift LOCOMOTION: WALK - SCORE: 0-UNK LOCOMOTION: WHEELCHAIR: Activity did not occur on this shift LOCOMOTION: WHEELCHAIR - SCORE: 0-UNK LOCOMOTION: STAIRS: Activity did not occur on this shift LOCOMOTION: STAIRS - SCORE: 0-UNK COMPREHENSION: COMPREHENSION - SCORE: 0-UNK EXPRESSION EXPRESSION - SCORE: 0-UNK SOCIAL INTERACTION: SOCIAL INTERACTION - SCORE: 0-UNK PROBLEM SOLVING: PROBLEM SOLVING - SCORE: 0-UNK MEMORY: MEMORY - SCORE: 0-UNK SIGNATURE PANEL: The following modified sections: Eating - Score, Grooming - Score, Bathing - Score, Dressing - Upper Body - Score, Dressing - Lower Body - Score, Toileting - Score, Transfers: Bed, Chair, Wheelchair - S core, Transfers: Toilet - Score, Transfers: Shower - Score, Transfers: Tub - Score, Comprehension - S core, Expression - Score, Social Interaction - Score, Problem Solving - Score, Memory - Score were [e lectronically] signed by ESTER Shelley on TueOct 05 2018 15:57:03 T-0600 ([place] Time)
--- NOTE | 2018-10-05 16:10 | FAST ---
SHIFT START DATE/TIME: 10/04/2018 07:00 (FIRE ALARM MECHANIC) SHIFT END DATE/TIME: 10/04/2018 19:00 (FIRE ALARM MECHANIC) NAME GABRIEL MEYER DATE OF : 1945 DATE OF ADMISSION: 09/21/2018 19:15 (FIRE ALARM MECHANIC) PHONE: AGE: 73 SSN# [id number] GENDER: Male ENCOUNTER PHYSICIAN: Dr. José Freitas M.D. ADMISSION DIAGNOSIS: - Neurologic Conditions 03 - Parkinsonism (03.2) Parkinson's disease (G20). EATING: EATING - STEP 1: Does the patient require the assistance of a person or device, or need extra time when eating? Yes. EATING - STEP 2: Does the patient require the assistance of a helper? Yes. EATING - STEP 3: Does the patient perform half or more of the eating tasks? Yes. EATING - STEP 4: Does the patient need only supervision, cuing, coaxing OR help to apply an orthosis OR help to cut fo od, open containers, pour liquids, or butter bread? Yes. EATING - SCORE: 5-SUP GROOMING: Comb/brush hair Wash, rinse, and dry face Wash, rinse, and dry hands GROOMING - STEP 1: Does the patient require the assistance of a person or device, or need extra time when grooming? Yes. GROOMING - STEP 2: Does the patient require the assistance of a helper? No. The patient only requires an assistive devic e, OR takes more than reasonable time to groom, OR there is a concern for safety as the patient groom s GROOMING - SCORE: 6-PEYTON BATHING: Activity did not occur on this shift BATHING - SCORE: 0-UNK DRESSING - UPPER BODY: T-shirt/pullover shirt (four steps) ARTICLES SCORE Total number of steps: 4 DRESSING - UPPER BODY - STEP 1: Does the patient require help from a person or device, or need extra time when dressing above the tarah st? Yes. DRESSING - UPPER BODY - STEP 2: Does the patient require the assistance of a helper? Yes. DRESSING - UPPER BODY - STEP 3: Does the helper touch the patient while dressing? Yes. DRESSING - UPPER BODY - STEP 4: How many of the total steps does the patient complete on his/her own? 3 DRESSING - UPPER BODY - SCORE: 4-MIN DRESSING - LOWER BODY: Elastic waist pants (three steps) Slip-on shoe - Left foot (one step) Slip-on shoe - Right foot (one step) Underwear (three steps) ARTICLES SCORE Total number of steps: 8 DRESSING - LOWER BODY - STEP 1: Does the patient require help from a person or device, or need extra time when dressing below the tarah st? Yes. DRESSING - LOWER BODY - STEP 2: Does the patient require the assistance of a helper? Yes. DRESSING - LOWER BODY - STEP 3: Does the helper touch the patient while dressing? Yes. DRESSING - LOWER BODY - STEP 4: How many of the total steps does the patient complete on his/her own? 4 DRESSING - LOWER BODY - SCORE: 3-MOD TOILETING: TOILETING - STEP 1: Does the patient require the assistance of a person or device, or need extra time with toileting? Yes . TOILETING - STEP 2: Does the patient require the assistance of a helper? Yes. TOILETING - STEP 3: How much assistance does the patient require from the helper? Only supervision TOILETING - SCORE: 5-SUP BLADDER MANAGEMENT: BLADDER MANAGEMENT - STEP 1: Does the patient control the bladder completely and intentionally without equipment or devices or med ications, and is always continent? No. BLADDER MANAGEMENT - STEP 2: Does the patient require the assistance of a helper? Yes. BLADDER MANAGEMENT - STEP 3: How much assistance does the patient require from the helper? Only supervision, stand-by, cuing, or c oaxing BLADDER MANAGEMENT - SCORE: 5-SUP BLADDER MANAGEMENT - FREQUENCY OF ACCIDENTS: BLADDER MANAGEMENT(FA) - STEP 1: How many accidents has the patient had during the current shift? 0 BOWEL MANAGEMENT: BOWEL MANAGEMENT - STEP 1: Does the patient control bowels completely and intentionally without equipment devices or medications AND is always continent? No. BOWEL MANAGEMENT - STEP 2: Does the patient require the assistance of a helper? Yes. BOWEL MANAGEMENT - STEP 3: How much assistance does the patient require from the helper? Patient requires supervision, stand by, cueing, coaxing, or setup of equipment - placing within reach of patient and emptying device / bedpa nd or BSC bucket - to maintain either satisfactory bowel pattern or managing an external device such as an absorbent pad, colostomy bag / ileostomy bag BOWEL MANAGEMENT - SCORE: 5-SUP BOWEL MANAGEMENT - FREQUENCY OF ACCIDENTS: BOWEL MANAGEMENT(FA) - STEP 1: How many accidents has the patient had during the current shift? 0 TRANSFERS: BED, CHAIR, WHEELCHAIR: TRANSFERS: BED, CHAIR, WHEELCHAIR - STEP 1: Does the patient require assistance of a person or device, or need extra time with bed, chair, or whe elchair transfers? Yes. TRANSFERS: BED, CHAIR, WHEELCHAIR - STEP 2: Does the patient require the assistance of a helper? Yes. TRANSFERS: BED, CHAIR, WHEELCHAIR - STEP 3: How much assistance does the patient require from the helper? Steadying/guiding assistance TRANSFERS: BED, CHAIR, WHEELCHAIR - SCORE: 4-MIN TRANSFERS: TOILET: TRANSFERS: TOILET - STEP 1: Does the patient require the assistance of a person or device, or need extra time with toilet transfe rs? Yes. TRANSFERS: TOILET - STEP 2: Does the patient require the assistance of a helper? Yes. TRANSFERS: TOILET - STEP 3: How much assistance does the patient require from the helper? Only supervision, cuing, coaxing, OR he lp to set out transfer equipment or to lock brakes and/or lift foot rests TRANSFERS: TOILET - SCORE: 5-SUP TRANSFERS: SHOWER: Activity did not occur on this shift TRANSFERS: SHOWER - SCORE: 0-UNK TRANSFERS: TUB: Activity did not occur on this shift TRANSFERS: TUB - SCORE: 0-UNK LOCOMOTION: WALK: Activity did not occur on this shift LOCOMOTION: WALK - SCORE: 0-UNK LOCOMOTION: WHEELCHAIR: LOCOMOTION: WHEELCHAIR - STEP 1: Does the patient need help to go 150 feet in a wheelchair? Yes. LOCOMOTION: WHEELCHAIR - STEP 2: How much assistance does the patient need from the helper? Only incidental help such as around corner s or over thresholds LOCOMOTION: WHEELCHAIR - SCORE: 4-MIN COMPREHENSION: COMPREHENSION: TYPE: Both COMPREHENSION - STEP 1: Does the patient require help from a person or device, or need extra time to understand complex and a bstract ideas (such as current events, finances, discharge planning, medical issues, relationships, e tc)? Yes. COMPREHENSION - STEP 2: Does the patient require help to understand questions or statements about basic needs or ideas (such as hunger, thirst, sleep, safety, daily schedule, room location, or discomfort) half or more of the t mayra? No. COMPREHENSION - STEP 3: How often does the patient need help to understand directions and conversation about basic needs? 10% - 24% of the time COMPREHENSION - SCORE: 4-MIN EXPRESSION EXPRESSION: TYPE: Both EXPRESSION - STEP 1: Does the patient require help from a person or device, or need extra time expressing complex and abst ract ideas (such as current events, finances, discharge planning, medical issues, relationships, etc) ? Yes. EXPRESSION - STEP 2: Does the patient require help to express basic necessities or ideas (such as hunger, thirst, sleep, s afety, daily schedule, room location, or discomfort) half or more of the time? No. EXPRESSION - STEP 3: How often does the patient need help to express directions and conversation about basic needs? 10-24% of the time EXPRESSION - SCORE: 4-MIN SOCIAL INTERACTION: SOCIAL INTERACTION - STEP 1: Does the patient require a helper to interact with others in social and therapeutic situations? No. SOCIAL INTERACTION - STEP 2: Does the patient need extra time in social situations, OR does s/he interact with staff, other patien ts, and family members ONLY in structured environments, OR does s/he require medication for social in teraction? Yes, patient needs extra time SOCIAL INTERACTION - SCORE: 6-PEYTON PROBLEM SOLVING: PROBLEM SOLVING - STEP 1: Does the patient need help from a person or device, or need extra time to solve complex problems such as managing a checking account or confronting interpersonal problems? Yes. PROBLEM SOLVING - STEP 2: Does the patient solve basic routine problems half or more of the time? Yes. PROBLEM SOLVING - STEP 3: How often does the patient need help to solve basic routine problems? 10%-24% of the time PROBLEM SOLVING - SCORE: 4-MIN MEMORY: MEMORY - STEP 1: Does the patient need help from a person or device, or need extra time to remember frequently encount ered people, daily routines, and executing requests? Yes. MEMORY - STEP 2: How often does the patient need help to remember frequently encountered people, daily routines, and e xecuting requests? 10% - 24% of the time MEMORY - SCORE: 4-MIN SIGNATURE PANEL: The following modified sections: Eating - Score, Grooming - Score, Bathing - Score, Dressing - Upper Body - Score, Dressing - Lower Body - Score, Toileting - Score, Bladder Management - Score, Bowel Man agement - Score, Transfers: Bed, Chair, Wheelchair - Score, Transfers: Toilet - Score, Transfers: Alla wer - Score, Transfers: Tub - Score, Locomotion: Walk - Score, Locomotion: Wheelchair - Score, Compre hension - Score, Expression - Score, Social Interaction - Score, Problem Solving - Score, Memory - Sc ore were [electronically] signed by Fely Pisano C.N.AAlma on TueOct 05 2018 16:09:37 GMT-0600 ([place] Standard Time)
--- NOTE | 2018-10-05 19:19 | R.PN ---
ENCOUNTER DATE AND TIME: 10/05/2018 19:16 (HALF BACKER) NAME GABRIEL MEYER DATE OF : 1945 DATE OF ADMISSION: 09/21/2018 19:15 (HALF BACKER) Parkinson's disease (G20)CHIEF COMPLAINT: Parkinson's disease and debility SUBJECTIVE: Pt denied any depression. Pt denied any Shortness of Breath. Ambulated 1000' with contact guard assistance using a rolling walker. Self-propelled wheelchair 65' w ith contact guard assistance. His CBC with differential is normal. Prealbumin is normal at 21.7. His mood continues to be better today. He slept better last night while on trazadone. VITAL SIGNS Temperature: 97.8 F SBP/DBP: 134/68 Pulse: 60 Resp: 14 MEDICATION ALLERGIES: No Known Drug Allergies (NKDA) ENVIRONMENTAL ALLERGIES: - Substance Allergies None Known - Other Allergies None Known CONSULT: Perform Neuro consult NURSING: - Shower allowing shower ACTIVITIES OOB only with supervision THERAPIES: - Occupational Therapy Evaluate and Treat. - Speech Therapy Memory Strategies. Speech Intelligibility Training. - Physical Therapy Evaluate and Treat. PHYSICAL EXAM - Gen Alert and awake Lying in bed No apparent distress Oriented to: person, time, and place - Skin No breakdown No abnormalities - Eyes No abnormalities - ENMT No abnormalities - Neck No abnormalities - CVS RRR - Chest No abnormalities - Abd +bowel sounds - GI nondistended Deferred - No abnormalities - Ext No significant edema - MSK 3-4+/5 weakness in both lower extremities. - Neuro No focal deficits. - Psych Mild depression. ASSESSMENT: Pt. is a 73 yo Right-handed white male.On 09/18/2018 he was admitted to [facility] with diagnosi s Parkinson's disease (G20).His impairment category is Neurologic Conditions 03 - Parkinsonism (03.2 ).Pre-morbidly, Pt. was independent/mod-I in Transfers Control, Communication, Social Cognition, Self -Care, Sphincter Control, and Locomotion; and he had good Sphincter Control.Currently, he has deficit s of Transfers Control, Communication, Social Cognition, Balance, Endurance, Safety Awareness, Locomo tion, and Self-Care.Pt. is now referred to [facility] for acute in-patient joni abilitation in order to maximize patient's functional independence in activities of daily living, str ength, ROM, and mobility.- Rehab Goal Patient has realistic goal of being discharged at assistance level 6-Rohan to reside at Home with Fam jeffery/Relatives. MDM/PLAN: - Physical Therapy Gait dysfunction - to improve, our physical therapists will perform initial evaluation of pt's statu s upon admission and devise an individualized program for Gait Training, and Wheel Chair mobility Inability to transfer - to improve, our physical therapists will perform initial evaluation of pt's status upon admission and devise an individualized program for Bed mobility Need for home safety evaluation - to improve, our physical therapists will perform initial evaluatio n of pt's status upon admission and devise an individualized program for Home Evaluation Need in caregiver upon discharge - to improve, our physical therapists will perform initial evaluati on of pt's status upon admission and devise an individualized program for Caregiver Training New precaution - to improve, our physical therapists will perform initial evaluation of pt's status upon admission and devise an individualized program for Patient precaution education Edema - to improve, our physical therapists will perform initial evaluation of pt's status upon admi ssion and devise an individualized program for Elevation Training, and Lymphedema Therapy Poor balance - to improve, our physical therapists will perform initial evaluation of pt's status up on admission and devise an individualized program for Balance Training Poor endurance - to improve, our physical therapists will perform initial evaluation of pt's status upon admission and devise an individualized program for Endurance Training Weakness - to improve, our physical therapists will perform initial evaluation of pt's status upon a dmission and devise an individualized program for Aquatic Therapy, Neuromuscular Reeducation, and Str engthening Achieving independence - to improve, our physical therapists will perform initial evaluation of pt's status upon admission and devise an individualized program for Community Reintegration Activities - Occupational Therapy ADL deficits - to improve, our occupation therapists will perform initial evaluation of pt's status upon admission and devise an individualized program for Bathing, Bed mobility, Community Reintegratio n, Cooking, Dressing, Eating, Fine Motor Skills, Grooming, Homemaking, Kitchen Mobility, Laundry, Pat ient Education, Safety Awareness, Splinting - Positioning, Transfers(Toilet, Tub, Shower), and Wheel Chair Management Cognitive deficits - to improve, our occupation therapists will perform initial evaluation of pt's s tatus upon admission and devise an individualized program for Cognition - orientation Need for home care liaison - to improve, our occupation therapists will perform initial evaluation of pt's status upon admission and devise an individualized program for Caregiver Training Weakness - to improve, our occupation therapists will perform initial evaluation of pt's status upon admission and devise an individualized program for Aquatic Therapy, Balance, Endurance, UE ROM, and UE strengthening - Diet Type Continue Regular - Diet - Liquid Texture Continue Regular - Tube Feed Continue N/A - N/A Perform Neuro consult - Diet - Solid Texture Continue Regular - Shower allowing shower FUNCTIONAL STATUS: UPDATED AT WEEKLY TEAM CONFERENCE - Bladder Same accident frequency: 7-Ind - No accidents in the past 7 days - Bowel Same accident frequency: 7-Ind - No accidents in the past 7 days - Walking Same score based on distance walked: 0(N/A) FUNCTIONAL STATUS: - Self-Care A. Eating Ind B. Grooming modA C. Bathing modA D. Dressing - Upper modA E. Dressing - Lower maxA F. Toileting maxA - Sphincter Control G: Bladder control Rohan H: Bowel control Rohan - Transfers Control I. Bed/Chair/Wheelchair maxA J. Toilet maxA K. Tub/Shower maxA - Locomotion L. Walk/Wheelchair (B) maxA M. Stairs ADNO - Communication N. Comprehension (B) Silviano O. Expression (B) Silviano - Social Cognition P. Social Interaction Silviano Q. Problem Solving Silviano R. Memory modA - Endurance Poor - Balance Poor - Safety Awareness Poor CURRENT FUNC. DEFICITS: Transfers Control, Communication, Social Cognition, Balance, Endurance, Safety Awareness, Locomotion, and Self-Care SIGNATURE PANEL: (HALF BACKER)
[2018-10-05] MEDS: ARIPiprazole 2 MG TAB PO SCH (20:13)
[2018-10-05] MEDS: ATORVASTATIN 40 MG TAB PO SCH (20:14)
[2018-10-05] MEDS: TRAZODONE 50 MG TABLET PO SCH (20:15)
[2018-10-05] MEDS: LORAZEPAM 0.5 MG TABLET PO PRN (23:42)
--- NOTE | 2018-10-06 01:22 | FAST ---
SHIFT START DATE/TIME: 10/05/2018 19:00 (MIRROR PAINTER) SHIFT END DATE/TIME: 10/06/2018 07:00 (MIRROR PAINTER) NAME GABRIEL MEYER DATE OF : 1945 DATE OF ADMISSION: 09/21/2018 19:15 (MIRROR PAINTER) PHONE: AGE: 73 SSN# [id number] GENDER: Male ENCOUNTER PHYSICIAN: Dr. José Freitas M.D. ADMISSION DIAGNOSIS: - Neurologic Conditions 03 - Parkinsonism (03.2) Parkinson's disease (G20). EATING: Activity did not occur on this shift EATING - SCORE: 0-UNK GROOMING: Oral care Wash, rinse, and dry hands GROOMING - STEP 1: Does the patient require the assistance of a person or device, or need extra time when grooming? Yes. GROOMING - STEP 2: Does the patient require the assistance of a helper? Yes. GROOMING - STEP 3: How much assistance does the patient require from the helper? Only prior equipment preparation/set up from the helper GROOMING - SCORE: 5-SUP BATHING: Activity did not occur on this shift BATHING - SCORE: 0-UNK DRESSING - UPPER BODY: Patient is not dressing in public clothing ARTICLES SCORE Total number of steps: 0 DRESSING - UPPER BODY - SCORE: 0-UNK DRESSING - LOWER BODY: Patient is not dressing in public clothing ARTICLES SCORE Total number of steps: 0 DRESSING - LOWER BODY - SCORE: 0-UNK TOILETING: TOILETING - STEP 1: Does the patient require the assistance of a person or device, or need extra time with toileting? Yes . TOILETING - STEP 2: Does the patient require the assistance of a helper? Yes. TOILETING - STEP 3: How much assistance does the patient require from the helper? Hands-on assistance from the helper TOILETING - STEP 4: Of the 3 tasks: 1) Adjusting clothing prior to use, 2) Cleansing of perineal area, 3) Adjusting clot baldo after use; How many tasks does the patient perform WITHOUT assistance of the helper? No tasks; h zaki performs all three tasks TOILETING - SCORE: 1-DEP BLADDER MANAGEMENT: BLADDER MANAGEMENT - STEP 1: Does the patient control the bladder completely and intentionally without equipment or devices or med ications, and is always continent? No. BLADDER MANAGEMENT - STEP 2: Does the patient require the assistance of a helper? Yes. BLADDER MANAGEMENT - STEP 3: How much assistance does the patient require from the helper? Patient requires contact assistance fro m the helper BLADDER MANAGEMENT - STEP 4: How much contact assistance does the patient require from the helper? Patient requires minimal assist ance to maintain an external device - by positioning, and the patient performs 75% or more of bladder management tasks, while the helper provides less than 25% of the assistance to position patient on / off bedpan BLADDER MANAGEMENT - SCORE: 4-MIN BOWEL MANAGEMENT: Activity did not occur on this shift BOWEL MANAGEMENT - SCORE: 7-IND TRANSFERS: BED, CHAIR, WHEELCHAIR: TRANSFERS: BED, CHAIR, WHEELCHAIR - STEP 1: Does the patient require assistance of a person or device, or need extra time with bed, chair, or whe elchair transfers? Yes. TRANSFERS: BED, CHAIR, WHEELCHAIR - STEP 2: Does the patient require the assistance of a helper? Yes. TRANSFERS: BED, CHAIR, WHEELCHAIR - STEP 3: How much assistance does the patient require from the helper? Lifting of the legs TRANSFERS: BED, CHAIR, WHEELCHAIR - STEP 4: How many legs does the patient require the helper to lift? both legs TRANSFERS: BED, CHAIR, WHEELCHAIR - SCORE: 3-MOD TRANSFERS: TOILET: Activity did not occur on this shift TRANSFERS: TOILET - SCORE: 0-UNK TRANSFERS: SHOWER: Activity did not occur on this shift TRANSFERS: SHOWER - SCORE: 0-UNK TRANSFERS: TUB: Activity did not occur on this shift TRANSFERS: TUB - SCORE: 0-UNK LOCOMOTION: WALK: Activity did not occur on this shift LOCOMOTION: WALK - SCORE: 0-UNK LOCOMOTION: WHEELCHAIR: Activity did not occur on this shift LOCOMOTION: WHEELCHAIR - SCORE: 0-UNK COMPREHENSION: COMPREHENSION: TYPE: Both COMPREHENSION - STEP 1: Does the patient require help from a person or device, or need extra time to understand complex and a bstract ideas (such as current events, finances, discharge planning, medical issues, relationships, e tc)? Yes. COMPREHENSION - STEP 2: Does the patient require help to understand questions or statements about basic needs or ideas (such as hunger, thirst, sleep, safety, daily schedule, room location, or discomfort) half or more of the t mayra? No. COMPREHENSION - STEP 3: How often does the patient need help to understand directions and conversation about basic needs? 25% - 49% of the time COMPREHENSION - SCORE: 3-MOD EXPRESSION EXPRESSION: TYPE: Both EXPRESSION - STEP 1: Does the patient require help from a person or device, or need extra time expressing complex and abst ract ideas (such as current events, finances, discharge planning, medical issues, relationships, etc) ? Yes. EXPRESSION - STEP 2: Does the patient require help to express basic necessities or ideas (such as hunger, thirst, sleep, s afety, daily schedule, room location, or discomfort) half or more of the time? No. EXPRESSION - STEP 3: How often does the patient need help to express directions and conversation about basic needs? 25-49% of the time EXPRESSION - SCORE: 3-MOD SOCIAL INTERACTION: SOCIAL INTERACTION - STEP 1: Does the patient require a helper to interact with others in social and therapeutic situations? No. SOCIAL INTERACTION - STEP 2: Does the patient need extra time in social situations, OR does s/he interact with staff, other patien ts, and family members ONLY in structured environments, OR does s/he require medication for social in teraction? Yes, patient needs extra time SOCIAL INTERACTION - SCORE: 6-PEYTON PROBLEM SOLVING: PROBLEM SOLVING - STEP 1: Does the patient need help from a person or device, or need extra time to solve complex problems such as managing a checking account or confronting interpersonal problems? Yes. PROBLEM SOLVING - STEP 2: Does the patient solve basic routine problems half or more of the time? Yes. PROBLEM SOLVING - STEP 3: How often does the patient need help to solve basic routine problems? 25%-49% of the time PROBLEM SOLVING - SCORE: 3-MOD MEMORY: MEMORY - STEP 1: Does the patient need help from a person or device, or need extra time to remember frequently encount ered people, daily routines, and executing requests? No. MEMORY - STEP 2: Does the patient have slight difficulty recognizing frequently encountered people, daily routines, or executing requests without the need for repetition or using self-initiated or environmental cues to remember? Yes. MEMORY - SCORE: 6-PEYTON SIGNATURE PANEL: The following modified sections: Eating - Score, Grooming - Score, Dressing - Upper Body - Score, Hero ssing - Lower Body - Score, Toileting - Score, Bladder Management - Score, Bowel Management - Score, Transfers: Bed, Chair, Wheelchair - Score, Transfers: Toilet - Score, Transfers: Shower - Score, [place] sfers: Tub - Score, Locomotion: Walk - Score, Locomotion: Wheelchair - Score, Comprehension - Score, Expression - Score, Social Interaction - Score, Problem Solving - Score, Memory - Score were [electro nically] signed by Jing Lopez CNA on TueOct 06 2018 01:22:06 GMT-0600 (Central Standard Time)
[2018-10-06] MEDS: PANTOPRAZOLE 40MG TABLET PO SCH (05:22)
[2018-10-06] MEDS: POLYETHYL GLY 3350 17 GM/DOSE PO SCH (07:31)
[2018-10-06] MEDS: DEXTROMETHORPHAN PO SCH (07:32)
[2018-10-06] MEDS: GUAIFENESIN PO SCH (07:32)
[2018-10-06] MEDS: CARBIDOPA/LEVODOPA 25/250 TAB PO SCH ×2 (07:34→13:02)
[2018-10-06] MEDS: lamoTRIgine 100 MG TAB PO SCH (07:34)
[2018-10-06] MEDS: MULTIVITAMIN TAB PO SCH (07:34)
[2018-10-06] MEDS: APIXABAN 5 MG TABLET PO SCH (07:34)
[2018-10-06] MEDS: MAGNESIUM OXIDE 400 MG TAB PO SCH (07:34)
[2018-10-06] MEDS: GABAPENTIN 300 MG CAP PO SCH ×2 (07:34→13:02)
[2018-10-06] MEDS: DUTASTERIDE 0.5 MG GEL CAP PO SCH (07:34)
[2018-10-06] MEDS: CARVEDILOL 6.25 MG TAB PO SCH (07:34)
[2018-10-06] MEDS: SPIRONOLACTONE 25 MG TABLET PO SCH (07:36)
[2018-10-06] MEDS: FUROSEMIDE 20 MG TABLET PO SCH (07:36)
--- NOTE | 2018-10-06 13:58 | P.RH.PN ---
Estimated Length of Stay: 16 Expected Discharge Date: 10/06/18 Discharge Disposition Plan: Home Family Support: Yes Retirement Goal: Mobility, Transfers, Self Care Vital Signs: Last Vital Signs Temp 97.5 F 10/06/18 07:20 Pulse 66 10/06/18 07:34 Resp 18 10/06/18 07:20 BP 135/64 10/06/18 07:34 Pulse Ox 97 10/06/18 07:20 Laboratory: Laboratory Last Values WBC 7.3 K/uL (4.3-10.9) 10/05/18 05:50 RBC 4.73 M/uL (4.33-5.43) 10/05/18 05:50 Hgb 13.8 g/dL (13.6-17.9) 10/05/18 05:50 Hct 41.6 % (39.6-49.0) 10/05/18 05:50 MCV 88.0 fL (80-100) 10/05/18 05:50 MCH 29.3 pg (27.0-35.0) 10/05/18 05:50 MCHC 33.3 g/dL (32.0-36.0) 10/05/18 05:50 RDW 14.0 % (12.1-15.2) 10/05/18 05:50 Plt Count 149 K/uL (152-406) L 10/05/18 05:50 MPV 8.6 fL (7.6-11.3) 10/05/18 05:50 Neutrophils % 59.3 % (41.7-73.7) 10/05/18 05:50 Lymphocytes % 21.7 % (15.3-44.8) 10/05/18 05:50 Monocytes % 7.7 % (3.3-12.3) 10/05/18 05:50 Eosinophils % 10.6 % (0-4.4) H 10/05/18 05:50 Basophils % 0.7 % (0-1.3) 10/05/18 05:50 Absolute Neutrophils 4.3 K/uL (1.8-8.0) 10/05/18 05:50 Absolute Lymphocytes 1.6 K/uL (0.7-4.9) 10/05/18 05:50 Absolute Monocytes 0.6 K/uL (0.1-1.3) 10/05/18 05:50 Absolute Eosinophils 0.8 K/uL (0-0.5) H 10/05/18 05:50 Absolute Basophils 0.1 K/uL (0-0.5) 10/05/18 05:50 Sodium 144 mmol/L (136-145) 10/05/18 05:50 Potassium 3.8 mmol/L (3.5-5.1) 10/05/18 05:50 Chloride 109 mmol/L (98-107) H 10/05/18 05:50 Carbon Dioxide 29 mmol/L (21-32) 10/05/18 05:50 BUN 17 mg/dL (7-18) 10/05/18 05:50 Creatinine 1.03 mg/dL (0.55-1.3) 10/05/18 05:50 Estimated GFR 71 mL/min (=/>90) L 10/05/18 05:50 Glucose 98 mg/dL (74-106) 10/05/18 05:50 Calcium 8.6 mg/dL (8.5-10.1) 10/05/18 05:50 Magnesium 2.4 mg/dL (1.8-2.4) 09/22/18 06:31 Albumin 3.2 g/dL (3.4-5.0) L 10/05/18 05:50 Prealbumin 21.7 mg/dL (20-40) 10/05/18 05:50 Urine Color Yellow 09/21/18 22:00 Urine Appearance Clear 09/21/18 22:00 Urine pH 5.5 (5.0-7.0) 09/21/18 22:00 Ur Specific Hunker 1.020 (1.005-1.030) 09/21/18 22:00 Urine Ketones Negative (NEG) 09/21/18 22:00 Urine Blood Negative (NEG) 09/21/18 22:00 Urine Nitrite Negative (NEG) 09/21/18 22:00 Urine Bilirubin Negative (NEG) 09/21/18 22:00 Urine Urobilinogen 0.2 mg/dL (0.2-1.0) 09/21/18 22:00 Ur Leukocyte Esterase Negative (NEG) 09/21/18 22:00 Urine RBC None seen /HPF (NONE SEEN) 09/21/18 22:00 Urine WBC <5 /HPF (<5) 09/21/18 22:00 Ur Squamous Epith Cells <5 /HPF (NONE SEEN) 09/21/18 22:00 Urine Bacteria <20 /HPF (NONE SEEN) 09/21/18 22:00 Urine Mucus 4+ /HPF (NONE SEEN) H 09/21/18 22:00 Urine Culture Reflexed Not needed 09/21/18 22:00 Urine Glucose Negative (NEG) 09/21/18 22:00 Urine Total Protein Negative (NEG) 09/21/18 22:00 Weight: 232 lb 8 oz Wound Present: No Closed Surgical Incision Present: No Negative Pressure Wound Therapy Present: No Physician Update: His labs have been reviewed and are normal. He is doing well with physical and occupational therapy and will be discharged with home health today. Medical Issues: DVT Prophylaxis - Eliquis 5mg BID Functional Improvement: pt has demonstrated improvement with functional mobility. pt does require the need for gaurding and proper verbal cues for ambulation and functional transfers. pt's has been effectively educated on proper techniques and has demonstrated ability to perform these techniques to ensure pt safety. Functional Improvement Occupational Therapy: Pt can benifit with further therapy to address pt's UB strength/ROM for adl tasks. cont to educate and train pt on using the outboard motors experimental mechanic to assist for LB dressing tasks. cont to instruct on static standing balance while managing clothing mgmt and v/c's for safety while completing toileting and clothing. Speech Therapy Update: Patient has made significant progress on all his goals since the initial evaluation. He has been consistently motivated and cooperative during all treatment sessions and practices trained strategies as well as completes homework assigment in between sessions. Patient is at SUPV for auditory comprehension and verbal expression, MOD I for social interaction, MIN A for problem solving and MIN A for memory. Summary: Patient's care plan and manager intermediate goals have been reviewed and revised as necessary. Please see the Rehabilitation Signature page for all necessary signatures.
--- NOTE | 2018-10-10 11:03 | FAST ---
ENCOUNTER DATE AND TIME: 10/06/2018 08:00 (RN BIRTHING) NAME GABRIEL MEYER DATE OF : 1945 DATE OF ADMISSION: 09/21/2018 19:15 (RN BIRTHING) PHONE: AGE: 73 SSN# [id number] GENDER: Male ENCOUNTER PHYSICIAN: Dr. José Freitas M.D. ADMISSION DIAGNOSIS: - Neurologic Conditions 03 - Parkinsonism (03.2) Parkinson's disease (G20). EATING: Activity did not occur on this shift EATING - SCORE: 0-UNK GROOMING: Activity did not occur on this shift GROOMING - SCORE: 0-UNK BATHING: Activity did not occur on this shift BATHING - SCORE: 0-UNK DRESSING - UPPER BODY: Activity did not occur on this shift Patient is not dressing in public clothing ARTICLES SCORE Total number of steps: 0 DRESSING - UPPER BODY - SCORE: 0-UNK DRESSING - LOWER BODY: Activity did not occur on this shift Patient is not dressing in public clothing ARTICLES SCORE Total number of steps: 0 DRESSING - LOWER BODY - SCORE: 0-UNK TOILETING: Activity did not occur on this shift TOILETING - SCORE: 0-UNK BLADDER MANAGEMENT: Activity did not occur on this shift BLADDER MANAGEMENT - SCORE: 7-IND BOWEL MANAGEMENT: Activity did not occur on this shift BOWEL MANAGEMENT - SCORE: 7-IND TRANSFERS: BED, CHAIR, WHEELCHAIR: TRANSFERS: BED, CHAIR, WHEELCHAIR - STEP 1: Does the patient require assistance of a person or device, or need extra time with bed, chair, or whe elchair transfers? Yes. TRANSFERS: BED, CHAIR, WHEELCHAIR - STEP 2: Does the patient require the assistance of a helper? Yes. TRANSFERS: BED, CHAIR, WHEELCHAIR - STEP 3: How much assistance does the patient require from the helper? Only supervision TRANSFERS: BED, CHAIR, WHEELCHAIR - SCORE: 5-SUP TRANSFERS: TOILET: Activity did not occur on this shift TRANSFERS: TOILET - SCORE: 0-UNK TRANSFERS: SHOWER: Activity did not occur on this shift TRANSFERS: SHOWER - SCORE: 0-UNK TRANSFERS: TUB: Activity did not occur on this shift TRANSFERS: TUB - SCORE: 0-UNK LOCOMOTION: WALK: LOCOMOTION: WALK - STEP 1: Does the patient need help from a person or device, or need extra time to walk 150 feet? Yes. LOCOMOTION: WALK - STEP 2: How much assistance does the patient require to walk a minimum of 150 feet? Only supervision, cuing, or coaxing LOCOMOTION: WALK - SCORE: 5-SUP LOCOMOTION: WHEELCHAIR: LOCOMOTION: WHEELCHAIR - STEP 1: Does the patient need help to go 150 feet in a wheelchair? Yes. LOCOMOTION: WHEELCHAIR - STEP 2: How much assistance does the patient need from the helper? Only supervision, cuing, or coaxing LOCOMOTION: WHEELCHAIR - SCORE: 5-SUP LOCOMOTION: STAIRS: LOCOMOTION: STAIRS - STEP 1: Does the patient need help to go up and down 12 to 14 stairs? Yes. LOCOMOTION: STAIRS - STEP 2: How much assistance does the patient need from the helper to go a minimum of 12 to 14 stairs? Only in cidental help such as contact guarding or steadying LOCOMOTION: STAIRS - SCORE: 4-MIN COMPREHENSION: COMPREHENSION - SCORE: 0-UNK EXPRESSION EXPRESSION - SCORE: 0-UNK SOCIAL INTERACTION: SOCIAL INTERACTION - SCORE: 0-UNK PROBLEM SOLVING: PROBLEM SOLVING - SCORE: 0-UNK MEMORY: MEMORY - SCORE: 0-UNK SIGNATURE PANEL: The following modified sections: Transfers: Bed, Chair, Wheelchair - Score, Transfers: Toilet - Score , Locomotion: Walk - Score, Locomotion: Wheelchair - Score, Locomotion: Stairs - Score were [kim rosas] signed by Marquis Keene PT on TueOct 10 2018 11:03:09 GMT-0600 (Central Standard Time)
--- NOTE | 2018-10-10 17:02 | PAPE ---
PATIENT: [facility] MR# [id number] REFERRING DOCTOR Jono Akins EVALUATION DATE AND TIME 09/22/2018 17:10 (AWNINGS MECHANIC) NAME GABRIEL MEYER DATE OF 1945 AGE 73 PHONE SSN# [id number] GENDER male EVALUATING PHYSICIAN Dr. José Freitas M.D. ADMISSION DIAGNOSIS: Parkinson's disease (G20) ONSET DATE 09/18/2018 POST-ADMISSION FUNCTIONAL/MEDICAL STATUS: - Bladder Same accident frequency: Ind - No accidents in the past 7 days - Bowel Same accident frequency: Ind - No accidents in the past 7 days - Walking Same score based on distance walked: 0(N/A) STATUS CHANGE EVALUATION: No change in Functional or Medical Status is identified compared with Pre-Admission screening. PATIENT NEEDS CLOSE MEDICAL SUPERVISION BY A REHABILITATION PHYSICIAN FOR: Bowel and Bladder Management Coordination of Treatment Team PATIENT REQUIRES 24X7 REHAB NURSING FOR MEDICAL AND FUNCTIONAL MGT. OF THE FOLLOWING DEFICITS: ADL's Ambulation Bowel and Bladder Management Cognition Communication Disease Management Medication Management Patient/Family Education Providing Safe Environment Transfers PATIENT REQUIRES INTENSIVE, COORDINATED INTERDISCIPLINARY APPROACH TO REHAB: Arranging Home Equipment/Services Discharge Planning Family Intervention/Training Community Health Program Coordinator/Case Management LIST OF IDENTIFIED AND POTENTIAL PROBLEMS: Alteration in leisure activities Bladder, Incontinence Bowel, Incontinence Infection, Actual or Potential Mobility Impaired Pain, Alteration in Comfort Self Care Deficit Skin Integrity, Actual or Potential Urinary Tract Infection (UTI), Actual or Potential PATIENT COULD BE AT RISK FOR COMPLICATIONS FROM ADVERSE MEDICAL CONDITIONS DUE TO HIS/HER COMORBIDITI ES AND THE RIGORS OF THE INTENSIVE REHABILLITATION PROGRAM. METHODS OR INTERVENTIONS TO AVOID COMPLIC ATIONS INCLUDE: - Infection Clinical staff to assess and manage the signs and symptoms of infection including fever, redness, war mth, etc. - Urinary Tract Infection - Falls Patient will be evaluated for Fall Precautions and will be placed on Fall Precautions as indicated pe r protocol. - Skin Breakdown Nursing will assess skin daily using assessment tool and will place on Skin Breakdown Precautions as indicated per protocol. - Pain Clinical staff may employ non-medication methods such as massage, distraction, decrease stimulus, etc . as needed. Clinical staff will assess patient's pain level every shift per protocol to assess and e nsure pain management effectiveness. Medications will be given and the pain level re-assessed. PRELIMINARY PLAN OF CARE: - Physical Therapy Patient needs Physical Therapy for a daily minimum of 1.5 hours at least 5 out of 7 days, to improve: Mobility, Strengthening, Transfers, Stretching, ROM, Endurance, Ability to manage stairs, Gait, and Balance. - Speech Therapy Patient needs Speech Therapy for a daily minimum of 0.5 hours at least 5 out of 7 days, to improve: S wallowing, Cognition, Language Skills, and Compensatory Strategies. - Rehabilitation Nursing Patient requires 24x7 Rehabilitation Nursing for: Pain Issues, Identifying and preventing risk factor s, Monitoring and reporting current medical conditions, Assisting with ambulation and transfer, Krys ting with all ADL-s, Teaching patients about disease process and medications, Family teaching, Provid ing safe environment, Bowel and Bladder Issues, Skin Integrity, and Medication Management. Patient needs Community Health Program Coordinator and/or Case Management for: Discharge Planning, Arranging Home Equipmen t or Services, and Family Interventions. - Dietary and Nutrition Services Patient needs Dietary and Nutrition Services for: Adequate Nutrition, Nutritional Supplements, and Nu tritional Education. - Occupational Therapy Patient needs Occupational Therapy for a daily minimum of 1.5 hours at least 5 out of 7 days, to impr ove Activities of Daily Living, including: Eating, Grooming, Bathing, Dressing, Toileting, Toilet Tra nsfers, Community Reintegration, Higher functional activities, Adaptive Equipment, Splinting, Househo ld Tasks, and Other activities as determined. POTENTIAL FUNCTIONAL GOALS FOR PATIENT TO ACHIEVE BY DISCHARGE: - Safety Precaution Patient will remain free from falls or injury at time of discharge. - Bed Mobility Patient will perform bed mobility at 4-Silviano level of assistance. - Transfers Patient will complete transfers from bed to chair at 4-Silviano level of assistance. - Mobility Patient will ambulate 150 ft with 4-Silviano level of assistance with RW. PATIENT REHAB POTENTIAL Expected level of measurable improvement will be of a practical value to patient's functional capacit y or adaptations to impairments Has a viable Discharge Plan Medically appropriate; condition is sufficiently stable to participate in intensive rehab program Patient is able and expected to receive 3 hours of individualized therapy daily on at least 5 of ever y 7 days Patient's prognosis for significant practical improvement within a reasonable period of time appears Good DISCHARGE PLAN: - Estimated Length of Stay (days) 13. - Consensus on plan Discharge plan has been discussed with primary caregiver. Patient/Family is in agreement with the rodolfo n. Primary caregiver is in agreement with the plan. - Patient/Family Goals Return home with assistance. CONCLUSION ON REHABILITATION NECESSITY: I have evaluated patient's pre-admission functional status and, comparing it to the patient's post-ad mission functional status now, I conclude that the pre-admission assessment was accurate. Patient's c ondition on admission supports the medical necessity of admission to IRF. It is safe to proceed with patient's therapy program. SIGNATURE PANEL: (AWNINGS MECHANIC)
--- NOTE | 2018-10-10 17:04 | R.DS ---
FACILITY [facility] MR# [id number] NAME GABRIEL MEYER [address]ESS [address] [address] PHONE DATE OF 1945 AGE 73 SSN# [id number] GENDER Male DEXTERITY Right-handed MARITAL STATUS RACE White ENCOUNTER PHYSICIAN Dr. José Freitas M.D. REFERRING DOCTOR Jono Akins REFERRING FACILITY [facility] DISCHARGE DIAGNOSIS: - Neurologic Conditions 03 - Parkinsonism (03.2) Parkinson's disease (G20). DATE OF ADMISSION 09/21/2018 19:15 (MAGICIAN HELPER) MEDICATION ALLERGIES: No Known Drug Allergies (NKDA) ENVIRONMENTAL ALLERGIES: - Substance Allergies None Known - Other Allergies None Known CONSULT: Perform Neuro consult NURSING: - Shower allowing shower ACTIVITIES OOB only with supervision THERAPIES: - Occupational Therapy Evaluate and Treat - Speech Therapy Memory Strategies Speech Intelligibility Training - Physical Therapy Evaluate and Treat HISTORY OF PRESENT ILLNESS: Pt. is a 73 yo Right-handed white male.On 09/18/2018 he was admitted to [facility] with diagnosi s Parkinson's disease (G20).His impairment category is Neurologic Conditions 03 - Parkinsonism (03.2 ).Pre-morbidly, Pt. was independent/mod-I in Self-Care and Sphincter Control; and he had good Sphinct er Control.Currently, he has deficits of Transfers Control, Communication, Social Cognition, Balance, Endurance, Safety Awareness, Locomotion, and Self-Care.Pt. is now referred to [facility] for acute in-patient rehabilitation in order to maximize patient's functional independenc e in activities of daily living, strength, ROM, and mobility.- Rehab Goal Patient has realistic goal of being discharged at assistance level 6-Rohan to reside at Home with Fam jeffery/Relatives. HOSPITAL COURSE: DIET - LIQUID TEXTURE: On 09/21/2018 Pt was upgraded to Regular Diet - Liquid Texture. DIET - SOLID TEXTURE: On 09/21/2018 Pt was upgraded to Regular Diet - Solid Texture. DIET TYPE: On 09/21/2018 Pt was upgraded to Regular Diet Type. TUBE FEED: On 09/21/2018 Pt was changed to N/A Tube Feed. DISCHARGE PHYSICAL EXAM - Gen Alert and awake Lying in bed No apparent distress Oriented to: person, time, and place - Skin No breakdown No abnormalities - Eyes No abnormalities - ENMT No abnormalities - Neck No abnormalities - CVS RRR - Chest No abnormalities - Abd +bowel sounds - GI nondistended Deferred - No abnormalities - Ext No significant edema - MSK 3-4+/5 weakness in both lower extremities. - Neuro No focal deficits. - Psych Mild depression. FUNCTIONAL STATUS: - Self-Care A. Eating 6-Rohan 6-Rohan B. Grooming 3-modA 7-Ind C. Bathing 3-modA 4-Silviano D. Dressing - Upper 3-modA 5-sup E. Dressing - Lower 2-maxA 4-Silviano F. Toileting 2-maxA 4-Silviano - Sphincter Control G: Bladder control 6-Rohan 6-Rohan H: Bowel control 6-Rohan 6-Rohan - Transfers Control I. Bed/Chair/Wheelchair 2-maxA 5-sup J. Toilet 2-maxA 5-sup K. Tub/Shower 2-maxA 5-sup - Locomotion L. Walk/Wheelchair (B) 2-maxA 5-sup M. Stairs 0-ADNO 4-Silviano - Communication N. Comprehension (B) 4-Silviano 4-Silviano O. Expression (B) 4-Silviano 4-Silviano - Social Cognition P. Social Interaction 4-Silviano 4-Silviano Q. Problem Solving 4-Silviano 4-Silviano R. Memory 3-modA 3-modA - Endurance Poor - Balance Poor - Safety Awareness Poor DISCHARGE INSTRUCTIONS: - N/A Eliquis 5 mg twice daily. DISCHARGE PLAN, FOLLOW UP CARE PROVISIONS: - Estimated Length of Stay (days) 13. - Consensus on plan Discharge plan has been discussed with primary caregiver. Patient/Family is in agreement with the rodolfo n. Primary caregiver is in agreement with the plan. - Patient/Family Goals Return home with assistance. SIGNATURE PANEL: (MAGICIAN HELPER)
== END 2018-10-06 13:40 | disposition home health service (06) | DRG 57 ==
LOC: 5TH 19:25
PROVIDERS: ADMIT Psychiatry & Neurology Neurology with Special Qualifications in Child Neurology; ATTEND Psychiatry & Neurology Neurology with Special Qualifications in Child Neurology
DX: G20 Parkinson's disease (principal); F32.9 Major depressive disorder, single episode, unspecified
CPT/HCPCS: 36415; 80048; 81001; 82040; 83735; 84134; 85025; 87086; 87088; 92507; 92523; 92526; 92610; 97110; 97112; 97116; 97127; 97150; 97162; 97167; 97530; 97542